=== PATIENT | male | born 1980 | race Caucasian/White ===

== ENCOUNTER 2024-01-16 19:31 | Inpatient (IN) | payer OTHER, SELFPAY ==
--- NOTE | 2024-01-16 18:42 | PM.EVENT ---
Documented by User: Sabina MccollumDaneShabbir, [employer] ANALYST 01/16/24 18:47 Event Note Date of Service: 01/16/24 Event Note: Case review with Dana, [facility] [place] [phone]. 43 yo male, bipolar dx, opiate use d/o, alcohol use d/o, stable epilepsy, admit 01/11 s/p OD Mucinex. Current Section XII. Pt completed phenobarbital detox, CIWA discontinued. By hx pt has malingering. He has been med seeking, asking for benzos seroquel-they have given seroquel 50 mg q 8 prn. Medically he is stable with regime of suboxone, clonidine, folate, MVI, thiamine, Chlorpromazine, Hydroxyzine. For agitation they have used prn Seroquel, for persistant agitation 50 mg Chlorpromazine, for refractory agitation Haldol 5 mg (not used) and Ativan 0.5 mg x 1 dose on 01/14. Time Spent With Patient Time: Total time managing care of this patient today ____ minutes. Documented by User: Deon Baker MD 01/16/24 19:07 Event Note Date of Service: 01/16/24
--- OUTSIDE RECORDS SUMMARY | 2024-01-16 19:34 | XMS_ITS | Continuity of Care Document ---
Author Organization [facility] Address [address] [place] [address] Phone Care Team Providers Care Washer Meat Name Role Phone Pcp-MD Archie Galeana Primary Care Provider Unavailabl e Hospitalist, Model (IS ONLY) Emergency Provider Unavailable MD Krzysztof So Other Provider MD Zeke Perkins Attending Provider DO Lizandro Sandhu Emergency Provider MD Jen Rausch Attending Provider MD Kulwinder Zuniga Other Provider MD Elliot Fulton Other Provider MD Shannan Best Attending Provider [phone] MD Andrea Avelar Emergency Provider [phone] Kaskar, MD Bilal Attending Provider Unavailable MD Neftali Livingston Attending Provider Care Teams Patient Care Team Team Status: Active Member Role Status Dates PcpMD Mariaa Primary Care Provider Active Visit Care Team Team Status: Inactive Member Role Status Dates PcpMD Mariaa Primary Care Provider Active St art: June 16, 2023 End: June 19, 2023 Model (IS ONLY) Hospitalist Emergency Provider Active Start: June 16, 2023 End: June 19, 2023 Jen Kelley MD Admit Provider Active Start: Christiana mbchon 2022 End: June 19, 2023 Krzysztof So MD Other Provider Active Start: D ecember 2022 End: June 19, 2023 Zeke Perkins MD Attending Provider Active Sta rt: June 16, 2023 End: June 19, 2023 Visit Care Team Team Status: Inactive Member Role Status Dates PcpMD Mariaa Primary Care Provider Active St art: June 19, 2023 End: June 20, 2023 Lizandro Sandhu DO Emergency Provider Active St art: June 19, 2023 End: June 20, 2023 Visit Care Team Team Status: Inactive Member Role Status Dates PcpMD Mariaa Primary Care Provider Active St art: June 20, 2023 End: June 25, 2023 Mary Forte MD Admit Provider Active Start : June 20, 2023 End: June 25, 2023 Model (IS ONLY) Hospitalist Emergency Provider Active Start: June 20, 2023 End: June 25, 2023 Jen Rausch MD Attending Provider Active Star t: June 20, 2023 End: June 25, 2023 Kulwinder Zuniga MD Other Provider Active Start: June 20, 2023 End: June 25, 2023 Visit Care Team Team Status: Inactive Member Role Status Dates Md Alicia MD Primary Care Provider Active St art: June 26, 2023 End: June 27, 2023 Model (IS ONLY) Hospitalist Emergency Provider Active Start: June 26, 2023 End: June 27, 2023 Kulwinder Zuniga MD Other Provider Active Start: June 26, 2023 End: June 27, 2023 Mary Forte MD Admit Provider Active Start : June 26, 2023 End: June 27, 2023 Elliot Fulton MD Other Provider Active Start: June 26, 2023 End: June 27, 2023 Shannan Best MD Attending Provider Active Start: June 26, 2023 End: June 27, 2023 Visit Care Team Team Status: Inactive Member Role Status Dates Pcp-None , Primary Care Provider Active St art: June 28, 2023 End: June 28, 2023 Lizandro Sandhu DO Emergency Provider Active St art: June 28, 2023 End: June 28, 2023 Visit Care Team Team Status: Inactive Member Role Status Dates Pcp-None , Primary Care Provider Active St art: June 28, 2023 End: June 29, 2023 Andrea Avelar MD Emergency Provider Active St art: June 28, 2023 End: June 29, 2023 Fabián Tolliver MD Admit Provider, Atte nding Provider Active Start: June 28, 2023 End: June 29, 2023 Cristiano Hendrix MD, PGY Active Start: June End: June 29, 2023 Visit Care Team Team Status: Active Member Role Status Dates Pcp-None MD Primary Care Provider Active St art: July 02, 2023 Tricia Escobar MD Admit Provider Active Start: July 02, 2023 Model (IS ONLY) Hospitalist Emergency Provider Active Start: July 02, 2023 Neftali Livingston MD Attending Provider Active S tart: July 02, 2023 Krzysztof So MD Other Provider Active Start: D ecember 2022 Chief Complaint and Reason for Visit Chief Complaint ALCOHOL WITHDRAWAL S EIZURE UNRESPONSIVE ALTERED MENTAL STATUS SEIZURE Seizure RECURRENT SEIZURES BILATERAL LOWER EXTREMITY PAIN Reason for Visit Seizure disorder Alcohol withdrawal seizure Cocaine use with intoxication, uncomplicated Hypomagnesemia Hyponatremia Seizure disorder Alcohol intoxication Alcohol withdrawal Wernicke encephalopathy Recurrent seizures Alcohol withdrawal Seizure Iron deficiency anemia Recurrent seizures Seizure disorder Alcohol withdrawal Seizure-like activity Leg pain Allergies, Adverse Reactions, Alerts No known allergies Social History Smoking Status Status Start Date End Date Date of Observa tion Unknown if ever smoked Decem parrish 2022 8:16am Observation Status Observation Response Date of Response Living Situation Residential June 17, 2023 8:35am Living Situation Other June 23, 2023 11:35am Is Anyone Dependent on your Care? No June 27, 2023 3:23am Living Situation Homeless June 27, 2023 3:23am Living Situation Homeless June 28, 2023 5:55am Living Situation Homeless June 29, 2023 9:18am Lives With Other June 29, 2 023 8:16am Additional Data Assigned Sex Male Problems Active Problems Medical Problem Onset Date Status Leg pain Active Cocaine abuse Active Alcohol use disorder Active Recurrent seizures Active Seizure disorder Active Iron deficiency anemia Active Bipolar 1 disorder Active Inactive/Resolved Problems Medical Problem Onset Date Status Seizure-like activity Resolved Wernicke encephalopathy Resolved Alcohol withdrawal Resolved Alcohol intoxication Resolved Cocaine use with intoxication, uncomplicated Resolved Hyponatremia Resolved Seizure Resolved Alcohol withdrawal seizure Resol perry Patient left without being seen Resolved Patient left without being seen Resolved Hypomagnesemia Resolved Medications Medication Status Dose Units Route Directions Qty Days St art Date End Date Instructions Quetiapine Disconti nued 25 MG PO ONCE DAILY AT BEDTIME [facility] 2022 12:00am [facility] 2022 9:55am Levetiracetam Disconti nued 500 MG PO TWICE A DAY [facility] 2022 12:00am [facility] er 2022 9:23am Clobetasol Disconti nued 1 APPL TOPICAL DAILY [facility] 9:55am Gabapentin Disconti nued 800 MG PO THREE TIMES A DAY [facility] 2022 12:00am [facility] er 2022 9:55am Meclizine Disconti nued 25 MG PO THREE TIMES A DAY [facility] 2022 12:00am [facility] er 2022 9:45am Azelastine Disconti nued 2 SPRAY intrana sol TWICE A DAY [facility] 2022 12:00am Decemb er 2022 8:37am Escitalopram Oxalate Disconti nued 10 MG PO DAILY [facility] 2022 12:00am [facility] er 2022 9:55am Thiamine Hcl (Vitamin B1) Disconti nued 100 MG PO DAILY [facility] 2022 12:00am Dece[facility] er 2022 8:37am OTC/Good Rx if not covered Levetiracetam Disconti nued 500 MG PO TWICE A DAY 180 90 [facility] r 2022 9:23am [facility] er 2022 9:28am Trazodone Active 50 MG PO ONCE DAILY AT BEDTIME 30 [facility] r 2022 12:00am Thiamine Hcl (Vitamin B1) Active 100 MG PO DAILY [facility] 2022 12:00am Nicotine Active 1 PATCH TRANSDE RM DAILY 20 [facility] r 2022 12:00am Folic Acid Active 1 MG PO DAILY 30 [facility] r 2022 12:00am Risperidone Active 1 MG PO TWICE A DAY 60 [facility] r 2022 12:00am Acetaminophen Active 650 MG PO EVERY 6 HOURS [facility] r 2022 12:00am Levetiracetam Disconti nued 750 MG PO EVERY 12 HOURS 60 [facility] r 2022 12:00am [facility] er 2022 2:26pm Multivitamin With Folic Acid (Thera) 400 mcg Tablet Active 1 TAB PO DAILY 30 [facility] r 2022 12:00am Sennosides (Senna Lax) 8.6 mg Tablet Active 17.2 MG PO ONCE DAILY AT BEDTIME 60 [facility] r 2022 12:00am Omeprazole Active 20 MG PO DAILY 30 [facility] r 2022 12:00am Quetiapine Active 25 MG PO ONCE SOHA Y AT BEDTIME 30 [facility] r 2022 9:55am Sertraline Active 100 MG PO DAILY 30 [facility] r 2022 9:55am Clobetasol Active 1 APPL TOPICAL DAILY [facility] 2022 9:55am Gabapentin Active 800 MG PO THREE MARY ES A DAY 90 [facility] r 2022 9:55am Escitalopram Oxalate Active 10 MG PO DAILY 30 [facility] r 2022 9:55am Levetiracetam Disconti nued 1000 MG PO ONCE DAILY AT BEDTIME [facility] r 2022 12:00am [facility] er 2022 9:51am Levetiracetam Active 1000 MG PO EVERY 12 HOURS 60 [facility] r 2022 12:00am Procedures Procedure Date Performed Status CT head/brain wo contrast June 16, 2023 9: 01am completed EKG ED Electrocardiogram June 16, 2023 9:4 7am completed XR KUB portable June 17, 2023 10:38am comp leted XR chest 1V portable June 17, 2023 10:38am completed MR head/brain wo contrast June 18, 2023 12 :00pm completed CT head/brain wo contrast June 20, 2023 10 :10pm completed EKG ED Electrocardiogram June 20, 2023 10: 10pm completed CT cervical spine wo contrast June 20 10:16pm completed CT head/brain wo contrast June 20, 2023 1: 17am completed EKG ED Electrocardiogram June 20, 2023 1:1 6am completed MR head/brain wo/w contrast June 20, 2023 10:54am completed EKG ED Electrocardiogram June 25, 2023 2:[address] head/brain wo contrast June 25, 2023 2: 11pm completed EKG Electrocardiogram June 28, 2023 5:[address] lumbar spine wo contrast July 01, 2023 10:15pm completed CT head/brain wo contrast July 01, 2023 10 :27pm completed CT angio head stroke July 01, 2023 11:06pm completed CT angio neck stroke July 01, 2023 11:06pm completed MR head/brain wo contrast July 02, 2023 5: 47am active MR lumbar spine wo contrast July 02, 2023 5:47am active EEG Request for service June 28, 2023 2:11 pm active EKG Electrocardiogram June 28, 2023 3:14pm active EEG extended to 1 hour June 28, 2023 12:00 am completed Relevant Diagnostic Tests and/or Laboratory Data Laboratory Results Test Date/Time Result Interpretation Reference Range Result Comment Performing Site Add-On Test Request June 18, 2023 11:40am Added test [facility] [id number] [address] [facility] [id number] Add-On Test Request June 20, 2023 2:42am Unable to add test [facility] [id number] [address] [facility] [id number] Add-On Test Request June 23, 2023 10:14am Added test [facility] [id number] [address] [facility] 23343 White Blood Count June 17, 2023 5:43am 7.9 X10 3/uL 4.5-11.0 [facility] [id number] [address] [place] [address] 50103 White Blood Count June 19, 2023 11:45pm 8.8 X10 3/uL 4.5-11.0 [facility] [id number] [address] [place] [address] 62407 White Blood Count June 22, 2023 8:41am 5.9 X10 3/uL 4.5-11.0 [facility] [id number] [address] [place] [address] 61266 White Blood Count June 26, 2023 7:38am 6.8 X10 3/uL 4.5-11.0 [facility] [id number] [address] [place] [address] 46773 White Blood Count June 28, 2023 6:27am 7.2 X10 3/uL 4.5-11.0 [facility] [id number] [address] [place] [address] 39297 White Blood Count June 29, 2023 7:48am 7.2 X10 3/uL 4.5-11.0 [facility] [id number] [address] [place] [address] 86447 White Blood Count July 02, 2023 12:16am 9.8 X10 3/uL 4.5-11.0 [facility] [id number] [address] [place] [address] 11083 Red Blood Count June 17, 2023 5:43am 4.82 X10 6/uL 4.00-5.50 [facility] [id number] [address] [place] [address] 75958 Red Blood Count June 19, 2023 11:45pm 5.32 X10 6/uL 4.00-5.50 [facility] [id number] [address] [place] [address] 78581 Red Blood Count June 22, 2023 8:41am 5.27 X10 6/uL 4.00-5.50 [facility] [id number] [address] [place] [address] 33013 Red Blood Count June 26, 2023 7:38am 4.45 X10 6/uL 4.00-5.50 [facility] [id number] [address] [place] [address] 00464 Red Blood Count June 28, 2023 6:27am 4.98 X10 6/uL 4.00-5.50 [facility] [id number] [address] [place] [address] 24359 Red Blood Count June 29, 2023 7:48am 4.61 X10 6/uL 4.00-5.50 [facility] [id number] [address] [place] [address] 78422 Red Blood Count July 02, 2023 12:16am 4.69 X10 6/uL 4.00-5.50 [facility] [id number] [address] [place] [address] 79899 Hemoglobin June 17, 2023 5:43am 9.4 g/dl 13.0-17.0 [facility] [id number] [address] [place] [address] 39623 Hemoglobin June 19, 2023 11:45pm 10.3 g/dl 13.0-17.0 [facility] [id number] [address] [place] [address] 20309 Hemoglobin June 22, 2023 8:41am 10.2 g/dl 13.0-17.0 [facility] [id number] [address] [place] [address] 59066 Hemoglobin June 26, 2023 7:38am 8.8 g/dl 13.0-17.0 [facility] [id number] [address] [place] [address] 46174 Hemoglobin June 28, 2023 6:27am 9.8 g/dl 13.0-17.0 [facility] [id number] [address] [place] [address] 99673 Hemoglobin June 29, 2023 7:48am 9.2 g/dl 13.0-17.0 [facility] [id number] [address] [place] [address] 24413 Hemoglobin July 02, 2023 12:16am 9.2 g/dl 13.0-17.0 [facility] [id number] [address] [facility] 63593 Hematocrit June 17, 2023 5:43am 31.8 % 37.5-50.0 [facility] [id number] [address] [facility] 02201 Hematocrit June 19, 2023 11:45pm 35.3 % 37.5-50.0 [facility] [id number] [address] [facility] 33919 Hematocrit June 22, 2023 8:41am 35.3 % 37.5-50.0 [facility] [id number] [address] [place] [address] 67720 Hematocrit June 26, 2023 7:38am 30.3 % 37.5-50.0 [facility] [id number] [address] [place] [address] 34758 Hematocrit June 28, 2023 6:27am 34.0 % 37.5-50.0 [facility] [id number] [address] [place] [address] 11761 Hematocrit June 29, 2023 7:48am 31.9 % 37.5-50.0 [facility] [id number] [address] [place] [address] 35106 Hematocrit July 02, 2023 12:16am 33.2 % 37.5-50.0 [facility] [id number] [address] [place] [address] 02363 Mean Corpuscular Volume June 17, 2023 5:43am 66.0 fl 80.0-100.0 [facility] [id number] [address] [place] [address] 29335 Mean Corpuscular Volume June 19, 2023 11:45pm 66.4 fl 80.0-100.0 [facility] [id number] [address] [place] [address] 39660 Mean Corpuscular Volume June 22, 2023 8:41am 67.0 fl 80.0-100.0 [facility] [id number] [address] [place] [address] 03833 Mean Corpuscular Volume June 26, 2023 7:38am 68.1 fl 80.0-100.0 [facility] [id number] [address] [facility] 07451 Mean Corpuscular Volume June 28, 2023 6:27am 68.3 fl 80.0-100.0 [facility] [id number] [address] [facility] 56963 Mean Corpuscular Volume June 29, 2023 7:48am 69.2 fl 80.0-100.0 [facility] [id number] [address] [place] [address] 19279 Mean Corpuscular Volume July 02, 2023 12:16am 70.8 fl 80.0-100.0 [facility] [id number] [address] [place] [address] 18374 Mean Corpuscular Hemoglobin June 17, 2023 5:43am 19.5 pg 27.0-34.0 [facility] [id number] [address] [facility] 35937 Mean Corpuscular Hemoglobin June 19, 2023 11:45pm 19.4 pg 27.0-34.0 [facility] [id number] [address] [facility] 35302 Mean Corpuscular Hemoglobin June 22, 2023 8:41am 19.4 pg 27.0-34.0 [facility] [id number] [address] [facility] 59256 Mean Corpuscular Hemoglobin June 26, 2023 7:38am 19.8 pg 27.0-34.0 [facility] [id number] [address] [facility] 50912 Mean Corpuscular Hemoglobin June 28, 2023 6:27am 19.7 pg 27.0-34.0 [facility] [id number] [address] [facility] 11630 Mean Corpuscular Hemoglobin June 29, 2023 7:48am 20.0 pg 27.0-34.0 [facility] [id number] [address] [place] [address] 46840 Mean Corpuscular Hemoglobin July 02, 2023 12:16am 19.6 pg 27.0-34.0 [facility] [id number] [address] [facility] 43035 Mean Corpuscular Hemoglobin Concent June 17, 2023 5:43am 29.6 g/dl 31.0-36.0 [facility] [id number] [address] [facility] 96758 Mean Corpuscular Hemoglobin Concent June 19, 2023 11:45pm 29.2 g/dl 31.0-36.0 [facility] [id number] [address] [place] [address] 91970 Mean Corpuscular Hemoglobin Concent June 22, 2023 8:41am 28.9 g/dl 31.0-36.0 [facility] [id number] [address] [place] [address] 26022 Mean Corpuscular Hemoglobin Concent June 26, 2023 7:38am 29.0 g/dl 31.0-36.0 [facility] [id number] [address] [place] [address] 76893 Mean Corpuscular Hemoglobin Concent June 28, 2023 6:27am 28.8 g/dl 31.0-36.0 [facility] [id number] [address] [place] [address] 05448 Mean Corpuscular Hemoglobin Concent June 29, 2023 7:48am 28.8 g/dl 31.0-36.0 [facility] [id number] [address] [place] [address] 58093 Mean Corpuscular Hemoglobin Concent July 02, 2023 12:16am 27.7 g/dl 31.0-36.0 [facility] [id number] [address] [place] [address] 84330 Red Cell Distribution Width June 17, 2023 5:43am 21.3 % 11.5-15.0 [facility] [id number] [address] [place] [address] 95933 Red Cell Distribution Width June 19, 2023 11:45pm 21.1 % 11.5-15.0 [facility] [id number] [address] [place] [address] 51559 Red Cell Distribution Width June 22, 2023 8:41am 21.0 % 11.5-15.0 [facility] [id number] [address] [facility] 61126 Red Cell Distribution Width June 26, 2023 7:38am 19.8 % 11.5-15.0 [facility] [id number] [address] [place] [address] 71068 Red Cell Distribution Width June 28, 2023 6:27am 20.3 % 11.5-15.0 [facility] [id number] [address] [place] [address] 11310 Red Cell Distribution Width June 29, 2023 7:48am 19.7 % 11.5-15.0 [facility] [id number] [address] [place] [address] 44068 Red Cell Distribution Width July 02, 2023 12:16am 19.6 % 11.5-15.0 [facility] [id number] [address] [place] [address] 21357 Platelet Count June 17, 2023 5:43am 334 X10 3/uL 150-400 [facility] [id number] [address] [place] [address] 02698 Platelet Count June 19, 2023 11:45pm 353 X10 3/uL 150-400 [facility] [id number] [address] [place] [address] 97699 Platelet Count June 22, 2023 8:41am 356 X10 3/uL 150-400 [facility] [id number] [address] [place] [address] 77679 Platelet Count June 26, 2023 7:38am 386 X10 3/uL 150-400 [facility] [id number] [address] [place] [address] 75941 Platelet Count June 28, 2023 6:27am 415 X10 3/uL 150-400 [facility] [id number] [address] [place] [address] 02995 Platelet Count June 29, 2023 7:48am 438 X10 3/uL 150-400 [facility] [id number] [address] [place] [address] 48439 Platelet Count July 02, 2023 12:16am 520 X10 3/uL 150-400 [facility] [id number] [address] [place] [address] 44559 Immature Granulocyte % (Auto) June 17, 2023 5:43am 0.1 % [facility] [id number] [address] [place] [address] 94770 Immature Granulocyte % (Auto) June 19, 2023 11:45pm 0.2 % [facility] [id number] [address] [place] [address] 80378 Immature Granulocyte % (Auto) June 22, 2023 8:41am 0.2 % [facility] [id number] [address] [place] [address] 64978 Immature Granulocyte % (Auto) June 26, 2023 7:38am 0.1 % [facility] [id number] [address] [place] [address] 03543 Immature Granulocyte % (Auto) June 28, 2023 6:27am 0.3 % [facility] [id number] [address] [place] [address] 64010 Immature Granulocyte % (Auto) June 29, 2023 7:48am 0.3 % [facility] [id number] [address] [facility] 09849 Immature Granulocyte % (Auto) July 02, 2023 12:16am 0.3 % [facility] [id number] [address] [place] [address] 48549 Neutrophils (%) (Auto) June 17, 2023 5:43am 60.4 % [facility] [id number] [address] [place] [address] 00691 Neutrophils (%) (Auto) June 19, 2023 11:45pm 74.5 % [facility] [id number] [address] [place] [address] 35449 Neutrophils (%) (Auto) June 22, 2023 8:41am 64.7 % [facility] [id number] [address] [place] [address] 64550 Neutrophils (%) (Auto) June 26, 2023 7:38am 66.8 % [facility] [id number] [address] [place] [address] 22221 Neutrophils (%) (Auto) June 28, 2023 6:27am 61.3 % [facility] [id number] [address] [place] [address] 81516 Neutrophils (%) (Auto) June 29, 2023 7:48am 65.8 % [facility] [id number] [address] [facility] 27362 Neutrophils (%) (Auto) July 02, 2023 12:16am 75.4 % [facility] [id number] [address] [place] [address] 67302 Lymphocytes (%) (Auto) June 17, 2023 5:43am 26.2 % [place] [id number] [place] [address] 43607 Lymphocytes (%) (Auto) June 19, 2023 11:45pm 16.9 % [place] [id number] [address] [place] [address] 83836 Lymphocytes (%) (Auto) June 22, 2023 8:41am 20.6 % [facility] [id number] [address] [place] [address] 72425 Lymphocytes (%) (Auto) June 26, 2023 7:38am 21.9 % [place] [id number] [address] [place] [address] 12685 Lymphocytes (%) (Auto) June 28, 2023 6:27am 24.8 % [facility] [id number] [address] [place] [address] 60046 Lymphocytes (%) (Auto) June 29, 2023 7:48am 22.4 % [facility] [id number] [address] [facility] 79006 Lymphocytes (%) (Auto) July 02, 2023 12:16am 13.7 % [facility] [id number] [address] [place] [address] 01015 Monocytes (%) (Auto) June 17, 2023 5:43am 8.6 % [facility] [id number] [address] [place] [address] 15146 Monocytes (%) (Auto) June 19, 2023 11:45pm 6.1 % [place] [id number] [address] [place] [address] 83176 Monocytes (%) (Auto) June 22, 2023 8:41am 9.5 % [facility] [id number] [address] [place] [address] 22077 Monocytes (%) (Auto) June 26, 2023 7:38am 8.7 % [facility] [id number] [address] [place] [address] 67012 Monocytes (%) (Auto) June 28, 2023 6:27am 10.4 % [facility] [id number] [address] [place] [address] 59620 Monocytes (%) (Auto) June 29, 2023 7:48am 7.2 % [facility] [id number] [address] [place] [address] 91700 Monocytes (%) (Auto) July 02, 2023 12:16am 8.0 % [place] [id number] [address] [place] [address] 85544 Eosinophils (%) (Auto) June 17, 2023 5:43am 3.7 % [facility] [id number] [address] [place] [address] 47410 Eosinophils (%) (Auto) June 19, 2023 11:45pm 1.2 % [facility] [id number] [address] [place] [address] 25877 Eosinophils (%) (Auto) June 22, 2023 8:41am 3.6 % [facility] [id number] [address] [place] [address] 92854 Eosinophils (%) (Auto) June 26, 2023 7:38am 1.5 % [facility] [id number] [address] [place] [address] 93920 Eosinophils (%) (Auto) June 28, 2023 6:27am 2.4 % [place] [id number] [address] [place] [address] 06634 Eosinophils (%) (Auto) June 29, 2023 7:48am 3.3 % [facility] [id number] [address] [place] [address] 34275 Eosinophils (%) (Auto) July 02, 2023 12:16am 1.7 % [facility] [id number] [address] [place] [address] 12745 Basophils (%) (Auto) June 17, 2023 5:43am 1.0 % [facility] [id number] [address] [place] [address] 81492 Basophils (%) (Auto) June 19, 2023 11:45pm 1.1 % [facility] [id number] [address] [place] [address] 46426 Basophils (%) (Auto) June 22, 2023 8:41am 1.4 % [facility] [id number] [address] [place] [address] 93757 Basophils (%) (Auto) June 26, 2023 7:38am 1.0 % [facility] [id number] [address] [place] [address] 97159 Basophils (%) (Auto) June 28, 2023 6:27am 0.8 % [facility] [id number] [address] [place] [address] 16682 Basophils (%) (Auto) June 29, 2023 7:48am 1.0 % [facility] [id number] [address] [place] [address] 54463 Basophils (%) (Auto) July 02, 2023 12:16am 0.9 % [facility] [id number] [address] [place], [place] [address] 55564 Immature Granulocyte # (Auto) June 17, 2023 5:43am 0.01 X10 3/uL 0.00-0.09 [facility] [id number] [address] [place] [address] 62677 Immature Granulocyte # (Auto) June 19, 2023 11:45pm 0.02 X10 3/uL 0.00-0.09 [facility] [id number] [address] [place] [address] 72932 Immature Granulocyte # (Auto) June 22, 2023 8:41am 0.01 X10 3/uL 0.00-0.09 [facility] [id number] [address] [place] [address] 67291 Immature Granulocyte # (Auto) June 26, 2023 7:38am 0.01 X10 3/uL 0.00-0.09 [facility] [id number] [address] [place] [address] 65677 Immature Granulocyte # (Auto) June 28, 2023 6:27am 0.02 X10 3/uL 0.00-0.09 [facility] [id number] [address] [place] [address] 67612 Immature Granulocyte # (Auto) June 29, 2023 7:48am 0.02 X10 3/uL 0.00-0.09 [facility] [id number] [address] [place] [address] 34343 Immature Granulocyte # (Auto) July 02, 2023 12:16am 0.03 X10 3/uL 0.00-0.09 [facility] [id number] [address] [place] [address] 46008 Neutrophils # (Auto) June 17, 2023 5:43am 4.8 X10 3/uL 1.5-7.8 [facility] [id number] [address] [place] [address] 82153 Neutrophils # (Auto) June 19, 2023 11:45pm 6.6 X10 3/uL 1.5-7.8 [facility] [id number] [address] [place] [address] 82740 Neutrophils # (Auto) June 22, 2023 8:41am 3.8 X10 3/uL 1.5-7.8 [facility] [id number] [address] [place] [address] 56020 Neutrophils # (Auto) June 26, 2023 7:38am 4.5 X10 3/uL 1.5-7.8 [facility] [id number] [address] [place] [address] 57980 Neutrophils # (Auto) June 28, 2023 6:27am 4.4 X10 3/uL 1.5-7.8 [facility] [id number] [address] [place] [address] 63869 Neutrophils # (Auto) June 29, 2023 7:48am 4.7 X10 3/uL 1.5-7.8 [facility] [id number] [address] [place] [address] 65930 Neutrophils # (Auto) July 02, 2023 12:16am 7.3 X10 3/uL 1.5-7.8 [facility] [id number] [address] [place] [address] 01705 Lymphocytes # (Auto) June 17, 2023 5:43am 2.1 X10 3/uL 1.0-4.8 [facility] [id number] [address] [place] [address] 17946 Lymphocytes # (Auto) June 19, 2023 11:45pm 1.5 X10 3/uL 1.0-4.8 [facility] [id number] [address] [place] [address] 10863 Lymphocytes # (Auto) June 22, 2023 8:41am 1.2 X10 3/uL 1.0-4.8 [facility] [id number] [address] [place] [address] 42255 Lymphocytes # (Auto) June 26, 2023 7:38am 1.5 X10 3/uL 1.0-4.8 [facility] [id number] [address] [place] [address] 64728 Lymphocytes # (Auto) June 28, 2023 6:27am 1.8 X10 3/uL 1.0-4.8 [facility] [id number] [address] [place] [address] 93145 Lymphocytes # (Auto) June 29, 2023 7:48am 1.6 X10 3/uL 1.0-4.8 [facility] [id number] [address] [place] [address] 68038 Lymphocytes # (Auto) July 02, 2023 12:16am 1.3 X10 3/uL 1.0-4.8 [facility] [id number] [address] [place] [address] 37495 Monocytes # (Auto) June 17, 2023 5:43am 0.7 X10 3/uL 0.0-0.8 [facility] [id number] [address] [place] [address] 17690 Monocytes # (Auto) June 19, 2023 11:45pm 0.5 X10 3/uL 0.0-0.8 [facility] [id number] [address] [place] [address] 56914 Monocytes # (Auto) June 22, 2023 8:41am 0.6 X10 3/uL 0.0-0.8 [facility] [id number] [address] [place] [address] 28703 Monocytes # (Auto) June 26, 2023 7:38am 0.6 X10 3/uL 0.0-0.8 [facility] [id number] [address] [place] [address] 51522 Monocytes # (Auto) June 28, 2023 6:27am 0.8 X10 3/uL 0.0-0.8 [facility] [id number] [address] [place] [address] 11386 Monocytes # (Auto) June 29, 2023 7:48am 0.5 X10 3/uL 0.0-0.8 [facility] [id number] [address] [place] [address] 33823 Monocytes # (Auto) July 02, 2023 12:16am 0.8 X10 3/uL 0.0-0.8 [facility] [id number] [address] [place] [address] 64090 Eosinophils # (Auto) June 17, 2023 5:43am 0.3 X10 3/uL 0.0-0.5 [facility] [id number] [address] [place] [address] 09441 Eosinophils # (Auto) June 19, 2023 11:45pm 0.1 X10 3/uL 0.0-0.5 [facility] [id number] [address] [place] [address] 01001 Eosinophils # (Auto) June 22, 2023 8:41am 0.2 X10 3/uL 0.0-0.5 [facility] [id number] [address] [place] [address] 73563 Eosinophils # (Auto) June 26, 2023 7:38am 0.1 X10 3/uL 0.0-0.5 [facility] [id number] [address] [place] [address] 20686 Eosinophils # (Auto) June 28, 2023 6:27am 0.2 X10 3/uL 0.0-0.5 [facility] [id number] [address] [place] [address] 34664 Eosinophils # (Auto) June 29, 2023 7:48am 0.2 X10 3/uL 0.0-0.5 [facility] [id number] [address] [place] [address] 63319 Eosinophils # (Auto) July 02, 2023 12:16am 0.2 X10 3/uL 0.0-0.5 [facility] [id number] [place] [address] 37224 Basophils # (Auto) June 17, 2023 5:43am 0.1 X10 3/uL 0.0-0.2 [facility] [id number] [address] [place] [address] 89450 Basophils # (Auto) June 19, 2023 11:45pm 0.1 X10 3/uL 0.0-0.2 [facility] [id number] [address] [place] [address] 60873 Basophils # (Auto) June 22, 2023 8:41am 0.1 X10 3/uL 0.0-0.2 [facility] [id number] [address] [place] [address] 43014 Basophils # (Auto) June 26, 2023 7:38am 0.1 X10 3/uL 0.0-0.2 [facility] [id number] [address] [place] [address] 88673 Basophils # (Auto) June 28, 2023 6:27am 0.1 X10 3/uL 0.0-0.2 [facility] [id number] [address] [place] [address] 55381 Basophils # (Auto) June 29, 2023 7:48am 0.1 X10 3/uL 0.0-0.2 [facility] [id number] [address] [place] [address] 67118 Basophils # (Auto) July 02, 2023 12:16am 0.1 X10 3/uL 0.0-0.2 [facility] [id number] [address] [facility] 58733 Nucleated Red Blood Cells % June 17, 2023 5:43am 0.0 /100 WBC 0.0-0.0 [facility] [id number] [address] [facility] 35554 Nucleated Red Blood Cells % June 19, 2023 11:45pm 0.0 /100 WBC 0.0-0.0 [facility] [id number] [address] [place] [address] 66899 Nucleated Red Blood Cells % June 22, 2023 8:41am 0.0 /100 WBC 0.0-0.0 [facility] [id number] [address] [place] [address] 10413 Nucleated Red Blood Cells % June 26, 2023 7:38am 0.0 /100 WBC 0.0-0.0 [facility] [id number] [address] [place] [address] 73719 Nucleated Red Blood Cells % June 28, 2023 6:27am 0.0 /100 WBC 0.0-0.0 [facility] [id number] [address] [place] [address] 31265 Nucleated Red Blood Cells % June 29, 2023 7:48am 0.0 /100 WBC 0.0-0.0 [facility] [id number] 6 [facility] 33657 Nucleated Red Blood Cells % July 02, 2023 12:16am 0.0 /100 WBC 0.0-0.0 [facility] [id number] [address] [place] [address] 46425 Prothrombin Time June 28, 2023 6:27am 10.8 Seconds 9.3-12.1 [facility] [id number] [address] [place] [address] 56774 Prothrombin Time July 02, 2023 12:16am 11.4 Seconds 9.3-12.1 [facility] [id number] [address] [place] [address] 98378 Prothromb Time International Ratio June 28, 2023 6:27am 1.0 0.9-1.2 Reference Interval is for non-anticoagulat ed patients.Suggest ed INR Therapeutic Range for Vitamin K antogonist therapy:LEVELS OF THERAPY INDICATIONS TARGET INR RANGEStandard Dose Venous Thrombosis, 2.0 - 3.0 Atrial Fibrillation, Pulmonary Embolism. High Dose Valvular Heart Disease, 2.5 - 3.5 Mechanical Heart, Intracardiac Thrombosis. [facility] [id number] [address] [place] [address] 42800 Prothromb Time International Ratio July 02, 2023 12:16am 1.1 0.9-1.2 Reference Interval is for non-anticoagulat ed patients.Suggest ed INR Therapeutic Range for Vitamin K antogonist therapy:LEVELS OF THERAPY INDICATIONS TARGET INR RANGEStandard Dose Venous Thrombosis, 2.0 - 3.0 Atrial Fibrillation, Pulmonary Embolism. High Dose Valvular Heart Disease, 2.5 - 3.5 Mechanical Heart, Intracardiac Thrombosis. [facility] [id number] [address] [place] [address] 49870 Sodium Level June 19, 2023 6:49am 142 mmol/L 137-146 [facility] [id number] [address] [place] [address] 40976 Sodium Level June 19, 2023 11:45pm 135 mmol/L 137-146 [facility] [id number] [address] [place] [address] 92248 Sodium Level June 23, 2023 6:12am 138 mmol/L 137-146 [facility] [id number] [address] [place] [address] 82490 Sodium Level June 27, 2023 11:35am 139 mmol/L 137-146 [facility] [id number] [address] [place] [address] 41830 Sodium Level June 28, 2023 6:27am 142 mmol/L 137-146 [facility] [id number] [address] [place] [address] 60830 Sodium Level June 29, 2023 7:48am 141 mmol/L 137-146 [facility] [id number] [address] [facility] 80783 Sodium Level July 02, 2023 12:16am 135 mmol/L 137-146 [facility] [id number] [address] [place] [address] 57613 Potassium Level June 19, 2023 6:49am 3.9 mmol/L 3.5-5.3 [facility] [id number] [address] [facility] 51001 Potassium Level June 19, 2023 11:45pm 4.1 mmol/L 3.5-5.3 [facility] [id number] [address] [place] [address] 83548 Potassium Level June 23, 2023 6:12am 3.9 mmol/L 3.5-5.3 [facility] [id number] [address] [place] [address] 11831 Potassium Level June 27, 2023 11:35am 4.5 mmol/L 3.5-5.3 [facility] [id number] [address] [place] [address] 31733 Potassium Level June 28, 2023 6:27am 4.8 mmol/L 3.5-5.3 Specimen hemolyzed, results affected [facility] [id number] [address] [place] [address] 08635 Potassium Level June 29, 2023 7:48am 4.1 mmol/L 3.5-5.3 [facility] [id number] [address] [facility] 38804 Potassium Level July 02, 2023 12:16am 3.6 mmol/L 3.5-5.3 [facility] [id number] [address] [place] [address] 18358 Chloride Level June 19, 2023 6:49am 104 mmol/L 98-107 [facility] [id number] [address] [place] [address] 64941 Chloride Level June 19, 2023 11:45pm 97 mmol/L 98-107 [facility] [id number] [address] [place] [address] 79713 Chloride Level June 23, 2023 6:12am 101 mmol/L 98-107 [facility] [id number] [address] [place] [address] 38094 Chloride Level June 27, 2023 11:35am 103 mmol/L 98-107 [facility] [id number] [address] [place] [address] 89921 Chloride Level June 28, 2023 6:27am 103 mmol/L 98-107 [facility] [id number] [address] [facility] 62731 Chloride Level June 29, 2023 7:48am 105 mmol/L 98-107 [facility] [id number] [address] [place] [address] 86495 Chloride Level July 02, 2023 12:16am 102 mmol/L 98-107 [facility] [id number] [address] [facility] 64943 Carbon Dioxide Level June 19, 2023 6:49am 28 mmol/L -32 [facility] [id number] [address] [place] [address] 07822 Carbon Dioxide Level June 19, 2023 11:45pm 25 mmol/L -32 [facility] [id number] [address] [place] [address] 18594 Carbon Dioxide Level June 23, 2023 6:12am 27 mmol/L -32 [facility] [id number] [address] [place] [address] 17690 Carbon Dioxide Level June 27, 2023 11:35am 28 mmol/L -32 [facility] [id number] [address] [place] [address] 92761 Carbon Dioxide Level June 28, 2023 6:27am 24 mmol/L 23-32 [facility] [id number] [address] [place] [address] 89330 Carbon Dioxide Level June 29, 2023 7:48am 27 mmol/L 23-32 [facility] [id number] [address] [place] [address] 93246 Carbon Dioxide Level July 02, 2023 12:16am 17 mmol/L -32 [facility] [id number] [address] [place] [address] 85663 Anion Gap June 19, 2023 6:49am 10 mmol/L -15 [facility] [id number] [address] [place] [address] 64841 Anion Gap June 19, 2023 11:45pm 13 mmol/L -15 [facility] [id number] [address] [place] [address] 02446 Anion Gap June 23, 2023 6:12am 10 mmol/L 11-18 [facility] [id number] [address] [facility] Anion Gap June 27, 2023 11:35am 8 mmol/L 11-18 [facility] [id number] [address] [facility] Anion Gap June 28, 2023 6:27am 15 mmol/L 11-18 [facility] [id number] [address] [facility] 02002 Anion Gap June 29, 2023 7:48am 9 mmol/L 11-18 [facility] [id number] [address] [place] [address] 74900 Anion Gap July 02, 2023 12:16am 16 mmol/L 11-18 [facility] [id number] [address] [place] [address] Blood Urea Nitrogen June 19, 2023 6:49am 9 mg/dl 11-28 [facility] [id number] [address] [place] [address] 93553 Blood Urea Nitrogen June 19, 2023 11:45pm 14 mg/dl 11-28 [facility] [id number] [address] [place] [address] 88482 Blood Urea Nitrogen June 23, 2023 6:12am 10 mg/dl 11-28 [facility] [id number] [address] [place] [address] 11530 Blood Urea Nitrogen June 27, 2023 11:35am 15 mg/dl 11-28 [facility] [id number] [address] [place] [address] 32900 Blood Urea Nitrogen June 28, 2023 6:27am 8 mg/dl 11-28 [facility] [id number] [address] [place] [address] 15859 Blood Urea Nitrogen June 29, 2023 7:48am 15 mg/dl 11-28 [facility] [id number] [address] [place] [address] 66962 Blood Urea Nitrogen July 02, 2023 12:16am 12 mg/dl 11-28 [facility] [id number] [address] [place] [address] 87380 Creatinine June 19, 2023 6:49am 0.7 mg/dL 0.6-1.4 [facility] [id number] [address] [place] [address] 40267 Creatinine June 19, 2023 11:45pm 0.8 mg/dL 0.6-1.4 [facility] [id number] [address] [place] [address] 29656 Creatinine June 23, 2023 6:12am 0.6 mg/dL 0.6-1.4 [facility] [id number] [address] [place] [address] 60084 Creatinine June 27, 2023 11:35am 0.6 mg/dL 0.6-1.4 [facility] [id number] [address] [place] [address] 55412 Creatinine June 28, 2023 6:27am 0.6 mg/dL 0.6-1.4 [facility] [id number] [address] [place] [address] 86289 Creatinine June 29, 2023 7:48am 0.6 mg/dL 0.6-1.4 [facility] [id number] [address] [place] [address] 71042 Creatinine July 02, 2023 12:16am 1.1 mg/dL 0.6-1.4 [facility] [id number] [address] [place] [address] 93735 Estimated Creatinine Clearance June 19, 2023 6:49am 165.0 ml/min This value is calculated by Cockcroft Gault Equation using ideal body weight. This result is dependent on an accurate patient height and weight which is obtained from patients medical record. Cockcroft, D.W. and M.H. Gault. Prediction of creatinine clearance from serum creatinine. Nephron. 1976. 16(1):31-41. 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 This result is dependent on an accurate patient height and weight which is obtained from patients medical record. Cockcroft, D.W. and M.H. Gault. Prediction of creatinine clearance from serum creatinine. Nephron. 1975. 16(1):-41. [facility] [id number] [address] [place] [address] 13767 Estimated Creatinine Clearance June 27, 2023 11:35am 203.8 ml/min This value is calculated by Cockcroft Gault Equation using ideal body weight. This result is dependent on an accurate patient height and weight which is obtained from patients medical record. Cockcroft, D.W. and M.H. Gault. Prediction of creatinine clearance from serum creatinine. Nephron. 1975. 16(1):31-41. [facility] [id number] [address] [place] [address] 89919 Estimated Creatinine Clearance June 28, 2023 6:27am 192.8 ml/min This value is calculated by Cockcroft Gault Equation using ideal body weight. This result is dependent on an accurate patient height and weight which is obtained from patients medical record. Cockcroft, D.W. and M.H. Gault. Prediction of creatinine clearance from serum creatinine. Nephron. 1975. 16(1):31-41. 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 Additional information can be found at:[email or web address] b_egfr_summary_f [email or web address] ([email or web address]) [facility] [id number] [address] [place] [address] 70109 Estimat Glomerular Filtration Rate June 19, 2023 11:45pm 115 >90 Reported eGFR is based on the CKD-EPI 2020 equation that does not use a race coefficient. Additional information can be found at:[email or web address] b_egfr_summary_f [email or web address].pdf ([email or web address]) [facility] [id number] [address] [place] [address] 87406 Estimat Glomerular Filtration Rate June 23, 2023 6:12am 125 >90 Reported eGFR is based on the CKD-EPI 2020 equation that does not use a race coefficient. Additional information can be found at:[email or web address] b_egfr_summary_f [email or web address].pdf ([email or web address]) [facility] [id number] [address] [place] [address] 13209 Estimat Glomerular Filtration Rate June 27, 2023 11:35am 125 >90 Reported eGFR is based on the CKD-EPI 2020 equation that does not use a race coefficient. Additional information can be found at:[email or web address] b_egfr_summary_f [email or web address].pdf ([email or web address]) [facility] [id number] [address] [place] [address] 63476 Estimat Glomerular Filtration Rate June 28, 2023 6:27am 125 >90 Reported eGFR is based on the CKD-EPI 2020 equation that does not use a race coefficient. Additional information can be found at:[email or web address] b_egfr_summary_f [email or web address].pdf ([email or web address]) [facility] [id number] [address] [place] [address] 79487 Estimat Glomerular Filtration Rate June 29, 2023 7:48am 125 >90 Reported eGFR is based on the CKD-EPI 2020 equation that does not use a race coefficient. Additional information can be found at:[email or web address] b_egfr_summary_f [email or web address].pdf ([email or web address]) [facility] [id number] [address] [place] [address] 41132 Estimat Glomerular Filtration Rate July 02, 2023 12:16am 87 >90 Reported eGFR is based on the CKD-EPI 2020 equation that does not use a race coefficient. Additional information can be found at:[id number]_[email or web address] b_egfr_summary_f [email or web address].pdf ([email or web address]) [facility] [id number] [address] [place] [address] 01053 BUN/Creatinine Ratio June 19, 2023 6:49am 12.9 10.0-20.0 [facility] [id number] [address] [place] [address] 88766 BUN/Creatinine Ratio June 19, 2023 11:45pm 17.5 10.0-20.0 [facility] [id number] [address] [place] [address] 21634 BUN/Creatinine Ratio June 23, 2023 6:12am 16.7 10.0-20.0 [facility] [id number] [address] [place] [address] 46438 BUN/Creatinine Ratio June 27, 2023 11:35am 25.0 10.0-20.0 [facility] [id number] [address] [place] [address] 64866 BUN/Creatinine Ratio June 28, 2023 6:27am 13.3 10.0-20.0 [facility] [id number] [address] [place] [address] 18419 BUN/Creatinine Ratio June 29, 2023 7:48am 25.0 10.0-20.0 [facility] [id number] [address] [place] [address] 48774 BUN/Creatinine Ratio July 02, 2023 12:16am 10.9 10.0-20.0 [facility] [id number] [address] [place] [address] 03002 Glucose Level June 19, 2023 6:49am 101 mg/dL 70-100 [facility] [id number] [address] [place] [address] 60889 Glucose Level June 19, 2023 11:45pm 94 mg/dL 70-100 [facility] [id number] [address] [place] [address] 28432 Glucose Level June 23, 2023 6:12am 98 mg/dL 70-100 [facility] [id number] [address] [facility] 55082 Glucose Level June 27, 2023 11:35am 95 mg/dL 70-100 [facility] [id number] [address] [facility] 15974 Glucose Level June 28, 2023 6:27am 105 mg/dL 70-100 [facility] [id number] [address] [place] [address] 20554 Glucose Level June 29, 2023 7:48am 104 mg/dL 70-100 [facility] [id number] [address] [facility] 89431 Glucose Level July 02, 2023 12:16am 82 mg/dL 70-100 [facility] [id number] [address] [place] [address] 19557 Lactic Acid Level June 16, 2023 11:13am 1.1 mmol/L >0.5 [facility] [id number] [address] [place] [address] 58554 Lactic Acid Level June 20, 2023 2:57pm 1.9 mmol/L >0.5 [facility] [id number] [address] [place] [address] 52755 Calcium Level June 19, 2023 6:49am 8.9 mg/dl 8.6-10.3 [facility] [id number] [address] [place] [address] 80261 Calcium Level June 19, 2023 11:45pm 8.8 mg/dl 8.6-10.3 [facility] [id number] [address] [place] [address] 53367 Calcium Level June 23, 2023 6:12am 8.9 mg/dl 8.6-10.3 [facility] [id number] [address] [place] [address] 08565 Calcium Level June 27, 2023 11:35am 8.6 mg/dl 8.6-10.3 [facility] [id number] [address] [place] [address] 72438 Calcium Level June 28, 2023 6:27am 8.9 mg/dl 8.6-10.3 [facility] [id number] [address] [place] [address] 98566 Calcium Level June 29, 2023 7:48am 8.5 mg/dl 8.6-10.3 [facility] [id number] [address] [place] [address] 13482 Calcium Level July 02, 2023 12:16am 8.5 mg/dl 8.6-10.3 [facility] [id number] [address] [place] [address] 71734 Phosphorus Level June 23, 2023 6:12am 3.7 mg/dL 2.5-4.5 [facility] [id number] [address] [place] [address] 84201 Phosphorus Level June 28, 2023 6:27am 4.5 mg/dL 2.5-4.5 [facility] [id number] [address] [place] [address] 68644 Phosphorus Level June 29, 2023 7:48am 4.4 mg/dL 2.5-4.5 [facility] [id number] [address] [place] [address] 57039 Magnesium Level June 19, 2023 6:49am 1.8 mg/dL 1.8-2.5 [facility] [id number] [address] [place] [address] 50752 Magnesium Level June 19, 2023 11:45pm 1.8 mg/dL 1.8-2.5 [facility] [id number] [address] [place] [address] 28299 Magnesium Level June 23, 2023 6:12am 2.0 mg/dL 1.8-2.5 [facility] [id number] [address] [place] [address] 92762 Magnesium Level June 27, 2023 11:35am 1.9 mg/dL 1.8-2.5 [facility] [id number] [address] [place] [address] 54421 Magnesium Level June 28, 2023 6:27am 1.8 mg/dL 1.8-2.5 [facility] [id number] [address] [place] [address] 11013 Magnesium Level June 29, 2023 7:48am 2.1 mg/dL 1.8-2.5 [facility] [id number] [address] [facility] 69716 Total Bilirubin June 18, 2023 5:55am < 0.2 mg/dl <1.1 [facility] [id number] [address] [place] [address] 00739 Total Bilirubin June 19, 2023 11:45pm 0.3 mg/dl <1.1 [facility] [id number] [address] [place] [address] 03878 Total Bilirubin June 23, 2023 6:12am < 0.2 mg/dl <1.1 [facility] [id number] [address] [place] [address] 29484 Total Bilirubin June 25, 2023 2:11pm < 0.2 mg/dl <1.1 [facility] [id number] [address] [place] [address] 92805 Total Bilirubin June 28, 2023 6:27am < 0.2 mg/dl <1.1 [facility] [id number] [address] [place] [address] 77156 Total Bilirubin June 29, 2023 7:48am < 0.2 mg/dl <1.1 [facility] [id number] [address] [place] [address] 14398 Total Bilirubin July 02, 2023 12:16am < 0.2 mg/dl <1.1 [facility] [id number] [address] [place] [address] 95435 Aspartate Amino Transf (AST/SGOT) June 18, 2023 5:55am 24 U/L [facility] [id number] [address] [place] [address] 22404 Aspartate Amino Transf (AST/SGOT) June 19, 2023 11:45pm 20 U/L [facility] [id number] [address] [place] [address] 59833 Aspartate Amino Transf (AST/SGOT) June 23, 2023 6:12am 13 U/L [facility] [id number] [address] [place] [address] 98639 Aspartate Amino Transf (AST/SGOT) June 25, 2023 2:11pm 19 U/L [facility] [id number] [address] [facility] 48119 Aspartate Amino Transf (AST/SGOT) June 28, 2023 6:27am 23 U/L 15 [facility] [id number] [address] [place] [address] 01091 Aspartate Amino Transf (AST/SGOT) June 29, 2023 7:48am 15 U/L 15 [facility] [id number] [address] [place] [address] 68210 Aspartate Amino Transf (AST/SGOT) July 02, 2023 12:16am 28 U/L [facility] [id number] [address] [place] [address] 88579 Alanine Aminotransfera se (ALT/SGPT) June 18, 2023 5:55am 18 U/L [facility] [id number] [address] [place] [address] 88290 Alanine Aminotransfera se (ALT/SGPT) June 19, 2023 11:45pm 19 U/L [facility] [id number] [address] [place] [address] 83017 Alanine Aminotransfera se (ALT/SGPT) June 23, 2023 6:12am 13 U/L [facility] [id number] [address] [place] [address] 20066 Alanine Aminotransfera se (ALT/SGPT) June 25, 2023 2:11pm 16 U/L -63 [facility] [id number] [address] [place] [address] 32525 Alanine Aminotransfera se (ALT/SGPT) June 28, 2023 6:27am 15 U/L 14-63 [facility] [id number] [address] [place] [address] 46244 Alanine Aminotransfera se (ALT/SGPT) June 29, 2023 7:48am 12 U/L - [facility] [id number] [address] [place] [address] 57411 Alanine Aminotransfera se (ALT/SGPT) July 02, 2023 12:16am 16 U/L 14-63 [facility] [id number] 235 [facility] 38287 Ammonia June 20, 2023 8:46am 12 umol/L 16-60 [facility] [id number] 235 [facility] 66891 Ammonia June 20, 2023 10:30pm 24 umol/L 16-60 [facility] [id number] [address] [facility] 83349 Ammonia June 25, 2023 9:16pm 12 umol/L 16-60 [facility] [id number] 235 [facility] 30665 Ammonia July 02, 2023 12:16am 29 umol/L 16-60 [facility] [id number] 235 [facility] 49072 Total Creatine Kinase June 23, 2023 6:12am 39 U/L 49-397 [facility] [id number] 235 [facility] 14019 Total Creatine Kinase June 27, 2023 11:35am 63 U/L 49-397 [facility] [id number] 235 [facility] 52932 Total Protein June 18, 2023 5:55am 6.1 g/dL 6.4-8.3 [facility] [id number] 235 [facility] 84176 Total Protein June 19, 2023 11:45pm 7.2 g/dL 6.4-8.3 [facility] [id number] 235 [facility] 60668 Total Protein June 23, 2023 6:12am 6.3 g/dL 6.4-8.3 [facility] [id number] 235 [facility] 86599 Total Protein June 25, 2023 2:11pm 6.7 g/dL 6.4-8.3 [facility] [id number] 235 [facility] 41547 Total Protein June 28, 2023 6:27am 6.7 g/dL 6.4-8.3 [facility] [id number] 235 [facility] 06391 Total Protein June 29, 2023 7:48am 6.0 g/dL 6.4-8.3 [facility] [id number] 7[address] [facility] 68132 Total Protein July 02, 2023 12:16am 7.4 g/dL 6.4-8.3 [facility] [id number] [address] [place] [address] 53559 Albumin June 18, 2023 5:55am 3.7 g/dl 4.0-5.0 [facility] [id number] [address] [place] [address] 30277 Albumin June 19, 2023 11:45pm 4.4 g/dl 4.0-5.0 [facility] [id number] [address] [place] [address] 62790 Albumin June 23, 2023 6:12am 3.9 g/dl 4.0-5.0 [facility] [id number] [address] [place] [address] 41559 Albumin June 25, 2023 2:11pm 4.0 g/dl 4.0-5.0 [facility] [id number] [address] [place] [address] 32580 Albumin June 28, 2023 6:27am 4.0 g/dl 4.0-5.0 [facility] [id number] [address] [place] [address] 61854 Albumin June 29, 2023 7:48am 3.6 g/dl 4.0-5.0 [facility] [id number] [address] [facility] 69616 Albumin July 02, 2023 12:16am 4.3 g/dl 4.0-5.0 [facility] [id number] [address] [place] [address] 13736 Albumin/Globul in Ratio June 18, 2023 5:55am 1.5 1.0-2.6 [facility] [id number] [address] [place] [address] 53400 Albumin/Globul in Ratio June 19, 2023 11:45pm 1.6 1.0-2.6 [facility] [id number] 235 [facility] 10743 Albumin/Globul in Ratio June 23, 2023 6:12am 1.6 1.0-2.6 [facility] [id number] 235 [facility] 67945 Albumin/Globul in Ratio June 25, 2023 2:11pm 1.5 1.0-2.6 [facility] [id number] 235 [facility] 77795 Albumin/Globul in Ratio June 28, 2023 6:27am 1.5 1.0-2.6 [facility] [id number] 235 [facility] 99383 Albumin/Globul in Ratio June 29, 2023 7:48am 1.5 1.0-2.6 [facility] [id number] [address] [place] [address] 22990 Albumin/Globul in Ratio July 02, 2023 12:16am 1.4 1.0-2.6 [facility] [id number] 235 [facility] 29048 Alkaline Phosphatase June 18, 2023 5:55am 47 U/L 40-129 [facility] [id number] [address] [facility] 98322 Alkaline Phosphatase June 19, 2023 11:45pm 53 U/L 40-129 [facility] [id number] 235 [facility] 43204 Alkaline Phosphatase June 23, 2023 6:12am 48 U/L 40-129 [facility] [id number] 235 [facility] 90413 Alkaline Phosphatase June 25, 2023 2:11pm 51 U/L 40-129 [facility] [id number] 235 [facility] 78152 Alkaline Phosphatase June 28, 2023 6:27am 49 U/L 40-129 [facility] [id number] 235 [facility] 54294 Alkaline Phosphatase June 29, 2023 7:48am 46 U/L 40-129 [facility] [id number] 7[address] [facility] 27368 Alkaline Phosphatase July 02, 2023 12:16am 53 U/L 40-129 [facility] [id number] [address] [place] [address] 87375 Lipase June 20, 2023 10:15pm 51 U/L 13-60 [facility] [id number] [address] [place] [address] 72752 Thyroid Stimulating Hormone (TSH) June 16, 2023 11:13am 1.55 uIU/mL 0.34-5.60 [facility] [id number] [address] [place] [address] 10265 Procalcitonin June 16, 2023 11:13am 0.03 ng/mL <0.10 [facility] [id number] [address] [place] [address] 50156 Bedside Glucose June 16, 2023 9:04am 75 mg/dl 70-100 NOTE: Any discrepancy between finger stick glucose result and patient's clinical presentation should be confirmed by the laboratory. [facility] [id number] [address] [place] [address] 30112 Bedside Glucose June 22, 2023 8:47pm 122 mg/dl 70-100 NOTE: Any discrepancy between finger stick glucose result and patient's clinical presentation should be confirmed by the laboratory. [facility] [id number] [address] [place] [address] 29385 Bedside Glucose June 28, 2023 5:22am 70 mg/dl 70-100 NOTE: Any discrepancy between finger stick glucose result and patient's clinical presentation should be confirmed by the laboratory. [facility] [id number] [address] [place] [address] 14877 Urine Amphetamines Screen June 16, 2023 9:45am Negative Negative Amphetamines Cutoff level 1000 ng/mL. [facility] [id number] [address] [place] [address] 53186 Urine Amphetamines Screen June 20, 2023 2:16am Negative Negative Amphetamines Cutoff level 1000 ng/mL. [facility] [id number] [address] [place] [address] 99692 Urine Amphetamines Screen June 25, 2023 6:58pm Negative Negative Amphetamines Cutoff level 1000 ng/mL. [facility] [id number] 235 [facility] 56375 Urine Methadone Screen June 16, 2023 9:45am Negative Negative Methadone Cutoff level 300 ng/mL [facility] [id number] 235 [facility] 32958 Urine Methadone Screen June 20, 2023 2:16am Negative Negative Methadone Cutoff level 300 ng/mL [facility] [id number] 235 [facility] 08415 Urine Methadone Screen June 25, 2023 6:58pm Negative Negative Methadone Cutoff level 300 ng/mL [facility] [id number] [address] [place] [address] 60442 Urine Oxycodone Screen June 16, 2023 9:45am Negative Negative Oxycontin/Oxycod one Cutoff level 100 ng/mL [facility] [id number] [address] [place] [address] 55940 Urine Oxycodone Screen June 20, 2023 2:16am Negative Negative Oxycontin/Oxycod one Cutoff level 100 ng/mL [facility] [id number] [address] [place] [address] 78677 Urine Oxycodone Screen June 25, 2023 6:58pm Negative Negative Oxycontin/Oxycod one Cutoff level 100 ng/mL [facility] [id number] [address] [place] [address] 82332 Urine Buprenorphine Screen June 16, 2023 9:45am Negative Negative Buprenorphine Cutoff level 5 ng/mL [facility] [id number] [address] [place] [address] 97658 Urine Buprenorphine Screen June 20, 2023 2:16am Negative Negative Buprenorphine Cutoff level 5 ng/mL [facility] [id number] [address] [place] [address] 59099 Urine Buprenorphine Screen June 25, 2023 6:58pm Negative Negative Buprenorphine Cutoff level 5 ng/mL [facility] [id number] [address] [place] [address] 90487 Salicylates Level June 19, 2023 11:45pm < 1.0 mg/dL Salicylate Reference Range: Negative <1.0 mg/dL Therapeutic Range: 2.0-20.0 mg/dL [facility] [id number] [address] [place] [address] 81216 Salicylates Level June 25, 2023 2:11pm < 1.0 mg/dL Salicylate Reference Range: Negative <1.0 mg/dL Therapeutic Range: 2.0-20.0 mg/dL [facility] [id number] [address] [place] [address] 24908 Urine Opiates Screen June 16, 2023 9:45am Negative Negative Opiate Cutoff level 300 ng/mLOxycontin/O xycodone is not detected below the threshold of20,000 ng/mL [facility] [id number] [address] [place] [address] 17075 Urine Opiates Screen June 20, 2023 2:16am Negative Negative Opiate Cutoff level 300 ng/mLOxycontin/O xycodone is not detected below the threshold of20,000 ng/mL [facility] [id number] [address] [place] [address] 07237 Urine Opiates Screen June 25, 2023 6:58pm Negative Negative Opiate Cutoff level 300 ng/mLOxycontin/O xycodone is not detected below the threshold of20,000 ng/mL [facility] [id number] [address] [place] [address] 11705 Urine Fentanyl Screen June 16, 2023 9:45am Negative Negative Fentanyl Cutoff level 2.0 ng/mL [facility] [id number] [address] [place] [address] 88074 Urine Fentanyl Screen June 20, 2023 2:16am Negative Negative Fentanyl Cutoff level 2.0 ng/mL [facility] [id number] [address] [place] [address] 68825 Urine Fentanyl Screen June 25, 2023 6:58pm Negative Negative Fentanyl Cutoff level 2.0 ng/mL [facility] [id number] [address] [place] [address] 31915 Acetaminophen Level June 19, 2023 11:45pm < 5 ug/mL Acetaminophen Reference Range: Negative <5 ug/mL [facility] [id number] [address] [place] [address] 82301 Acetaminophen Level June 25, 2023 2:11pm < 5 ug/mL Acetaminophen Reference Range: Negative <5 ug/mL [facility] [id number] [address] [place] [address] 57124 Urine Benzodiazepine s Screen June 16, 2023 9:45am Negative Negative Please note that the current method for benzodiazepines may be less sensitive to lorazapam detection than previously. If this result is negative and you are concerned about a false negative result for lorazepam, additional testing is possible. Please contact the laboratory.Benzo diazepine Cutoff level 200 ng/mL [facility] [id number] [address] [place] [address] 35232 Urine Benzodiazepine s Screen June 20, 2023 2:16am Negative Negative Please note that the current method for benzodiazepines may be less sensitive to lorazapam detection than previously. If this result is negative and you are concerned about a false negative result for lorazepam, additional testing is possible. Please contact the laboratory.Benzo diazepine Cutoff level 200 ng/mL [facility] [id number] [address] [place] [address] 62650 Urine Benzodiazepine s Screen June 25, 2023 6:58pm Negative Negative Please note that the current method for benzodiazepines may be less sensitive to lorazapam detection than previously. If this result is negative and you are concerned about a false negative result for lorazepam, additional testing is possible. Please contact the laboratory.Benzo diazepine Cutoff level 200 ng/mL [facility] [id number] [address] [place] [address] 20694 Urine Cocaine Screen June 16, 2023 9:45am Positive Negative Confirmation by GC/MS not routinely performed for Non-Maternity locations. If confirmation is required, an order must be placed.Cocaine Cutoff level 300 ng/mL [facility] [id number] [address] [place] [address] 95885 Urine Cocaine Screen June 20, 2023 2:16am Negative Negative Cocaine Cutoff level 300 ng/mL [facility] [id number] [address] [place] [address] 98058 Urine Cocaine Screen June 25, 2023 6:58pm Negative Negative Cocaine Cutoff level 300 ng/mL [facility] [id number] [address] [place] [address] 94806 Urine Cannabinoids Screen June 16, 2023 9:45am Negative Negative THC Cutoff level 50 ng/mLThis report is intended for use in clinical monitoring and management of patients. It is not intended for use in employment related drug testing or court related proceedings. Samples are not routinely tested for adulteration and are assumed to be within the normal physiological pH range of 5 - 8. [facility] [id number] [address] [place] [address] 59595 Urine Cannabinoids Screen June 20, 2023 2:16am Negative Negative THC Cutoff level 50 ng/mLThis report is intended for use in clinical monitoring and management of patients. It is not intended for use in employment related drug testing or court related proceedings. Samples are not routinely tested for adulteration and are assumed to be within the normal physiological pH range of 5 - 8. [facility] [id number] [address] [place] [address] 86458 Urine Cannabinoids Screen June 25, 2023 6:58pm Negative Negative THC Cutoff level 50 ng/mLThis report is intended for use in clinical monitoring and management of patients. It is not intended for use in employment related drug testing or court related proceedings. Samples are not routinely tested for adulteration and are assumed to be within the normal physiological pH range of 5 - 8. [facility] [id number] [address] [place] [address] 65214 Serum Alcohol June 16, 2023 11:13am < 10 mg/dl <10 [facility] [id number] [address] [place] [address] 68899 Serum Alcohol June 19, 2023 11:45pm 41 mg/dl <10 [facility] [id number] [address] [place] [address] 32371 Serum Alcohol June 20, 2023 10:15pm 216 mg/dl <10 [facility] [id number] [address] [place] [address] 55991 Serum Alcohol June 25, 2023 2:11pm 115 mg/dl <10 [facility] [id number] [address] [place] [address] 87219 Serum Alcohol June 28, 2023 6:27am 14 mg/dl <10 [facility] [id number] [address] [place] [address] 08814 Serum Alcohol July 02, 2023 12:16am < 10 mg/dl <10 [facility] [id number] [address] [place] [address] 47949 Whole Blood Vitamin B1 Level June 20, 2023 8:46am 171.7 nmol/L 66.5-200.0 Performed at: [facility] [id number] Director: Rojas Prabhakar MD, Phone: [phone] [email or web address]) [id number] Levetiracetam (Keppra) Level June 16, 2023 11:13am <2.0 ug/mL 10.0-40.0 Performed at: [facility] [id number] Director: Rojas Prabhakar MD, Phone: [phone] [email or web address]) [id number] Levetiracetam (Keppra) Level June 23, 2023 12:18pm 13.4 ug/mL 10.0-40.0 Performed at: [facility] [address] [id number] Director: Rojas Prabhakar MD, Phone: [phone] [email or web address] () [id number] Levetiracetam (Keppra) Level June 25, 2023 8:50pm 47.7 ug/mL 10.0-40.0 Performed at: [facility] [address] [id number] Director: Rojas Prabhakar MD, Phone: [phone] [email or web address] [id number] Diagnostic Imaging Reports Author Joann Hilario [facility] July 01, 2023 11:05pm Report Date/Time July 01, 2023 11:08pm [address] [address] Patient Name: MAYELIN LESLIE Medical Record#: [id number] Address: [address] City/State/Zip: [place] [address]: Pako Gusman MD Insurance: [facility] (Medicaid) /Age/Sex: 1980/42/M Self Pay Admit/Reg Date: 07/01/[address]: Juliann lopez NP Location: ED.GS/ PCP: Md ARCHIE Vargas Date of Service: 07/01/23 Order (s): CT head/brain wo contrast CPT Code: 09510 Report Number: [id number] Reason for Exam: ams INDICATIONS: Acute mental status changes. Recent seizure and numbness of the right face. CT BRAIN WITHOUT CONTRAST TECHNIQUE: Multiple 3-mm noncontrast axial images of the brain were acquired. Iterative reconstruction techniques were used. COMPARISON: June 25, 2023. FINDINGS: There is no evidence of acute intracranial hemorrhage, mass effect orshift of midline structures. No extraaxial fluid collections are seen. No acute territorial infarct is evident. The carmen white matter differentiation is grossly maintained. The brain volume is appropriate for patient's age. The ventricular system of the midline structures are within normal limits. The visualized orbits, calvarium and skull base are grossly unremarkable. The visualized paranasal sinuses and mastoid air cells are clear. IMPRESSION: No acute intracranial process is identified on noncontrast CT brain. Consider brain MRI with contrast for further evaluation. Dictated By: Joann Hilario MD 07/01/232253 Signed By: Joann Hilario MD 07/01/232307 TD/TT: 07/01/232253Tech: SVCRPACS cc: [id number]; PCPNO; WOOCL* Pako Gusman MD; Pcp-MD Lissett; Juliann Arriaza NP Author Morgan Gardner [facility] July 02, 2023 8:22am Report Date/Time July 02, 2023 8:26am [address] [place] [address] [place] [address] Patient Name: MAYELIN LESLIE Medical Record#: [id number] Address: [address] City/State/Zip: [place] [address]: Neftali lemos MD Insurance: [employer] [facility] (Medicaid) /Age/Sex: 1980/42/M Self Pay Admit/Reg Date: 07/02/[address]: Pako Gusman MD Location: ED.[place] [address] PCP: Md ARCHIE Vargas Date of Service: 07/01/23 Order (s): CT angio head stroke; CT angio neck stroke CPT Code: 16835; 06199 Report Number: [id number] Reason for Exam: Aphasia, difficulty ambulating CTA HEAD AND NECK INDICATION: Aphasia. Difficulty ambulating TECHNIQUE: 90 mL Omnipaque 350 IV. 3-D reconstructions were performed. COMPARISON: None. FINDINGS: Thoracic aorta: Patent. Right brachiocephalic artery: Patent. Right subclavian artery: Patent. Left subclavian artery: Patent. Right common carotid artery: Patent. Right internal carotid artery: Patent. Right external carotid artery: Patent. Left common carotid artery: Patent. Left internal carotid artery: Patent. Left external carotid artery: Patent. Right anterior cerebral artery: Patent. Right middle cerebral artery: Patent. Right posterior cerebral artery: Patent. Left anterior cerebral artery: Patent. Left middle cerebral artery: Patent. Left posterior cerebral artery: Patent. Right vertebral artery: Patent. Left vertebral artery: Patent. Basilar artery: Patent. The visualized intracranial structures are unremarkable. NASCET criteria is used in the evaluation of the carotid arteries. The soft tissues of the neck are unremarkable. There is a 9 mm low-attenuation area within the left thyroid lobe. The visualized lung apices are unremarkable. Osseous structures are unremarkable. IMPRESSION: No hemodynamically significant stenosis or aneurysm. 9 mm left thyroid lobe nodule. Consider ultrasound for better evaluation. Automated exposure control and dose reduction techniques were utilized. There is no clinically significant disagreement with the TRS report issued at the time of the study. Dictated By: Morgan Gardner MD 07/02/23 0742 Signed By: Morgan Gardner MD 07/02/23 0826 TD/TT: 07/02/23 0742Tech: [facility] cc: [id number]; PCPNO; WOOCL* Neftali Livingston MD; Pako Gusman MD; Md Alicia MD Author Morgan Gardner [facility] July 02, 2023 11:07am Report Date/Time July 02, 2023 11:10am [address] [address] [place] [address] Patient Name: MAYELIN LESLIE Medical Record#: [id number] Address: [address] City/State/Zip: [place] [address]: Neftali lemos MD Insurance: [facility] (Medicaid) /Age/Sex: 1980/42/M Self Pay Admit/Reg Date: 07/02/[address]: Juliann lopez NP Location: ED.[place] [address] PCP: Md ARCHIE Vargas Date of Service: 07/01/23 Order (s): CT lumbar spine wo contrast CPT Code: 62822 Report Number: [id number] Reason for Exam: low back pain CT LUMBAR SPINE NONCONTRAST. INDICATION: TECHNIQUE: Multiple contiguous axis images were performed through the lumbar spine without intravenous contrast administration. Sagittal and coronal reformats were performed and made available for review. FINDINGS: There are 5 non-rib bearing lumbar vertebral elements with preserved vertebral heights and pedicles. There is severe disc degenerative disease mainly at L4-5 and L5-S1. There is moderate central canal stenosis at L3-L4 level. There is mild bilateral neural foramina narrowing at L3-L4 through L5-S1 level. Sacroiliac joints are intact. Paraspinal muscles show no atrophy. Abdominal aorta has normal caliber. IMPRESSION: No fracture or dislocation of the lumbar spine. Automated exposure control and dose reduction techniques were utilized. Dictated By: Morgan Gardner MD 07/02/23 0837 Signed By: Morgan Gradner MD 07/02/23 1110 TD/TT: 07/02/23 0837Tech: SVCRPACS cc: MINISTERIO; [email or web address]; PCPNO* Neftali Livingston MD; Md Alicia MD; Juliann Arriaza NP Vital Signs Vital Reading Result Reference Range Collection Date/Time Height 180.34 cm June 17, 2023 12:00am Weight 94.94 kg June 17, 2023 12:00am Body Temperature 98.8 [degF] 97.6-99.6 June 192022 7:40am Heart Rate 73 /min 60-90 June 19, 2023 7:40am Respiratory rate 18 /min -June 192022 7:40am Oxygen saturation by Pulse oximetry 98 % 95-100 June 19, 2023 7:40am BP Systolic 111 mm[Hg] 90-140 June 19, 2023 7:40am BP Diastolic 70 mm[Hg] 60-90 June 19, 2023 7:40am BMI (Body Mass Index) 29.2 kg/m2 [facility] 2022 12:00am Body Temperature 98.2 [degF] 97.6-99.6 June 202022 11:24am Heart Rate 80 /min -June 20, 2023 6:10pm Respiratory rate 16 /min -June 202022 6:10pm Oxygen saturation by Pulse oximetry 98 % 95-100 June 20, 2023 6:10pm BP Systolic 118 mm[Hg] 90-140 June 20, 2023 6:10pm BP Diastolic 76 mm[Hg] 60-90 June 20, 2023 6:10pm Height 180.34 cm June 21, 2023 2:42am Weight 94.94 kg June 21, 2023 2:42am Body Temperature 98.2 [degF] 97.6-99.6 June 252022 8:15am Heart Rate 92 /min 60-June 25, 2023 8:15am Respiratory rate 17 /min -June 252022 8:15am Oxygen saturation by Pulse oximetry 98 % 95-100 June 25, 2023 8:15am BP Systolic 106 mm[Hg] 90-140 June 25, 2023 8:15am BP Diastolic 65 mm[Hg] 60-90 June 25, 2023 8:15am BMI (Body Mass Index) 29.2 kg/m2 [facility] 2022 2:42am Height 180.34 cm June 27, 2023 3:23am Weight 107.18 kg June 27, 2023 3:23am Body Temperature 98.4 [degF] 97.6-99.6 June 272022 7:53am Heart Rate 91 /min 60-90 June 27, 2023 7:53am Respiratory rate 18 /min -June 272022 7:53am Oxygen saturation by Pulse oximetry 97 % 95-100 June 27, 2023 12:30pm BP Systolic 99 mm[Hg] 90-140 June 27, 2023 7:53am BP Diastolic 58 mm[Hg] 60-90 June 27, 2023 7:53am BMI (Body Mass Index) 33.0 kg/m2 [facility] er 2022 3:23am Height 180.34 cm June 28, 2023 5:05am Weight 95.25 kg June 28, 2023 5:05am Body Temperature 97.9 [degF] 97.6-99.6 June 282022 5:05am Heart Rate 83 /min 60-June 28, 2023 6:02am Respiratory rate 18 /min -June 282022 6:02am Oxygen saturation by Pulse oximetry 100 % 95-100 June 28, 2023 6:02am BP Systolic 100 mm[Hg] 90-140 June 28, 2023 6:02am BP Diastolic 75 mm[Hg] 60-90 June 28, 2023 6:02am BMI (Body Mass Index) 29.3 kg/m2 [facility] er 2022 5:05am Body Temperature 97.7 [degF] 97.6-99.6 June 292022 4:55am Heart Rate 99 /min 60-June 29, 2023 4:55am Respiratory rate 20 /min -June 292022 4:55am Oxygen saturation by Pulse oximetry 98 % 95-100 June 29, 2023 4:55am BP Systolic 106 mm[Hg] 90-140 June 29, 2023 4:55am BP Diastolic 52 mm[Hg] 60-90 June 29, 2023 4:55am Body Temperature 98.3 [degF] 97.6-99.6 July 012022 10:07pm Heart Rate 74 /min 60-90 July 02, 2023 3:37am Respiratory rate 14 /min -July 022022 3:37am Oxygen saturation by Pulse oximetry 95 % 95-100 July 02, 2023 3:37am BP Systolic 133 mm[Hg] 90-140 July 02, 2023 3:37am BP Diastolic 91 mm[Hg] 60-90 July 02, 2023 3:37am Advance Directives Advance Directive Response Recorded Date/ Time Advance Directives No April 21, 2023 3:02pm Health Care Proxy No April 21, 2023 3:02pm Advance Directives No May 04, 2023 11:56am Health Care Proxy No May 04, 2023 11:56am Advance Directives No June 11:36am Health Care Proxy No June 17, 2023 11:36am Advance Directives No June 1:05pm Health Care Proxy No June 24, 2023 1:05pm Advance Directives No April 26, 2023 12:45pm Health Care Proxy No April 26, 2023 12:45pm Advance Directives No May 10:52pm Health Care Proxy No May 21, 2023 10:52pm Advance Directives No June 11:50pm Health Care Proxy No June 19, 2023 11:50pm Advance Directives No June 12:50pm Health Care Proxy No June 27, 2023 12:50pm Advance Directives No June 5:49am Health Care Proxy No June 28, 2023 5:49am Advance Directives No June 1:29am Health Care Proxy No July 01, 2023 1:29am Advance Directives No June 8:16am Health Care Proxy No June 29, 2023 8:16am Pt has Medical Orders for Li fe Sustaining Tx Form (MOLST)? No June 29, 2023 8:16am Insurance Providers Guarantor MAYELIN LESLIE Address [address] [facility] [address] Contact Info. Home Phone: Payer Policy Id Coverage Id Subscriber's Name Subscriber Id Effective Date Expiration Date Commercial Other [id number] MAYELIN LESLIE [id number] [facility] (Medicaid) [id number] MAYELIN LESLIE [id number] Medicaid [place] [id number] MAYELIN LESLIE [id number] [facility] Required [id number] MAYELIN LESLIE [id number] Encounters Encounter Location(s) Arrival/Admit Date Discharge/Depart Date Provider(s) Discharged Inpatient [facility] June 16, 2023 5:36pm June 19, 2023 10:00am Zeke Perkins MD Departed Emergency [facility] June 19, 2023 11:46pm June 20, 2023 6:23pm null Discharged Inpatient [facility] June 20, 2023 11:44pm June 25, 2023 1:38pm Jen Rausch MD Discharged Inpatient [facility]- June 26, 2023 8:05am June 27, 2023 4:41pm Shannan Best MD Departed Emergency [facility] June 28, 2023 4:43am June 28, 2023 1:11pm null Discharged Inpatient [facility] 7 June 28, 2023 3:17pm June 29, 2023 12:57pm Fabián Tolliver MD Admitted Inpatient [facility] July 02, 2023 6:44am Neftali Livingston MD Recent Diagnosis Onset Date Seizure disorder Alcohol withdrawal seizure Cocaine use with intoxication, uncomplic ated Hypomagnesemia Hyponatremia Seizure disorder Alcohol intoxication Alcohol withdrawal Wernicke encephalopathy Recurrent seizures Alcohol withdrawal Seizure Iron deficiency anemia Recurrent seizures Seizure disorder Alcohol withdrawal Seizure-like activity Leg pain Functional Status Observation Response Date Recorded Assistive Devices None June 17, 2023 11:36am Date of Last Bowel Movement 06/18/23 Dece [facility] 2022 1:54am Date of Last Bowel Movement 06/24/23 Dece [facility] 2022 5:30am Oral Care Teeth Brushing June 24 023 1:05pm Assistive Devices None June 27, 2023 12:50pm Date of Last Bowel Movement 06/27/23 Dece [facility] 2022 12:30pm Assistive Devices None June 29, 2023 8:16am Mental Status Observation Response Date Recorded Arousable To Name June 19, 023 1:54am Patient Behavior Appropriate June 19, 2023 10:37am Cooperative Edil 14th, 2 023 10:37am Comprehension Ability Understands Concepts Decem 2022 1:54am Level of Consciousness Awake June 19, 2023 1:54am Alert June 19, 2 023 1:54am Appropriate June 19, 2 023 1:54am Follows Commands June 19, 2023 1:54am Arousable To Name June 25, 2 023 5:30am Patient Behavior Appropriate June 25, 2023 5:30am Cooperative June 25, 2 023 5:30am Comprehension Ability Understands Concepts Decem 2022 5:30am Level of Consciousness Awake June 25, 2023 5:30am Alert June 25, 2 023 5:30am Appropriate June 25, 2 023 5:30am Follows Commands June 25, 2023 5:30am Arousable To Name June 27, 2 023 12:30pm Patient Behavior Appropriate June 27, 2023 12:30pm Comprehension Ability Understands Concepts Decem 2022 12:00pm Level of Consciousness Awake June 27, 2023 12:30pm Alert June 27, 2 023 12:30pm Appropriate June 27, 2 023 12:30pm Arousable To Name June 29, 2 023 12:00am Patient Behavior Appropriate June 29, 2023 11:25am Cooperative June 29, 2 023 11:25am Comprehension Ability Understands Concepts Decem 2022 12:00am Level of Consciousness Awake June 29, 2023 12:00am Alert June 29, 2 023 12:00am Appropriate June 29, 2 023 12:00am Follows Commands June 29, 2023 12:00am Assessments Diagnosis Onset Date Resolution Status Seizure disorder chronic Alcohol withdrawal seizure r esolved Cocaine use with intoxication, uncomplicated resolved Hypomagnesemia resolved Hyponatremia resolved Seizure disorder chronic Alcohol intoxication resolve d Alcohol withdrawal resolved Wernicke encephalopathy reso lved Recurrent seizures chronic Alcohol withdrawal resolved Seizure resolved Iron deficiency anemia chron ic Recurrent seizures chronic Seizure disorder chronic Alcohol withdrawal resolved Seizure-like activity resolv ed Leg pain acute Plan of Treatment Future Tests Future scheduled test information is unavailable Pending Tests Test Name Ordered Date Scheduled Date Urine Amphetamines Screen June 29, 2023 7: 17am Urine Methadone Screen June 29, 2023 7:17a m Urine Oxycodone Screen June 29, 2023 7:17a m Urine Buprenorphine Screen June 29, 2023 7 :17am Urine Opiates Screen June 29, 2023 7:17am Urine Fentanyl Screen June 29, 2023 7:17am Urine Benzodiazepines Screen June 29, 2023 7:17am Urine Cocaine Screen June 29, 2023 7:17am Urine Cannabinoids Screen June 29, 2023 7: 17am VTE Risk Assessment Medical June 16, 2023 5:35pm June 16, 2023 5:36pm VTE Risk Assessment Medical June 20, 2023 11:44pm June 20, 2023 11:44pm VTE Risk Assessment Medical June 25, 2023 11:56pm June 25, 2023 11:56pm Comprehensive Metabolic Panel July 02 12:07pm July 03, 2023 6:00am Magnesium July 02, 2023 12:07pm Dece mber 2022 6:00am Phosphorous July 02, 2023 12:07pm Dece mber 2022 6:00am Prothrombin Time INR July 02, 2023 12:07pm July 03, 2023 6:00am Partial Thromboplastin Time July 02, 2023 12:07pm July 03, 2023 6:00am VTE Risk Assessment Medical July 02, 2023 6:44am July 02, 2023 6:44am EKG Electrocardiogram June 28, 2023 3:14pm June 28, 2023 3:14pm VTE Risk Assessment Medical June 28, 2023 3:16pm June 28, 2023 3:17pm Future Visits Future appointment information is unavailable Referrals to Other Providers Reason for Referral Referral Start Date Provider Provider Contact Information Provider Address BRAD BYRNE Work Phone: [facility] [place] [address] Pcp-Md ARCHIE Galeana Follow-up in the next 2 weeks for treatment of alcoholism and nicotine dependence. Vinny Tsai MD Work Phone: [address] [place] [phone] Vinny Tsai MD Work Phone: [address] [place] [phone] Patient has no pcp..Going back to correction.. Pcp-Md MD BRAD Galeana-AHMED Work Phone: [facility] [place] [address] Pcp-None , Md ALMANZA Pcp-None , Md ALMANZA Pcp-None , Md ALMANZA Pcp-None , Md ALMANZA Pcp-None , MD Future Procedures Procedure Name Ordered Date Scheduled Date Peripheral IV Insert/Manage April 21, 2023 3 :46pm April 21, 2023 3:46pm Hospital Level of Care June 16, 2023 5:35p m June 16, 2023 5:36pm Case Management Consult June 17 023 12:52am June 17, 2023 12:52am Discharge June 19, 2023 9:16am Decem 2022 9:16am Patient Transfer (from unit to unit) June 18, 2023 8:43am June 18, 2023 8:43am Smoking Cessation Consult June 17, 2023 12:52am June 17, 2023 12:52am Riveting Machine Operator Consult June 16, 2023 6:17 pm June 16, 2023 6:17pm Riveting Machine Operator Consult June 17 023 12:52am June 17, 2023 12:52am Activity June 16, 2023 5:35pm Decem 2022 5:35pm Peripheral IV Insert/Manage June 16, 2023 5:35pm June 16, 2023 5:35pm Neurology Consult June 16, 2023 6:09pm Dec ember 2022 6:09pm Patient Preference for Pain Management June 16, 2023 5:35pm June 16, 2023 5:36pm Sequential Compression Device June 16 5:35pm June 16, 2023 5:36pm Seizure Precautions June 16, 2023 6:09pm D ecember 2022 6:09pm Hospital Level of Care June 20 11:44pm June 20, 2023 11:44pm Case Management Consult June 21, 2023 2:42 am June 21, 2023 2:42am Discharge June 25, 2023 10:38am June 25, 2023 10:38am Riveting Machine Operator Consult June 21, 2023 2:42 am June 21, 2023 2:42am ED Transfer of Care to Adm Physician June 21, 2023 12:01am June 21, 2023 12:01am Peripheral IV Insert/Manage June 11:44pm June 20, 2023 11:44pm Patient Preference for Pain Management June 20, 2023 11:44pm June 20, 2023 11:44pm Psychiatry Consult June 23, 2023 1:56pm De cember 2022 1:56pm Sequential Compression Device June 062022 11:44pm June 20, 2023 11:44pm Saline Lock Insert/Manage April 26, 2023 1:2 5pm April 26, 2023 1:25pm Continuous Pulse Oximetry April 26, 2023 1:2 5pm April 26, 2023 1:25pm Peripheral IV Insert/Manage June 20, 2023 1:16am June 20, 2023 1:17am Teleneurology Consult June 20, 2023 9:51am June 20, 2023 9:51am Hospital Level of Care June 26, 2023 8:05a m June 26, 2023 8:05am Discharge June 27, 2023 2:25pm Decem 2022 2:25pm Activity June 25, 2023 11:56pm June 25, 2023 11:56pm Peripheral IV Insert/Manage June 11:56pm June 25, 2023 11:56pm Neurology Consult June 25, 2023 3:01pm Dec [email or web address] 3:01pm Patient Preference for Pain Management June 25, 2023 11:56pm June 25, 2023 11:56pm Psychiatry Consult June 26, 2023 12:21am June 26, 2023 12:21am Sequential Compression Device June 072022 11:56pm June 25, 2023 11:56pm Hospital Level of Care July 02, 2023 6:44a m July 02, 2023 6:44am Drug Screen,Urine July 02, 2023 6:56am Dec ember 2022 6:56am Complete Blood Count Auto Diff July 02, 2023 12:07pm July 03, 2023 6:00am Code Status July 02, 2023 6:44am Decem parrish 2022 6:44am ED Transfer of Care to Adm Physician July 02, 2023 6:49am July 02, 2023 6:49am Neurology Consult July 02, 2023 6:46am Dec [email or web address] 6:46am Patient Preference for Pain Management July 02, 2023 6:44am July 02, 2023 6:44am Sequential Compression Device July 02 6:44am July 02, 2023 6:44am Drug Screen,Urine June 29, 2023 7:17am Dec [email or web address] 7:17am EEG Request for service June 28, 2023 2:11 pm June 28, 2023 2:11pm Hospital Level of Care June 28, 2023 3:16p m June 28, 2023 3:17pm Discharge June 29, 2023 10:25am June 29, 2023 10:25am Peripheral IV Insert/Manage June 28, 2023 3:16pm June 28, 2023 3:16pm Patient Preference for Pain Management June 28, 2023 3:16pm June 28, 2023 3:17pm Sequential Compression Device June 28 3:16pm June 28, 2023 3:17pm Seizure Precautions June 28, 2023 3:26pm D ecember 2022 3:26pm Future Medications Future medication information is unavailable Patient Instructions Alcoholism Resources Addiction: Getting Help ED Seizure, Recurrent (Adult) Epilepsy: Safety During a Se izure Alcohol Withdrawal: What to Expect Goals Acute Goals Author Authored Date You came in for evaluation o f alcohol withdrawal seizures, you symptoms have resolved. We recommend no further alcohol consumption due to risks include but not limited to liver failure, severe hemorrhage, early dementia and worsening mood disorders. We also recommend no further smoking due to risks include but not limited to cancer of the lungs throat and mouth attacks and strokes. Follow up with primary care doctor in 2 weeks for treatment of the above. If you have any further seizures please seek emergency services. We recommend no driving for at least 6 months from 16 June 2023. Take medications as prescribed, call primary care doctor 2 weeks prior to running out of your medications. Zeke [facility] June 19, 2023 9:26am Please follow-up with the PC P within next few days time. Abstinence from alcohol and smoking strongly encourage. You should follow-up with your psychiatrist within next few days time. Your started on new medication Risperdal 1 mg twice a day for your severe anxiety and depression. Continue all the other medications as before. Keppra is changed to short-acting Keppra 750 mg p.o. twice a day. Stop long-acting Keppra 1000 mg at bedtime. You should not be driving for 6 months from the seizure per [facility] rules. Jen [facility] June 25, 2023 10:41am Follow-up with PCP in 1 week . Follow-up with neurologist in 2-3 weeks. To get EEG study as an outpatient. To maintain seizure precautions. No driving at least for 6 months. Further recommendations with outpatient Neurology and PCP. Advised to take all his medications regularly. Advised to quit using drugs including alcohol. Patient is also advised to quit smoking. Shannan [facility] June 27, 2023 2:33pm Dear Ana, You were transferred to [facility] after you presented to the emergency department from [facility] with seizures, we did multiple lab work and imaging studies including an electroencephalogram which monitors brain activity which did not show any seizure activity. while in the hospital you were treated with IV fluids, medications for alcohol withdrawal and antiepileptic medications. Your symptoms have improved with therapy, and we are going to discharge you home. Please appreciate the following recommendations: -please continue to avoid and cease use of substances such as alcohol and cocaine -follow-up with your neurologist -continue to take your medications as prescribed Please continue to take your home medications as you used to do previously. When to call physicians: If you experience recurrence of you symptoms, worsening shortness of breath, weakness, chest pain, chest tightness or difficulty with breathing. Follow up appointments: -follow-up with your primary care physician within 1 week to discuss your most recent admission It was a pleasure taking care of you. If you have any questions or concerns please call [facility] at [phone]. Thank you, Medical team [facility] June 29, 2023 10:24am Absence of falls Including: - Early & often mobilization when appropriate - Passive/active range of motion as appropriate - toileting schedule implementation - implementation of fall risk interventions [facility] June 21, 2023 12:37am Risks from withdrawal jose gaona [facility] June 21, 2023 12:37am Prevention of aspiration Including: - Absence of regurgitation, gagging, coughing, fever, cyanosis and respiratory insufficiency - Aspiration precautions [facility] June 21, 2023 12:37am Understand Mgmt Strategy-Reginaldo pete Patient/Caregiver understand: - Pathophysiology - Reportable s/s and when to seek medical care - Treatment plan and post discharge follow up - Medication compliance, environmental safety & lifestyle modification [facility] June 21, 2023 12:37am Alleviation of anxiety Including: -Utilization of coping skills -Demonstrates/verbalizes decreased anxiety [facility] June 21, 2023 12:37am Pt reports/exhibits pain at mihir level Including: - Pain controlled by pharmacological/non-pharmacological means - Establish realistic pain and function goals prior to initiating opioid therapy in patients with chronic pain if applicable - Discuss known risks and realistic benefits of opioid therapy [facility] June 25, 2023 1:40pm Alteration in Hemodynamics [facility] June 25, 2023 1:40pm Effective breathing pattern Including: - Able to speak in full sentences as age appropriate - Absence of accessory muscle use (retractions), shallow breathing, dyspnea, wheezing & tachypnea - Facilitate optimal positioning - maximize effective breathing & prevent exacerbation [facility] June 25, 2023 1:40pm Absence of fluid/electrolyte imbalance Including: - Improved lab values - Adequate urine output - Adequate hydration - Stable weight if appropriate [facility] June 25, 2023 1:40pm Able to achieve maximum mobi lity level Including: - Understands safety - Demonstrates progress in improved mobility - Demonstrates correct use of mobility devices if appropriate - Understands & accepts limitations & plan for progression as appropriate [facility] June 25, 2023 1:40pm Antimicrobial Educ Reviewed with Patient [facility] June 25, 2023 1:40pm Understand Management Strate george Patient/Caregiver understand: - Pathophysiology - Reportable s/s and when to seek medical care - Treatment plan and post discharge follow up - Medication regime, energy conservation, diet & lifestyle modification [facility] June 25, 2023 1:40pm Safely transition to next le dulce of care Patient/family has: - Appropriate access to resources and support services as applicable [facility] June 25, 2023 1:40pm Risks from withdrawal minimi zed [facility] June 25, 2023 1:40pm Absence of neurologic deteri oration s/s [facility] June 25, 2023 1:40pm Cognitive status restored to baseline Including: - Mental status back to baseline [facility] June 25, 2023 1:40pm Alleviation of anxiety Including: -Utilization of coping skills -Demonstrates/verbalizes decreased anxiety [facility] June 25, 2023 1:40pm Absence of falls Including: - Early & often mobilization when appropriate - Passive/active range of motion as appropriate - toileting schedule implementation - implementation of fall risk interventions [facility] June 27, 2023 4:42pm Risks from withdrawal minimi zed [facility] June 27, 2023 4:42pm Able to achieve maximum mobi lity level Including: - Understands safety - Demonstrates progress in improved mobility - Demonstrates correct use of mobility devices if appropriate - Understands & accepts limitations & plan for progression as appropriate [facility] June 27, 2023 4:42pm Risks from withdrawal minimi zed Rissa [facility] June 29, 2023 12:58pm Alleviation of anxiety Including: -Utilization of coping skills -Demonstrates/verbalizes decreased anxiety [facility] June 29, 2023 12:58pm Cardiac rhythm stable Including: - Cardiac rhythm back to baseline or homeostasis [facility] June 29, 2023 12:58pm Absence of falls Including: - Early & often mobilization when appropriate - Passive/active range of motion as appropriate - toileting schedule implementation - implementation of fall risk interventions Panda Jarrett [facility] June 29, 2023 1:27pm History & Physical Note Author Tricia Escobar [facility] July 02, 2023 7:00am Note Date/Time July 02, 2023 6:26am [facility] [address] [place] [address] GM History & Physical Signed Patient: MAYELIN LESLIE Medical Record#: [id number] : 1980 Acct:[id number] Age/Sex: 42 / M Admit/Reg Date: 07/02/23 Loc: ED[facility] Room: [place] [address] Report Number: [id number]: Tricia Escobar MD HPI Date of Encounter: 07/02/23 Chief complaint HPI: Bilateral lower extremity pain History of Present Illness: 42-year-old male with history of seizure disorder, alcohol abuse with alcohol withdrawal seizures, cocaine/heroin abuse, bipolar disorder, DVT, iron deficiency anemia, gastric bypass, fibromyalgia, psoriasis, and homelessness wasbrought in by EMS for evaluation of lower extremity pain Of note, patient was discharged from [facility] on 06/29/2023 due to seizures in the setting of alcohol withdrawal. EEG showed no the EEG in the wakefulness. The beta frequency waveforms are consistent with the presence of benzodiazepines on the medication list. Patient was discharged on Keppra 1000 mg b.i.d. According to the patient, he starting having severe bilateral lower extremity pain this evening. He was unable to ambulate and he laid on the street. A bystander called EMS and the patient was transferred to the hospital. Patient thinks his pain is related to his fibromyalgia flare-up. Patient also reported possible seizures event. During my evaluation, his only complaint is the lower extremity pain. Strength is preserved in the bilateral lower extremity. Routine labs showed hemoglobin of 9.2, MCV of 7 70.8, platelets of 520, anion gap of 16, BUN of 12, creatinine of 1.1, and alcohol level less than 10. According to the ED physician, there was disconjugate case during initial evaluation. Extensive imaging including CT of the head, lumbar spine CT, head and neck CTA were negative per ED physician. ED physician discussed the case with the tele neurologist on the phone. And given concern of bilateral lower extremity pain and disconjugate gaze, it was recommended to admit the patient for an MRI of the brain and MRI of the lumbar. MRI of the spine and lumbar was ordered by the ED physician. During my evaluation, I did not appreciate dysconjugate gaze. Patient reports bilateral lower extremity pain with both active and passive movement. However, strength is preserved. ED physician discussed the case with me and requested to admit the patient for an MRI of the brain and lumbar. Home Medications: acetaminophen 325 mg tablet 650 mg (2 x 325 mg) PO Q6H PRN Mild Pain (1-3) 06/25/23 [Rx Confirmed 06/28/23 Last Taken Unknown] clobetasol 0.05 % topical cream 1 applic topical DAILY #30 grams 06/25/23 [Rx Confirmed 06/28/23 Last Taken Unknown] escitalopram oxalate 10 mg tablet 10 mg PO DAILY #30 tabs 06/25/23 [Rx Confirmed 06/28/23 Last Taken Unknown] folic acid 1 mg tablet 1 mg PO DAILY #30 tabs 06/25/23 [Rx Confirmed 06/28/23 Last Taken Unknown] gabapentin 800 mg tablet 800 mg PO TID #90 tabs 06/25/23 [Rx Confirmed 06/28/23 Last Taken Unknown] multivitamin with folic acid 400 mcg tablet (Thera) 1 tab PO DAILY #30 tabs 06/25/23 [Rx Confirmed 06/28/23 Last Taken Unknown] nicotine 21 mg/24 hr daily transdermal patch 1 patch transdermal DAILY #20 ea 06/25/23 [Rx Confirmed 06/28/23 Last Taken Unknown] omeprazole 20 mg delayed release,disintegrating tablet 20 mg PO DAILY #30 tabs 06/25/23 [Rx Confirmed 06/28/23 Last Taken Unknown] quetiapine 25 mg tablet 25 mg PO QHS #30 tabs 06/25/23 [Rx Confirmed 06/28/23 Last Taken Unknown] risperidone 1 mg tablet 1 mg PO BID #60 tabs 06/25/23 [Rx Confirmed 06/28/23 Last Taken Unknown] sennosides 8.6 mg tablet (Senna Lax) 17.2 mg (2 x 8.6 mg) PO QHS PRN Constipation - 1st line #60 tabs 06/25/23 [Rx Confirmed 06/28/23 Last Taken Unknown] sertraline 100 mg tablet 100 mg PO DAILY #30 tabs 06/25/23 [Rx Confirmed 06/28/23 Last Taken Unknown] thiamine HCl (vitamin B1) 100 mg tablet 100 mg PO DAILY #30 tabs 06/25/23 [Rx Confirmed 06/28/23 Last Taken Unknown] trazodone 50 mg tablet 50 mg PO QHS #30 tabs 06/25/23 [Rx Confirmed 06/28/23 Last Taken Unknown] levetiracetam 500 mg tablet 1,000 mg (2 x 500 mg) PO Q12H #60 tabs 06/27/23 [Rx Confirmed 06/28/23 Last Taken Unknown] Allergies/Adverse Reactions: No Known Drug Allergies Allergy (Verified 06/28/23 05:09) Past Medical/Surgical History Medical History: Medical History (Last Updated 06/28/23 @ 22:57 by Jacque Jung) Alcohol use disorder (Medical) F10.90 Bipolar 1 disorder (Medical) F31.9 Cocaine abuse (Medical) F14.10 Homelessness (Social Hx) Z59.00 Family/Social History - Social History Lives With: Other Smoking Status: Current everyday tobacco user-light smoker tobacco type: cigarettes Do You Currently Use or Have Hx of Using Recreational Drugs: Yes - SOGI Sexual Orientation: Don't know Gender Identity: Male How would you like us to refer to you?: He/Him/His/Himself Review of Systems - Review of Systems All systems reviewed & no additional complaints except as documented Exam Vital signs: Temp Pulse Resp BP Pulse Ox 98.3 F 74 14 133/91 H 95 07/01/23 22:07 07/02/23 03:37 07/02/23 03:37 07/02/23 03:37 07/02/23 03:37 General Appearance: alert, oriented x3, cooperative - Respiratory Exam Present: CTA bilaterally - Cardiovascular Exam Present: normal heart sounds, RRR, no edema, S1, S2 - Abdominal Exam Abdominal: Present: soft, non-tender - Neurological Exam Present: alert, oriented X3 GM Results - Pertinent Lab Findings 07/02/23 00:16 07/02/23 00:16 Pertinent Lab Findings: Abnormal Results - 24 Hours 07/02/23 00:16 Hgb 9.2 L g/dl (13.0-17.0) Hct 33.2 L % (37.5-50.0) MCV 70.8 L fl (80.0-100.0) MCH 19.6 L pg (27.0-34.0) MCHC 27.7 L g/dl (31.0-36.0) RDW 19.6 H % (11.5-15.0) Plt Count 520 H X10 3/uL (150-400) Sodium 135 L mmol/L (137-146) Carbon Dioxide 17 L mmol/L (23-32) Anion Gap 16 H mmol/L (5-15) Estimated GFR 87 L (>=90 ml/min/1.73m2) Calcium 8.5 L mg/dl (8.6-10.3) Assessment and Plan Impression: 42 year old male with history of fibromyalgia presented to the ED complaining ofbilateral lower extremity pain. According to the ED physician, there was a dysconjugate gaze during initial evaluation. Tele neurology was consulted via phone conversation and recommended to admit the patient to the hospital for an MRI of the brain and lumbar. I did not appreciate dysconjugate gaze during my evaluation. 1-Bilateral lower extremity pain/transient dysconjugate gaze-will admit the patient to the hospital, Neurology consult, proceed with MRI of the brain and lumbar spine. 2-DVT prophylaxis-mechanical given history of of seizure disorder. 3-Code status-full code. I have spent 70 minutes reviewing his most recent hospital admission and EEG report at [facility], hospital discharge notes at [place] and Neurology consult, reviewing all diagnostic tests while in the ED, discussing with the ED physician, evaluating and managing the patient. (1) Leg pain Status: Acute Assessment and Plan: See plan above - Location and Group Information SMG-billable encounter: Yes Service location: inpatient Provider group: [facility] - E&M Encounter Coding Initial hospital care: Level 3 79787 Time-based billing attestation: - Attestation Attestation: I have reviewed and updated the patient's past medical, social, andfamily history as necessary and have reviewed pertinent laboratory findings. Confirm PMH/FSH Attestation: Yes Problem List Attestation Statement: I have documented a relevant problem and problem plan for this visit. Attending Confirm Problem: Yes Attending Problem List Check: Pass Quality VTE Risk Level: Moderate DVT Prophylaxis: SCD - Patient Rights Does Pt Have an Advanced Directive for End of Life Issues?: No Does Patient Have a Health Care Proxy?: No Pt has Medical Orders for Life Sustaining Tx Form (MOLST)?: No Risk Calculators Dictated By: Tricia Escobar MD Signed By: Tricia Escobar MD 07/02/23 07 DD/ 4 TD/TT: 07/02/23624 Sample Distributor: JOE cc: JOE; PCPNO* Tricia Escobar MD; Pcp-MD Lissett Progress Note Author Neil Sauceda [facility] July 01, 2023 1:50am Note Date/Time July 01, 2023 1:50am [facility] [address] [place] [address] Emergency Department Document Signed Patient: MAYELIN LESLIE Medical Record#: [id number] : 1980 Acct:[id number] Age/Sex: 42 / M Admit/Reg Date: 07/01/23 Loc: ED. Room: Report Number: [id number]: Ming E/Emmett Physician Rapid Medical Exam Rapid Medical Exam: I saw this patient briefly as part of a rapid medical exam. This does not constitute a full exam, as patient will require a more thorough exam once brought back to the main ED from the waiting room. Briefly, patient here with bilateral leg pain, states that this started tonight, states that he has had this before but it is worse tonight. States no recent falls or injuries, denies abdominal or back pain or numbness or weakness in his legs. Was just discharged here yesterday. EMS states that patient was able to walk without difficulty and had reassuring vitals. On my exam, patient with normal-appearing legs with no edema, normal color, and no open wounds. Does have good distal pulses, palpable, symmetrical bilaterally. Sensation and strength intact. Unclear etiology, with differential including likely fibromyalgia, verses less likely rhabdomyolysis or cramps from electrolyte abnormalities etc.. Therefore, basic labs ordered. Patient unfortunately sent to the waiting room,will require full evaluation once brought back to the main ED. Dictated By: Neil Sauceda MD Signed By: Neil Sauceda MD 07/01/23149 DD/ 9 TD/TT: 07/01/23149 Sample Distributor: SHAHRAM cc: FARNAZ Almanza Pcp-MD Lissett Progress Note Author Neftali Livingston [facility] July 02, 2023 12:08pm Note Date/Time July 02, 2023 11:43am [facility] [address] [place] [address] Limted Brief Communication Signed Patient: MAYELIN LESLIE Medical Record#: [id number] : 1980 Acct:[id number] Age/Sex: 42 / M Admit/Reg Date: 07/02/23 Loc: 2C. Room: [address] Report Number: [id number]: Neftali Livingston MD Limited Brief Communication Date of Encounter: 07/02/23 Limited Brief Communication: Patient seen and examined in room 288-D/W; Current general, imaging, and cardiovascular reports reviewed; Current diagnostic data reviewed; Current care plans reviewed; Problems and medications lists reconciled - 42-year-old male who presented today with chronic bilateral lower extremity painassociated with fibromyalgia and exacerbation attributed to not taking prescribed medications for the last two days. Chronic active problems include: substance use disorder including alcohol and cocaine, alcohol dependence, epilepsy/recurrent seizures associated with alcoholwithdrawal, bipolar disorder, fibromyalgia, iron-deficiency anemia, and psoriasis. Medical/surgical history notable for: DVT, gastric bypass surgery HPI/ROS notable for: * discharged from [facility] on 06/29/2023 due to seizures in the setting of alcohol withdrawal. EEG showed no the EEG in the wakefulness. The beta frequency waveforms are consistent with the presence of benzodiazepines on the medication list. Patient was discharged on Keppra 1000 mg b.i.d. * starting having severe bilateral lower extremity pain this evening. He was unable to ambulate and he laid on the street. A bystander called EMS and the patient was transferred to the hospital. Patient thinks his pain is related to his fibromyalgia flare-up; Patient also reported possible seizures event. * Extensive imaging including CT of the head, lumbar spine CT, head and neck CTA were negative per ED physician. * ED physician discussed the case with the tele neurologist on the phone and given concern of bilateral lower extremity pain and disconjugate gaze, it was recommended to admit the patient for an MRI of the brain and MRI of the lumbar * MRI of the spine and lumbar was ordered by the ED physician Social history notable for: Homeless without correction Current diagnostic results notable for: Laboratory Tests 07/02/23 00:16 Hgb 9.2 L MCV 70.8 L RDW 19.6 H Plt Count 520 H PT 11.4 INR 1.1 Sodium 135 L Anion Gap 16 H Estimated GFR 87 L Total Bilirubin < 0.2 AST 28 ALT 16 Alkaline Phosphatase 53 Ammonia 29 Serum Alcohol < [address] head/brain wo contrast - No acute intracranial process is identified on noncontrast CT brain CT angio head/neck stroke - No hemodynamically significant stenosis or aneurysm; incidental finding of 9 mm left thyroid lobe nodule CT lumbar spine wo contrast - No fracture or dislocation of the lumbar spine Cardiovascular ECG tracings pending Assessment and plan: * Bilateral lower extremity pain, transient dysconjugate gaze * Neurology consult * MRI of the brain and lumbar spine Additional findings/actions/orders at this time: My Active Orders 07/03/23 06:00 Complete Blood Count Auto Diff Routine Comprehensive Metabolic Panel Routine Magnesium Routine Partial Thromboplastin Time Routine Phosphorous Routine Prothrombin Time INR Routine Dictated By: Neftali Livingston MD Signed By: Neftali Livingston MD 07/02/23 1208 DD/ 1138 TD/TT: 07/02/23 1138 Sample Distributor: MINISTERIO cc: *
--- OUTSIDE RECORDS SUMMARY | 2024-01-16 19:34 | XMS_ITS | Continuity of Care Document ---
Author Organization [facility] Address [address] [place] [address] Phone Care Team Providers Care General Warehouse Associate Name Role Phone Pcp-MD Archie Galeana Primary Care Provider Unavailabl e Hospitalist, Model (IS ONLY) Emergency Provider Unavailable MD Krzysztof So Other Provider MD Zeke Perkins Attending Provider DO Lizandro Sandhu Emergency Provider MD Jen Rausch Attending Provider MD Kulwinder Zuniga Other Provider MD Elliot Fulton Other Provider [phone] MD Shannan Best Attending Provider Care Teams Patient Care Team Team Status: Active Member Role Status Dates Pcp-None , Primary Care Provider Active Visit Care Team Team Status: Inactive Member Role Status Dates Pcp-None , Primary Care Provider Active St art: June 16, 2023 End: June 19, 2023 Model (IS ONLY) Hospitalist Emergency Provider Active Start: June 16, 2023 End: June 19, 2023 Jen Kelley MD Admit Provider Active Start: Christiana ventura 2022 End: June 19, 2023 Krzysztof So MD Other Provider Active Start: Milan goss 2022 End: June 19, 2023 Zeke Perkins [...] 2023 Lizandro Sandhu DO Emergency Provider Active art: June 28, 2023 End: June 28, 2023 Chief Complaint and Reason for Visit Chief Complaint ALCOHOL WITHDRAWAL S EIZURE UNRESPONSIVE ALTERED MENTAL STATUS SEIZURE Seizure Reason for Visit Bipolar disorder Cocaine use with intoxication, uncomplicated Alcoholism Seizure disorder Alcohol withdrawal seizure Hypomagnesemia Hyponatremia Alcohol intoxication Alcohol withdrawal Bipolar disorder Wernicke encephalopathy Alcohol abuse Alcoholism Anemia Bipolar 1 disorder Seizure disorder Alcohol withdrawal Recurrent seizures Seizure Alcohol abuse Bipolar 1 disorder Non-compliance Allergies, Adverse Reactions, Alerts No known allergies Social History Smoking Status Status Start Date End Date Date of Observa tion Unknown if ever smoked Dece parrish 2022 5:55am Observation Status Observation Response Date of Response Living Situation Long-Term June 17, 2023 8:35am Living Situation Other June 23, 2023 11:35am Is Anyone Dependent on your Care? No June 27, 2023 3:23am Living Situation Homeless June 27, 2023 3:23am Living Situation Homeless June 28, 2023 5:55am Lives With Alone June 28, 5:55am Additional Data Assigned Sex Male Problems Active Problems Medical Problem Onset Date Status Non-compliance Active Seizure-like activity Active Wernicke encephalopathy Active Alcohol abuse Active Alcohol withdrawal Active Alcohol intoxication Active Alcoholism Active Anemia Active Bipolar disorder Active Cocaine use with intoxication, uncomplicated Active Recurrent seizures Active Seizure disorder Active Seizure Active Patient denies significant medical history Active Bipolar 1 disorder Active Inactive/Resolved Problems Medical Problem Onset Date Status Hyponatremia Resolved Alcohol withdrawal seizure Resol perry Patient left without being seen Resolved Patient left without being seen Resolved Hypomagnesemia Resolved Medications Medication Status Dose Units Route Directions Qty Days art Date End Date Instructions Quetiapine Disconti nued 25 MG PO ONCE DAILY AT BEDTIME [facility] 2022 12:00am [facility] 2022 9:55am Levetiracetam Disconti nued 500 MG PO TWICE A DAY [facility] 2022 12:00am [facility] 2022 9:23am Sertraline Active 100 MG PO DAILY [facility] 2022 12:00am Clobetasol Disconti nued 1 APPL TOPICAL DAILY [facility] 2022 12:00am [facility] 2022 9:55am Gabapentin Disconti nued 800 MG PO THREE TIMES A DAY [facility] 20[facility] 12:[facility] 2022 9:55am Meclizine Disconti nued 25 MG PO THREE TIMES A DAY [facility] 2022 12:00am [facility] 2022 9:45am Azelastine Disconti nued 2 SPRAY intrana sol TWICE A DAY [facility] 2022 12:00am [facility] 2022 8:37am Escitalopram Oxalate Disconti nued 10 MG PO DAILY [facility] 2022 12:00am [facility] 2022 9:55am Thiamine Hcl (Vitamin B1) Disconti nued 100 MG PO DAILY 30 [facility] 2022 12:00am [facility] 2022 8:37am OTC/Good Rx if not covered Levetiracetam Disconti nued 500 MG PO TWICE A DAY 180 90 [facility] 2022 9:23am [facility] 2022 9:28am Trazodone Active 50 MG PO ONCE DAILY AT BEDTIME 30 [facility] 2022 12:00am Thiamine Hcl (Vitamin B1) Active 100 MG PO DAILY 30 [facility] 2022 12:00am Nicotine Active 1 PATCH TRANSDE RM DAILY 20 [facility] 2022 12:00am Folic Acid Active 1 MG PO DAILY 30 [facility] r 2022 12:00am Risperidone Active 1 MG PO TWICE A DAY 60 [facility] 2022 12:00am Acetaminophen Active 650 MG PO EVERY 6 HOURS [facility] 20[facility] 12:00am Levetiracetam Disconti nued 750 MG PO EVERY 12 HOURS 60 [facility] 2:26[facility] Multivitamin With Folic Acid (Thera) 400 mcg Tablet Active 1 TAB PO DAILY 30 [facility] 2022 12:00am Sennosides (Senna Lax) 8.6 mg Tablet Active 17.2 MG PO ONCE DAILY AT BEDTIME 60 [facility] 2022 12:00am Omeprazole Active 20 MG PO DAILY 30 Dece e r 20th, 2023 12:00am Quetiapine Active 25 MG PO ONCE SOHA Y AT BEDTIME 30 [facility] r 2022 9:55am Sertraline Active 100 MG PO DAILY 30 [facility] e r 2022 9:55am Clobetasol Active 1 APPL TOPICAL DAILY 30 [facility]m be r 2022 9:55am Gabapentin Active 800 MG PO THREE MARY ES A DAY 90 [facility] r 2022 9:55am Escitalopram Oxalate Active 10 MG PO DAILY 30 [facility] r 2022 9:55am Levetiracetam Disconti nued 1000 MG PO ONCE DAILY AT BEDTIME [facility] r 2022 12:00am [facility] 2022 9:51am Levetiracetam Active 1000 MG PO EVERY 12 HOURS 60 [facility] r 2022 12:00am Procedures Procedure Date Performed [...] completed EKG Electrocardiogram June 28, 2023 5:16am active Relevant Diagnostic Tests and/or Laboratory Data Laboratory Results Test Date/Time Result Interpretation Reference Range Result Comment Performing Site Add-On Test Request June 18, 2023 11:40am Added test [facility] [id number] [address] [place] [address] Add-On Test Request June 20, 2023 2:42am Unable to add test [facility] [id number] [address] [place] [address] 88439 Add-On Test Request June 23, 2023 10:14am Added test [facility] [id number] [address] [place] [address] 40985 White Blood Count June 17, 2023 5:43am 7.9 X10 3/uL 4.5-11.0 [facility] [id number] [address] [place] [address] 62269 White Blood Count June 19, 2023 11:45pm 8.8 X10 3/uL 4.5-11.0 [facility] [id number] [address] [place] [address] 84259 White Blood Count June 22, 2023 8:41am 5.9 X10 3/uL 4.5-11.0 [facility] [id number] [address] [place] [address] 28905 White Blood Count June 26, 2023 7:38am 6.8 X10 3/uL 4.5-11.0 [facility] [id number] [address] [place] [address] 17614 White Blood Count June 28, 2023 6:27am 7.2 X10 3/uL 4.5-11.0 [facility] [id number] [address] [place] [address] 28604 Red Blood Count June 17, 2023 5:43am 4.82 X10 6/uL 4.00-5.50 [facility] [id number] [address] [place] [address] 15020 Red Blood Count June 19, 2023 11:45pm 5.32 X10 6/uL 4.00-5.50 [facility] [id number] [address] [place] [address] 96252 Red Blood Count June 22, 2023 8:41am 5.27 X10 6/uL 4.00-5.50 [facility] [id number] [address] [place] [address] 92762 Red Blood Count June 26, 2023 7:38am 4.45 X10 6/uL 4.00-5.50 [facility] [id number] [address] [place] [address] 64765 Red Blood Count June 28, 2023 6:27am 4.98 X10 6/uL 4.00-5.50 [facility] [id number] [address] [place] [address] 07457 Hemoglobin June 17, 2023 5:43am 9.4 g/dl 13.0-17.0 [facility] [id number] [address] [place] [address] 95397 Hemoglobin June 19, 2023 11:45pm 10.3 g/dl 13.0-17.0 [facility] [id number] [address] [place] [address] 87918 Hemoglobin June 22, 2023 8:41am 10.2 g/dl 13.0-17.0 [facility] [id number] [address] [place] [address] 07433 Hemoglobin June 26, 2023 7:38am 8.8 g/dl 13.0-17.0 [facility] [id number] [address] [place] [address] 67597 Hemoglobin June 28, 2023 6:27am 9.8 g/dl 13.0-17.0 [facility] [id number] [address] [place] [address] 03595 Hematocrit June 17, 2023 5:43am 31.8 % 37.5-50.0 [facility] [id number] [address] [place] [address] 88191 Hematocrit June 19, 2023 11:45pm 35.3 % 37.5-50.0 [facility] [id number] [address] [place] [address] 76696 Hematocrit June 22, 2023 8:41am 35.3 % 37.5-50.0 [facility] [id number] [address] [place] [address] 00620 Hematocrit June 26, 2023 7:38am 30.3 % 37.5-50.0 [facility] [id number] [address] [place] [address] 33971 Hematocrit June 28, 2023 6:27am 34.0 % 37.5-50.0 [facility] [id number] [address] [place] [address] 81225 Mean Corpuscular Volume June 17, 2023 5:43am 66.0 fl 80.0-100.0 [facility] [id number] [address] [facility] 14126 Mean Corpuscular Volume June 19, 2023 11:45pm 66.4 fl 80.0-100.0 [facility] [id number] [address] [facility] 46987 Mean Corpuscular Volume June 22, 2023 8:41am 67.0 fl 80.0-100.0 [facility] [id number] [address] [facility] 64981 Mean Corpuscular Volume June 26, 2023 7:38am 68.1 fl 80.0-100.0 [facility] [id number] [address] [place] [address] 29004 Mean Corpuscular Volume June 28, 2023 6:27am 68.3 fl 80.0-100.0 [facility] [id number] [address] [facility] 43753 Mean Corpuscular Hemoglobin June 17, 2023 5:43am 19.5 pg 27.0-34.0 [facility] [id number] [address] [facility] 91168 Mean Corpuscular Hemoglobin June 19, 2023 11:45pm 19.4 pg 27.0-34.0 [facility] [id number] [address] [facility] 44479 Mean Corpuscular Hemoglobin June 22, 2023 8:41am 19.4 pg 27.0-34.0 [facility] [id number] [address] [facility] 59791 Mean Corpuscular Hemoglobin June 26, 2023 7:38am 19.8 pg 27.0-34.0 [facility] [id number] [address] [facility] 10042 Mean Corpuscular Hemoglobin June 28, 2023 6:27am 19.7 pg 27.0-34.0 [facility] [id number] [address] [facility] 61433 Mean Corpuscular Hemoglobin Concent June 17, 2023 5:43am 29.6 g/dl 31.0-36.0 [facility] [id number] [address] [facility] 35306 Mean Corpuscular Hemoglobin Concent June 19, 2023 11:45pm 29.2 g/dl 31.0-36.0 [facility] [id number] [address] [facility] 94862 Mean Corpuscular Hemoglobin Concent June 22, 2023 8:41am 28.9 g/dl 31.0-36.0 [facility] [id number] [address] [place] [address] 87051 Mean Corpuscular Hemoglobin Concent June 26, 2023 7:38am 29.0 g/dl 31.0-36.0 [facility] [id number] [address] [place] [address] 95350 Mean Corpuscular Hemoglobin Concent June 28, 2023 6:27am 28.8 g/dl 31.0-36.0 [facility] [id number] [address] [place] [address] 93463 Red Cell Distribution Width June 17, 2023 5:43am 21.3 % 11.5-15.0 [facility] [id number] [address] [place] [address] 19108 Red Cell Distribution Width June 19, 2023 11:45pm 21.1 % 11.5-15.0 [facility] [id number] [address] [place] [address] 69581 Red Cell Distribution Width June 22, 2023 8:41am 21.0 % 11.5-15.0 [facility] [id number] [address] [place] [address] 39178 Red Cell Distribution Width June 26, 2023 7:38am 19.8 % 11.5-15.0 [facility] [id number] [address] [place] [address] 56532 Red Cell Distribution Width June 28, 2023 6:27am 20.3 % 11.5-15.0 [facility] [id number] [address] [place] [address] 00738 Platelet Count June 17, 2023 5:43am 334 X10 3/uL 150-400 [facility] [id number] [address] [place] [address] 78079 Platelet Count June 19, 2023 11:45pm 353 X10 3/uL 150-400 [facility] [id number] [address] [place] [address] 96353 Platelet Count June 22, 2023 8:41am 356 X10 3/uL 150-400 [facility] [id number] [address] [place] [address] 43666 Platelet Count June 26, 2023 7:38am 386 X10 3/uL 150-400 [facility] [id number] [address] [place] [address] 25630 Platelet Count June 28, 2023 6:27am 415 X10 3/uL 150-400 [facility] [id number] [address] [place] [address] 88685 Immature Granulocyte % (Auto) June 17, 2023 5:43am 0.1 % [facility] [id number] [address] [place] [address] 33897 Immature Granulocyte % (Auto) June 19, 2023 11:45pm 0.2 % [facility] [id number] [address] [place] [address] 78944 Immature Granulocyte % (Auto) June 22, 2023 8:41am 0.2 % [facility] [id number] [address] [place] [address] 01030 Immature Granulocyte % (Auto) June 26, 2023 7:38am 0.1 % [facility] [id number] [address] [place] [address] 72718 Immature Granulocyte % (Auto) June 28, 2023 6:27am 0.3 % [facility] [id number] [address] [place] [address] 01156 Neutrophils (%) (Auto) June 17, 2023 5:43am 60.4 % [facility] [id number] [address] [place] [address] 90095 Neutrophils (%) (Auto) June 19, 2023 11:45pm 74.5 % [facility] [id number] [address] [place] [address] 40196 Neutrophils (%) (Auto) June 22, 2023 8:41am 64.7 % [facility] [id number] [address] [place] [address] 28429 Neutrophils (%) (Auto) June 26, 2023 7:38am 66.8 % [facility] [id number] [address] [place] [address] 06066 Neutrophils (%) (Auto) June 28, 2023 6:27am 61.3 % [facility] [id number] [address] [place] [address] 01243 Lymphocytes (%) (Auto) June 17, 2023 5:43am 26.2 % [facility] [id number] [address] [place] [address] 51539 Lymphocytes (%) (Auto) June 19, 2023 11:45pm 16.9 % [facility] [id number] [address] [place] [address] 94317 Lymphocytes (%) (Auto) June 22, 2023 8:41am 20.6 % [facility] [id number] [address] [place] [address] 64245 Lymphocytes (%) (Auto) June 26, 2023 7:38am 21.9 % [facility] [id number] [address] [place] [address] 56610 Lymphocytes (%) (Auto) June 28, 2023 6:27am 24.8 % [facility] [id number] [address] [place] [address] 23872 Monocytes (%) (Auto) June 17, 2023 5:43am 8.6 % [facility] [id number] [address] [place] [address] 85135 Monocytes (%) (Auto) June 19, 2023 11:45pm 6.1 % [facility] [id number] [address] [place] [address] 02613 Monocytes (%) (Auto) June 22, 2023 8:41am 9.5 % [facility] [id number] [address] [place] [address] 98391 Monocytes (%) (Auto) June 26, 2023 7:38am 8.7 % [facility] [id number] [address] [place] [address] 37881 Monocytes (%) (Auto) June 28, 2023 6:27am 10.4 % [facility] [id number] [address] [place] [address] 34193 Eosinophils (%) (Auto) June 17, 2023 5:43am 3.7 % [facility] [id number] [place] [address] 81387 Eosinophils (%) (Auto) June 19, 2023 11:45pm 1.2 % [address] [place] [address] 48087 Eosinophils (%) (Auto) June 22, 2023 8:41am 3.6 % [address] [place] [address] 94762 Eosinophils (%) (Auto) June 26, 2023 7:38am 1.5 % [address] [place] [address] 15497 Eosinophils (%) (Auto) June 28, 2023 6:27am 2.4 % [address] [place] [address] 84555 Basophils (%) (Auto) June 17, 2023 5:43am 1.0 % [address] [place] [address] 66388 Basophils (%) (Auto) June 19, 2023 11:45pm 1.1 % [facility] [id number] [place] [address] 67405 Basophils (%) (Auto) June 22, 2023 8:41am 1.4 % [facility] [id number] [place] [address] 20020 Basophils (%) (Auto) June 26, 2023 7:38am 1.0 % [address] [place] [address] 74237 Basophils (%) (Auto) June 28, 2023 6:27am 0.8 % [facility] [place] [id number] [place] [address] 10457 Immature Granulocyte # (Auto) June 17, 2023 5:43am 0.01 X10 3/uL 0.00-0.09 [address] [place] [address] 56935 Immature Granulocyte # (Auto) June 19, 2023 11:45pm 0.02 X10 3/uL 0.00-0.09 [facility] [id number] [address] [place] [address] 74817 Immature Granulocyte # (Auto) June 22, 2023 8:41am 0.01 X10 3/uL 0.00-0.09 [facility] [id number] [address] [place] [address] 31178 Immature Granulocyte # (Auto) June 26, 2023 7:38am 0.01 X10 3/uL 0.00-0.09 [facility] [id number] [address] [place] [address] 85532 Immature Granulocyte # (Auto) June 28, 2023 6:27am 0.02 X10 3/uL 0.00-0.09 [facility] [id number] [address] [place] [address] 35960 Neutrophils # (Auto) June 17, 2023 5:43am 4.8 X10 3/uL 1.5-7.8 [facility] [id number] [address] [place] [address] 59052 Neutrophils # (Auto) June 19, 2023 11:45pm 6.6 X10 3/uL 1.5-7.8 [facility] [id number] [address] [place] [address] 93058 Neutrophils # (Auto) June 22, 2023 8:41am 3.8 X10 3/uL 1.5-7.8 [facility] [id number] [address] [place] [address] 27320 Neutrophils # (Auto) June 26, 2023 7:38am 4.5 X10 3/uL 1.5-7.8 [facility] [id number] [address] [place] [address] 95488 Neutrophils # (Auto) June 28, 2023 6:27am 4.4 X10 3/uL 1.5-7.8 [facility] [id number] [address] [place] [address] 95431 Lymphocytes # (Auto) June 17, 2023 5:43am 2.1 X10 3/uL 1.0-4.8 [facility] [id number] [address] [place] [address] 44110 Lymphocytes # (Auto) June 19, 2023 11:45pm 1.5 X10 3/uL 1.0-4.8 [facility] [id number] [address] [place] [address] 51752 Lymphocytes # (Auto) June 22, 2023 8:41am 1.2 X10 3/uL 1.0-4.8 [facility] [id number] [address] [place] [address] 03888 Lymphocytes # (Auto) June 26, 2023 7:38am 1.5 X10 3/uL 1.0-4.8 [facility] [id number] [address] [place] [address] 91309 Lymphocytes # (Auto) June 28, 2023 6:27am 1.8 X10 3/uL 1.0-4.8 [place] [id number] [address] [place] [address] 10348 Monocytes # (Auto) June 17, 2023 5:43am 0.7 X10 3/uL 0.0-0.8 [facility] [id number] [address] [place] [address] 33246 Monocytes # (Auto) June 19, 2023 11:45pm 0.5 X10 3/uL 0.0-0.8 [facility] [id number] [address] [place] [address] 49331 Monocytes # (Auto) June 22, 2023 8:41am 0.6 X10 3/uL 0.0-0.8 [facility] [id number] [address] [place] [address] 90048 Monocytes # (Auto) June 26, 2023 7:38am 0.6 X10 3/uL 0.0-0.8 [place] [id number] [address] [place] [address] 58717 Monocytes # (Auto) June 28, 2023 6:27am 0.8 X10 3/uL 0.0-0.8 [facility] [id number] [address] [place] [address] 15722 Eosinophils # (Auto) June 17, 2023 5:43am 0.3 X10 3/uL 0.0-0.5 [facility] [id number] [address] [place] [address] 81020 Eosinophils # (Auto) June 19, 2023 11:45pm 0.1 X10 3/uL 0.0-0.5 [facility] [id number] [address] [place] [address] 46139 Eosinophils # (Auto) June 22, 2023 8:41am 0.2 X10 3/uL 0.0-0.5 [facility] [id number] [place] [address] 93639 Eosinophils # (Auto) June 26, 2023 7:38am 0.1 X10 3/uL 0.0-0.5 [facility] [place] [id number] [place] [address] 33175 Eosinophils # (Auto) June 28, 2023 6:27am 0.2 X10 3/uL 0.0-0.5 [place] [id number] [address] [place] [address] 77316 Basophils # (Auto) June 17, 2023 5:43am 0.1 X10 3/uL 0.0-0.2 [place] [id number] [address] [place] [address] 31460 Basophils # (Auto) June 19, 2023 11:45pm 0.1 X10 3/uL 0.0-0.2 [place] [id number] [address] [place] [address] 28439 Basophils # (Auto) June 22, 2023 8:41am 0.1 X10 3/uL 0.0-0.2 [place] [id number] [address] [place] [address] 83069 Basophils # (Auto) June 26, 2023 7:38am 0.1 X10 3/uL 0.0-0.2 [place] [facility] [id number] [address] [place] [address] 10966 Basophils # (Auto) June 28, 2023 6:27am 0.1 X10 3/uL 0.0-0.2 [address] [place] [address] 98801 Nucleated Red Blood Cells % June 17, 2023 5:43am 0.0 /100 WBC 0.0-0.0 [facility] [id number] [address] [place] [address] 30729 Nucleated Red Blood Cells % June 19, 2023 11:45pm 0.0 /100 WBC 0.0-0.0 [facility] [id number] [address] [place] [address] 47556 Nucleated Red Blood Cells % June 22, 2023 8:41am 0.0 /100 WBC 0.0-0.0 [facility] [id number] [address] [place] [address] 96694 Nucleated Red Blood Cells % June 26, 2023 7:38am 0.0 /100 WBC 0.0-0.0 [facility] [id number] [address] [place] [address] 69016 Nucleated Red Blood Cells % June 28, 2023 6:27am 0.0 /100 WBC 0.0-0.0 [facility] [id number] [address] [place] [address] 28754 Prothrombin Time June 28, 2023 6:27am 10.8 Seconds 9.3-12.1 [facility] [id number] [address] [place] [address] 92302 Prothromb Time International Ratio June 28, 2023 6:27am 1.0 0.9-1.2 Reference Interval is for non-anticoagulat ed patients.Suggest ed INR Therapeutic Range for Vitamin K antogonist therapy:LEVELS OF THERAPY INDICATIONS TARGET INR RANGEStandard Dose Venous Thrombosis, 2.0 - 3.0 Atrial Fibrillation, Pulmonary Embolism. High Dose Valvular Heart Disease, 2.5 - 3.5 Mechanical Heart, Intracardiac Thrombosis. [facility] [id number] [address] [place] [address] 44647 Sodium Level June 19, 2023 6:49am 142 mmol/L 137-146 [facility] [id number] [address] [place] [address] 91325 Sodium Level June 19, 2023 11:45pm 135 mmol/L 137-146 [facility] [id number] [address] [facility] 78563 Sodium Level June 23, 2023 6:12am 138 mmol/L 137-146 [facility] [id number] [address] [facility] 55497 Sodium Level June 27, 2023 11:35am 139 mmol/L 137-146 [facility] [id number] [address] [facility] 90858 Sodium Level June 28, 2023 6:27am 142 mmol/L 137-146 [facility] [id number] [address] [place] [address] 49365 Potassium Level June 19, 2023 6:49am 3.9 mmol/L 3.5-5.3 [facility] [id number] [address] [place] [address] 08118 Potassium Level June 19, 2023 11:45pm 4.1 mmol/L 3.5-5.3 [facility] [id number] [address] [place] [address] 29309 Potassium Level June 23, 2023 6:12am 3.9 mmol/L 3.5-5.3 [facility] [id number] [address] [place] [address] 89542 Potassium Level June 27, 2023 11:35am 4.5 mmol/L 3.5-5.3 [facility] [id number] [address] [place] [address] 97444 Potassium Level June 28, 2023 6:27am 4.8 mmol/L 3.5-5.3 Specimen hemolyzed, results affected [facility] [id number] [address] [place] [address] 04932 Chloride Level June 19, 2023 6:49am 104 mmol/L 98-107 [facility] [id number] [address] [place] [address] 61102 Chloride Level June 19, 2023 11:45pm 97 mmol/L 98-107 [facility] [id number] [address] [place] [address] 01901 Chloride Level June 23, 2023 6:12am 101 mmol/L 98-107 [facility] [id number] [address] [place] [address] 73325 Chloride Level June 27, 2023 11:35am 103 mmol/L 98-107 [facility] [id number] [address] [facility] 19841 Chloride Level June 28, 2023 6:27am 103 mmol/L 98-107 [facility] [id number] [address] [facility] 46401 Carbon Dioxide Level June 19, 2023 6:49am 28 mmol/L 23-32 [facility] [id number] [address] [facility] 36505 Carbon Dioxide Level June 19, 2023 11:45pm 25 mmol/L 23-32 [facility] [id number] [address] [facility] 63620 Carbon Dioxide Level June 23, 2023 6:12am 27 mmol/L 23-32 [facility] [id number] [address] [facility] 20553 Carbon Dioxide Level June 27, 2023 11:35am 28 mmol/L 23-32 [facility] [id number] [address] [facility] 95964 Carbon Dioxide Level June 28, 2023 6:27am 24 mmol/L 23-32 [facility] [id number] [address] [facility] 11429 Anion Gap June 19, 2023 6:49am 10 mmol/L 5-15 [facility] [id number] [address] [facility] 99606 Anion Gap June 19, 2023 11:45pm 13 mmol/L 5-15 [facility] [id number] [address] [facility] 77499 Anion Gap June 23, 2023 6:12am 10 mmol/L 5-15 [facility] [id number] [address] [facility] 50470 Anion Gap June 27, 2023 11:35am 8 mmol/L 5-15 [facility] [id number] [address] [facility] 63883 Anion Gap June 28, 2023 6:27am 15 mmol/L 5-15 [facility] [id number] [address] [facility] 94021 Blood Urea Nitrogen June 19, 2023 6:49am 9 mg/dl 11-28 [facility] [id number] [address] [facility] 48907 Blood Urea Nitrogen June 19, 2023 11:45pm 14 mg/dl 11-28 [facility] [id number] [address] [place] [address] 19411 Blood Urea Nitrogen June 23, 2023 6:12am 10 mg/dl 11-28 [facility] [id number] [address] [facility] 93682 Blood Urea Nitrogen June 27, 2023 11:35am 15 mg/dl 11-28 [facility] [id number] [address] [place] [address] 71010 Blood Urea Nitrogen June 28, 2023 6:27am 8 mg/dl 11-28 [facility] [id number] [address] [place] [address] 28613 Creatinine June 19, 2023 6:49am 0.7 mg/dL 0.6-1.4 [facility] [id number] [address] [place] [address] 85267 Creatinine June 19, 2023 11:45pm 0.8 mg/dL 0.6-1.4 [facility] [id number] [address] [place] [address] 37307 Creatinine June 23, 2023 6:12am 0.6 mg/dL 0.6-1.4 [facility] [id number] [address] [place] [address] 27986 Creatinine June 27, 2023 11:35am 0.6 mg/dL 0.6-1.4 [facility] [id number] [address] [place] [address] 90240 Creatinine June 28, 2023 6:27am 0.6 mg/dL 0.6-1.4 [facility] [id number] [address] [place] [address] 30425 Estimated Creatinine Clearance June 19, 2023 6:49am 165.0 ml/min This value is calculated by Cockcroft Gault Equation using ideal body weight. This result is dependent on an accurate patient height and weight which is obtained from patients medical record. Cockcroft, D.W. and M.H. Gault. Prediction of creatinine clearance from serum creatinine. Nephron. 1975. 16(1):31-41. [facility] [id number] [address] [place] [address] 41645 Estimated Creatinine Clearance June 19, 2023 11:45pm Hat Model Unable to Calculate CRCL,Ht and/or Wt missing [facility] [id number] [address] [place] [address] 30046 Estimated Creatinine Clearance June 23, 2023 6:12am 192.5 ml/min This value is calculated by Cockcroft Gault Equation using ideal body weight. This result is dependent on an accurate patient height and weight which is obtained from patients medical record. Ameliaoft, D.W. and M.H. Gault. Prediction of creatinine clearance from serum creatinine. Nephron. 1975. 16(1):31-41. [facility] [id number] [address] [place] [address] 93777 Estimated Creatinine Clearance June 27, 2023 11:35am 203.8 ml/min This value is calculated by Cockcroft Gault Equation using ideal body weight. This result is dependent on an accurate patient height and weight which is obtained from patients medical record. Ameliaoft, D.W. and M.H. Gault. Prediction of creatinine clearance from serum creatinine. Nephron. 1975. 16(1):31-41. [facility] [id number] [address] [place] [address] 14454 Estimated Creatinine Clearance June 28, 2023 6:27am 192.8 ml/min This value is calculated by Cockcroft Gault Equation using ideal body weight. This result is dependent on an accurate patient height and weight which is obtained from patients medical record. Cockapoloniaoft, D.W. and M.H. Gault. Prediction of creatinine clearance from serum creatinine. Nephron. 1975. 16(1):31-41. [facility] [id number] [address] [place] [address] 46084 Estimat Glomerular Filtration Rate June 19, 2023 6:49am 119 >90 Reported eGFR is based on the CKD-EPI 2020 equation that does not use a race coefficient. Additional information can be found at:[id number] b_egfr_summary_f [email or web address].pdf ([email or web address]) [facility] [id number] [address] [place] [address] 45685 Estimat Glomerular Filtration Rate June 19, 2023 11:45pm 115 >90 Reported eGFR is based on the CKD-EPI 2020 equation that does not use a race coefficient. Additional information can be found at:[id number] b_egfr_summary_f [email or web address].pdf ([email or web address]) [facility] [id number] [address] [place] [address] 31103 Estimat Glomerular Filtration Rate June 23, 2023 6:12am 125 >90 Reported eGFR is based on the CKD-EPI 2020 equation that does not use a race coefficient. Additional information can be found at:[id number]_fg b_egfr_summary_f [email or web address].pdf ([email or web address]) [facility] [id number] [address] [place] [address] 24416 Estimat Glomerular Filtration Rate June 27, 2023 11:35am 125 >90 Reported eGFR is based on the CKD-EPI 2020 equation that does not use a race coefficient. Additional information can be found at:[email or web address]_fu b_egfr_summary_f [email or web address].pdf ([email or web address]) [facility] [id number] [address] [place] [address] 38890 Estimat Glomerular Filtration Rate June 28, 2023 6:27am 125 >90 Reported eGFR is based on the CKD-EPI 2020 equation that does not use a race coefficient. Additional information can be found at:[id number] b_egfr_summary_f [email or web address].pdf ([email or web address]) [facility] [id number] [address] [place] [address] 71562 BUN/Creatinine Ratio June 19, 2023 6:49am 12.9 10.0-20.0 [facility] [id number] [address] [place] [address] 79053 BUN/Creatinine Ratio June 19, 2023 11:45pm 17.5 10.0-20.0 [facility] [id number] [address] [place] [address] 62445 BUN/Creatinine Ratio June 23, 2023 6:12am 16.7 10.0-20.0 [facility] [id number] [address] [place] [address] 79425 BUN/Creatinine Ratio June 27, 2023 11:35am 25.0 10.0-20.0 [facility] [id number] [address] [place] [address] 09825 BUN/Creatinine Ratio June 28, 2023 6:27am 13.3 10.0-20.0 [facility] [id number] [address] [place] [address] 41454 Glucose Level June 19, 2023 6:49am 101 mg/dL 70-100 [facility] [id number] [address] [place] [address] 54471 Glucose Level June 19, 2023 11:45pm 94 mg/dL 70-100 [facility] [id number] [address] [place] [address] 95060 Glucose Level June 23, 2023 6:12am 98 mg/dL 70-100 [facility] [id number] [address] [place] [address] 22355 Glucose Level June 27, 2023 11:35am 95 mg/dL 70-100 [facility] [id number] [address] [place] [address] 29614 Glucose Level June 28, 2023 6:27am 105 mg/dL 70-100 [facility] [id number] [address] [place] [address] 00110 Lactic Acid Level June 16, 2023 11:13am 1.1 mmol/L >0.5 [facility] [id number] [address] [place] [address] 08244 Lactic Acid Level June 20, 2023 2:57pm 1.9 mmol/L >0.5 [facility] [id number] [address] [place] [address] 76204 Calcium Level June 19, 2023 6:49am 8.9 mg/dl 8.6-10.3 [facility] [id number] [address] [place] [address] 91268 Calcium Level June 19, 2023 11:45pm 8.8 mg/dl 8.6-10.3 [facility] [id number] [address] [place] [address] 62733 Calcium Level June 23, 2023 6:12am 8.9 mg/dl 8.6-10.3 [facility] [id number] [address] [place] [address] 19712 Calcium Level June 27, 2023 11:35am 8.6 mg/dl 8.6-10.3 [facility] [id number] [address] [place] [address] 16513 Calcium Level June 28, 2023 6:27am 8.9 mg/dl 8.6-10.3 [facility] [id number] [address] [place] [address] 95297 Phosphorus Level June 23, 2023 6:12am 3.7 mg/dL 2.5-4.5 [facility] [id number] [address] [place] [address] 84670 Phosphorus Level June 28, 2023 6:27am 4.5 mg/dL 2.5-4.5 [facility] [id number] [address] [place] [address] 25013 Magnesium Level June 19, 2023 6:49am 1.8 mg/dL 1.8-2.5 [facility] [id number] [address] [place] [address] 60074 Magnesium Level June 19, 2023 11:45pm 1.8 mg/dL 1.8-2.5 [facility] [id number] [address] [place] [address] 11911 Magnesium Level June 23, 2023 6:12am 2.0 mg/dL 1.8-2.5 [facility] [id number] [address] [place] [address] 74192 Magnesium Level June 27, 2023 11:35am 1.9 mg/dL 1.8-2.5 [facility] [id number] [address] [place] [address] 25555 Magnesium Level June 28, 2023 6:27am 1.8 mg/dL 1.8-2.5 [facility] [id number] [address] [place] [address] 20148 Total Bilirubin June 18, 2023 5:55am < 0.2 mg/dl <1.1 [facility] [id number] [address] [facility] 35976 Total Bilirubin June 19, 2023 11:45pm 0.3 mg/dl <1.1 [facility] [id number] [address] [place] [address] 70551 Total Bilirubin June 23, 2023 6:12am < 0.2 mg/dl <1.1 [facility] [id number] [address] [place] [address] 01173 Total Bilirubin June 25, 2023 2:11pm < 0.2 mg/dl <1.1 [facility] [id number] [address] [place] [address] 90921 Total Bilirubin June 28, 2023 6:27am < 0.2 mg/dl <1.1 [facility] [id number] [address] [place] [address] 40441 Aspartate Amino Transf (AST/SGOT) June 18, 2023 5:55am 24 U/L 15- [facility] [id number] [address] [place] [address] 35260 Aspartate Amino Transf (AST/SGOT) June 19, 2023 11:45pm 20 U/L 15-41 [facility] [id number] [address] [place] [address] 59591 Aspartate Amino Transf (AST/SGOT) June 23, 2023 6:12am 13 U/L 15- [facility] [id number] [address] [place] [address] 83133 Aspartate Amino Transf (AST/SGOT) June 25, 2023 2:11pm 19 U/L 15-41 [facility] [id number] [address] [place] [address] 92620 Aspartate Amino Transf (AST/SGOT) June 28, 2023 6:27am 23 U/L 15-41 [facility] [id number] [address] [place] [address] 04228 Alanine Aminotransfera se (ALT/SGPT) June 18, 2023 5:55am 18 U/L 14-63 [facility] [id number] [address] [place] [address] 82645 Alanine Aminotransfera se (ALT/SGPT) June 19, 2023 11:45pm 19 U/L 14-63 [facility] [id number] [address] [facility] 35914 Alanine Aminotransfera se (ALT/SGPT) June 23, 2023 6:12am 13 U/L 14-63 [facility] [id number] [address] [facility] 23240 Alanine Aminotransfera se (ALT/SGPT) June 25, 2023 2:11pm 16 U/L 14-63 [facility] [id number] [address] [facility] 82315 Alanine Aminotransfera se (ALT/SGPT) June 28, 2023 6:27am 15 U/L 14-63 [facility] [id number] [address] [facility] 60709 Ammonia June 20, 2023 8:46am 12 umol/L 16-60 [facility] [id number] [address] [facility] 06781 Ammonia June 20, 2023 10:30pm 24 umol/L 16-60 [facility] [id number] [address] [facility] 20108 Ammonia June 25, 2023 9:16pm 12 umol/L 16-60 [facility] [id number] [address] [facility] 97553 Total Creatine Kinase June 23, 2023 6:12am 39 U/L 49-397 [facility] [id number] [address] [facility] 94822 Total Creatine Kinase June 27, 2023 11:35am 63 U/L 49-397 [facility] [id number] [address] [facility] 10772 Total Protein June 18, 2023 5:55am 6.1 g/dL 6.4-8.3 [facility] [id number] [address] [facility] 93244 Total Protein June 19, 2023 11:45pm 7.2 g/dL 6.4-8.3 [facility] [id number] [address] [place] [address] 79934 Total Protein June 23, 2023 6:12am 6.3 g/dL 6.4-8.3 [facility] [id number] [address] [facility] 61780 Total Protein June 25, 2023 2:11pm 6.7 g/dL 6.4-8.3 [facility] [id number] [address] [facility] 86222 Total Protein June 28, 2023 6:27am 6.7 g/dL 6.4-8.3 [facility] [id number] [address] [place] [address] 67028 Albumin June 18, 2023 5:55am 3.7 g/dl 4.0-5.0 [facility] [id number] [address] [place] [address] 63452 Albumin June 19, 2023 11:45pm 4.4 g/dl 4.0-5.0 [facility] [id number] [address] [place] [address] 61069 Albumin June 23, 2023 6:12am 3.9 g/dl 4.0-5.0 [facility] [id number] [address] [place] [address] 73495 Albumin June 25, 2023 2:11pm 4.0 g/dl 4.0-5.0 [facility] [id number] [address] [place] [address] 99158 Albumin June 28, 2023 6:27am 4.0 g/dl 4.0-5.0 [facility] [id number] [address] [place] [address] 06366 Albumin/Globul in Ratio June 18, 2023 5:55am 1.5 1.0-2.6 [facility] [id number] [address] [place] [address] 96364 Albumin/Globul in Ratio June 19, 2023 11:45pm 1.6 1.0-2.6 [facility] [id number] [address] [place] [address] 19726 Albumin/Globul in Ratio June 23, 2023 6:12am 1.6 1.0-2.6 [facility] [id number] [address] [facility] 69723 Albumin/Globul in Ratio June 25, 2023 2:11pm 1.5 1.0-2.6 [facility] [id number] [address] [place] [address] 00750 Albumin/Globul in Ratio June 28, 2023 6:27am 1.5 1.0-2.6 [facility] [id number] [address] [place] [address] 90563 Alkaline Phosphatase June 18, 2023 5:55am 47 U/L 40-129 [facility] [id number] [address] [place] [address] 09426 Alkaline Phosphatase June 19, 2023 11:45pm 53 U/L 40-129 [facility] [id number] [address] [place] [address] 98021 Alkaline Phosphatase June 23, 2023 6:12am 48 U/L 40-129 [facility] [id number] [address] [place] [address] 97026 Alkaline Phosphatase June 25, 2023 2:11pm 51 U/L 40-129 [facility] [id number] [address] [place] [address] 95266 Alkaline Phosphatase June 28, 2023 6:27am 49 U/L 40-129 [facility] [id number] [address] [place] [address] 74537 Lipase June 20, 2023 10:15pm 51 U/L 13-60 [facility] [id number] [address] [place] [address] 77322 Thyroid Stimulating Hormone (TSH) June 16, 2023 11:13am 1.55 uIU/mL 0.34-5.60 [facility] [id number] [address] [place] [address] 22759 Procalcitonin June 16, 2023 11:13am 0.03 ng/mL <0.10 [facility] [id number] [address] [place] [address] 69625 Bedside Glucose June 16, 2023 9:04am 75 mg/dl 70-100 NOTE: Any discrepancy between finger stick glucose result and patient's clinical presentation should be confirmed by the laboratory. [facility] [id number] [address] [place] [address] 14253 Bedside Glucose June 22, 2023 8:47pm 122 mg/dl 70-100 NOTE: Any discrepancy between finger stick glucose result and patient's clinical presentation should be confirmed by the laboratory. [facility] [id number] [address] [place] [address] 36961 Bedside Glucose June 28, 2023 5:22am 70 mg/dl 70-100 NOTE: Any discrepancy between finger stick glucose result and patient's clinical presentation should be confirmed by the laboratory. [facility] [id number] [address] [place] [address] 34402 Urine Amphetamines Screen June 16, 2023 9:45am Negative Negative Amphetamines Cutoff level 1000 ng/mL. [facility] [id number] [address] [place] [address] 52480 Urine Amphetamines Screen June 20, 2023 2:16am Negative Negative Amphetamines Cutoff level 1000 ng/mL. [facility] [id number] [address] [place] [address] 23755 Urine Amphetamines Screen June 25, 2023 6:58pm Negative Negative Amphetamines Cutoff level 1000 ng/mL. [facility] [id number] [address] [place] [address] 69727 Urine Methadone Screen June 16, 2023 9:45am Negative Negative Methadone Cutoff level 300 ng/mL [facility] [id number] [address] [place] [address] 30016 Urine Methadone Screen June 20, 2023 2:16am Negative Negative Methadone Cutoff level 300 ng/mL [facility] [id number] [address] [place] [address] 61485 Urine Methadone Screen June 25, 2023 6:58pm Negative Negative Methadone Cutoff level 300 ng/mL [facility] [id number] [address] [place] [address] 56727 Urine Oxycodone Screen June 16, 2023 9:45am Negative Negative Oxycontin/Oxycod one Cutoff level 100 ng/mL [facility] [id number] [address] [place] [address] 57283 Urine Oxycodone Screen June 20, 2023 2:16am Negative Negative Oxycontin/Oxycod one Cutoff level 100 ng/mL [facility] [id number] [address] [facility] 03472 Urine Oxycodone Screen June 25, 2023 6:58pm Negative Negative Oxycontin/Oxycod one Cutoff level 100 ng/mL [facility] [id number] [address] [facility] 51382 Urine Buprenorphine Screen June 16, 2023 9:45am Negative Negative Buprenorphine Cutoff level 5 ng/mL [facility] [id number] [address] [facility] 24447 Urine Buprenorphine Screen June 20, 2023 2:16am Negative Negative Buprenorphine Cutoff level 5 ng/mL [facility] [id number] [address] [place] [address] 39274 Urine Buprenorphine Screen June 25, 2023 6:58pm Negative Negative Buprenorphine Cutoff level 5 ng/mL [facility] [id number] [address] [place] [address] 36398 Salicylates Level June 19, 2023 11:45pm < 1.0 mg/dL Salicylate Reference Range: Negative <1.0 mg/dL Therapeutic Range: 2.0-20.0 mg/dL [facility] [id number] [address] [place] [address] 95245 Salicylates Level June 25, 2023 2:11pm < 1.0 mg/dL Salicylate Reference Range: Negative <1.0 mg/dL Therapeutic Range: 2.0-20.0 mg/dL [facility] [id number] [address] [place] [address] 11313 Urine Opiates Screen June 16, 2023 9:45am Negative Negative Opiate Cutoff level 300 ng/mLOxycontin/O xycodone is not detected below the threshold of20,000 ng/mL [facility] [id number] [address] [place] [address] 99666 Urine Opiates Screen June 20, 2023 2:16am Negative Negative Opiate Cutoff level 300 ng/mLOxycontin/O xycodone is not detected below the threshold of20,000 ng/mL [facility] [id number] [address] [place] [address] 45556 Urine Opiates Screen June 25, 2023 6:58pm Negative Negative Opiate Cutoff level 300 ng/mLOxycontin/O xycodone is not detected below the threshold of20,000 ng/mL [facility] [id number] [address] [place] [address] 50327 Urine Fentanyl Screen June 16, 2023 9:45am Negative Negative Fentanyl Cutoff level 2.0 ng/mL [facility] [id number] [address] [place] [address] 91770 Urine Fentanyl Screen June 20, 2023 2:16am Negative Negative Fentanyl Cutoff level 2.0 ng/mL [facility] [id number] [address] [place] [address] 37487 Urine Fentanyl Screen June 25, 2023 6:58pm Negative Negative Fentanyl Cutoff level 2.0 ng/mL [facility] [id number] [address] [place] [address] 11077 Acetaminophen Level June 19, 2023 11:45pm < 5 ug/mL Acetaminophen Reference Range: Negative <5 ug/mL [facility] [id number] [address] [place] [address] 25798 Acetaminophen Level June 25, 2023 2:11pm < 5 ug/mL Acetaminophen Reference Range: Negative <5 ug/mL [facility] [id number] [address] [place] [address] 16330 Urine Benzodiazepine s Screen June 16, 2023 9:45am Negative Negative Please note that the current method for benzodiazepines may be less sensitive to lorazapam detection than previously. If this result is negative and you are concerned about a false negative result for lorazepam, additional testing is possible. Please contact the laboratory.Benzo diazepine Cutoff level 200 ng/mL [facility] [id number] [address] [place] [address] 96393 Urine Benzodiazepine s Screen June 20, 2023 2:16am Negative Negative Please note that the current method for benzodiazepines may be less sensitive to lorazapam detection than previously. If this result is negative and you are concerned about a false negative result for lorazepam, additional testing is possible. Please contact the laboratory.Benzo diazepine Cutoff level 200 ng/mL [facility] [id number] [address] [place] [address] 29420 Urine Benzodiazepine s Screen June 25, 2023 6:58pm Negative Negative Please note that the current method for benzodiazepines may be less sensitive to lorazapam detection than previously. If this result is negative and you are concerned about a false negative result for lorazepam, additional testing is possible. Please contact the laboratory.Benzo diazepine Cutoff level 200 ng/mL [facility] [id number] [address] [place] [address] 29986 Urine Cocaine Screen June 16, 2023 9:45am Positive Negative Confirmation by GC/MS not routinely performed for Non-Maternity locations. If confirmation is required, an order must be placed.Cocaine Cutoff level 300 ng/mL [facility] [id number] [address] [place] [address] 43641 Urine Cocaine Screen June 20, 2023 2:16am Negative Negative Cocaine Cutoff level 300 ng/mL [facility] [id number] [address] [place] [address] 54564 Urine Cocaine Screen June 25, 2023 6:58pm Negative Negative Cocaine Cutoff level 300 ng/mL [facility] [id number] [address] [place] [address] 76795 Urine Cannabinoids Screen June 16, 2023 9:45am Negative Negative THC Cutoff level 50 ng/mLThis report is intended for use in clinical monitoring and management of patients. It is not intended for use in employment related drug testing or court related proceedings. Samples are not routinely tested for adulteration and are assumed to be within the normal physiological pH range of 5 - 8. [facility] [id number] [address] [facility] 88363 Urine Cannabinoids Screen June 20, 2023 2:16am Negative Negative THC Cutoff level 50 ng/mLThis report is intended for use in clinical monitoring and management of patients. It is not intended for use in employment related drug testing or court related proceedings. Samples are not routinely tested for adulteration and are assumed to be within the normal physiological pH range of 5 - 8. [facility] [id number] [address] [facility] 42118 Urine Cannabinoids Screen June 25, 2023 6:58pm Negative Negative THC Cutoff level 50 ng/mLThis report is intended for use in clinical monitoring and management of patients. It is not intended for use in employment related drug testing or court related proceedings. Samples are not routinely tested for adulteration and are assumed to be within the normal physiological pH range of 5 - 8. [facility] [id number] [address] [facility] 07104 Serum Alcohol June 16, 2023 11:13am < 10 mg/dl <10 [facility] [id number] [address] [facility] 29825 Serum Alcohol June 19, 2023 11:45pm 41 mg/dl <10 [facility] [id number] [address] [facility] 42870 Serum Alcohol June 20, 2023 10:15pm 216 mg/dl <10 [facility] [id number] [address] [facility] 41688 Serum Alcohol June 25, 2023 2:11pm 115 mg/dl <10 [facility] [id number] [address] [place] [address] 57375 Serum Alcohol June 28, 2023 6:27am 14 mg/dl <10 [facility] [id number] [address] [place] [address] 52591 Whole Blood Vitamin B1 Level June 20, 2023 8:46am 171.7 nmol/L 66.5-200.0 Performed at: [facility] [address] [id number] Director: Rojas Prabhakar MD, Phone: [phone] [employer]) [id number] Levetiracetam (Keppra) Level June 16, 2023 11:13am <2.0 ug/mL 10.0-40.0 Performed at: [facility] [address] [id number] Director: Rojas Prabhakar MD, Phone: [phone] [employer]) [id number] Levetiracetam (Keppra) Level June 23, 2023 12:18pm 13.4 ug/mL 10.0-40.0 Performed at: [facility] [id number] Director: Rojas Prabhakar MD, Phone: [phone] [employer]) [id number] Diagnostic Imaging Reports Author Alfonso Garcia [facility] Authored June 16, 2023 9:51am Report Dictated Date/Time Dictated By Status Radiology Report June 16, 2023 9:51am Alfonso Garcia MD completed [address] [address] Patient Name: MAYELIN LESLIE Medical Record#: [id number] Address: [address] City/State/[place]: [place] [address]: Pepe Choudhary MD Insurance: [employer] [facility] (Medicaid) /Age/Sex: 1980/42/M Self Pay Admit/Reg Date: 06/16/[address]: Karoline Choudhary MD Location: ED.GS/ PCP: Pcp-Md ARCHIE Galeana Date of Service: 06/16/23 Order (s): CT head/brain wo contrast CPT Code: 04843 Report Number: [id number] Reason for Exam: seizure Clinical history: Seizure CT head/brain wo contrast TECHNIQUE: Multidetector, volumetric CT acquisition was performed of the head from skull base to vertex and axial, coronal, and sagittal reformatted images were produced. Iterative reconstruction techniques were used for dose reduction. COMPARISON: None. FINDINGS: Brain Parenchyma: There is no acute intracranial infarction, hemorrhage, midline shift or mass effect. Ventricular System and Extra-Axial Spaces: Normal. Calvarium, Skull Base, and Sella: Normal. Paranasal Sinuses: Small retention cyst versus polyp in the left maxillary sinus. Mastoid Air Cells: Clear. Orbits: Normal. IMPRESSION: 1. No acute intracranial process. MRI is a more sensitive modality to exclude structural/parenchymal abnormalities in the brain parenchyma for workup of seizure. Dictated By: Alfonso Garcia MD 06/16/23 0951 Signed By: Alfonso Garcia MD 06/16/23 1023 TD/TT: 06/16/23 0951Tech: [id number] cc: PCPNO; SAKCO* Karoline Choudhary MD; Pcp-MD Lissett Author Neil Addison [facility] Authored June 16, 2023 9:47am Report Dictated Date/Time Dictated By Status Electrocardiogram June 16, 2023 9:47am Neil Addison MD completed [facility] [address] [place] [address] Patient Name: MAYELIN LESLIE Medical Record#: [id number] Address: [address] City/[facility]/Zip: [place] [address]: Yo torres MD Insurance: [employer] et (Medicaid) /Age/Sex: 1980/42/M Self Pay Admit/Reg Date: 06/16/[address]: Karoline Choudhary MD Location: 3A./[id number] PCP: Md ARCHIE Vargas Date of Service: 06/16/23 Order (s): EKG ED Electrocardiogram CPT Code: 70323 Report Number: [id number] Reason for Exam: seizure SINUS RHYTHM NONSPECIFIC INTRAVENTRICULAR CONDUCTION DELAY Dictated By: Neil Addison MD 06/16/23 0947 Signed By: Neil Addison MD 06/17/23 1042 TD/TT: 06/16/23 0947Tech: [email or web address] cc: ANNI; SAKDAVINA* Karoline Choudhary MD; Md Alicia MD Author [facility] Authored June 17, 2023 2:03pm Report Dictated Date/Time Dictated By Status Radiology Report June 17, 2023 2:03pm Rupert Elmore MD completed [facility] [address] [place] [address] Patient Name: MAYELIN LESLIE Medical Record#: [id number] Address: [address] City/[facility]/Zip: [place] [address]: Yo torres MD Insurance: [employer] (Medicaid) /Age/Sex: 1980/42/M Self Pay Admit/Reg Date: 06/16/[address]: Yo Hernandez MD Location: 3A./[id number] PCP: Md ARCHIE Vargas Date of Service: 06/17/23 Order (s): XR KUB portable; XR chest 1V portable CPT Code: 83929; 77409 Report Number: [id number] Reason for Exam: Pre MRI XR KUB portable, XR chest 1V portable CLINICAL INFORMATION: MRI screening COMPARISON: None available FINDINGS: Chest portable AP upright: There is no infiltrate or pleural effusion. Pulmonary vasculature is within normal limits. Mediastinal contours are normal. Heart is mildly enlarged. There are multiple leads overlying the chest. No other metallic density or device is seen. Abdomen supine: Note is made of gastric banding and opaque catheter. No metallic density or device is identified. Normal intestinal gas pattern. No intestinal obstruction. IMPRESSION: Chest: No acute cardiopulmonary disease. No metallic density or device. Abdomen: Normal gas pattern. Patient status post gastric banding. No other metallic densities or device is identified. Dictated By: Rupert Elmore MD 06/17/231402 Signed By: Rupert Elmore MD 06/17/231410 TD/TT: 06/17/231402Tech: [id number] cc: ANNI; СЕРГЕЙ Perdomo Pcp-MD Lissett; Yo Hernandez MD Author Evens Minaya [facility] Authored June 18, 2023 10:44am Report Dictated Date/Time Dictated By Status Radiology Report June 18, 2023 10:44am [place] [address] Patient Name: MAYELIN LESLIE Medical Record#: [id number] Address: [address] City/State/Zip: [place] [address]: Zeke Perkins MD Insurance: [facility] et (Medicaid) /Age/Sex: 1980/42/M Self Pay Admit/Reg Date: 06/16/[address]: Yo Hernandez MD Location: [address] [place] [address] PCP: Md ARCHIE Vargas Date of Service: 06/18/23 Order (s): MR head/brain wo contrast CPT Code: 40852 Report Number: [id number] Reason for Exam: Seizure History: Seizure. No prior brain MRIs available for comparison. Head CT from June 16, 2023 is available on PACS. Technique: Noncontrast brain MRI included following sequences; sagittal T1, axial T2, axial FLAIR, axial diffusion, axial gradient echo, coronal IR, coronal T2. Additionally thin section axial T2/cisternogram was obtained through the internal auditory canals. Findings: Is motion degradation throughout the study. The coronal IR and T2 imaging is essentially nondiagnostic as is the cisternogram. Axial imaging shows the ventricles to be midline without shift. Sagittal T1 imaging does not show suspicious suprasellar mass or cerebellar tonsillar herniation. Although motion degraded, grossly gradient echo imaging does not show significant hemosiderin deposition within brain parenchyma. Similarly the diffusion sequence is motion degraded however grossly no large areas of acute ischemia are identified. On axial T2 and FLAIR imaging, grossly no significant signal abnormality is identified. There is mucosal thickening in the paranasal sinuses with retention cysts or polyps along the inferior left maxillary sinus. Mastoid air cells show patchy opacification on the left. Impression: Noncontrast brain MRI. Study is motion degraded as described above, however grossly no acute ischemia, mass effect or significant T2/FLAIR signal abnormality seen in brain parenchyma. However follow-up imaging may be considered if symptoms persist. Dictated By: Evens Minaya MD 06/18/23 1044 Signed By: Evens Minaya MD 06/18/23 1053 TD/TT: 06/18/23 1044Tech: [id number] cc: REINA; ANNI; СЕРГЕЙ Perdomo Pcp-MD Lissett; Zeke Perkins MD; Yo Hernandez MD Author Thaddeus Keys [facility] Authored June 20, 2023 7:19am Report Dictated Date/Time Dictated By Status Radiology Report June 20, 2023 7:19am Thaddeus do MD completed [address] [place] [address] Patient Name: MAYELIN LESLIE Medical Record#: [id number] Address: [address] City/State/Zip: [place] [address]: Pepe Choudhary MD Insurance: [facility] (Medicaid) /Age/Sex: 1980/42/M Self Pay Admit/Reg Date: 06/19/[address]: Tony Kearns DO Location: ED.GS/ PCP: Pcp-Md ARCHIE Galeana Date of Service: 06/20/23 Order (s): CT head/brain wo contrast CPT Code: 14102 Report Number: [id number] Reason for Exam: syncope. ?head strike Examination: CT head/brain wo contrast Indication: syncope. ?head strike Comparison: CT head on 06/16/2023 and MRI brain on 06/18/2023 Technique: Angled axial images were obtained without intravenous contrast from the skull base to the vertex. Coronal and sagittal reformatted images were provided for interpretation. MIPS Measure #361 Patient Exposure to Ionizing Radiation was submitted to [employer] (ACR) National Radiology Data Registry (NRDR) and MIPS Measure #359 standard nomenclature was used for Dose Index registry submission and Measure #436 Adaptive Statistical Iterative Reconstruction (ASIR) and Auto mA and Smart mA software, were used to reduce radiation dose to the patient. Findings: Hemorrhage: There is no acute intracranial hemorrhage. Ventricles: There is no hydrocephalus. Brain and cerebellum: There is no radiographic evidence for an acute infarct. There is no mass effect or shift of the normal midline structures. Basal cisterns: The basal cisterns are well-maintained. Extra-axial tentorium and falx: Unremarkable. Calvarium: The calvarium is intact. Scalp: Unremarkable. Paranasal sinuses: Small mucous retention cysts/polyps in the left maxillary sinus. Mastoid air cells are: Unremarkable. Impression: No acute intracranial abnormality. If there are persistent clinical symptoms or additional clinical concerns consider further evaluation with MRI of the head. I agree with the preliminary report. Dictated By: Thaddeus Keys MD 06/20/23718 Signed By: Thaddeus Keys MD 06/20/2328 TD/TT: 06/20/23718Tech: [id number] cc: KIM; ANNI; MIN* Karoline Choudhary MD; Pcp-MD Lissett; Tony Lockhart DO Author Tej Bryant [facility] Authored June 20, 2023 5:49pm Report Dictated Date/Time Dictated By Status Radiology Report June 20, 2023 5:49pm Tej Bryant MD completed [address] [place] [address] Patient Name: MAYELIN LESLIE Medical Record#: [id number] Address: [address] City/State/Zip: [place] [address]: Lizandro Sandhu DO [facility] /Age/Sex: 1980/42/M Self Pay Admit/Reg Date: 06/19/[address]: Lizandro Sandhu DO Location: ED.GS/ PCP: Pcp-Md ARCHIE Galeana Date of Service: 06/20/23 Order (s): MR head/brain wo/w contrast CPT Code: 76190 Report Number: [id number] Reason for Exam: requested by neuro, ? guero CLINICAL HISTORY:Patient with a syncopal episode and question of seizure. Please evaluate for Wernicke encephalopathy. TECHNIQUE: Multiplanar imaging of the brain protocol prior department protocol without and then following the intravenous injection of 10 ml Gadavist in the right antecubital fossa. FINDINGS: Comparison is made with the prior exam on 06/18/2023. There is normal powell-white matter differentiation. The ventricles are of appropriate size and configuration. There is no evidence of any mass, mass effect or edema. No intra-axial or extra-axial hemorrhage is seen. No acute ischemia is noted on the diffusion-weighted imaging. There is no evidence of any abnormal enhancement. The brainstem, cerebellum and corpus callosum are all grossly intact. There is no evidence of any cerebellar tonsillar ectopia. The pituitary gland is normal in size and contour. The arterial and venous structures are grossly patent without obvious stenosis or aneurysm. The visualized extra-axial regions are unremarkable for acute abnormality. IMPRESSION: 1. No acute intracranial abnormality is identified. Line 2. No abnormal enhancement or acute ischemia is identified. Dictated By: Tej Bryant MD 06/20/231748 Signed By: Tej Bryant MD 06/20/23 180 TD/TT: 06/20/231748Tech: [id number] cc: [id number]; PCPNO* Pcp-MD Lissett; Lizandro Sandhu DO Author Tej Bryant [facility] Authored June 20, 2023 10:28pm Report Dictated Date/Time Dictated By Status Radiology Report June 20, 2023 10:28pm Tej Bryant MD completed [address] [address] [address] [facility] [place] [address] Patient Name: MAYELIN LESLIE Medical Record#: [id number] Address: [address] City/State/Zip: [place] [address]: Ming E/Emmett tena Insurance: [employer] [facility] (Medicaid) /Age/Sex: 1980/42/M Self Pay Admit/Reg Date: 06/20/[address]: Sarahi Ying Location: ED.GS/ PCP: Pcp-Md ARCHIE Galeana Date of Service: 06/20/23 Order (s): CT head/brain wo contrast CPT Code: 03013 Report Number: [id number] Reason for Exam: unresponsive CLINICAL HISTORY:Patient status post a fall and is unresponsive. TECHNIQUE: Axial images through the head were obtained. Bone and soft tissue windows were obtained. Sagittal and coronal reconstructions were performed. Automated exposure control and dose reduction techniques were utilized with mA and kV adjusted for patient size. FINDINGS: Comparison is made to prior exam on 06/20/2023 at 1:42 AM. There is normal powell-white matter differentiation. The ventricles are of appropriate size and configuration. The sulci and basal cisterns are normal in size and appearance. There is no evidence of any intra-axial or extra-axial hemorrhage. There is no evidence of any midline shift. There is no evidence of any mass, mass effect or edema. There is no territorial region of mass effect or edema to suggest any large area of acute infarction. The cerebellum and brainstem are grossly unremarkable. The pituitary gland is nonenlarged in size. There is a small mucosal retention cysts in the left maxillary sinus. The visualized extra-axial regions are unremarkable for acute abnormality. There is no evidence of any fracture of the calvarium. The bone windows are unremarkable for acute abnormality. IMPRESSION: 1. There is no evidence of any intracranial hemorrhage. 2. No obvious large area of territorial mass effect or edema is seen to suggest any large area of acute infarction or mass on this nonenhanced study. MRI would be more sensitive for subtle areas of acute ischemia. 3. No acute intracranial abnormality is noted on this nonenhanced study. No significant focal change from the prior exam. Dictated By: Tej Bryant MD 06/20/232227 Signed By: Tej Bryant MD 06/20/232249 TD/TT: 06/20/232227Tech: [id number] cc: E/R; [email or web address]; PCPNO* E/R Physician,Ming ; Mark Mueller PAC; Md Alicia MD Author Tej Bryant [facility] Authored June 20, 2023 10:33pm Report Dictated Date/Time Dictated By Status Radiology Report June 20, 2023 10:33pm Tej Bryant MD completed [address] [address] Patient Name: MAYELIN LESLIE Medical Record#: [id number] Address: [address] City/State/Zip: [place] [address]: Ming tena Insurance: [facility] (Medicaid) /Age/Sex: 1980/42/M Self Pay Admit/Reg Date: 06/20/[address]: Sarahi Ying Location: ED.GS/ PCP: Md ARCHIE Vargas Date of Service: 06/20/23 Order (s): CT cervical spine wo contrast CPT Code: 76894 Report Number: [id number] Reason for Exam: neck pain, fall CLINICAL HISTORY:Patient complains of neck pain status post a fall. TECHNIQUE: Axial images through the cervical spine with sagittal and coronal reconstructions performed on the same workstation. Lung, Soft tissue and bone windows. Automated exposure control and dose reduction techniques were utilized with mA and kV adjusted for patient size. FINDINGS: No prior studies available for comparison. The occiput of the skull base is in good alignment with the ring of C1. The late ral masses of C1 and C2 are in good alignment. There is no evidence of any fracture of the ring of C1. The dens of C2 is intact without evidence of any fracture. There is no evidence of any prevertebral soft tissue swelling. There is straightening of the usual cervical lordosis. There are normal vertebral body heights. There is no evidence of any vertebral body, spinous process or transverse process fracture. There is no evidence of any subluxation. The visualized extra-axial regions are unremarkable for any acute abnormality. The visualized lung apices are clear. IMPRESSION: 1. No acute fracture or traumatic subluxation is seen in the cervical spine. 2. No prevertebral soft tissue swelling. 3. Straightening of the usual cervical lordosis. Dictated By: Tej Bryant MD 06/20/232232 Signed By: Tej Bryant MD 06/20/232250 TD/TT: 06/20/232232Tech: [id number] cc: E/R; DARINEL; PCPNO* E/R Physician,E ; Mark Mueller PAC; PcpMD Mariaa Author Héctor Hagan [facility] Authored June 20, 2023 2:17am Report Dictated Date/Time Dictated By Status Electrocardiogram June 20, 2023 2:17am Héctor Hagan MD completed [address] [place] [address] Patient Name: MAYELIN LESLIE Medical Record#: [id number] Address: [address] City/State/Zip: [place] [address]: Lizandro Sandhu DO Insurance: [facility] (Medicaid) /Age/Sex: 1980/42/M Self Pay Admit/Reg Date: 06/19/[address]: Tony Kearns DO Location: ED.GS/ PCP: PcpMd ARCHIE Leroy Date of Service: 06/20/23 Order (s): EKG ED Electrocardiogram CPT Code: 42315 Report Number: [id number] Reason for Exam: weakness, syncope Sinus rhythm Septal T wave abnormality is nonspecific Dictated By: Héctor Hagan MD 06/20/23216 Signed By: Héctor Hagan MD 06/22/23 1141 TD/TT: 06/20/23216Tech: [id number] cc: LIZZIE Vargas MD; Tony Lockhart DO Author John Becker [facility] Authored June 25, 2023 3:03pm Report Dictated Date/Time Dictated By Status Radiology Report June 25, 2023 3:03pm John Becker MD completed [address] [place] [address] Patient Name: MAYELIN LESLIE Medical Record#: [id number] Address: [address] City/State/Zip: [place] [address]: Juanita joyce MD Insurance: [facility] (Medicaid) /Age/Sex: 1980/42/M Self Pay Admit/Reg Date: 06/25/[address]: Juanita Callahan MD Location: ED.GS/ PCP: Md ARCHIE Vargas Date of Service: 06/25/23 Order (s): CT head/brain wo contrast CPT Code: 23516 Report Number: [id number] Reason for Exam: seizure numb right face CT BRAIN WITHOUT CONTRAST HISTORY:Seizure with numbness right side of the face. COMPARISON:CT brain 06/20/2023. TECHNIQUE: CT of the brain was performed without contrast using standard department protocol. Automated exposure control and dose reduction techniques were utilized. FINDINGS: There is no midline shift, mass effect or hydrocephalus. Powell-white junction is maintained. There is no acute territorial infarct or acute hemorrhage. Basilar cisterns are patent. Calvarium intact. Minimal sinus inflammatory disease. Mastoids clear. IMPRESSION: No acute intracranial abnormality. Recommend further assessment with MRI brain using epilepsy protocol. Dictated By: John Becker MD 06/25/23 1503 Signed By: John Becker MD 06/25/23 1512 TD/TT: 06/25/23 1503Tech: [id number] cc: LOZSABrooks; ANNI* Md Alicia MD; Juanita Callahan MD Author Jeevan Tarango [facility] Authored June 25, 2023 8:52pm Report Dictated Date/Time Dictated By Status Electrocardiogram June 25, 2023 8:52pm Jeevan Tarango MD completed [facility] [address] [place] [address] Patient Name: MAYELIN LESLIE Medical Record#: [id number] Address: [address] City/State/Zip: [place] [address]: Alexis Del Rio MD Insurance: [employer] (Medicaid) /Age/Sex: 1980/42/M Self Pay Admit/Reg Date: 06/26/[address]: Juanita Callahan MD Location: ED.[place] [address] PCP: Md ARCHIE Vargas Date of Service: 06/25/23 Order (s): EKG ED Electrocardiogram CPT Code: 73105 Report Number: [id number] Reason for Exam: w SINUS RHYTHM PROBABLE LEFT ATRIAL ABNORMALITY Dictated By: Jeevan Tarango MD 06/25/232051 Signed By: Jeevan Tarango MD 06/26/23 1051 TD/TT: 06/25/232051Tech: [email or web address] cc: [email or web address]; FARNAZ Vargas MD; Juanita Callahan MD Author [facility] Authored June 20, 2023 1:15pm Report Dictated Date/Time Dictated By Status Electrocardiogram June 20, 2023 1:15pm Héctor Hagan MD completed [facility] [address] [place] [address] Patient Name: MAYELIN LESLIE Medical Record#: [id number] Address: [address] City/State/Zip: [place] [address]: Jen prince MD Insurance: [employer] (Medicaid) /Age/Sex: 1980/42/M Self Pay Admit/Reg Date: 06/20/[address]: Sarahi Ying Location: [address] [place], [place] [id number] PCP: PcpMd ARCHIE Leroy Date of Service: 06/20/23 Order (s): EKG ED Electrocardiogram CPT Code: 88033 Report Number: [id number] Reason for Exam: syncope SINUS RHYTHM SEPTAL T WAVE ABNORMALITY IS NONSPECIFIC Dictated By: Héctor Hagan MD 06/20/231314 Signed By: Héctor Hagan MD 06/26/231315 TD/TT: 06/26/231314Tech: cc: DARINEL; PCPNO* Mark Mueller PAC; Pcp-MD Lissett Vital Signs Vital Reading Result Reference Range Collection Date/Time Height 180.34 cm June 17, 2023 12:00am Weight 94.94 kg June 17, 2023 12:00am Body Temperature 98.8 [degF] 97.6-99.6 June 192022 7:40am Heart Rate 73 /min -June 19, 2023 7:40am Respiratory rate 18 /min -June 192022 7:40am Oxygen saturation by Pulse oximetry 98 % 95-100 June 19, 2023 7:40am BP Systolic 111 mm[Hg] 90-140 June 19, 2023 7:40am BP Diastolic 70 mm[Hg] 60-90 June 19, 2023 7:40am BMI (Body Mass Index) 29.2 kg/m2 [facility] 2022 12:00am Body Temperature 98.2 [degF] 97.6-99.6 June 202022 11:24am Heart Rate 80 /min 60-June 20, 2023 6:10pm Respiratory rate 16 /min [...] June 252022 8:15am Heart Rate 92 /min 60-90 June 25, 2023 8:15am Respiratory rate 17 /min -June 252022 8:15am Oxygen saturation by Pulse oximetry 98 % 95-100 June 25, 2023 8:15am BP Systolic 106 mm[Hg] 90-140 June 25, 2023 8:15am BP Diastolic 65 mm[Hg] 60-90 June 25, 2023 8:15am BMI (Body Mass Index) 29.2 kg/m2 [facility] 2022 2:42am Height 180.34 cm June [...] 7:53am BMI (Body Mass Index) 33.0 kg/m2 [facility] 2022 3:23am Height 180.34 cm June 28, 2023 5:05am Weight 95.25 kg June 28, 2023 5:05am Body Temperature 97.9 [degF] 97.6-99.6 June 282022 5:05am Heart Rate 83 /min 60-90 June 28, 2023 6:02am Respiratory rate 18 /min -June 282022 6:02am Oxygen saturation by Pulse oximetry 100 % 95-100 June 28, 2023 6:02am BP Systolic 100 mm[Hg] 90-140 June 28, 2023 6:02am BP Diastolic 75 mm[Hg] 60-90 June 28, 2023 6:02am BMI (Body Mass Index) 29.3 kg/m2 [facility] 2022 5:05am Advance Directives Advance Directive Response Recorded Date/ [...] Care Proxy No June 27, 2023 12:50pm Pt has Medical Orders for Li fe Sustaining Tx Form (MOLST)? No June 27, 2023 12:50pm Advance Directives No June 5:49am Health Care Proxy No June 28, 2023 5:49am Insurance Providers Guarantor MAYELIN LESLIE Address [address] [facility] [address] Contact Info. Home Phone: Payer Policy Id Coverage Id Subscriber's Name Subscriber Id Effective Date Expiration Date Commercial Other [id number] MAYELIN LESLIE [id number] [facility] [place] (Medicaid) [id number] MAYELIN LESLIE [id number] [place] [id number] MAYELIN LESLIE [id number] [facility] Required [id number] MAYELIN LESLIE [id number] Encounters Encounter Location(s) Arrival/Admit Date Discharge/Depart Date Provider(s) Discharged Inpatient [facility] June 16, 2023 5:36pm June 19, 2023 10:00am Zeke Perkins MD Departed Emergency [facility] June 19, 2023 11:46pm June 20, 2023 6:23pm null Discharged Inpatient [facility]2C June 20, 2023 11:44pm June 25, 2023 1:38pm Jen Rausch MD Discharged Inpatient [facility]2C June 26, 2023 8:05am June 27, 2023 4:41pm Shannan Best MD Departed Emergency [facility] June 28, 2023 4:43am June 28, 2023 1:11pm null Recent Diagnosis Onset Date Bipolar disorder Cocaine use with intoxication, uncomplic ated Alcoholism Seizure disorder Alcohol withdrawal seizure Hypomagnesemia Hyponatremia Alcohol intoxication Alcohol withdrawal Bipolar disorder Wernicke encephalopathy Alcohol abuse Alcoholism Anemia Bipolar 1 disorder Seizure disorder Alcohol withdrawal Recurrent seizures Seizure Alcohol abuse Bipolar 1 disorder Non-compliance Functional Status Observation Response Date Recorded Assistive Devices None June 17, 2023 11:36am Date of Last Bowel Movement 06/18/23 Dece [facility] 2022 1:54am Date of Last Bowel Movement 06/24/23 Dece [facility] 2022 5:30am Oral Care Teeth Brushing June 24 023 1:05pm Assistive Devices None June 27, 2023 12:50pm Date of Last Bowel Movement 06/27/23 [facility] 2022 12:30pm Mental Status Observation Response Date Recorded Arousable To Name June 19 023 1:54am Patient Behavior Appropriate June 19, 2023 10:37am Cooperative June 19 023 10:37am Comprehension Ability Understands Concepts Dece 2022 1:54am Level of Consciousness Awake June 19, 2023 1:54am Alert June 19, 2 023 1:54am Appropriate June 19 023 1:54am Follows Commands June 19, 2023 1:54am Arousable To Name June 25 023 5:30am Patient Behavior Appropriate June 25, 2023 5:30am Cooperative June 25 023 5:30am Comprehension Ability Understands Concepts Dece 2022 5:30am Level of Consciousness Awake June 25, 2023 5:30am Alert June 25 023 5:30am Appropriate June 25 023 5:30am Follows Commands June 25, 2023 5:30am Arousable To Name June 27 023 12:30pm Patient Behavior Appropriate June 27, 2023 12:30pm Comprehension Ability Understands Concepts Dece 2022 12:00pm Level of Consciousness Awake June 27, 2023 12:30pm Alert June 27 023 12:30pm Appropriate June 27 12:30pm Assessments Diagnosis Onset Date Resolution Status Bipolar disorder acute Cocaine use with intoxication, uncomplicated acute Alcoholism chronic Seizure disorder chronic Alcohol withdrawal seizure r esolved Hypomagnesemia resolved Hyponatremia resolved Alcohol intoxication acute Alcohol withdrawal acute Bipolar disorder acute Wernicke encephalopathy acut e Alcohol abuse chronic Alcoholism chronic Anemia chronic Bipolar 1 disorder chronic Seizure disorder chronic Alcohol withdrawal acute Recurrent seizures acute Seizure acute Alcohol abuse chronic Bipolar 1 disorder chronic Non-compliance chronic Plan of Treatment Future Tests Future scheduled test information is unavailable Pending Tests Test Name Ordered Date Scheduled Date Levetiracetam (Keppra) Level June 25, 2023 8:50pm VTE Risk Assessment Medical June 16, 2023 5:35pm June 16, 2023 5:36pm VTE Risk Assessment Medical June 20, 2023 11:44pm June 20, 2023 11:44pm VTE Risk Assessment Medical June 25, 2023 11:56pm June 25, 2023 11:56pm Future Visits Future appointment information is unavailable Referrals to Other Providers Reason for Referral Referral Start Date Provider Provider Contact Information Provider Address BRAD BYRNE Work Phone: [phone] [place] [address] PcpMd ARCHIE Leroy Follow-up in the next 2 weeks for treatment of alcoholism and nicotine dependence. Vinny Tsai MD Work Phone: [address] [place] [phone] Vinny Tsai MD Work Phone: [address] [place] [phone] Patient has no pcp..Going back to [facility].. Pcp-Md MD BRAD Galeana Work Phone: [phone] [place] [address] PcpMd ARCHIE Leroy PcpMd ARCHIE Leroy PcpMd ARCHIE Leroy PcpMd ARCHIE Leroy Future Procedures Procedure Name Ordered Date Scheduled Date Peripheral IV Insert/Manage April 21, 2023 3 :46pm April 21, 2023 3:46pm Hospital Level of Care June 16, 2023 5:35p m Edil 11th, 2023 5:36pm Case Management Consult June 17 023 12:52am June 17, 2023 12:52am Discharge June 19, 2023 9:16am Decem 2022 9:16am Patient Transfer (from unit to unit) June 18, 2023 8:43am June 18, 2023 8:43am Smoking Cessation Consult June 17, 2023 12:52am June 17, 2023 12:52am Studio Receptionist Consult June 16, 2023 6:17 pm June 16, 2023 6:17pm Studio Receptionist Consult June 17 023 12:52am June 17, [...] 25, 2023 10:38am June 25, 2023 10:38am Studio Receptionist Consult June 21, 2023 2:42 am June [...] 20, 2023 9:51am June 20, 2023 9:51am Levetiracetam (Keppra), S June 25, 2023 8: 48pm June 25, 2023 8:50pm Hospital Level of Care June 26, 2023 8:05a m June 26, 2023 8:05am Discharge June 27, 2023 2:25pm Decem 2022 2:25pm Activity June 25, 2023 11:56pm June 25, 2023 11:56pm Peripheral IV Insert/Manage June 11:56pm June 25, 2023 11:56pm Neurology Consult June 25, 2023 3:01pm Dec ember 2022 3:01pm Patient Preference for Pain Management June 25, 2023 11:56pm June 25, 2023 11:56pm Psychiatry Consult June 26, 2023 12:21am June 26, 2023 12:21am Sequential Compression Device June 072022 11:56pm June 25, 2023 11:56pm Future Medications Future medication information is unavailable [...] to running out of your medications. Zeke [facility] June 19, 2023 9:26am Please follow-up with [...] for 6 months from the seizure per [facility] rules. Jen [facility] June 25, 2023 10:41am Follow-up with PCP [...] is also advised to quit smoking. Shannan Best [facility] June 27, 2023 2:33pm Absence of falls Including: - Early & often mobilization when appropriate - Passive/active range of motion as appropriate - toileting schedule implementation - implementation of fall risk interventions [facility] June 21, 2023 12:37am Risks from withdrawal jose gaona [facility] June 21, 2023 12:37am Prevention of aspiration Including: - Absence of regurgitation, gagging, coughing, fever, cyanosis and respiratory insufficiency - Aspiration precautions [facility] June 21, 2023 12:37am Understand Mgmt Strategy-Reginaldo pete Patient/Caregiver understand: - Pathophysiology - Reportable s/s and when to seek medical care - Treatment plan and post discharge follow up - Medication compliance, environmental safety & lifestyle modification [facility] June 21, 2023 12:37am Alleviation of anxiety Including: -Utilization of coping skills -Demonstrates/verbalizes decreased anxiety [facility] June 21, 2023 12:37am Pt reports/exhibits pain at mihir level Including: - Pain controlled by pharmacological/non-pharmacologic al means - Establish realistic pain and function goals prior to initiating opioid therapy in patients with chronic pain if applicable - Discuss known risks and realistic benefits of opioid therapy [facility] June 25, 2023 1:40pm Alteration in Hemodynamics [facility] June 25, 2023 1:40pm Effective breathing pattern Including: - Able to speak in full sentences as age appropriate - Absence of accessory muscle use (retractions), shallow breathing, dyspnea, wheezing & tachypnea - Facilitate optimal positioning - maximize effective breathing & prevent exacerbation [facility] June 25, 2023 1:40pm Absence of fluid/electrolyte imbalance Including: - Improved lab values - Adequate urine output - Adequate hydration - Stable weight if appropriate [facility] June 25, 2023 1:40pm Able to achieve maximum mobi lity level Including: - Understands safety - Demonstrates progress in improved mobility - Demonstrates correct use of mobility devices if appropriate - Understands & accepts limitations & plan for progression as appropriate [facility] June 25, 2023 1:40pm Antimicrobial Educ Reviewed with Patient [facility] June 25, 2023 1:40pm Understand Management Strate gies Patient/Caregiver understand: - Pathophysiology - Reportable s/s and when to seek medical care - Treatment plan and post discharge follow up - Medication regime, energy conservation, diet & lifestyle modification [facility] June 25, 2023 1:40pm Safely transition to next [facility] of care Patient/family has: - Appropriate access to resources and support services as applicable [facility] June 25, 2023 1:40pm Risks from withdrawal minimi zed [facility] June 25, 2023 1:40pm Absence of neurologic deterioration s/s [facility] June 25, 2023 1:40pm Cognitive status restored to baseline Including: - Mental status back to baseline [facility] June 25, 2023 1:40pm Alleviation of anxiety Including: -Utilization of coping skills -Demonstrates/verbalizes decreased anxiety [facility] June 25, 2023 1:40pm Absence of falls Including: - Early & often mobilization when appropriate - Passive/active range of motion as appropriate - toileting schedule implementation - implementation of fall risk interventions [facility] June 27, 2023 4:42pm Risks from withdrawal minimi zed [facility] June 27, 2023 4:42pm Able to achieve maximum mobi lity level Including: - Understands safety - Demonstrates progress in improved mobility - Demonstrates correct use of mobility devices if appropriate - Understands & accepts limitations & plan for progression as appropriate [facility] June 27, 2023 4:42pm Progress Note Author Lizandro Sandhu [facility] June 28, 2023 11:48am Note Date/Time June 28, 2023 6:13am [address] [address] Emergency Department Document Signed Patient: MAYELIN LESLIE Medical Record#: [id number] : 1980 Acct:[id number] Age/Sex: 42 / M Admit/Reg Date: 06/28/23 Loc: ED. Room: Report Number: [id number]: Lizandro Sandhu DO <Kemal Landin - Last Filed: 06/28/23 07:20> Arrival - Arrival ED Triage Note: To ER via EMS from street s/p ?seizure. According to EMS pt was found seizing when EMS was called. EMS report symptoms of pseudoseizure or shivering. PT states he had ETOH and snored cocaine tonight around midnight. A&O x3 at this time History of Present Illness Chief Complaint: Seizure Stated Complaint: Seizure Nursing note reviewed: Yes Source: patient Exam/History Limitations: no limitations Primary Care Provider: Pcp-Md Lissett History of Present Illness: Mr. Leslie is a 42 y/o M with PMH alcohol abuse complicated by Wernicke encephalopathy, seizure disorder?, bipolar disorder who presents to the emergency department for possible seizure-like activity. Per EMS report patientwas found down with generalized shaking versus shivering activity. Unclear duration of symptoms. Brought to emergency department for further evaluation. Patient states that he was drinking alcohol and using cocaine earlier tonight. Otherwise denies new fever, chills, cough, congestion, N/V/D, increased urinary frequency, dysuria. Denies recent falls or trauma to head. Of note patient has had multiple presentations to the hospital for seizure-like activity. Recent CTH WO contrast without apparent mass, MLS. Has had escalating doses of Keppra. Has been unable to follow up with neurologist as hewas discharged from this hospital yesterday. Allergies/Adverse Reactions: No Known Drug Allergies Allergy (Verified 06/28/23 05:09) Review of Systems All Other Systems (except as marked in HPI): Reviewed and Negative Past Medical/Surgical History Medical History: Medical History (Last Reviewed 06/25/23 @ 14:45 by Juanita Callahan MD) Patient denies significant medical history (Medical) Family/Social History - Social History Living Situation: Homeless Current or Hx of Recreational Drug use: Yes (smokes crack) 1. How Often Do You Have a Drink Containing Alcohol: e. 4 or More Times a Week Physical Exam General Appearance: NAD, Cooperative, Other (Tired appearing.) Head: Atraumatic, Normocephalic Eyes: PERRL, EOMI, No nystagmus Ears: Hearing grossly intact Nose: Normal Mouth/Throat: Mucosa moist, Pharynx normal Neck: Supple, Non-tender Respiratory: No respiratory distress, Lungs clear, No accessory muscle use Cardiovascular: R/R/R, No Murmurs Abdominal: Soft, Non-tender, Non-distended, No guarding, No Rebound tenderness Back: No deformity Extremity/Musculoskeletal: Non-tender, No edema, Nl distal pulses Skin: Warm, Dry Psych: Calm, Normal affect Neuro: A&O X 3, Nonfocal, Motor grossly normal, Sensory grossly normal, Other (Intermittent shivering - no notable lip smacking, eye deviation.) Results/Orders - Results and Orders Result diagrams: 06/28/23 06:27 06/28/23 06:27 0525: POCT glucose borderline hypoglycemic. ED Provider EKG Interpretation: Intake EKG time 05:17. Normal sinus rhythm. Left axis. QTC 430. No notable ST, ST depression, T-wave inversion. MDM/COURSE Clinical Course: 06/28/23 05:30 D50 ordered given borderline hypoglycemia. 06/28/23 07:20 Patient reassessed. Resting comfortably. No seizure-like activity noted on exam. Signed out to ED attending in stable condition pending laboratory exam. - [facility] Medical decision making narrative: 06/28/23 06:18 Mr. Leslie is a 42 y/o M with PMH alcohol abuse complicated by Wernicke encephalopathy, seizure disorder? who presents to the emergency department for possible seizure-like activity. Acute problems: Seizure-like activity Ddx: Epilepsy (2/2 electrolyte abnormality/hypoglycemia versus alcohol withdrawal versus medication non adherence versus other), PNES, cold exposure, other Considered but less likely Wernicke encephalopathy (no nystagmus) Considered but less likely tardive dyskinesia (no lip smacking) Unlikely ICH - no notable head trauma Plan: Labs, POCT glucose, IVF, reassess This is a moderate risk presentation with moderate risk of decompensation. Workup ongoing. <Lizandro Sandhu - Last Filed: 06/28/23 11:48> History of Present Illness Primary Care Provider: Pcp-Md Lissett Past Medical/Surgical History Medical History: Medical History (Last Reviewed 06/25/23 @ 14:45 by Juanita Callahan MD) Patient denies significant medical history (Medical) Physical Exam Triage Vital Signs: Temperature 97.9 F 06/28/23 05:05 Temperature Source Oral 06/28/23 05:05 Pulse Rate 82 06/28/23 05:05 Respiratory Rate 18 06/28/23 05:05 Blood Pressure 105/77 06/28/23 05:05 Blood Pressure Source Automatic Cuff 06/28/23 05:05 Blood Pressure Mean 86 06/28/23 05:05 O2 Sat by Pulse Oximetry 95 06/28/23 05:05 Oxygen Delivery Method Room Air 06/28/23 05:05 Pain Intensity 5 06/28/23 05:05 Results/Orders - Results and Orders Result diagrams: 06/28/23 06:27 06/28/23 06:27 Lab Testing & Results 06/28/23 05:22: POC Glucose 70 06/28/23 06:27: WBC 7.2, RBC 4.98, Hgb 9.8 L, Hct 34.0 L, MCV 68.3 L, MCH 19.7 L, MCHC 28.8 L, RDW 20.3 H, Plt Count 415 H, Immature Gran % (Auto) 0.3, Neut % (Auto) 61.3, Lymph % (Auto) 24.8, [place] % (Auto) 10.4, Eos % (Auto) 2.4, Baso % (Auto) 0.8, Neut # (Auto) 4.4, Lymph # (Auto) 1.8, [place] # (Auto) 0.8, Eos # (Auto) 0.2, Baso # (Auto) 0.1, Immature Gran # (Auto) 0.02, Nucleated RBC % 0.0,PT 10.8, INR 1.0, Sodium 142, Potassium 4.8, Chloride 103, Carbon Dioxide 24, Anion Gap 15, BUN 8, Creatinine 0.6, Estimated Creat Clear 192.8, Estimated GFR 125, BUN/Creatinine Ratio 13.3, Glucose 105 H, Calcium 8.9, Phosphorus 4.5, Magnesium 1.8, Total Bilirubin < 0.2, AST 23, ALT 15, Alkaline Phosphatase 49, Total Protein 6.7, Albumin 4.0, Albumin/Globulin Ratio 1.5, Serum Alcohol 14 H Medications Ordered: Discontinued Medications Chlordiazepoxide (Chlordiazepoxide 25 Mg Capsule) 50 mg PO ONCE ONE Stop: 06/28/23 09:33 Last Admin: 06/28/23 10:10 Dose: 50 mg Documented By: ESVIN Dextrose (Dextrose 50% 25 Gm/50 Ml Syr) 25 gm IV ONCE ONE Stop: 06/28/23 05:24 Last Admin: 06/28/23 05:34 Dose: 25 gm Documented By: SARAH Ringer's Solution (Ringer's Lactated) 1,000 mls @ 999 mls/hr IV .Q1H1M ONE Stop: 06/28/23 06:10 Last Admin: 06/28/23 05:34 Dose: 999 mls/hr Documented By: SARAH Levetiracetam (Levetiracetam Iv 500 Mg/5 Ml Inj) 2,000 mg IV STAT STA; Protocol Stop: 06/28/23 05:12 Last Admin: 06/28/23 05:34 Dose: 2,000 mg Documented By: SARAH EKG Orders: EKG Orders 06/28/23 05:16 EKG Electrocardiogram Stat MDM/COURSE Vital Signs Temperature 97.9 F 06/28/23 05:05 Pulse Rate 82 06/28/23 05:05 Respiratory Rate 18 06/28/23 05:05 Blood Pressure 105/77 06/28/23 05:05 O2 Sat by Pulse Oximetry 95 06/28/23 05:05 Temperature 97.9 F 06/28/23 05:05 Pulse Rate 83 06/28/23 06:02 Respiratory Rate 18 06/28/23 06:02 Blood Pressure 100/75 06/28/23 06:02 O2 Sat by Pulse Oximetry 100 06/28/23 06:02 - [facility] Medical decision making narrative: 06/28/23 11:45 In review of the patient's medical record he has been in and out of the hospitalmultiple times for same complaints since June 16. He has failed to receive outpatient Neurology follow[facility] versus alcohol withdrawal versus tremulousness. As this is now essentially failure of outpatient therapy providing recurrent opportunity for the patient to abuse substances and return to the emergency department without completion of appropriate neurologic workup he will be transferred to [facility], having discussed this patient's care with Neurology they agree with the plan to transfer for EEG. Patient will be accepted to the emergency department under Dr. Francois. Discharge Plan - Discharge Clinical Impression: Seizure-like activity Disposition: Xfer [facility] Condition: Good Prescriptions: No Action acetaminophen 325 mg Tablet 650 mg PO Q6H PRN (Reason: Mild Pain (1-3)) RF: 0 clobetasol 0.05 % cream 1 applic topical DAILY Qty: 30 RF: 2 escitalopram oxalate 10 mg tablet 10 mg PO DAILY Qty: 30 RF: 0 folic acid 1 mg Tablet 1 mg PO DAILY Qty: 30 RF: 2 gabapentin 800 mg tablet 800 mg PO TID Qty: 90 RF: 0 levetiracetam 500 mg Tablet 1,000 mg PO Q12H Qty: 60 RF: 2 multivitamin with folic acid [Thera] 400 mcg Tablet 1 tab PO DAILY Qty: 30 RF: 2 nicotine 21 mg/24 hr Patch 24 Hour 1 patch transdermal DAILY Qty: 20 RF: 0 omeprazole 20 mg Tablet,Disintegrat, Delay Rel 20 mg PO DAILY Qty: 30 RF: 2 quetiapine 25 mg tablet 25 mg PO QHS Qty: 30 RF: 2 risperidone 1 mg Tablet 1 mg PO BID Qty: 60 RF: 0 sennosides [Senna Lax] 8.6 mg Tablet 17.2 mg PO QHS PRN (Reason: Constipation - 1st line) Qty: 60 RF: 2 sertraline 100 mg tablet 100 mg PO DAILY Qty: 30 RF: 2 sertraline 100 mg tablet 100 mg PO DAILY thiamine HCl (vitamin B1) 100 mg Tablet 100 mg PO DAILY Qty: 30 RF: 2 trazodone 50 mg Tablet 50 mg PO QHS Qty: 30 RF: 0 Referrals: Pcp-None,, MD [Primary Care Provider] - Print Language: Burkinan - Transfer Info Did you call another [facility] or the 5000 line?: Yes Reason Patient Sent to Other Facility(Select All That Apply): service not available Service: Neurology Transfer Facility: [facility] - Discharge Data Time Seen by Provider: 06/28/23 04:55 Dictated By: Kemal Landin MD Signed By: Kemal Landin MD 06/28/23 0721 Lizandro Sandhu DO 06/28/23 1148 DD/ TD/TT: 06/28/23607 Geriatrics Physician: LORI cc: FARNAZ Perdomo Pcp-MD Lissett
--- OUTSIDE RECORDS SUMMARY | 2024-01-16 19:34 | XMS_ITS | Continuity of Care Document ---
Author Organization [facility] Address [address] [place] [address] Phone Care Team Providers Care Film Painter Name Role Phone BRAD BYRNE Primary Care Provider MD Neil Addison Emergency Provider PcpMariaa, MD Perdomo Primary Care Provider Unavailabl e E/R Physician, E Emergency Provider Unavailable Care Teams Patient Care Team Team Status: Active Member Role Status Dates PcpMD Mariaa Primary Care Provider Active Visit Care Team Team Status: Inactive Member Role Status Dates CHAVEZ SALINAS Primary Care Provider Active Start: April 26, 2023 End: April 26, 2023 Neil Addison MD Emergency Provider Active Start : April 26, 2023 End: April 26, 2023 Visit Care Team Team Status: Inactive Member Role Status Dates Pcp-MD Lissett Primary Care Provider Active St art: May 04, 2023 End: May 04, 2023 E E/R Physician Emergency Provider Active Start: May 04, 2023 End: May 04, 2023 Visit Care Team Team Status: Inactive Member Role Status Dates Pcp-MD Lissett Primary Care Provider Active St art: May 21, 2023 End: May 22, 2023 E E/R Physician Emergency Provider Active Start: May 21, 2023 End: May 22, 2023 Chief Complaint and Reason for Visit Chief Complaint feeling off balance Allergies, Adverse Reactions, Alerts No known allergies Social History Smoking Status Unknown if ever smoked Additional Data Assigned Sex Male Problems Active Problems Medical Problem Onset Date Status Patient left without being seen Active Inactive/Resolved Problems Medical Problem Onset Date Status Patient left without being seen Resolved Procedures Procedure Date Performed Status EKG ED Electrocardiogram April 26, 2023 1:25 pm completed XR chest 2V April 26, 2023 1:25pm comple felicia Relevant Diagnostic Tests and/or Laboratory Data Laboratory Results Test Date/Time Result Interpretation Reference Range Result Comment Performing Site White Blood Count April 26, 2023 1:34pm 7.7 X10 3/uL 4.5-11.0 [facility] [id number] [address] [facility] [id number] White Blood Count May 22, 2023 6:27am 12.7 X10 3/uL 4.5-11.0 [facility] [id number] [address] [place] [address] 75249 Red Blood Count April 26, 2023 1:34pm 4.80 X10 6/uL 4.00-5.50 [facility] [id number] [address] [place] [address] 26737 Red Blood Count May 22, 2023 6:27am 5.09 X10 6/uL 4.00-5.50 [facility] [id number] [address] [place] [address] 08798 Hemoglobin April 26, 2023 1:34pm 9.0 g/dl 13.0-17.0 [facility] [id number] [address] [place] [address] 71342 Hemoglobin May 22, 2023 6:27am 9.6 g/dl 13.0-17.0 [facility] [id number] [address] [place] [address] 00364 Hematocrit April 26, 2023 1:34pm 31.6 % 37.5-50.0 [facility] [id number] [address] [place] [address] 35570 Hematocrit May 22, 2023 6:27am 34.6 % 37.5-50.0 [facility] [id number] [address] [place] [address] 29726 Mean Corpuscular Volume April 26, 2023 1:34pm 65.8 fl 80.0-100.0 [facility] [id number] [address] [place] [address] 05585 Mean Corpuscular Volume May 22, 2023 6:27am 68.0 fl 80.0-100.0 [facility] [id number] [address] [facility] 31779 Mean Corpuscular Hemoglobin April 26, 2023 1:34pm 18.8 pg 27.0-34.0 [facility] [id number] [address] [facility] 91554 Mean Corpuscular Hemoglobin May 22, 2023 6:27am 18.9 pg 27.0-34.0 [facility] [id number] [address] [facility] 98843 Mean Corpuscular Hemoglobin Concent April 26, 2023 1:34pm 28.5 g/dl 31.0-36.0 [facility] [id number] [address] [facility] 94411 Mean Corpuscular Hemoglobin Concent May 22, 2023 6:27am 27.7 g/dl 31.0-36.0 [facility] [id number] [address] [facility] 62296 Red Cell Distribution Width April 26, 2023 1:34pm 16.7 % 11.5-15.0 [facility] [id number] [address] [facility] 58228 Red Cell Distribution Width May 22, 2023 6:27am 19.2 % 11.5-15.0 [facility] [id number] [address] [facility] 64323 Platelet Count April 26, 2023 1:34pm 497 X10 3/uL 150-400 [facility] [id number] [address] [facility] 04864 Platelet Count May 22, 2023 6:27am 408 X10 3/uL 150-400 [facility] [id number] [address] [facility] [facility] 62648 Immature Granulocyte % (Auto) April 26, 2023 1:34pm 0.3 % [facility] [id number] [address] [facility] [facility] 75509 Immature Granulocyte % (Auto) May 22, 2023 6:27am 0.4 % [facility] [id number] [address] [place] [address] 38339 Neutrophils (%) (Auto) April 26, 2023 1:34pm 71.8 % [place] [id number] [address] [place] [address] 86383 Neutrophils (%) (Auto) May 22, 2023 6:27am 77.0 % [place] [id number] [place] [address] 16118 Lymphocytes (%) (Auto) April 26, 2023 1:34pm 19.8 % [place] [id number] [place] [address] 70759 Lymphocytes (%) (Auto) May 22, 2023 6:27am 16.7 % [place] [id number] [place] [address] 25219 Monocytes (%) (Auto) April 26, 2023 1:34pm 5.5 % [place] [id number] [address] [place] [address] 61627 Monocytes (%) (Auto) May 22, 2023 6:27am 4.6 % [place] [id number] [address] [place] [address] 32546 Eosinophils (%) (Auto) April 26, 2023 1:34pm 1.3 % [place] [id number] [address] [place] [address] 68288 Eosinophils (%) (Auto) May 22, 2023 6:27am 0.5 % [place] [id number] [address] [place] [address] 05557 Basophils (%) (Auto) April 26, 2023 1:34pm 1.3 % [place] [id number] [address] [place] [address] 71031 Basophils (%) (Auto) May 22, 2023 6:27am 0.8 % [place] [id number] [place] [address] 29643 Immature Granulocyte # (Auto) April 26, 2023 1:34pm 0.02 X10 3/uL 0.00-0.09 [place] [id number] [address] [place] [address] 58820 Immature Granulocyte # (Auto) May 22, 2023 6:27am 0.05 X10 3/uL 0.00-0.09 [facility] [id number] [address] [place] [address] 15679 Neutrophils # (Auto) April 26, 2023 1:34pm 5.5 X10 3/uL 1.5-7.8 [place] [id number] [address] [place] [address] 61317 Neutrophils # (Auto) May 22, 2023 6:27am 9.8 X10 3/uL 1.5-7.8 [facility] [id number] [address] [place] [address] 29546 Lymphocytes # (Auto) April 26, 2023 1:34pm 1.5 X10 3/uL 1.0-4.8 [place] [id number] [place] [address] 77486 Lymphocytes # (Auto) May 22, 2023 6:27am 2.1 X10 3/uL 1.0-4.8 [place] [id number] [address] [place] [address] 14735 Monocytes # (Auto) April 26, 2023 1:34pm 0.4 X10 3/uL 0.0-0.8 [place] [id number] [place] [address] 82275 Monocytes # (Auto) May 22, 2023 6:27am 0.6 X10 3/uL 0.0-0.8 [place] [id number] [address] [place] [address] 10798 Eosinophils # (Auto) April 26, 2023 1:34pm 0.1 X10 3/uL 0.0-0.5 [facility] [id number] [address] [place] [address] 75241 Eosinophils # (Auto) May 22, 2023 6:27am 0.1 X10 3/uL 0.0-0.5 [place] [id number] [address] [place] [address] 12044 Basophils # (Auto) April 26, 2023 1:34pm 0.1 X10 3/uL 0.0-0.2 [place] [id number] [address] [facility] 89710 Basophils # (Auto) May 22, 2023 6:27am 0.1 X10 3/uL 0.0-0.2 [facility] [id number] [address] [facility] 51753 Nucleated Red Blood Cells % April 26, 2023 1:34pm 0.0 /100 WBC 0.0-0.0 [facility] [id number] [address] [facility] 76643 Nucleated Red Blood Cells % May 22, 2023 6:27am 0.0 /100 WBC 0.0-0.0 [facility] [id number] [address] [facility] 69489 Sodium Level April 26, 2023 1:34pm 139 mmol/L 137-146 [facility] [id number] [address] [facility] 03616 Sodium Level May 22, 2023 6:27am 136 mmol/L 137-146 [facility] [id number] [address] [facility] 02681 Potassium Level April 26, 2023 1:34pm 4.8 mmol/L 3.5-5.3 [facility] [id number] [address] [facility] 69097 Potassium Level May 22, 2023 6:27am 4.2 mmol/L 3.5-5.3 [facility] [id number] [address] [facility] [facility] 16529 Chloride Level April 26, 2023 1:34pm 101 mmol/L 98-107 [facility] [id number] [address] [place] [address] 90033 Chloride Level May 22, 2023 6:27am 105 mmol/L 98-107 [facility] [id number] [address] [facility] 24724 Carbon Dioxide Level April 26, 2023 1:34pm 26 mmol/L 23-32 [facility] [id number] [address] [facility] 65167 Carbon Dioxide Level May 22, 2023 6:27am 13 mmol/L - [facility] [id number] [address] [facility] [facility] Anion Gap April 26, 2023 1:34pm 13 mmol/L 11-18 [facility] [id number] [facility] Anion Gap May 22, 2023 6:27am 18 mmol/L 11-18 [facility] [id number] [facility] Blood Urea Nitrogen April 26, 2023 1:34pm 14 mg/dl 11-28 [facility] [id number] [facility] Blood Urea Nitrogen May 22, 2023 6:27am 14 mg/dl 11-28 [facility] [id number] [address] [place] [address] Creatinine April 26, 2023 1:34pm 1.1 mg/dL 0.6-1.4 [facility] [id number] [address] [place] [address] Creatinine May 22, 2023 6:27am 1.1 mg/dL 0.6-1.4 [facility] [id number] [address] [place] [address] Estimated Creatinine Clearance April 26, 2023 1:34pm 105.2 ml/min This value is calculated by Cockcroft Gault Equation using ideal body weight. This result is dependent on an accurate patient height and weight which is obtained from patients medical record. Ameliaofjillian, [place].W. and M.H. Gault. Prediction of creatinine clearance from serum creatinine. Nephron. 1976. 16(1):31-41. [facility] [id number] [address] [place] [address] 94719 Estimated Creatinine Clearance May 22, 2023 6:27am Gaming Pit Boss Unable to Calculate CRCL,Ht and/or Wt missing [facility] [id number] [address] [place] [address] 84398 Estimat Glomerular Filtration Rate April 26, 2023 1:34pm 87 >90 Reported eGFR is based on the CKD-EPI 2020 equation that does not use a race coefficient. Additional information can be found at: 1_icb_egfr_s umApps Genius_flyer 5.pdf (kidney.org) [facility] [id number] [address] [place] [address] 81552 Estimat Glomerular Filtration Rate May 22, 2023 6:27am 87 >90 Reported eGFR is based on the CKD-EPI 2020 equation that does not use a race coefficient. Additional information can be found at: 1_icb_egfr_s jacki_letyer 5.pdf (kidney.org) [facility] [id number] [address] [place] [address] 65093 BUN/Creatinine Ratio April 26, 2023 1:34pm 12.7 10.0-20.0 [facility] [id number] [address] [place] [address] 38367 BUN/Creatinine Ratio May 22, 2023 6:27am 12.7 10.0-20.0 [facility] [id number] [address] [place] [address] 57468 Glucose Level April 26, 2023 1:34pm 91 mg/dL 70-100 [facility] [id number] [address] [place] [address] 72211 Glucose Level May 22, 2023 6:27am 117 mg/dL 70-100 [facility] [id number] [address] [place] [address] 15684 Calcium Level April 26, 2023 1:34pm 9.0 mg/dl 8.6-10.3 [facility] [id number] [address] [place] [address] 07454 Calcium Level May 22, 2023 6:27am 9.0 mg/dl 8.6-10.3 [facility] [id number] [address] [place] [address] 18028 Total Bilirubin May 22, 2023 6:27am 0.3 mg/dl <1.1 [facility] [id number] [address] [place] [address] 87095 Aspartate Amino Transf (AST/SGOT) May 22, 2023 6:27am 18 U/L 15-41 [facility] [id number] [address] [place] [address] 63527 Alanine Aminotransferase (ALT/SGPT) May 22, 2023 6:27am 18 U/L 14-63 [facility] [id number] [address] [place] [address] 49789 Troponin T High Sensitivity April 26, 2023 1:34pm < 6 ng/L <13 Normal range: Females <9 ng/L Males <14 ng/L Values greater than or equal to 52 ng/L indicates acute myocardial injury/infar ction Values between '10 and 51 ng/L' (for females) or '15 and 51 ng/L' (for males) require clinical correlation and is not diagnostic of acute myocardial injury.Consi ernestine repeat at 1 and 3 hours.A dynamic increase of ? greater than 5 ng/L? at 1 hour or 3 hours indicates of acute myocardial injury/infar ction.For a patient with an estimated GFR of less than 30 mL/min/1.73 m2 or receiving dialysis, a dynamic increase of greater than 20% at 3 hours indicates acute myocardial injury.A value of less than 9 ng/L (in females) or less than 14 ng/L (in males) with a dynamic change of less than 3 ng/L, greater than 3 hours after symptom onset, generally rules out acute myocardial injury/infar ction.Refer to Chest Pain order sets for additional clinical decision support (using the HEART score for the ED or the MARCELLE score for the inpatient setting). [facility] [id number] [address] [place] [address] 30545 Total Protein May 22, 2023 6:27am 8.0 g/dL 6.4-8.3 [facility] [id number] [address] [place] [address] 51445 Albumin May 22, 2023 6:27am 4.8 g/dl 4.0-5.0 [facility] [id number] [address] [place] [address] 55141 Albumin/Globulin Ratio May 22, 2023 6:27am 1.5 1.0-2.6 [facility] [id number] [address] [place] [address] 87651 Alkaline Phosphatase May 22, 2023 6:27am 57 U/L 40-129 [facility] [id number] [address] [place] [address] 81090 Diagnostic Imaging Reports Author Fatuma Bender [facility] Authored April 26, 2023 3 :57pm Report Dictated Date/Time Dictated By Status Radiology Report April 26, 2023 3:57pm Fatuma Bender MD completed [facility] [address] [place] [address] Patient Name: MAYELIN LESLIE Medical Record#: [id number] Address: [address] City/State/Zip: [place] [address]: Ming E/R P darinel Insurance: [facility] et (Medicaid) /Age/Sex: 1980/42/M Self Pay Admit/Reg Date: 04/26/[address]: Aaron Walsh DO Location: ED.GS/ PCP: Pcp-Marina StaffMd Date of Service: 04/26/23 Order (s): XR chest 2V CPT Code: 65106 Report Number: [id number] Reason for Exam: Chest Pain EXAM: Chest PA, lateral CLINICAL INDICATION: Chest pain COMPARISON: None TECHNIQUE: PA and lateral views of the chest. FINDINGS: Lungs/pleura: No edema or consolidation. No pleural effusions. No pneumothorax. Heart/Mediastinum: Cardiomediastinal silhouette is unremarkable. Bone: Unremarkable. IMPRESSION: No acute cardiopulmonary findings. Dictated By: Fatuma Bender MD 04/26/23 155 Signed By: Fatuma Bender MD 04/26/23 160 TD/TT: 04/26/23 155Tech: [id number] cc: E/R; JONO; PCPNS* E/R PhysicianMing ; BRAD BYRNE; Aaron Walsh DO Author Neil Addison [facility] Authored April 26, 2023 2 :26pm Report Dictated Date/Time Dictated By Status Electrocardiogram April 26, 2023 2:26pm Neil kaplan MD completed [facility] [address] [place] [address] Patient Name: MAYELIN LESLIE Medical Record#: [id number] Address: [address] City/State/Zip: [place] [address]: E E/R P darinel Insurance: [facility] (Medicaid) /Age/Sex: 1980/42/M Self Pay Admit/Reg Date: 04/26/[address]: Aaron Walsh DO Location: ED.GS/ PCP: Pcp-Non Staff, Date of Service: 04/26/23 Order (s): EKG ED Electrocardiogram CPT Code: 55295 Report Number: [id number] Reason for Exam: Chest Pain Sinus rhythm no stemi Comparison Summary: No serial comparison made Summary: Normal ECG Dictated By: Neil Addison MD 04/26/231425 Signed By: Neil Addison MD 04/27/23 0933 TD/TT: 04/26/231425Tech: APRIL cc: JONO; PCPNS* BRAD BYRNE; Aaron Walsh DO Vital Signs Vital Reading Result Reference Range Collection Date/Time Height 180.34 cm April 26, 2 023 1:21pm Weight 95.25 kg April 26, 2 023 1:21pm Heart Rate 69 /min 60-90 April 26, 2 023 1:21pm Respiratory rate 16 /min -April 1:21pm Oxygen saturation by Pulse oximetry 99 % 95-100 April 26, 2023 1 :21pm BP Systolic 113 mm[Hg] 90-140 April 26, 2 023 1:21pm BP Diastolic 82 mm[Hg] 60-90 April 26, 2 023 1:21pm BMI (Body Mass Index) 29.3 kg/m2 Octobe r 2022 1:21pm Body Temperature 97.9 [degF] 97.6-99.6 May 222022 6:12am Heart Rate 74 /min 60-90 May 22, 2023 6:12am Respiratory rate 20 /min -May 222022 6:12am Oxygen saturation by Pulse oximetry 98 % 95-100 May 22, 2023 6:12am BP Systolic 109 mm[Hg] 90-140 May 22, 2023 6:12am BP Diastolic 61 mm[Hg] 60-90 May 22, 2023 6:12am Advance Directives Advance Directive Response Recorded Date/ Time Advance Directives No April 21, 2023 3:02pm Health Care Proxy No April 21, 2023 3:02pm Advance Directives No May 04, 2023 11:56am Health Care Proxy No May 04, 2023 11:56am Advance Directives No April 26, 2023 12:45pm Health Care Proxy No April 26, 2023 12:45pm Advance Directives No May 10:52pm Health Care Proxy No May 21, 2023 10:52pm Insurance Providers Guarantor MAYELIN LESLIE Address adult divya reyes [facility] [address] Contact Info. Home Phone: Payer Policy Id Coverage Id Subscriber's Name Subscriber Id Effective Date Expiration Date Commercial Other [id number] MAYELIN LESLIE [id number] [facility] (Medicaid) [id number] MAYELIN LESLIE [id number] [place] [id number] MAYELIN LESLIE [id number] [facility] Required [id number] MAYELIN LESLIE [id number] Encounters Encounter Location(s) Arrival/Admit Date Discharge/Depart Date Provider(s) Departed Emergency [facility] April 26, 2023 12:44pm April 26, 2023 3:55pm null Departed Emergency [facility] May 04, 2023 11:34am May 04, 2023 5:26pm null Departed Emergency [facility] Waiting Area May 21, 2023 10:23pm May 22, 2023 4:10pm null Plan of Treatment Future Tests Future scheduled test information is unavailable Pending Tests Pending diagnostic test information is unavailable Future Visits Future appointment information is unavailable Referrals to Other Providers Reason for Referral Referral Start Date Provider Provider Contact Information Provider Address BRAD BYRNE Work Phone: [address] [place] [address] Pcp-Md MD BRAD Galeana Work Phone: [address] [place] [address] Pcp-Md ARCHIE Galeana Future Procedures Procedure Name Ordered Date Scheduled Date Peripheral IV Insert/Manage April 21, 2023 3 :46pm April 21, 2023 3:46pm Saline Lock Insert/Manage April 26, 2023 1:2 5pm April 26, 2023 1:25pm Continuous Pulse Oximetry April 26, 2023 1:2 5pm April 26, 2023 1:25pm Future Medications Future medication information is unavailable Patient Instructions Patient instructions are unavailable
--- OUTSIDE RECORDS SUMMARY | 2024-01-16 19:34 | XMS_ITS | Continuity of Care Document ---
Author Organization [facility] Address [address] [place] [address] Phone Care Team Providers Care Bottle Selector Name Role Phone Pcp-MD Archie Galeana Primary Care Provider Unavailabl e Hospitalist, Model (IS ONLY) Emergency Provider Unavailable MD Krzysztof So Other Provider MD Zeke Perkins Attending Provider [phone] DO Lizandro Sanhdu Emergency Provider MD Jen Rausch Attending Provider MD Kulwinder Zuniga Other Provider MD Elliot Fulton Other Provider [phone] MD Shannan Best Attending Provider MD Andrea Avelar Emergency Provider MD Fabián Tolliver Attending Provider Unavailable Care Teams Patient Care Team [...] Active Start: June End: June 29, 2023 Chief Complaint and Reason for Visit Chief Complaint ALCOHOL WITHDRAWAL S EIZURE UNRESPONSIVE ALTERED MENTAL STATUS SEIZURE Seizure RECURRENT SEIZURES Reason for Visit Bipolar disorder Cocaine use with intoxication, uncomplicated Alcoholism Seizure disorder Alcohol withdrawal seizure Hypomagnesemia Hyponatremia Alcohol intoxication Alcohol withdrawal Bipolar disorder Wernicke encephalopathy Alcohol abuse Alcoholism Anemia Bipolar 1 disorder Seizure disorder Alcohol withdrawal Recurrent seizures Seizure Alcohol abuse Bipolar 1 disorder Non-compliance Alcohol withdrawal Bipolar disorder Iron deficiency anemia Recurrent seizures Seizure-like activity Alcoholism Anemia Bipolar 1 disorder Seizure disorder Allergies, Adverse Reactions, Alerts No known allergies Social History Smoking Status Status Start Date End Date Date of Observa tion Unknown if ever smoked Decem 2022 8:16am Observation Status Observation Response Date of Response Living Situation [facility] June 17, 2023 8:35am Living Situation Other June 23, 2023 11:35am Is Anyone Dependent on your Care? No June 27, 2023 3:23am Living Situation Homeless June 27, 2023 3:23am Living Situation Homeless June 28, 2023 5:55am Living Situation Homeless June 29, 2023 9:18am Lives With Other June 29 8:16am Additional Data Assigned Sex Male Problems Active Problems Medical Problem Onset Date Status Non-compliance Active Seizure-like activity Active Wernicke encephalopathy Active Alcohol abuse Active Alcohol withdrawal Active Alcohol intoxication Active Alcoholism Active Anemia Active Bipolar disorder Active Cocaine use with intoxication, uncomplicated Active Recurrent seizures Active Seizure disorder Active Seizure Active Patient denies significant medical history Active Iron deficiency anemia Active Bipolar 1 disorder Active Inactive/Resolved Problems Medical Problem Onset Date Status Hyponatremia Resolved Alcohol withdrawal seizure Resol perry Patient left without being seen Resolved Patient left without being seen Resolved Hypomagnesemia Resolved Medications Medication Status Dose Units Route Directions Qty Days St art Date End Date Instructions Quetiapine Disconti nued 25 MG PO ONCE DAILY AT BEDTIME [facility] r 2022 12:00am [facility] er 2022 9:55am Levetiracetam Disconti nued 500 MG PO TWICE A DAY [facility] r 2022 12:00am [facility] er 2022 9:23am Clobetasol Disconti nued 1 APPL TOPICAL DAILY [facility] r 2022 12:00am [facility] er 2022 9:55am Gabapentin Disconti nued 800 MG PO THREE TIMES A DAY [facility] 2022 12:00am [facility] er 2022 9:55am Meclizine Disconti nued 25 MG PO THREE TIMES A DAY [facility] 2022 12:00am [facility] er 2022 9:45am Azelastine Disconti nued 2 SPRAY intrana sol TWICE A DAY [facility] r 2022 12:00am [facility] er 2022 8:37am Escitalopram Oxalate Disconti nued 10 MG PO DAILY [facility] r 2022 12:00am [facility] er 2022 9:55am Thiamine Hcl (Vitamin B1) Disconti nued 100 MG PO DAILY [facility] r 2022 12:00am [facility] er 2022 8:37am OTC/Good Rx if not covered Levetiracetam Disconti nued 500 MG PO TWICE A DAY 180 90 [facility] r 2022 9:23am [facility] er 2022 9:28am Trazodone Active 50 MG PO ONCE DAILY AT BEDTIME [facility] r 2022 12:00am Thiamine Hcl (Vitamin B1) Active 100 MG PO DAILY 30 [facility] 2022 12:00am Nicotine Active 1 PATCH TRANSDE RM DAILY [facility] 2022 12:00am Folic Acid Active 1 MG PO DAILY 30 [facility] r 2022 12:00am Risperidone Active 1 MG PO TWICE A DAY 60 [facility] 2022 12:00am Acetaminophen Active 650 MG PO EVERY 6 HOURS [facility] 2022 12:00am Levetiracetam Disconti nued 750 MG PO EVERY 12 HOURS 60 [facility] 2022 12:00am [facility] er 2022 2:26pm Multivitamin With Folic Acid (Thera) 400 mcg Tablet Active 1 TAB PO DAILY 30 [facility] 2022 12:00am Sennosides (Senna Lax) 8.6 mg Tablet Active 17.2 MG PO ONCE DAILY AT BEDTIME 60 [facility] 2022 12:00am Omeprazole Active 20 MG PO DAILY 30 [facility] r 2022 12:00am Quetiapine Active 25 MG PO ONCE SOHA Y AT BEDTIME 30 [facility] r 2022 9:55am Sertraline Active 100 MG PO DAILY 30 [facility] r 2022 9:55am Clobetasol Active 1 APPL TOPICAL DAILY 30 [facility] r 2022 9:55am Gabapentin Active 800 MG PO THREE MARY ES A DAY 90 [facility] r 2022 9:55am Escitalopram Oxalate Active 10 MG PO DAILY 30 [facility] 2022 9:55am Levetiracetam Disconti nued 1000 MG PO ONCE DAILY AT BEDTIME [facility] r 2022 12:00am [facility] er 2022 9:51am Levetiracetam Active 1000 MG PO EVERY 12 HOURS 60 [facility] r 2022 12:00am Procedures Procedure Date Performed [...] 10pm completed CT cervical spine wo contrast [place] 15th, 202 3 10:16pm completed CT head/brain wo contrast June 20, 2023 1: 17am completed EKG ED Electrocardiogram June 20, 2023 1:1 6am completed MR head/brain wo/w contrast June 20, 2023 10:54am completed EKG ED Electrocardiogram June 25, 2023 2:[address] head/brain wo contrast June 25, 2023 2: 11pm completed EKG Electrocardiogram June 28, 2023 5:16am active EEG Request for service June 28, 2023 2:11 pm active EKG Electrocardiogram June 28, 2023 3:14pm active EEG extended to 1 hour June 28, 2023 12:00 am completed Procedure Notes Author Dallin Gr [facility] June 28, 2023 8:53pm Note Date/Time June 28, 2023 4:27pm [facility] [address] [place] [address], [address] Electroencephalogram Report Signed Patient: MAYELIN LESLIE Medical Record#: [id number] : 1980 Acct:[id number] Age/Sex: 42 / M Admit/Reg Date: 06/28/23 Loc: [facility] Room: [facility] Report Number: [id number]: Fabián Tolliver MD TEST #: [id number] DATE OF TEST: 06/28/2023 INDICATION: SEIZURE MEDICATIONS: CHLORDIAZEPOXIDE, DEXTROSE, LEVETIRACETAM DURATION: 42:05 PATIENT CONDITION: Respiratory requirement: (NO) Requires language assistance: (NO) State: (awake) Skull disturbance: (NO) REACTIVITY: Consistently opens and closes eyes on command: (YES) Can state first name (YES), current month/year (YES), current location=hospital (YES) Can state the months of the year forwards: (YES) and backwards: (YES) Follows command to wiggle fingers: (YES) and toes: (YES) BACKGROUND: In wakefulness, a low amplitude, evenly modulated, 8.5-9 Hz alpha frequency background was seen; low amplitude beta frequency waveforms were superimposed. HYPERVENTILATION: Omitted, recent seizures. INTERMITTENT PHOTIC STIMULATION: Omitted, portable study. SLEEP: The patient remained electrographically awake throughout this recording period. PULLER THROUGH: Revealed a generally regular rhythm with average rate of 80- 90bpm. IMPRESSION: This is a normal EEG in wakefulness. The beta frequency waveforms are consistent with the presence of benzodiazepines on the medication list. Dictated By: Dallin Acosta MD Signed By: Dallin Acosta MD 06/28/232052 DD/ TD/TT: 06/28/231624 Glassware Selector: [id number] cc: MARIA LUISA; RUI; PCPNO* Fabián Tolliver MD; Dallin Acosta MD; Md Alicia MD Relevant Diagnostic Tests and/or Laboratory Data Laboratory Results Test Date/Time Result Interpretation Reference Range Result Comment Performing Site Add-On Test Request June 18, 2023 11:40am Added test [facility] [id number] [address] [place] [address] 19733 Add-On Test Request June 20, 2023 2:42am Unable to add test [facility] [id number] [place] [address] 71085 Add-On Test Request June 23, 2023 10:14am Added test [facility] [id number] [address] [place] [address] 92702 White Blood Count June 17, 2023 5:43am 7.9 X10 3/uL 4.5-11.0 [facility] [id number] [address] [place] [address] 91047 White Blood Count June 19, 2023 11:45pm 8.8 X10 3/uL 4.5-11.0 [facility] [id number] [address] [place] [address] 68157 White Blood Count June 22, 2023 8:41am 5.9 X10 3/uL 4.5-11.0 [facility] [id number] [address] [place] [address] 96175 White Blood Count June 26, 2023 7:38am 6.8 X10 3/uL 4.5-11.0 [facility] [id number] [address] [place] [address] 75499 White Blood Count June 28, 2023 6:27am 7.2 X10 3/uL 4.5-11.0 [facility] [id number] [address] [place] [address] 87779 White Blood Count June 29, 2023 7:48am 7.2 X10 3/uL 4.5-11.0 [facility] [id number] [address] [place] [address] 89798 Red Blood Count June 17, 2023 5:43am 4.82 X10 6/uL 4.00-5.50 [facility] [id number] [address] [place] [address] 17513 Red Blood Count June 19, 2023 11:45pm 5.32 X10 6/uL 4.00-5.50 [facility] [id number] [address] [place] [address] 33303 Red Blood Count June 22, 2023 8:41am 5.27 X10 6/uL 4.00-5.50 [facility] [id number] [address] [place] [address] 25512 Red Blood Count June 26, 2023 7:38am 4.45 X10 6/uL 4.00-5.50 [facility] [id number] [address] [place] [address] 79360 Red Blood Count June 28, 2023 6:27am 4.98 X10 6/uL 4.00-5.50 [facility] [id number] [address] [place] [address] 12157 Red Blood Count June 29, 2023 7:48am 4.61 X10 6/uL 4.00-5.50 [facility] [id number] [address] [place] [address] 48739 Hemoglobin June 17, 2023 5:43am 9.4 g/dl 13.0-17.0 [facility] [id number] [address] [place] [address] 68325 Hemoglobin June 19, 2023 11:45pm 10.3 g/dl 13.0-17.0 [facility] [id number] [address] [place] [address] 78647 Hemoglobin June 22, 2023 8:41am 10.2 g/dl 13.0-17.0 [facility] [id number] [address] [facility] 63723 Hemoglobin June 26, 2023 7:38am 8.8 g/dl 13.0-17.0 [facility] [id number] [address] [facility] 91349 Hemoglobin June 28, 2023 6:27am 9.8 g/dl 13.0-17.0 [facility] [id number] [address] [place] [address] 38382 Hemoglobin June 29, 2023 7:48am 9.2 g/dl 13.0-17.0 [facility] [id number] [address] [place] [address] 58206 Hematocrit June 17, 2023 5:43am 31.8 % 37.5-50.0 [facility] [id number] [address] [place] [address] 38824 Hematocrit June 19, 2023 11:45pm 35.3 % 37.5-50.0 [facility] [id number] [address] [place] [address] 03953 Hematocrit June 22, 2023 8:41am 35.3 % 37.5-50.0 [facility] [id number] [address] [place] [address] 61080 Hematocrit June 26, 2023 7:38am 30.3 % 37.5-50.0 [facility] [id number] [address] [place] [address] 29293 Hematocrit June 28, 2023 6:27am 34.0 % 37.5-50.0 [facility] [id number] [address] [place] [address] 89251 Hematocrit June 29, 2023 7:48am 31.9 % 37.5-50.0 [facility] [id number] [address] [place] [address] 68377 Mean Corpuscular Volume June 17, 2023 5:43am 66.0 fl 80.0-100.0 [facility] [id number] [address] [place] [address] 88040 Mean Corpuscular Volume June 19, 2023 11:45pm 66.4 fl 80.0-100.0 [facility] [id number] [address] [facility] 49052 Mean Corpuscular Volume June 22, 2023 8:41am 67.0 fl 80.0-100.0 [facility] [id number] [address] [facility] 68404 Mean Corpuscular Volume June 26, 2023 7:38am 68.1 fl 80.0-100.0 [facility] [id number] [address] [place] [address] 72820 Mean Corpuscular Volume June 28, 2023 6:27am 68.3 fl 80.0-100.0 [facility] [id number] [address] [place] [address] 13596 Mean Corpuscular Volume June 29, 2023 7:48am 69.2 fl 80.0-100.0 [facility] [id number] [address] [place] [address] 38754 Mean Corpuscular Hemoglobin June 17, 2023 5:43am 19.5 pg 27.0-34.0 [facility] [id number] [address] [place] [address] 62645 Mean Corpuscular Hemoglobin June 19, 2023 11:45pm 19.4 pg 27.0-34.0 [facility] [id number] [address] [place] [address] 45286 Mean Corpuscular Hemoglobin June 22, 2023 8:41am 19.4 pg 27.0-34.0 [facility] [id number] [address] [place] [address] 18822 Mean Corpuscular Hemoglobin June 26, 2023 7:38am 19.8 pg 27.0-34.0 [facility] [id number] [address] [place] [address] 17476 Mean Corpuscular Hemoglobin June 28, 2023 6:27am 19.7 pg 27.0-34.0 [facility] [id number] [address] [place] [address] 82435 Mean Corpuscular Hemoglobin June 29, 2023 7:48am 20.0 pg 27.0-34.0 [facility] [id number] [address] [facility] 63695 Mean Corpuscular Hemoglobin Concent June 17, 2023 5:43am 29.6 g/dl 31.0-36.0 [facility] [id number] [address] [facility] 29006 Mean Corpuscular Hemoglobin Concent June 19, 2023 11:45pm 29.2 g/dl 31.0-36.0 [facility] [id number] [address] [facility] 99529 Mean Corpuscular Hemoglobin Concent June 22, 2023 8:41am 28.9 g/dl 31.0-36.0 [facility] [id number] [address] [place] [address] 85381 Mean Corpuscular Hemoglobin Concent June 26, 2023 7:38am 29.0 g/dl 31.0-36.0 [facility] [id number] [address] [place] [address] 77885 Mean Corpuscular Hemoglobin Concent June 28, 2023 6:27am 28.8 g/dl 31.0-36.0 [facility] [id number] [address] [facility] 79658 Mean Corpuscular Hemoglobin Concent June 29, 2023 7:48am 28.8 g/dl 31.0-36.0 [facility] [id number] [address] [place] [address] 97292 Red Cell Distribution Width June 17, 2023 5:43am 21.3 % 11.5-15.0 [facility] [id number] [address] [facility] 41627 Red Cell Distribution Width June 19, 2023 11:45pm 21.1 % 11.5-15.0 [facility] [id number] [address] [place] [address] 91002 Red Cell Distribution Width June 22, 2023 8:41am 21.0 % 11.5-15.0 [facility] [id number] [address] [place] [address] 16560 Red Cell Distribution Width June 26, 2023 7:38am 19.8 % 11.5-15.0 [facility] [id number] [address] [facility] 46943 Red Cell Distribution Width June 28, 2023 6:27am 20.3 % 11.5-15.0 [facility] [id number] [address] [place] [address] 07627 Red Cell Distribution Width June 29, 2023 7:48am 19.7 % 11.5-15.0 [facility] [id number] [address] [place] [address] 47250 Platelet Count June 17, 2023 5:43am 334 X10 3/uL 150-400 [facility] [id number] [address] [place] [address] 04355 Platelet Count June 19, 2023 11:45pm 353 X10 3/uL 150-400 [facility] [id number] [address] [place] [address] 73803 Platelet Count June 22, 2023 8:41am 356 X10 3/uL 150-400 [facility] [id number] [address] [place] [address] 63798 Platelet Count June 26, 2023 7:38am 386 X10 3/uL 150-400 [facility] [id number] [address] [place] [address] 01547 Platelet Count June 28, 2023 6:27am 415 X10 3/uL 150-400 [facility] [id number] [address] [place] [address] 29450 Platelet Count June 29, 2023 7:48am 438 X10 3/uL 150-400 [facility] [id number] [address] [place] [address] 78238 Immature Granulocyte % (Auto) June 17, 2023 5:43am 0.1 % [facility] [id number] [address] [place] [address] 66753 Immature Granulocyte % (Auto) June 19, 2023 11:45pm 0.2 % [facility] [id number] [address] [place] [address] 39128 Immature Granulocyte % (Auto) June 22, 2023 8:41am 0.2 % [facility] [id number] [address] [place] [address] 24089 Immature Granulocyte % (Auto) June 26, 2023 7:38am 0.1 % [facility] [id number] [address] [place] [address] 22022 Immature Granulocyte % (Auto) June 28, 2023 6:27am 0.3 % [facility] [id number] [address] [place] [address] 36482 Immature Granulocyte % (Auto) June 29, 2023 7:48am 0.3 % [facility] [id number] [address] [place] [address] 64312 Neutrophils (%) (Auto) June 17, 2023 5:43am 60.4 % [facility] [id number] [address] [place] [address] 26168 Neutrophils (%) (Auto) June 19, 2023 11:45pm 74.5 % [facility] [id number] [address] [place] [address] 91316 Neutrophils (%) (Auto) June 22, 2023 8:41am 64.7 % [facility] [id number] [address] [place] [address] 18743 Neutrophils (%) (Auto) June 26, 2023 7:38am 66.8 % [facility] [id number] [address] [place] [address] 44206 Neutrophils (%) (Auto) June 28, 2023 6:27am 61.3 % [facility] [id number] [address] [place] [address] 33207 Neutrophils (%) (Auto) June 29, 2023 7:48am 65.8 % [facility] [id number] [address] [place] [address] 21086 Lymphocytes (%) (Auto) June 17, 2023 5:43am 26.2 % [facility] [id number] [address] [place] [address] 77915 Lymphocytes (%) (Auto) June 19, 2023 11:45pm 16.9 % [facility] [id number] [address] [place] [address] 92787 Lymphocytes (%) (Auto) June 22, 2023 8:41am 20.6 % [facility] [id number] [address] [place] [address] 64812 Lymphocytes (%) (Auto) June 26, 2023 7:38am 21.9 % [facility] [id number] [address] [place] [address] 42233 Lymphocytes (%) (Auto) June 28, 2023 6:27am 24.8 % [facility] [id number] [address] [place] [address] 55245 Lymphocytes (%) (Auto) June 29, 2023 7:48am 22.4 % [facility] [id number] [address] [facility] 08260 Monocytes (%) (Auto) June 17, 2023 5:43am 8.6 % [facility] [id number] [address] [place] [address] 55314 Monocytes (%) (Auto) June 19, 2023 11:45pm 6.1 % [facility] [id number] [address] [place] [address] 35278 Monocytes (%) (Auto) June 22, 2023 8:41am 9.5 % [facility] [id number] [address] [place] [address] 36624 Monocytes (%) (Auto) June 26, 2023 7:38am 8.7 % [facility] [id number] [address] [place] [address] 43790 Monocytes (%) (Auto) June 28, 2023 6:27am 10.4 % [facility] [id number] [address] [place] [address] 07410 Monocytes (%) (Auto) June 29, 2023 7:48am 7.2 % [facility] [id number] [address] [place] [address] 08342 Eosinophils (%) (Auto) June 17, 2023 5:43am 3.7 % [facility] [id number] [address] [place] [address] 48216 Eosinophils (%) (Auto) June 19, 2023 11:45pm 1.2 % [facility] [id number] [address] [place] [address] 83359 Eosinophils (%) (Auto) June 22, 2023 8:41am 3.6 % [facility] [id number] [address] [place] [address] 29580 Eosinophils (%) (Auto) June 26, 2023 7:38am 1.5 % [facility] [id number] [address] [place] [address] 37702 Eosinophils (%) (Auto) June 28, 2023 6:27am 2.4 % [facility] [id number] [address] [place] [address] 45371 Eosinophils (%) (Auto) June 29, 2023 7:48am 3.3 % [facility] [id number] [address] [place] [address] 32447 Basophils (%) (Auto) June 17, 2023 5:43am 1.0 % [facility] [id number] [address] [place] [address] 43653 Basophils (%) (Auto) June 19, 2023 11:45pm 1.1 % [facility] [id number] [address] [place] [address] 47329 Basophils (%) (Auto) June 22, 2023 8:41am 1.4 % [facility] [id number] [address] [place] [address] 84155 Basophils (%) (Auto) June 26, 2023 7:38am 1.0 % [facility] [id number] [address] [place] [address] 74506 Basophils (%) (Auto) June 28, 2023 6:27am 0.8 % [facility] [id number] [address] [place] [address] 44362 Basophils (%) (Auto) June 29, 2023 7:48am 1.0 % [facility] [id number] [address] [place] [address] 73954 Immature Granulocyte # (Auto) June 17, 2023 5:43am 0.01 X10 3/uL 0.00-0.09 [facility] [id number] [address] [place] [address] 17248 Immature Granulocyte # (Auto) June 19, 2023 11:45pm 0.02 X10 3/uL 0.00-0.09 [facility] [id number] [address] [place] [address] 78792 Immature Granulocyte # (Auto) June 22, 2023 8:41am 0.01 X10 3/uL 0.00-0.09 [facility] [id number] [address] [place] [address] 56059 Immature Granulocyte # (Auto) June 26, 2023 7:38am 0.01 X10 3/uL 0.00-0.09 [facility] [id number] [address] [place] [address] 93488 Immature Granulocyte # (Auto) June 28, 2023 6:27am 0.02 X10 3/uL 0.00-0.09 [facility] [id number] [address] [place] [address] 11426 Immature Granulocyte # (Auto) June 29, 2023 7:48am 0.02 X10 3/uL 0.00-0.09 [facility] [id number] [address] [place] [address] 56118 Neutrophils # (Auto) June 17, 2023 5:43am 4.8 X10 3/uL 1.5-7.8 [facility] [id number] [address] [place] [address] 66262 Neutrophils # (Auto) June 19, 2023 11:45pm 6.6 X10 3/uL 1.5-7.8 [facility] [id number] [address] [place] [address] 85533 Neutrophils # (Auto) June 22, 2023 8:41am 3.8 X10 3/uL 1.5-7.8 [facility] [id number] [address] [place] [address] 72236 Neutrophils # (Auto) June 26, 2023 7:38am 4.5 X10 3/uL 1.5-7.8 [facility] [id number] [address] [place] [address] 56653 Neutrophils # (Auto) June 28, 2023 6:27am 4.4 X10 3/uL 1.5-7.8 [facility] [id number] [address] [place] [address] 03403 Neutrophils # (Auto) Ed[place] 24th, 2023 7:48am 4.7 X10 3/uL 1.5-7.8 [facility] [id number] [address] [facility] 52499 Lymphocytes # (Auto) June 17, 2023 5:43am 2.1 X10 3/uL 1.0-4.8 [facility] [id number] [address] [place] [address] 68445 Lymphocytes # (Auto) June 19, 2023 11:45pm 1.5 X10 3/uL 1.0-4.8 [facility] [id number] [address] [place] [address] 99960 Lymphocytes # (Auto) June 22, 2023 8:41am 1.2 X10 3/uL 1.0-4.8 [facility] [id number] [address] [place] [address] 58666 Lymphocytes # (Auto) June 26, 2023 7:38am 1.5 X10 3/uL 1.0-4.8 [facility] [id number] [address] [place] [address] 89892 Lymphocytes # (Auto) June 28, 2023 6:27am 1.8 X10 3/uL 1.0-4.8 [facility] [id number] [address] [place] [address] 46958 Lymphocytes # (Auto) June 29, 2023 7:48am 1.6 X10 3/uL 1.0-4.8 [facility] [id number] [address] [facility] 02849 Monocytes # (Auto) June 17, 2023 5:43am 0.7 X10 3/uL 0.0-0.8 [facility] [id number] [address] [place] [address] 13850 Monocytes # (Auto) June 19, 2023 11:45pm 0.5 X10 3/uL 0.0-0.8 [facility] [id number] [address] [place] [address] 94669 Monocytes # (Auto) June 22, 2023 8:41am 0.6 X10 3/uL 0.0-0.8 [facility] [id number] [address] [place] [address] 75879 Monocytes # (Auto) June 26, 2023 7:38am 0.6 X10 3/uL 0.0-0.8 [facility] [id number] [address] [place] [address] 38588 Monocytes # (Auto) June 28, 2023 6:27am 0.8 X10 3/uL 0.0-0.8 [facility] [id number] [address] [place] [address] 99393 Monocytes # (Auto) June 29, 2023 7:48am 0.5 X10 3/uL 0.0-0.8 [facility] [id number] [address] [place] [address] 09356 Eosinophils # (Auto) June 17, 2023 5:43am 0.3 X10 3/uL 0.0-0.5 [place] [id number] [address] [place] [address] 60809 Eosinophils # (Auto) June 19, 2023 11:45pm 0.1 X10 3/uL 0.0-0.5 [facility] [id number] [address] [place] [address] 11408 Eosinophils # (Auto) June 22, 2023 8:41am 0.2 X10 3/uL 0.0-0.5 [facility] [id number] [address] [place] [address] 25959 Eosinophils # (Auto) June 26, 2023 7:38am 0.1 X10 3/uL 0.0-0.5 [facility] [id number] [address] [place] [address] 58593 Eosinophils # (Auto) June 28, 2023 6:27am 0.2 X10 3/uL 0.0-0.5 [facility] [id number] [address] [place] [address] 84694 Eosinophils # (Auto) June 29, 2023 7:48am 0.2 X10 3/uL 0.0-0.5 [facility] [id number] [address] [place] [address] 71546 Basophils # (Auto) June 17, 2023 5:43am 0.1 X10 3/uL 0.0-0.2 [facility] [id number] [address] [place] [address] 22369 Basophils # (Auto) June 19, 2023 11:45pm 0.1 X10 3/uL 0.0-0.2 [facility] [id number] [address] [place] [address] 64436 Basophils # (Auto) June 22, 2023 8:41am 0.1 X10 3/uL 0.0-0.2 [facility] [id number] [address] [place] [address] 11928 Basophils # (Auto) June 26, 2023 7:38am 0.1 X10 3/uL 0.0-0.2 [facility] [id number] [address] [place] [address] 84422 Basophils # (Auto) June 28, 2023 6:27am 0.1 X10 3/uL 0.0-0.2 [facility] [id number] [address] [place] [address] 51118 Basophils # (Auto) June 29, 2023 7:48am 0.1 X10 3/uL 0.0-0.2 [facility] [id number] 736 [facility] 51641 Nucleated Red Blood Cells % June 17, 2023 5:43am 0.0 /100 WBC 0.0-0.0 [facility] [id number] [address] [place] [address] 70458 Nucleated Red Blood Cells % June 19, 2023 11:45pm 0.0 /100 WBC 0.0-0.0 [facility] [id number] [address] [place] [address] 95100 Nucleated Red Blood Cells % June 22, 2023 8:41am 0.0 /100 WBC 0.0-0.0 [facility] [id number] [address] [place] [address] 51598 Nucleated Red Blood Cells % June 26, 2023 7:38am 0.0 /100 WBC 0.0-0.0 [facility] [id number] [address] [place] [address] 66869 Nucleated Red Blood Cells % [place] 23rd, 2023 6:27am 0.0 /100 WBC 0.0-0.0 [facility] [id number] [address] [place] [address] 43619 Nucleated Red Blood Cells % June 29, 2023 7:48am 0.0 /100 WBC 0.0-0.0 [facility] [id number] 736 [facility] 67501 Prothrombin Time June 28, 2023 6:27am 10.8 Seconds 9.3-12.1 [facility] [id number] [address] [place] [address] 35534 Prothromb Time International Ratio June 28, 2023 6:27am 1.0 0.9-1.2 Reference Interval is for non-anticoagulat ed patients.Suggest ed INR Therapeutic Range for Vitamin K antogonist therapy:LEVELS OF THERAPY INDICATIONS TARGET INR RANGEStandard Dose Venous Thrombosis, 2.0 - 3.0 Atrial Fibrillation, Pulmonary Embolism. High Dose Valvular Heart Disease, 2.5 - 3.5 Mechanical Heart, Intracardiac Thrombosis. [facility] [id number] [address] [place] [address] 70417 Sodium Level June 19, 2023 6:49am 142 mmol/L 137-146 [facility] [id number] [address] [place] [address] 90160 Sodium Level June 19, 2023 11:45pm 135 mmol/L 137-146 [facility] [id number] [address] [place] [address] 48753 Sodium Level June 23, 2023 6:12am 138 mmol/L 137-146 [facility] [id number] [address] [place] [address] 01704 Sodium Level June 27, 2023 11:35am 139 mmol/L 137-146 [facility] [id number] [address] [place] [address] 96150 Sodium Level June 28, 2023 6:27am 142 mmol/L 137-146 [facility] [id number] [address] [place] [address] 64447 Sodium Level June 29, 2023 7:48am 141 mmol/L 137-146 [facility] [id number] 736 [facility] 97334 Potassium Level June 19, 2023 6:49am 3.9 mmol/L 3.5-5.3 [facility] [id number] [address] [facility] 89568 Potassium Level June 19, 2023 11:45pm 4.1 mmol/L 3.5-5.3 [facility] [id number] [address] [place] [address] 84466 Potassium Level June 23, 2023 6:12am 3.9 mmol/L 3.5-5.3 [facility] [id number] [address] [place] [address] 29785 Potassium Level June 27, 2023 11:35am 4.5 mmol/L 3.5-5.3 [facility] [id number] [address] [place] [address] 75026 Potassium Level June 28, 2023 6:27am 4.8 mmol/L 3.5-5.3 Specimen hemolyzed, results affected [facility] [id number] [address] [place] [address] 52315 Potassium Level June 29, 2023 7:48am 4.1 mmol/L 3.5-5.3 [facility] [id number] 736 [facility] 88394 Chloride Level June 19, 2023 6:49am 104 mmol/L 98-107 [facility] [id number] [address] [place] [address] 01634 Chloride Level June 19, 2023 11:45pm 97 mmol/L 98-107 [facility] [id number] [address] [place] [address] 51130 Chloride Level June 23, 2023 6:12am 101 mmol/L 98-107 [facility] [id number] [address] [place] [address] 30662 Chloride Level June 27, 2023 11:35am 103 mmol/L 98-107 [facility] [id number] [address] [place] [address] 40268 Chloride Level June 28, 2023 6:27am 103 mmol/L 98-107 [facility] [id number] [address] [place] [address] 59349 Chloride Level June 29, 2023 7:48am 105 mmol/L 98-107 [facility] [id number] 736 [facility] 76288 Carbon Dioxide Level June 19, 2023 6:49am 28 mmol/L -32 [facility] [id number] [address] [facility] 97923 Carbon Dioxide Level June 19, 2023 11:45pm 25 mmol/L -32 [facility] [id number] [address] [facility] 80719 Carbon Dioxide Level June 23, 2023 6:12am 27 mmol/L -32 [facility] [id number] [address] [place] [address] 75285 Carbon Dioxide Level June 27, 2023 11:35am 28 mmol/L -32 [facility] [id number] [address] [place] [address] 07558 Carbon Dioxide Level June 28, 2023 6:27am 24 mmol/L -32 [facility] [id number] [address] [place] [address] 87507 Carbon Dioxide Level June 29, 2023 7:48am 27 mmol/L 23-32 [facility] [id number] [address] [place] [address] 31681 Anion Gap June 19, 2023 6:49am 10 mmol/L 5-15 [facility] [id number] [address] [place] [address] 99317 Anion Gap June 19, 2023 11:45pm 13 mmol/L 5-15 [facility] [id number] [address] [place] [address] 44911 Anion Gap June 23, 2023 6:12am 10 mmol/L 5-15 [facility] [id number] [address] [place] [address] 48320 Anion Gap June 27, 2023 11:35am 8 mmol/L 5-15 [facility] [id number] [address] [place] [address] 43917 Anion Gap June 28, 2023 6:27am 15 mmol/L 5-15 [facility] [id number] [address] [place] [address] 12946 Anion Gap June 29, 2023 7:48am 9 mmol/L 11-18 [facility] [id number] 736 [facility] 02677 Blood Urea Nitrogen June 19, 2023 6:49am 9 mg/dl 11-28 [facility] [id number] [address] [facility] 24453 Blood Urea Nitrogen June 19, 2023 11:45pm 14 mg/dl 11-28 [facility] [id number] [address] [place] [address] Blood Urea Nitrogen June 23, 2023 6:12am 10 mg/dl 11-28 [facility] [id number] [address] [place] [address] 68136 Blood Urea Nitrogen June 27, 2023 11:35am 15 mg/dl 11-28 [facility] [id number] [address] [place] [address] 69230 Blood Urea Nitrogen June 28, 2023 6:27am 8 mg/dl 11-28 [facility] [id number] [address] [place] [address] 35383 Blood Urea Nitrogen June 29, 2023 7:48am 15 mg/dl 11-28 [facility] [id number] 736 [facility] 44555 Creatinine June 19, 2023 6:49am 0.7 mg/dL 0.6-1.4 [facility] [id number] [address] [place] [address] 39236 Creatinine June 19, 2023 11:45pm 0.8 mg/dL 0.6-1.4 [facility] [id number] [address] [place] [address] 22660 Creatinine June 23, 2023 6:12am 0.6 mg/dL 0.6-1.4 [facility] [id number] [address] [place] [address] 42745 Creatinine June 27, 2023 11:35am 0.6 mg/dL 0.6-1.4 [facility] [id number] [address] [place] [address] 32710 Creatinine June 28, 2023 6:27am 0.6 mg/dL 0.6-1.4 [facility] [id number] [address] [facility] 13317 Creatinine June 29, 2023 7:48am 0.6 mg/dL 0.6-1.4 [facility] [id number] 736 [facility] 80222 Estimated Creatinine Clearance June 19, 2023 6:49am 165.0 ml/min This value is calculated by Cockcroft Gault Equation using ideal body weight. This result is dependent on an accurate patient height and weight which is obtained from patients medical record. Cockcroft, D.W. and M.H. Gault. Prediction of creatinine clearance from serum creatinine. Nephron. 1975. 16(1):31-41. [facility] [id number] [address] [place] [address] Estimated Creatinine Clearance June 19, 2023 11:45pm [employer] Unable to Calculate CRCL,Ht and/or Wt missing [facility] [id number] [address] [place] [address] Estimated Creatinine Clearance June 23, 2023 6:12am 192.5 ml/min This value is calculated by Cockcroft Gault Equation using ideal body weight. This result is dependent on an accurate patient height and weight which is obtained from patients medical record. Cockcroft, D.W. and M.H. Gault. Prediction of creatinine clearance from serum creatinine. Nephron. 1975. 16(1):31-41. [facility] [id number] [address] [place] [address] 41980 Estimated Creatinine Clearance June 27, 2023 11:35am 203.8 ml/min This value is calculated by Cockcroft Gault Equation using ideal body weight. This result is dependent on an accurate patient height and weight which is obtained from patients medical record. Cockcroft, D.W. and M.H. Gault. Prediction of creatinine clearance from serum creatinine. Nephron. 1975. 16(1):31-41. [facility] [id number] [address] [place] [address] 05536 Estimated Creatinine Clearance June 28, 2023 6:27am 192.8 ml/min This value is calculated by Cockcroft Gault Equation using ideal body weight. This result is dependent on an accurate patient height and weight which is obtained from patients medical record. Cockcroft, D.W. and M.H. Gault. Prediction of creatinine clearance from serum creatinine. Nephron. 1976. 16(1):31-41. [facility] [id number] [address] [place] [address] 81097 Estimated Creatinine Clearance June 29, 2023 7:48am [employer] Unable to Calculate CRCL,Ht and/or Wt missing [facility] [id number] [address] [place] [address] 29119 Estimat Glomerular Filtration Rate June 19, 2023 6:49am 119 >90 Reported eGFR is based on the CKD-EPI 2020 equation that does not use a race coefficient. Additional information can be found at:[email or web address] b_egfr_summary_f [email or web address] ([email or web address]) [facility] [id number] [address] [place] [address] 02563 Estimat Glomerular Filtration Rate June 19, 2023 11:45pm 115 >90 Reported eGFR is based on the CKD-EPI 2020 equation that does not use a race coefficient. Additional information can be found at:[email or web address] b_egfr_summary_f [email or web address].pdf ([email or web address]) [facility] [id number] [address] [place] [address] 98141 Estimat Glomerular Filtration Rate June 23, 2023 6:12am 125 >90 Reported eGFR is based on the CKD-EPI 1 equation that does not use a race coefficient. Additional information can be found at:[id number] b_egfr_summary_f [email or web address].pdf ([email or web address]) [facility] [id number] [address] [place] [address] 70959 Estimat Glomerular Filtration Rate June 27, 2023 11:35am 125 >90 Reported eGFR is based on the CKD-EPI 1 equation that does not use a race coefficient. Additional information can be found at:[email or web address] b_egfr_summary_f [email or web address].pdf ([email or web address]) [facility] [id number] [address] [place] [address] Estimat Glomerular Filtration Rate June 28, 2023 6:27am 125 >90 Reported eGFR is based on the CKD-EPI 2020 equation that does not use a race coefficient. Additional information can be found at:[email or web address] b_egfr_summary_f [email or web address].pdf ([email or web address]) [facility] [id number] [address] [place] [address] 16535 Estimat Glomerular Filtration Rate June 29, 2023 7:48am 125 >90 Reported eGFR is based on the CKD-EPI 2020 equation that does not use a race coefficient. Additional information can be found at:[email or web address]_yc b_egfr_summary_f [email or web address].pdf ([email or web address]) [facility] [id number] [address] [place] [address] 49372 BUN/Creatinine Ratio June 19, 2023 6:49am 12.9 10.0-20.0 [facility] [id number] [address] [place] [address] 22416 BUN/Creatinine Ratio June 19, 2023 11:45pm 17.5 10.0-20.0 [facility] [id number] [address] [place] [address] 45483 BUN/Creatinine Ratio June 23, 2023 6:12am 16.7 10.0-20.0 [facility] [id number] [address] [place] [address] 22227 BUN/Creatinine Ratio June 27, 2023 11:35am 25.0 10.0-20.0 [facility] [id number] [address] [place] [address] 90242 BUN/Creatinine Ratio June 28, 2023 6:27am 13.3 10.0-20.0 [facility] [id number] [address] [place] [address] 05209 BUN/Creatinine Ratio June 29, 2023 7:48am 25.0 10.0-20.0 [facility] [id number] [address] [place] [address] 82476 Glucose Level June 19, 2023 6:49am 101 mg/dL 70-100 [facility] [id number] [address] [place] [address] 62642 Glucose Level June 19, 2023 11:45pm 94 mg/dL 70-100 [facility] [id number] [address] [facility] 18220 Glucose Level June 23, 2023 6:12am 98 mg/dL 70-100 [facility] [id number] [address] [facility] 73306 Glucose Level June 27, 2023 11:35am 95 mg/dL 70-100 [facility] [id number] [address] [place] [address] 07293 Glucose Level June 28, 2023 6:27am 105 mg/dL 70-100 [facility] [id number] [address] [place] [address] 95076 Glucose Level June 29, 2023 7:48am 104 mg/dL 70-100 [facility] [id number] [address] [place] [address] 06381 Lactic Acid Level June 16, 2023 11:13am 1.1 mmol/L >0.5 [facility] [id number] [address] [place] [address] 81718 Lactic Acid Level June 20, 2023 2:57pm 1.9 mmol/L >0.5 [facility] [id number] [address] [place] [address] 74092 Calcium Level June 19, 2023 6:49am 8.9 mg/dl 8.6-10.3 [facility] [id number] [address] [place] [address] 37896 Calcium Level June 19, 2023 11:45pm 8.8 mg/dl 8.6-10.3 [facility] [id number] [address] [place] [address] 11148 Calcium Level June 23, 2023 6:12am 8.9 mg/dl 8.6-10.3 [facility] [id number] [address] [place] [address] 06796 Calcium Level June 27, 2023 11:35am 8.6 mg/dl 8.6-10.3 [facility] [id number] [address] [place] [address] 90170 Calcium Level June 28, 2023 6:27am 8.9 mg/dl 8.6-10.3 [facility] [id number] [address] [place] [address] 21229 Calcium Level June 29, 2023 7:48am 8.5 mg/dl 8.6-10.3 [facility] [id number] [address] [place] [address] 30567 Phosphorus Level June 23, 2023 6:12am 3.7 mg/dL 2.5-4.5 [facility] [id number] [address] [place] [address] 70914 Phosphorus Level June 28, 2023 6:27am 4.5 mg/dL 2.5-4.5 [facility] [id number] [address] [place] [address] 62636 Phosphorus Level June 29, 2023 7:48am 4.4 mg/dL 2.5-4.5 [facility] [id number] [address] [place] [address] 77156 Magnesium Level June 19, 2023 6:49am 1.8 mg/dL 1.8-2.5 [facility] [id number] [address] [place] [address] 59950 Magnesium Level June 19, 2023 11:45pm 1.8 mg/dL 1.8-2.5 [facility] [id number] [address] [place] [address] 19986 Magnesium Level June 23, 2023 6:12am 2.0 mg/dL 1.8-2.5 [facility] [id number] [address] [place] [address] 85143 Magnesium Level June 27, 2023 11:35am 1.9 mg/dL 1.8-2.5 [facility] [id number] [address] [place] [address] 29303 Magnesium Level June 28, 2023 6:27am 1.8 mg/dL 1.8-2.5 [facility] [id number] [address] [place] [address] 80997 Magnesium Level June 29, 2023 7:48am 2.1 mg/dL 1.8-2.5 [facility] [id number] [facility] 03591 Total Bilirubin June 18, 2023 5:55am < 0.2 mg/dl <1.1 [facility] [id number] [address] [place] [address] 84908 Total Bilirubin June 19, 2023 11:45pm 0.3 mg/dl <1.1 [facility] [id number] [address] [place] [address] 03858 Total Bilirubin June 23, 2023 6:12am < 0.2 mg/dl <1.1 [facility] [id number] [address] [place] [address] 64713 Total Bilirubin June 25, 2023 2:11pm < 0.2 mg/dl <1.1 [facility] [id number] [address] [place] [address] 38356 Total Bilirubin June 28, 2023 6:27am < 0.2 mg/dl <1.1 [facility] [id number] [address] [place] [address] 51619 Total Bilirubin June 29, 2023 7:48am < 0.2 mg/dl <1.1 [facility] [id number] 736 [facility] 22303 Aspartate Amino Transf (AST/SGOT) June 18, 2023 5:55am 24 U/L [facility] [id number] [address] [place] [address] 33775 Aspartate Amino Transf (AST/SGOT) June 19, 2023 11:45pm 20 U/L [facility] [id number] [address] [place] [address] 22788 Aspartate Amino Transf (AST/SGOT) June 23, 2023 6:12am 13 U/L 15- [facility] [id number] [address] [place] [address] 31820 Aspartate Amino Transf (AST/SGOT) June 25, 2023 2:11pm 19 U/L 15 [facility] [id number] [address] [place] [address] 96269 Aspartate Amino Transf (AST/SGOT) June 28, 2023 6:27am 23 U/L 15-41 [facility] [id number] [address] [place] [address] 35923 Aspartate Amino Transf (AST/SGOT) June 29, 2023 7:48am 15 U/L 15-41 [facility] [id number] [address] [place] [address] 63263 Alanine Aminotransfera se (ALT/SGPT) June 18, 2023 5:55am 18 U/L 14-63 [facility] [id number] [address] [place] [address] 13038 Alanine Aminotransfera se (ALT/SGPT) June 19, 2023 11:45pm 19 U/L 14-63 [facility] [id number] [address] [place] [address] 58682 Alanine Aminotransfera se (ALT/SGPT) June 23, 2023 6:12am 13 U/L 14 [facility] [id number] [address] [place] [address] 31596 Alanine Aminotransfera se (ALT/SGPT) June 25, 2023 2:11pm 16 U/L 1463 [facility] [id number] [address] [place] [address] 47181 Alanine Aminotransfera se (ALT/SGPT) June 28, 2023 6:27am 15 U/L 14-63 [facility] [id number] [address] [place] [address] 52255 Alanine Aminotransfera se (ALT/SGPT) June 29, 2023 7:48am 12 U/L [facility] [id number] [address] [place] [address] 60444 Ammonia June 20, 2023 8:46am 12 umol/L 16-60 [facility] [id number] [address] [place] [address] 54248 Ammonia June 20, 2023 10:30pm 24 umol/L 16-60 [facility] [id number] [address] [place] [address] 77369 Ammonia June 25, 2023 9:16pm 12 umol/L 16-60 [facility] [id number] [address] [place] [address] 00419 Total Creatine Kinase June 23, 2023 6:12am 39 U/L 49-397 [facility] [id number] [address] [facility] 50678 Total Creatine Kinase June 27, 2023 11:35am 63 U/L 49-397 [facility] [id number] [address] [place] [address] 08129 Total Protein June 18, 2023 5:55am 6.1 g/dL 6.4-8.3 [facility] [id number] [address] [place] [address] 79877 Total Protein June 19, 2023 11:45pm 7.2 g/dL 6.4-8.3 [facility] [id number] [address] [place] [address] 22976 Total Protein June 23, 2023 6:12am 6.3 g/dL 6.4-8.3 [facility] [id number] [address] [place] [address] 55404 Total Protein June 25, 2023 2:11pm 6.7 g/dL 6.4-8.3 [facility] [id number] [address] [place] [address] 71317 Total Protein June 28, 2023 6:27am 6.7 g/dL 6.4-8.3 [facility] [id number] [address] [place] [address] 91208 Total Protein June 29, 2023 7:48am 6.0 g/dL 6.4-8.3 [facility] [id number] [address] [place] [address] 25173 Albumin June 18, 2023 5:55am 3.7 g/dl 4.0-5.0 [facility] [id number] [address] [place] [address] 03082 Albumin June 19, 2023 11:45pm 4.4 g/dl 4.0-5.0 [facility] [id number] [address] [place] [address] 04682 Albumin June 23, 2023 6:12am 3.9 g/dl 4.0-5.0 [facility] [id number] [address] [place] [address] 88658 Albumin June 25, 2023 2:11pm 4.0 g/dl 4.0-5.0 [facility] [id number] [address] [facility] 71474 Albumin June 28, 2023 6:27am 4.0 g/dl 4.0-5.0 [facility] [id number] [address] [facility] 05350 Albumin June 29, 2023 7:48am 3.6 g/dl 4.0-5.0 [facility] [id number] [address] [place] [address] 87221 Albumin/Globul in Ratio June 18, 2023 5:55am 1.5 1.0-2.6 [facility] [id number] [address] [place] [address] 31536 Albumin/Globul in Ratio June 19, 2023 11:45pm 1.6 1.0-2.6 [facility] [id number] [address] [place] [address] 62306 Albumin/Globul in Ratio June 23, 2023 6:12am 1.6 1.0-2.6 [facility] [id number] [address] [place] [address] 86865 Albumin/Globul in Ratio June 25, 2023 2:11pm 1.5 1.0-2.6 [facility] [id number] [address] [place] [address] 13457 Albumin/Globul in Ratio June 28, 2023 6:27am 1.5 1.0-2.6 [facility] [id number] [address] [place] [address] 70447 Albumin/Globul in Ratio June 29, 2023 7:48am 1.5 1.0-2.6 [facility] [id number] [address] [place] [address] 99158 Alkaline Phosphatase June 18, 2023 5:55am 47 U/L 40-129 [facility] [id number] [address] [place] [address] 92762 Alkaline Phosphatase June 19, 2023 11:45pm 53 U/L 40-129 [facility] [id number] [address] [place] [address] 33042 Alkaline Phosphatase June 23, 2023 6:12am 48 U/L 40-129 [facility] [id number] [address] [place] [address] 13850 Alkaline Phosphatase June 25, 2023 2:11pm 51 U/L 40-129 [facility] [id number] [address] [place] [address] 79841 Alkaline Phosphatase June 28, 2023 6:27am 49 U/L 40-129 [facility] [id number] [address] [place] [address] 41583 Alkaline Phosphatase June 29, 2023 7:48am 46 U/L 40-129 [facility] [id number] [address] [place] [address] 80403 Lipase June 20, 2023 10:15pm 51 U/L 13-60 [facility] [id number] [address] [place] [address] 07861 Thyroid Stimulating Hormone (TSH) June 16, 2023 11:13am 1.55 uIU/mL 0.34-5.60 [facility] [id number] [address] [place] [address] 38212 Procalcitonin June 16, 2023 11:13am 0.03 ng/mL <0.10 [facility] [id number] [address] [place] [address] 30969 Bedside Glucose June 16, 2023 9:04am 75 mg/dl 70-100 NOTE: Any discrepancy between finger stick glucose result and patient's clinical presentation should be confirmed by the laboratory. [facility] [id number] [address] [place] [address] 19208 Bedside Glucose June 22, 2023 8:47pm 122 mg/dl 70-100 NOTE: Any discrepancy between finger stick glucose result and patient's clinical presentation should be confirmed by the laboratory. [facility] [id number] [address] [place] [address] 47867 Bedside Glucose June 28, 2023 5:22am 70 mg/dl 70-100 NOTE: Any discrepancy between finger stick glucose result and patient's clinical presentation should be confirmed by the laboratory. [facility] [id number] [address] [place] [address] 68114 Urine Amphetamines Screen June 16, 2023 9:45am Negative Negative Amphetamines Cutoff level 1000 ng/mL. [facility] [id number] [address] [facility] [address] Urine Amphetamines Screen June 20, 2023 2:16am Negative Negative Amphetamines Cutoff level 1000 ng/mL. [facility] [id number] [address] [place] [address] 06801 Urine Amphetamines Screen June 25, 2023 6:58pm Negative Negative Amphetamines Cutoff level 1000 ng/mL. [facility] [id number] [address] [place] [address] 09847 Urine Methadone Screen June 16, 2023 9:45am Negative Negative Methadone Cutoff level 300 ng/mL [facility] [id number] [address] [place] [address] 05581 Urine Methadone Screen June 20, 2023 2:16am Negative Negative Methadone Cutoff level 300 ng/mL [facility] [id number] [address] [place] [address] 27544 Urine Methadone Screen June 25, 2023 6:58pm Negative Negative Methadone Cutoff level 300 ng/mL [facility] [id number] [address] [place] [address] 63337 Urine Oxycodone Screen June 16, 2023 9:45am Negative Negative Oxycontin/Oxycod one Cutoff level 100 ng/mL [facility] [id number] [address] [place] [address] 44263 Urine Oxycodone Screen June 20, 2023 2:16am Negative Negative Oxycontin/Oxycod one Cutoff level 100 ng/mL [facility] [id number] [address] [place] [address] 29095 Urine Oxycodone Screen June 25, 2023 6:58pm Negative Negative Oxycontin/Oxycod one Cutoff level 100 ng/mL [facility] [id number] [address] [place] [address] 35141 Urine Buprenorphine Screen June 16, 2023 9:45am Negative Negative Buprenorphine Cutoff level 5 ng/mL [facility] [id number] [address] [place] [address] 81011 Urine Buprenorphine Screen June 20, 2023 2:16am Negative Negative Buprenorphine Cutoff level 5 ng/mL [facility] [id number] [address] [place] [address] 51945 Urine Buprenorphine Screen June 25, 2023 6:58pm Negative Negative Buprenorphine Cutoff level 5 ng/mL [facility] [id number] [address] [place] [address] 51945 Salicylates Level June 19, 2023 11:45pm < 1.0 mg/dL Salicylate Reference Range: Negative <1.0 mg/dL Therapeutic Range: 2.0-20.0 mg/dL [facility] [id number] [address] [place] [address] 46365 Salicylates Level June 25, 2023 2:11pm < 1.0 mg/dL Salicylate Reference Range: Negative <1.0 mg/dL Therapeutic Range: 2.0-20.0 mg/dL [facility] [id number] [address] [place] [address] 38575 Urine Opiates Screen June 16, 2023 9:45am Negative Negative Opiate Cutoff level 300 ng/mLOxycontin/O xycodone is not detected below the threshold of20,000 ng/mL [facility] [id number] [address] [place] [address] 87530 Urine Opiates Screen June 20, 2023 2:16am Negative Negative Opiate Cutoff level 300 ng/mLOxycontin/O xycodone is not detected below the threshold of20,000 ng/mL [facility] [id number] [address] [place] [address] 97615 Urine Opiates Screen June 25, 2023 6:58pm Negative Negative Opiate Cutoff level 300 ng/mLOxycontin/O xycodone is not detected below the threshold of20,000 ng/mL [facility] [id number] [address] [place] [address] 16425 Urine Fentanyl Screen June 16, 2023 9:45am Negative Negative Fentanyl Cutoff level 2.0 ng/mL [facility] [id number] [address] [place] [address] 79948 Urine Fentanyl Screen June 20, 2023 2:16am Negative Negative Fentanyl Cutoff level 2.0 ng/mL [facility] [id number] [address] [place] [address] 48031 Urine Fentanyl Screen June 25, 2023 6:58pm Negative Negative Fentanyl Cutoff level 2.0 ng/mL [facility] [id number] [address] [place] [address] 86283 Acetaminophen Level June 19, 2023 11:45pm < 5 ug/mL Acetaminophen Reference Range: Negative <5 ug/mL [facility] [id number] [address] [place] [address] 35071 Acetaminophen Level June 25, 2023 2:11pm < 5 ug/mL Acetaminophen Reference Range: Negative <5 ug/mL [facility] [id number] [address] [place] [address] 15570 Urine Benzodiazepine s Screen June 16, 2023 9:45am Negative Negative Please note that the current method for benzodiazepines may be less sensitive to lorazapam detection than previously. If this result is negative and you are concerned about a false negative result for lorazepam, additional testing is possible. Please contact the laboratory.Benzo diazepine Cutoff level 200 ng/mL [facility] [id number] [address] [place] [address] 54186 Urine Benzodiazepine s Screen June 20, 2023 2:16am Negative Negative Please note that the current method for benzodiazepines may be less sensitive to lorazapam detection than previously. If this result is negative and you are concerned about a false negative result for lorazepam, additional testing is possible. Please contact the laboratory.Benzo diazepine Cutoff level 200 ng/mL [facility] [id number] [address] [place] [address] 86289 Urine Benzodiazepine s Screen June 25, 2023 6:58pm Negative Negative Please note that the current method for benzodiazepines may be less sensitive to lorazapam detection than previously. If this result is negative and you are concerned about a false negative result for lorazepam, additional testing is possible. Please contact the laboratory.Benzo diazepine Cutoff level 200 ng/mL [facility] [id number] [address] [place] [address] 76588 Urine Cocaine Screen June 16, 2023 9:45am Positive Negative Confirmation by GC/MS not routinely performed for Non-Maternity locations. If confirmation is required, an order must be placed.Cocaine Cutoff level 300 ng/mL [facility] [id number] [address] [place] [address] 77971 Urine Cocaine Screen June 20, 2023 2:16am Negative Negative Cocaine Cutoff level 300 ng/mL [facility] [id number] [address] [place] [address] 78241 Urine Cocaine Screen June 25, 2023 6:58pm Negative Negative Cocaine Cutoff level 300 ng/mL [facility] [id number] [address] [place] [address] 19251 Urine Cannabinoids Screen June 16, 2023 9:45am Negative Negative THC Cutoff level 50 ng/mLThis report is intended for use in clinical monitoring and management of patients. It is not intended for use in employment related drug testing or court related proceedings. Samples are not routinely tested for adulteration and are assumed to be within the normal physiological pH range of 5 - 8. [facility] [id number] [address] [facility] [address] Urine Cannabinoids Screen June 20, 2023 2:16am Negative Negative THC Cutoff level 50 ng/mLThis report is intended for use in clinical monitoring and management of patients. It is not intended for use in employment related drug testing or court related proceedings. Samples are not routinely tested for adulteration and are assumed to be within the normal physiological pH range of 5 - 8. [facility] [id number] [address] [place] [address] 04996 Urine Cannabinoids Screen June 25, 2023 6:58pm Negative Negative THC Cutoff level 50 ng/mLThis report is intended for use in clinical monitoring and management of patients. It is not intended for use in employment related drug testing or court related proceedings. Samples are not routinely tested for adulteration and are assumed to be within the normal physiological pH range of 5 - 8. [facility] [id number] [address] [place] [address] 57264 Serum Alcohol June 16, 2023 11:13am < 10 mg/dl <10 [facility] [id number] [address] [place] [address] 72459 Serum Alcohol June 19, 2023 11:45pm 41 mg/dl <10 [facility] [id number] [address] [place] [address] 38186 Serum Alcohol June 20, 2023 10:15pm 216 mg/dl <10 [facility] [id number] [address] [place] [address] 72302 Serum Alcohol June 25, 2023 2:11pm 115 mg/dl <10 [facility] [id number] [address] [facility] [address] Serum Alcohol June 28, 2023 6:27am 14 mg/dl <10 [facility] [id number] [address] [facility] 58[address] Whole Blood Vitamin B1 Level June 20, 2023 8:46am 171.7 nmol/L 66.5-200.0 Performed at: [email or web address] [address] [id number] Director: Rojas Prabhakar MD, Phone: [phone] [facility]) [id number] Levetiracetam (Keppra) Level June 16, 2023 11:13am <2.0 ug/mL 10.0-40.0 Performed at: [email or web address] [address] [id number] Director: Rojas Prabhakar MD, Phone: [phone] [facility]) [id number] Levetiracetam (Keppra) Level June 23, 2023 12:18pm 13.4 ug/mL 10.0-40.0 Performed at: [email or web address] [address] [id number] Director: Rojas Prabhakar MD, Phone: [phone] [facility]) [id number] Diagnostic Imaging Reports Author Alfonso Garcia [facility] Authored June 16, 2023 9:51am Report Dictated Date/Time Dictated By Status Radiology Report June 16, 2023 9:51am Alfonso Garcia MD completed [address] [address] Patient Name: MAYELIN LESLIE Medical Record#: [id number] Address: [place] City/State/Zip: [place] [address]: Pepe Choudhary MD Insurance: [facility] (Medicaid) /Age/Sex: 1980/42/M Self Pay Admit/Reg Date: 06/16/[address]: Karoline Choudhary MD Location: ED.GS/ PCP: Pcp-Md ARCHIE Galeana Date of Service: 06/16/23 Order (s): CT head/brain wo contrast CPT Code: 69546 Report Number: [id number] Reason for Exam: seizure Clinical history: Seizure [...] Garcia MD 06/16/23 1023 TD/TT: 06/16/23 0951Tech: [id number] cc: ANNI; MIN* Karoline Choudhary MD; Pcp-MD Lissett Author Neil Addison [facility] Authored June 16, 2023 9:47am Report Dictated Date/Time Dictated By Status Electrocardiogram June 16, 2023 9:47am Neil Addison MD completed [address] [address] Patient Name: MAYELIN LESLIE Medical Record#: [id number] Address: [address] [place] City/State/Zip: [place] [address]: Yo torres MD Insurance: [facility] et (Medicaid) /Age/Sex: 1980/42/M Self Pay Admit/Reg Date: 06/16/[address]: Karoline Choudhary MD Location: 3A./[id number]-S PCP: Md ARCHIE Vargas Date of Service: 06/16/23 Order (s): EKG ED Electrocardiogram CPT Code: 29500 Report Number: [id number] Reason for Exam: seizure SINUS RHYTHM NONSPECIFIC INTRAVENTRICULAR CONDUCTION DELAY Dictated By: Neil Addison MD 06/16/2347 Signed By: Neil Addison MD 06/17/23 1042 TD/TT: 06/16/23 0947Tech: [email or web address] cc: ANNI; MIN* Karoline Choudhary MD; Md Alicia MD Author Rupert Elmore [facility] Authored June 17, 2023 2:03pm Report Dictated Date/Time Dictated By Status Radiology Report June 17, 2023 2:03pm Rupert Elmore MD completed [address] [address] Patient Name: MAYELIN LESLIE Medical Record#: [id number] Address: [address] [place] City/State/Zip: [place] [address]: Yo torres MD Insurance: [facility] (Medicaid) /Age/Sex: 1980/42/M Self Pay Admit/Reg Date: 06/16/[address]: Yo Hernandez MD Location: 3A./[id number] PCP: Md ARCHIE Vargas Date of Service: 06/17/23 Order (s): XR KUB portable; XR chest 1V portable CPT Code: 06178; 62120 Report Number: [id number] Reason for Exam: Pre MRI XR KUB [...] MD 06/17/231402 Signed By: Rupert Elmore MD 06/17/23 141 TD/TT: 06/17/231402Tech: [id number] cc: ANNI; СЕРГЕЙ Vargas MD; Yo Hernandez MD Author Evens Minaya [facility] Authored June 18, 2023 10:44am Report Dictated Date/Time Dictated By Status Radiology Report June 18, 2023 10:44am Evens Minaya MD completed [address] [place] [address] [place] [address] Patient Name: MAYELIN LESLIE Medical Record#: [id number] Address: [address] [place] City/State/Zip: [place] [address]: Zeke Perkins MD Insurance: [facility] (Medicaid) /Age/Sex: 1980/42/M Self Pay Admit/Reg Date: 06/16/[address]: Yo Hernandez MD Location: ./[id number]-K PCP: Md ARCHIE Vargas Date of Service: 06/18/23 Order (s): MR head/brain wo contrast CPT Code: 71615 Report Number: [id number] Reason for Exam: Seizure History: Seizure. No [...] 06/18/23 1044Tech: [email or web address] cc: REINA; ANNI; СЕРГЕЙ Almanza Pcp-MD Lissett; Zeke Perkins MD; Yo Hernandez MD Author Travis Massimo [facility] Authored June 20, 2023 7:19am Report Dictated Date/Time Dictated By Status Radiology Report June 20, 2023 7:19am Thaddeus do MD completed [address] [address] Patient Name: MAYELIN LESLIE Medical Record#: [id number] Address: [address] [place] City/State/Zip: [place] [address]: Pepe Choudhary MD Insurance: [facility] (Medicaid) /Age/Sex: 1980/42/M Self Pay Admit/Reg Date: 06/19/[address]: Tony DelgadogsDO Location: ED.GS/ PCP: PcpMd ARCHIE Leroy Date of Service: 06/20/23 Order (s): CT head/brain wo contrast CPT Code: 52255 Report Number: [id number] Reason for Exam: syncope. ?head strike Examination: CT head/brain wo contrast Indication: syncope. ?head strike Comparison: CT head on 06/16/2023 and MRI brain on 06/18/2023 Technique: Angled axial images were obtained without intravenous contrast from the skull base to the vertex. Coronal and sagittal reformatted images were provided for interpretation. MIPS Measure #361 Patient Exposure to Ionizing Radiation was submitted to [employer] ([employer]) National Radiology Data [...] By: Thaddeus Keys MD 06/20/2328 TD/TT: 06/20/23718Tech: [id number] cc: KIM; ANNI; MIN* Karoline Choudhary MD; Md Alicia MD; Tony Lockhart DO Author Tej Chengluis [facility] Authored June 20, 2023 5:49pm Report Dictated Date/Time Dictated By Status Radiology Report June 20, 2023 5:49pm Tej Bryant MD completed [address] [address] Patient Name: MAYELIN LESLIE Medical Record#: [id number] Address: [address] [place] City/State/Zip: [place] [address]: Lizandro Sandhu DO Insurance: [facility] et (Medicaid) /Age/Sex: 1980/42/M Self Pay Admit/Reg Date: 06/19/[address]: Lizandro Sandhu DO Location: ED.GS/ PCP: Pcp-Md ARCHIE Galeana Date of Service: 06/20/23 Order (s): MR head/brain wo/w contrast CPT Code: 13972 Report Number: [id number] Reason for Exam: requested by neuro, ? [...] By: Tej Bryant MD 06/20/231748 Signed By: eTj Bryant MD 06/20/23 1808 TD/TT: 06/20/231748Tech: [email or web address] cc: LUISITO; ANNI* Pcp-MD Lissett; Lizandro Sandhu DO Author Tej Bryant [facility] Authored June 20, 2023 10:28pm Report Dictated Date/Time Dictated By Status Radiology Report June 20, 2023 10:28pm Tej Bryant MD completed [address] [address] Patient Name: MAYELIN LESLIE Medical Record#: [id number] Address: [address] [place] City/State/Zip: [place] [address]: Ming Lai/Emmett tena Insurance: [facility] (Medicaid) /Age/Sex: 1980/42/M Self Pay Admit/Reg Date: 06/20/[address]: Sarahi Ying Location: ED.GS/ PCP: Pcp-Md ARCHIE Galeana Date of Service: 06/20/23 Order (s): CT head/brain wo contrast CPT Code: 96483 Report Number: [id number] Reason for Exam: unresponsive CLINICAL HISTORY:Patient status [...] By: Tej Bryant MD 06/20/232249 TD/TT: 06/20/232227Tech: [id number] cc: E/R; EHIDY1; PCPNO* E/R Physician,Ming ; Mark Mueller, PAC; Pcp-MD Lissett Author Tej Bryant [facility] Authored June 20, 2023 10:33pm Report Dictated Date/Time Dictated By Status Radiology Report June 20, 2023 10:33pm Tej Bryant MD completed [facility] [address] [facility] [place] [address] Patient Name: MAYELIN LESLIE Medical Record#: [id number] Address: [address] [place] City/State/Zip: [place] [address]: Ming E/Emmett tena Insurance: [employer] [facility] (Medicaid) /Age/Sex: 1980/42/M Self Pay Admit/Reg Date: 06/20/[address]: Sarahi Ying Location: ED.GS/ PCP: Pcp-Md ARCHIE Galeana Date of Service: 06/20/23 Order (s): CT cervical spine wo contrast CPT Code: 70132 Report Number: [id number] Reason for Exam: neck pain, fall CLINICAL [...] MD 06/20/232232 Signed By: Tej Bryant MD 06/20/23 225 TD/TT: 06/20/232232Tech: [id number] cc: E/R; DARINEL; PCPNO* E/R Physician,Ming ; Mark Mueller PAC; Md Alicia MD Author Héctor Hagan [facility] Authored June 20, 2023 2:17am Report Dictated Date/Time Dictated By Status Electrocardiogram June 20, 2023 2:17am Héctor Hagan MD completed [facility] [address] [place] [address] Patient Name: MAYELIN LESLIE Medical Record#: [id number] Address: [address] [place] City/State/Zip: [place] [address]: Lizandro Sandhu DO Insurance: [facility] (Medicaid) /Age/Sex: 1980/42/M Self Pay Admit/Reg Date: 06/19/[address]: Tony Kearns DO Location: ED.GS/ PCP: Md ARCHIE Vargas Date of Service: 06/20/23 Order (s): EKG ED Electrocardiogram CPT Code: 16438 Report Number: [id number] Reason for Exam: weakness, syncope Sinus rhythm Septal T wave abnormality is nonspecific Dictated By: Héctor Hagan MD 06/20/23216 Signed By: Héctor Hagan MD 06/22/23 1141 TD/TT: 06/20/23216Tech: [id number] cc: LIZZIE Vargas MD; Tony Lockhart DO Author John Becker [facility] Authored June 25, 2023 3:03pm Report Dictated Date/Time Dictated By Status Radiology Report June 25, 2023 3:03pm John Becker MD completed [facility] [address] [place] [address] Patient Name: MAYELIN LESLIE Medical Record#: [id number] Address: [address] [place] City/State/Zip: [place] [address]: Juanita joyce MD Insurance: [facility] (Medicaid) /Age/Sex: 1980/42/M Self Pay Admit/Reg Date: 06/25/[address]: Juanita Callahan MD Location: ED.GS/ PCP: Md ARCHIE Vargas Date of Service: 06/25/23 Order (s): CT head/brain wo contrast CPT Code: 80382 Report Number: [id number] Reason for Exam: seizure numb right face [...] Becker MD 06/25/23 1512 TD/TT: 06/25/23 1503Tech: [id number] cc: [email or web address]; PCPMELISSA* PcpMD Mariaa; Juanita Callahan MD Author Jeevan Tarango [facility] Authored June 25, 2023 8:52pm Report Dictated Date/Time Dictated By Status Electrocardiogram June 25, 2023 8:52pm Jeevan Tarango MD completed [address] [address] Patient Name: MAYELIN LESLIE Medical Record#: [id number] Address: [address] [place] City/State/Zip: [place] [address]: Alexis Del Rio MD Insurance: [employer] et (Medicaid) /Age/Sex: 1980/42/M Self Pay Admit/Reg Date: 06/26/[address]: Juanita Callahan MD Location: ED.[facility]/[id number] PCP: Md ARCHIE Vargas Date of Service: 06/25/23 Order (s): EKG ED Electrocardiogram CPT Code: 89798 Report Number: [id number] Reason for Exam: w SINUS RHYTHM PROBABLE LEFT ATRIAL ABNORMALITY Dictated By: Jeevan Tarango MD 06/25/232051 Signed By: Jeevan Tarango MD 06/26/231050 TD/TT: 06/25/232051Tech: ALEXIS cc: [email or web address]; PCPNO* Md Alicia MD; Juanita Callahan MD Author Héctor Hagan [facility] Authored June 20, 2023 1:15pm Report Dictated Date/Time Dictated By Status Electrocardiogram June 20, 2023 1:15pm Héctor Hagan MD completed [address] [address] Patient Name: MAYELIN LESLIE Medical Record#: [id number] Address: [address] [place] City/State/Zip: [place] [address]: Jen prince MD Insurance: [facility] (Medicaid) /Age/Sex: 1980/42/M Self Pay Admit/Reg Date: 06/20/[address]: Sarahi Ying Location: ./[id number] PCP: Md ARCHIE Vargas Date of Service: 06/20/23 Order (s): EKG ED Electrocardiogram CPT Code: 14985 Report Number: [id number] Reason for Exam: syncope SINUS RHYTHM SEPTAL T WAVE ABNORMALITY IS NONSPECIFIC Dictated By: Héctor Hagan MD 06/20/231314 Signed By: Héctor Hagan MD 06/26/231315 TD/TT: 06/26/23 131Tech: cc: [email or web address]; PCPNO* RAFAEL Ying; Md Alicia MD Vital Signs Vital Reading Result Reference Range Collection Date/Time Height 180.34 cm June 17, 2023 12:00am Weight 94.94 kg June 17, 2023 12:00am Body Temperature 98.8 [degF] 97.6-99.6 June 192022 7:40am Heart Rate 73 /min 60-June 19, 2023 7:40am Respiratory rate 18 /min -June 192022 7:40am Oxygen saturation by Pulse oximetry 98 % 95-100 June 19, 2023 7:40am BP Systolic 111 mm[Hg] 90-140 June 19, 2023 7:40am BP Diastolic 70 mm[Hg] 60-90 June 19, 2023 7:40am BMI (Body Mass Index) 29.2 kg/m2 [facility] 12:00am Body Temperature 98.2 [degF] [...] 8:15am BMI (Body Mass Index) 29.2 kg/m2 [facility] er 2022 2:42am Height 180.34 cm [...] 7:53am BMI (Body Mass Index) 33.0 kg/m2 [facility] er 2022 3:23am Height 180.34 cm [...] 6:02am BMI (Body Mass Index) 29.3 kg/m2 [facility] er 2022 5:05am Body Temperature 97.7 [degF] 97.6-99.6 June 292022 4:55am Heart Rate 99 /min 60-90 June 29, 2023 4:55am Respiratory rate 20 /min -June 292022 4:55am Oxygen saturation by Pulse oximetry 98 % 95-100 June 29, 2023 4:55am BP Systolic 106 mm[Hg] 90-140 June 29, 2023 4:55am BP Diastolic 52 mm[Hg] 60-90 June 29, 2023 4:55am Advance Directives Advance Directive Response Recorded Date/ Time Advance Directives No April 21, 2023 3:02pm Health Care Proxy No April 21, 2023 3:02pm Advance Directives No May 04, 2023 11:56am Health Care Proxy No May 04, 2023 11:56am Advance Directives No Edil 12th , 2023 11:36am Health Care Proxy No June 17, [...] 28, 2023 5:49am Advance Directives No June 8:16am Health Care Proxy No June 29, 2023 8:16am Pt has Medical Orders for Li fe Sustaining Tx Form (MOLST)? No June 29, 2023 8:16am Insurance Providers Guarantor MAYELIN LESLIE Address [address] [facility] [address] Contact Info. Home Phone: Payer Policy Id Coverage Id Subscriber's Name Subscriber Id Effective Date Expiration Date Commercial Other [id number] MAYELIN LESLIE [id number] [facility] (Medicaid) [id number] MAYELIN LESLIE [id number] Medicaid [place] [id number] MAYELIN LESLIE [id number] [facility] Required [id number] MAYELIN LESLIE [id number] Encounters Encounter Location(s) Arrival/Admit Date Discharge/Depart Date Provider(s) Discharged Inpatient [facility] June 16, 2023 5:36pm June 19, 2023 10:00am Zeke Perkins MD Departed Emergency [facility] June 19, 2023 11:46pm June 20, 2023 6:23pm null Discharged Inpatient [facility]2C June 20, 2023 11:44pm June 25, 2023 1:38pm Jen Rausch MD Discharged Inpatient [facility] June 26, 2023 8:05am June 27, 2023 4:41pm Shannan Best MD Departed Emergency [facility] June 28, 2023 4:43am June 28, 2023 1:11pm null Discharged Inpatient [facility] 7 June 28, 2023 3:17pm June 29, 2023 12:57pm Fabián Tolliver MD Recent Diagnosis Onset Date Bipolar disorder Cocaine use with intoxication, uncomplic ated Alcoholism Seizure disorder Alcohol withdrawal seizure Hypomagnesemia Hyponatremia Alcohol intoxication Alcohol withdrawal Bipolar disorder Wernicke encephalopathy Alcohol abuse Alcoholism Anemia Bipolar 1 disorder Seizure disorder Alcohol withdrawal Recurrent seizures Seizure Alcohol abuse Bipolar 1 disorder Non-compliance Alcohol withdrawal Bipolar disorder Iron deficiency anemia Recurrent seizures Seizure-like activity Alcoholism Anemia Bipolar 1 disorder Seizure disorder Functional Status Observation Response Date Recorded Assistive Devices None June 17, 2023 11:36am Date of Last Bowel Movement 06/18/23 [facility] 2022 1:54am Date of Last Bowel Movement 06/24/23 [facility] 2022 5:30am Oral Care Teeth Brushing June 24 023 1:05pm Assistive Devices None June 27, 2023 12:50pm Date of Last Bowel Movement 06/27/23 [facility] 2022 12:30pm Assistive Devices None June 29, 2023 8:16am Mental Status Observation Response Date Recorded Arousable To Name June 19 023 1:54am Patient Behavior Appropriate June 19, 2023 10:37am Cooperative June 19 023 10:37am Comprehension Ability Understands Concepts Dece 2022 1:54am Level of Consciousness Awake June 19, 2023 1:54am Alert June 19 023 1:54am Appropriate June 19 1:54am Follows Commands June 19, 2023 1:54am Arousable To Name June 25 023 5:30am Patient Behavior Appropriate June 25, 2023 5:30am Cooperative June 25 023 5:30am Comprehension Ability Understands Concepts Dece2022 5:30am Level of Consciousness Awake June 25, 2023 5:30am Alert Edil 20th, 2 023 5:30am Appropriate June 25, 2 [...] 12:00am Patient Behavior Appropriate June 29, 2023 12:00am Cooperative June 29, 2 023 12:00am Anxious June 29, 2 023 12:00am Comprehension Ability Understands Concepts Decem 2022 12:00am Level of Consciousness Awake June 29, 2023 12:00am Alert June 29, 2 023 12:00am Appropriate June 29, 2 023 12:00am Follows Commands June 29, 2023 12:00am Assessments Diagnosis Onset Date Resolution Status Bipolar [...] chronic Bipolar 1 disorder chronic Non-compliance chronic Alcohol withdrawal acute Bipolar disorder acute Iron deficiency anemia acute Recurrent seizures acute Seizure-like activity acute Alcoholism chronic Anemia chronic Bipolar 1 disorder chronic Seizure disorder chronic Plan of Treatment Future Tests Future [...] Cannabinoids Screen June 29, 2023 7: 17am Levetiracetam (Keppra) Level June 25, 2023 8:50pm VTE Risk Assessment Medical June 16, 2023 5:35pm June 16, 2023 5:36pm VTE Risk Assessment Medical June 20, 2023 11:44pm June 20, 2023 11:44pm VTE Risk Assessment Medical June 25, 2023 11:56pm June 25, 2023 11:56pm VTE Risk Assessment Medical June 28, 2023 3:16pm June 28, 2023 3:17pm Future Visits Future appointment information is unavailable Referrals to Other Providers Reason for Referral Referral Start Date Provider Provider Contact Information Provider Address BRAD BYRNE Work Phone: [phone] [place] [address] Pcp-None , Md ALMANZA Follow-up in the next 2 weeks for treatment of alcoholism and nicotine dependence. Vinny Tsai MD Work Phone: [address] [place] [phone] Vinny Tsai MD Work Phone: [address] [place] [phone] Patient has no pcp..Going back to halfway.. Pcp-None , Md MD BRAD BYRNE Work Phone: [phone] [place] [address] Pcp-None , Md ALMANZA Pcp-None , Md ALMANZA Pcp-None , Md ALMANZA Pcp-None , Md ALMANZA Pcp-None , Md ALMANZA Future Procedures Procedure Name Ordered Date Scheduled [...] 17, 2023 12:52am June 17, 2023 12:52am Data Security Consultant Consult June 16, 2023 6:17 pm June 16, 2023 6:17pm Data Security Consultant Consult June 17 023 12:52am June 17, [...] 25, 2023 10:38am June 25, 2023 10:38am Data Security Consultant Consult June 21, 2023 2:42 am June [...] June 072022 11:56pm June 25, 2023 11:56pm Drug Screen,Urine June 29, 2023 7:17am Dec ember 2022 7:17am EEG Request for service June 28, [...] to running out of your medications. Zeke Perkins [facility] June 19, 2023 9:26am Please follow-up [...] for 6 months from the seizure per [facility] rules. Jen [facility] June 25, 2023 10:41am Follow-up with [...] is also advised to quit smoking. Shannan Blancagalakhushi [facility] June 27, 2023 2:33pm Dear Mr. Suarezeu, You were transferred to [facility] after you presented to the emergency department from [facility] with seizures, we did multiple lab work [...] have any questions or concerns please call [place] at [phone]. Thank you, Medical team [facility] PGY Cristiano Guzmanbentleymelissa [facility] June 29, 2023 10:24am Absence of falls Including: - Early & often mobilization when appropriate - Passive/active range of motion as appropriate - toileting schedule implementation - implementation of fall risk interventions [facility] June 21, 2023 12:37am Risks from withdrawal minimi zed [facility] June 21, 2023 12:37am Prevention of aspiration Including: - Absence of regurgitation, gagging, coughing, fever, cyanosis and respiratory insufficiency - Aspiration precautions [facility] June 21, 2023 12:37am Understand Mgmt Strategy-Reginaldo pete Patient/Caregiver understand: - Pathophysiology - Reportable s/s and when to seek medical care - Treatment plan and post discharge follow up - Medication compliance, environmental safety & lifestyle modification [facility] June 21, 2023 12:37am Alleviation of anxiety Including: -Utilization of coping skills -Demonstrates/verbalizes decreased anxiety [facility] June 21, 2023 12:37am Pt reports/exhibits pain at mihir level Including: - Pain controlled by pharmacological/non-pharmacological means - Establish realistic pain and function goals prior to initiating opioid therapy in patients with chronic pain if applicable - Discuss known risks and realistic benefits of opioid therapy [facility] June 25, 2023 1:40pm Alteration in Hemodynamics [facility] June 25, 2023 1:40pm Effective breathing pattern Including: - Able to speak in full sentences as age appropriate - Absence of accessory muscle use (retractions), shallow breathing, dyspnea, wheezing & tachypnea - Facilitate optimal positioning - maximize effective breathing & prevent exacerbation [facility] June 25, 2023 1:40pm Absence of fluid/electrolyte imbalance Including: - Improved lab values - Adequate urine output - Adequate hydration - Stable weight if appropriate [facility] June 25, 2023 1:40pm Able to achieve maximum mobi lity level Including: - Understands safety - Demonstrates progress in improved mobility - Demonstrates correct use of mobility devices if appropriate - Understands & accepts limitations & plan for progression as appropriate [facility] June 25, 2023 1:40pm Antimicrobial Educ Reviewed with Patient [facility] June 25, 2023 1:40pm Understand Management Strate ashleyfab Patient/Caregiver understand: - Pathophysiology - Reportable s/s and when to seek medical care - Treatment plan and post discharge follow up - Medication regime, energy conservation, diet & lifestyle modification [facility] June 25, 2023 1:40pm Safely transition to next [facility] of care Patient/family has: - Appropriate access to resources and support services as applicable [facility] June 25, 2023 1:40pm Risks from withdrawal minimi zed [facility] June 25, 2023 1:40pm Absence of neurologic deteri oration s/s [facility] June 25, 2023 1:40pm Cognitive status restored to baseline Including: - Mental status back to baseline [facility] June 25, 2023 1:40pm Alleviation of anxiety Including: -Utilization of coping skills -Demonstrates/verbalizes decreased anxiety [facility] June 25, 2023 1:40pm Absence of falls Including: - Early & often mobilization when appropriate - Passive/active range of motion as appropriate - toileting schedule implementation - implementation of fall risk interventions [facility] June 27, 2023 4:42pm Risks from withdrawal minimi zed [facility] June 27, 2023 4:42pm Able to achieve maximum mobi lity level Including: - Understands safety - Demonstrates progress in improved mobility - Demonstrates correct use of mobility devices if appropriate - Understands & accepts limitations & plan for progression as appropriate [facility] June 27, 2023 4:42pm Risks from withdrawal minimi zed R[facility] June 29, 2023 12:58pm Alleviation of anxiety Including: -Utilization of coping skills -Demonstrates/verbalizes decreased anxiety R[facility] June 29, 2023 12:58pm Cardiac rhythm stable Including: - Cardiac rhythm back to baseline or homeostasis [facility] June 29, 2023 12:58pm Consultation Note Author Torito Epps [facility] June 28, 2023 4:08pm Note Date/Time June 28, 2023 4:08pm [facility] er [address] [place] [address] Neurology Consult Note Signed Patient: MAYELIN LESLIE Medical Record#: [id number] : 1980 Acct:[id number] Age/Sex: 42 / M Admit/Reg Date: 06/28/23 Loc: ED.EM Room: Report Number: [id number]: Andrea Avelar MD [facility] Date of Encounter: 06/28/23 Referring Provider: Andrea Avelar Active Medications Acetaminophen (Acetaminophen 325 Mg Tablet) 650 mg PO Q6H PRN PRN Reason: Mild Pain (1-3) Chlordiazepoxide (Chlordiazepoxide 25 Mg Capsule) 50 mg PO Q12H SHADY Last Admin: 06/28/23 15:12 Dose: Not Given Documented By: SC Non-Admin Reason: . Chlordiazepoxide (Chlordiazepoxide 25 Mg Capsule) 50 mg PO Q2H PRN PRN Reason: Withdrawal Symptoms Chlordiazepoxide (Chlordiazepoxide 25 Mg Capsule) 75 mg PO Q2H PRN PRN Reason: Withdrawal Symptoms Chlordiazepoxide (Chlordiazepoxide 25 Mg Capsule) 100 mg PO Q2H PRN PRN Reason: Withdrawal Symptoms Last Admin: 06/28/23 15:12 Dose: 100 mg Documented By: SC Clobetasol Propionate (Clobetasol 0.05% Cream 30 Gm Tube) 1 appl TOPICAL DAILY SHADY; Protocol Escitalopram Oxalate (Escitalopram 10 Mg Tablet) 10 mg PO DAILY SHADY Folic Acid (Folic Acid 1 Mg Tablet) 1 mg PO DAILY SHADY Gabapentin (Gabapentin 400 Mg Capsule) 800 mg PO TID SHADY Heparin Sodium (Porcine) (Heparin 5,000 Unit/1 Ml Inj) 5,000 unit SC Q12H SHADY Levetiracetam (Levetiracetam 500 Mg Tablet) 1,000 mg PO Q12H SHADY; Protocol Multivitamins (Multivitamin Tablet) 1 tab PO DAILY SHADY Nicotine (Nicotine 21 Mg/24 Hr Patch) 1 patch TRANSDERM DAILY SHADY; Protocol Pantoprazole Sodium (Pantoprazole 40 Mg Tabdr) 40 mg PO DAILY SHADY Quetiapine Fumarate (Quetiapine 25 Mg Tablet) 25 mg PO QHS SHADY Risperidone (Risperidone 1 Mg Tablet) 1 mg PO BID SHADY Sennosides (Senna 8.6 Mg Tablet) 17.2 mg PO QHS PRN PRN Reason: Constipation - 1st line Sertraline HCl (Sertraline 50 Mg Tablet) 100 mg PO DAILY SHADY Thiamine HCl (Thiamine 100 Mg Tablet) 100 mg PO DAILY SHADY Trazodone HCl (Trazodone 50 Mg Tablet) 50 mg PO QHS [facility] Home Medications: acetaminophen 325 mg tablet 650 [...] History Medical History: Medical History (Last Reviewed 06/28/23 @ 14:58 by Jacque Jung) Patient denies significant medical history (Medical) Family/Social History - Social History Lives With: Alone Living Situation: Private Home Smoking Status: Current everyday tobacco user-heavy smoker tobacco type: cigarettes 1. How Often Do You Have a Drink Containing Alcohol: e. 4 or More Times a Week Do You Currently Use or Have Hx of Using Recreational Drugs: Yes (smokes crack) - SOGI Sexual Orientation: Don't know Gender Identity: Male How would you like us to refer to you?: He/Him/His/Himself Exam Vital signs: Temp Pulse Resp BP Pulse Ox 97.2 F L 88 16 98/76 96 06/28/23 14:10 06/28/23 14:10 06/28/23 14:10 06/28/23 14:10 06/28/23 14:10 Neurology A&P Impression: Pt seen with Neurology Team. I agree with the note except as detailed below. Reason for consult: etoh w/d, seizure-like activity HPI: 42M with hx AUD and possible seizures, [facility] w/d and possible seizures, with escalating doses of LEV and plans for outpt EEG. His first such visit in our system was on 06/16, when he was brought in by ambulance actively seizing, treated with midaz. He stopped seizing and was confused, but otherwise intact. Vitals OK. Labs with HCO3 19, AG 15, LA 1.1, etoh ND, tox with cocaine. NCHCT neg. He was treated forw/d and was ultimately able to report prior hx of etoh w/d seizures and a reported seizure d/o for which he has seen a neurologist. Per pharmacy records, he was recently seen at [facility] on 06/11 and 06/12 and prescribed LEV 500 bid. He was admitted and seen by neurologist, who did not adjust his ASM regimen given triggers of etoh w/d and cocaine use. Of note, EEG not available at [facility]. He was d/c???d on 06/19 but subsequently found unresponsive in the [facility] ED waiting room later that same day, unable to explain how he got there. Etoh level 41. He was treated with high dose thiamine and admitted again. MRI was read as negative (though I wonder about subtle suggestion of Wernicke???s encephalopathy). He signed out AMA but was again found several hours later outside the main lobby altered, vomiting, then snoring loudly. Repeat NCHCT and CT neck were neg. Etoh 216. NH3 nl. He was admitted until 06/25, seen by psych. He did have another reported seizure though with alert exam afterwards. LEV initially increased to 750 bid but then back to 1000 long-acting QHS for better compliance prior to d/c. On day of d/c (06/25), he was in the chapel and noted by willis to have a 2 min GTC seizure, for which he was brought to the ED and found to be post-ictal. EtOH level 115. Neurology recommended transfer for cEEG given some question of psychogenic non-epileptic seizures, but there were no facilities with availability so pt was admitted and LEV increased to 1000 bid. Pt again seen by neurology and d/c???d on 03/28. That night, he reportedly drank and used cocaine, then was found in the administrative dietitian on 06/[address] seizing and was brought into the ED again with question seizures vs PNES vs w/d tremors. ED MD reported episodes of shaking during which he stated ???I need some more Ativan???. [facility] neurology consulted for question of getting a rEEG. Pt accepted for ED-ED transfer. Pt himself reports no recollection of events, waking up withpeople around him, having been incontinent of urine (I do not see that documented in record, though may have missed it). He says he???s had similar events going back about a year, all associated with etoh and/or cocaine. He alsoreports recently becoming homeless. PMH: bipolar, AUD, possible seizure d/o, cocaine use, DVT not compliant with AC,AJ, gastric bypass, fibromyalgia, psoriasis, housing challenged 24-hour interval history: as above Vitals, labs, meds, and imaging reviewed in detail. Some specifics outlined below. VS: afeb, HR 80s, SBP 90s-100s Labs: W 7.2, Na 142, HCO3 24, AG 15, glu 105, NH3 12; 06/25 LEV level pending, Etoh 14, tox pending Meds include: Librium CIWA Exam: alert, oriented to [facility] (looking at board), but knew [facility], 06/28/2023, situation, personal history. FC throughout, nl naming, repeating. EOMI, VFF, face sym, tongue midline, / B UE/LE, no drift, nl B F2N. Gait deferred as EEG being done. Imp/Recs: 42M with substantial recent stressors, AUD, and cocaine use, who has presented multiple times over the past several weeks with altered mental status and some suggestions of seizure activity. Some descriptions of events sound compelling for seizures, while other sound more like PNES or even just tremulousness of etoh w/d. Current exam is normal. - Routine EEG happening now - If 6W bed is available, please order cEEG. - If 6W bed is not available, please order repeat rEEG for tomorrow. - No need for further brain imaging (prior MRI possibly suggestive of Wernicke???sbut exam is not) - Cont LEV 1000 bid - Thiamine - Please check tox Thank you for this consult. Discussed with primary team. Ayad Epps MD - Attending Documentation Confirm Attending Attestation: Yes Attending Attestation Statement: {I personally saw the patient and performed a substantive portion of the visit including all aspects of the medical decision making.} MDM and Clinical Condition Notes: x (1) Seizure-like activity Status: Acute Assessment and Plan: x - Location and Group Information SMG-billable encounter: Yes Service location: inpatient Provider group: [facility] - E&M Encounter Coding Attending date of service: 06/28/23 Initial hospital care: Level 3 [id number] Time-based billing attestation: - Attestation Attestation: I have reviewed and updated the patient's past medical, social, andfamily history as necessary and have reviewed pertinent laboratory findings. Confirm PMH/FSH Attestation: Yes Problem List Attestation Statement: I have documented a relevant problem and problem plan for this visit. Resident/AP Confirm Problem: Yes Resident/AP Problem List Check: Pass Attending Confirm Problem: Yes Attending Problem List Check: Pass Dictated By: Torito Epps MD Signed By: Torito Epps MD 06/28/238 DD/ 06 TD/TT: 06/28/231606 Glassware Selector: MOISE cc: MARY PHIPPS* Torito Epps MD; Andrea Avelar MD History & Physical Note Author Fabián Tolliver [facility] June 28, 2023 5:28pm Note Date/Time June 28, 2023 3:00pm [address] History & Physical Signed Patient: MAYELIN LESLIE Medical Record#: [id number] : 1980 Acct:[id number] Age/Sex: 42 / M Admit/Reg Date: 06/28/23 Loc: [facility] Room: [facility] Report Number: [id number]: Fabián Tolliver MD <Dallas Galvan - Last Filed: 06/28/23 15:20> HPI Date of Encounter: 06/28/23 Attending Provider: Fabián Tolliver [place] Medications: acetaminophen 325 mg tablet 650 mg [...] History Medical History: Medical History (Last Reviewed 06/28/23 @ 14:58 by Jacque Jung) Patient denies significant medical history (Medical) Family/Social History - Social History Lives With: Alone Living Situation: Private Home Smoking Status: Current everyday tobacco user-heavy smoker tobacco type: cigarettes 1. How Often Do You Have a Drink Containing Alcohol: e. 4 or More Times a Week Do You Currently Use or Have Hx of Using Recreational Drugs: Yes (smokes crack) - SOGI Sexual Orientation: Don't know Gender Identity: Male How would you like us to refer to you?: He/Him/His/Himself Exam Vital signs: Temp Pulse Resp BP Pulse Ox 97.2 F L 88 16 98/76 96 06/28/23 14:10 06/28/23 14:10 06/28/23 14:10 06/28/23 14:10 06/28/23 14:10 Assessment and Plan Impression: HPI 42-year-old male with history of fibromyalgia, substance abuse and cocaine use, tobacco abuse, status post gastric bypass, alcohol abuse with alcohol withdrawalseizures, bipolar disorder, known seizure disorder on Keppra who presents to theED via EMS as a transfer from outside ED for withdrawal seizure. Per external medical record review, patient with numerous admission for alcohol withdrawal seizures in the past and actually discharged from [facility] on 06/25/2023 for withdrawal seizure. Per external medical record review, patient was admitted to [facility] on 06/25 shortly after discharge earlier that day for alcohol withdrawal seizure for a another seizure. Neurology was consulted who recommended EEG which was not available at that hospital. However, while awaiting transfer patient became agitated and combative and required IV Versed and restraints he was eventually admitted secondary to this agitation. He never received the EEG was eventually discharged after neurological evaluation. The patient reports to me that he began drinking again and did crack [facility] seizure versus pseudo-seizure per EMS, patient was found with generalized shaking versus shivering activity. It was unclear the duration of symptoms. He was brought to the ED for evaluation. He had used cocaine and alcohol earlier that day. He was uncertain what happened and statesthis has happened numerous times to him. He has been on escalating doses of Keppra per neurology review of inpatient notes. Secondary to persistent seizureactivity with 3rd admission in 1 week patient was transferred to our facility for EEG and further neurological evaluation. His basic blood work obtained [facility] that showed chronic anemia with the rest of blood work unremarkable. He wastreated with Librium 25 mg, loaded with Keppra and treated with LR and D5. Ed Course at [facility]: On arrival, afebrile, hemodynamically stable. Asymptomatic. Given another 50 mg librium and placed on CIWA protocol. Neurology consulted--rcommend cEEG. Upon my encounter patient reports he has been dealing with seziures for the pastyear. He does not remember the events of this morning. He is requesting ativan and hydromorphone. Patient presents stating that he does not remember what happened for his most previous episode. He states he was in his normal state ofhealth in the next thing he knew he was surrounded by people in on the ground. He denies bladder or bowel incontinence, tongue biting. States he felt like he had a seizure with fatigue and mild headache afterwards which has since passed. He denies any other complaints or issues. Again, he has been abusing drugs and alcohol since his most recent discharge yesterday. Last drink was over 12 hoursprior. He denies any fevers/chills, chest pain/shortness of breath, nausea/vomiting, headache, neck pain, back pain, flank pain, abdominal pain, vision change, weakness or paresthesia, cough, rash. PMH:substance abuse, alcohol abuse, alcohol withdrawal seizure, bipolar, seizuredisorder greatly affecting care and concern. Fam Hx: noncontributory Social Hx: homeless for the past 2 weeks Alcohol: drinks 1 liter of vodka daily Drugs: crack cocaine Tobacco: smoke cigarettes Last Vital Signs Temp 97.2 F L 06/28/23 14:10 Pulse 88 06/28/23 14:10 Resp 16 06/28/23 14:10 BP 98/76 06/28/23 14:10 Pulse Ox 96 06/28/23 14:10 GEN: alert and oriented x3, NAD, sitting up in bed eating a sandwich CARDS: normal S1 and S2 no murmurs, rubs or gallops PULM: CTA ABDOMEN: no tenderness to palpation EXTREMITIES: extreme tenderness to palpation, no peripheral edema. eryhthematousknuckes NEURO: cranial nerves 2-12 intact, 5/5 strength in all 4 extremities Labs at outside hospital show chronic anemia, otherwise unremarkable Brain MRI with and without gadolinium 06/20/2023 revealed no acute intracranialabnormalities. No abnormal enhancement. A/P #Seizures The patient has had 3 hospitalizations at [facility] in the past week for suspected seizures. He reports he's had seizure-like symptoms (tonic clonic movements followed by confusion of what happened) for the past year. We will need to monitor the patient on ceeg to verifiy that the patient is in fact showing epileptiform activity. Differential diagnosis includes alcohol withdrawal seizures, vs substance induced seizures (smokes crack cocaine) vs psychogenic seizures. -loaded with keppra and given librium 50 mg in ED -c/w home keppra dose 1000 mg BID -ceeg -no imaging indicated at this time -f/u neuro recs -f/u urine drug screen -seizure precautions #AUD -on CICT protocol with librium -c/w folic acid supplement -c/w thiamine #depression -continue home escitalopram -continue home sertraline #psoriatic arthritis -continue home clobetasol ointment #fibromyalgia -continue home gabapentin #bipolar disoder -c/w home trazodone QHS -c/w home quetiapine QHS -c/w home risperidone -f/u EKG for QT prolongation F-none E-replete as needed N-regular diet T-hep sub q P-not indicated Case discussed with Dr. Tolliver who is in agreement of plan Dallas Galvan, PGY-1 [id number] (1) Recurrent seizures Status: Acute Problem Course: unchanged Assessment and Plan: - Attestation Attestation: I have reviewed and updated the patient's past medical, social, andfamily history as necessary and have reviewed pertinent laboratory findings. Confirm PMH/FSH Attestation: Yes Problem List Attestation Statement: I have documented a relevant problem and problem plan for this visit. Resident/AP Confirm Problem: Yes Resident/AP Problem List Check: Pass GM Quality VTE Risk Level: Moderate - Patient Rights Does Pt Have an Advanced Directive for End of Life Issues?: No Does Patient Have a Health Care Proxy?: No Pt has Medical Orders for Life Sustaining Tx Form (MOLST)?: No <Fabián Tolliver - Last Filed: 06/28/23 17:28> Past Medical/Surgical History Medical History: Medical History (Last Reviewed 06/28/23 @ 14:58 by Jacque Jung) Patient denies significant medical history (Medical) Exam Vital signs: Temp Pulse Resp BP Pulse Ox 97.2 F L 88 16 98/76 96 06/28/23 14:10 06/28/23 14:10 06/28/23 14:10 06/28/23 14:10 06/28/23 14:10 Assessment and Plan - Attending Documentation Confirm Attending Attestation: Yes Attending Attestation Statement: {I personally saw the patient and performed a substantive portion of the visit including all aspects of the medical decision making.} MDM and Clinical Condition Notes: I have seen and examined the patient reviewed the relevant records including theadmission H&P by the resident physician dated 06/28/2023. I have also reviewed the detailed consultation note from Neurology Service. I have discussed the plan of care with the resident physician and a.m. in agreement with the plan outlined resident physician's admission note. Briefly, 42-year-old male with history of polysubstance abuse who has been seen in the ER multiple times over the last few weeks with acute encephalopathy and reported seizure activity transferred from [facility] for Neurology evaluation. Patient is currently seizure-free and getting a EEG at the time of this interview. His labs are essentially unremarkable. The plan is to admit him to the medical service for continuous EEG if available. Patient has already been loaded with Keppra and will continue him on his home dose of 1000 mg b.i.d. willfollow up with any updated Neurology recommendations and patient is currently onseizure precautions and CIWA protocol. Will also continue his antidepressants and topical ointment for psoriatic arthritis and home gabapentin. A repeat urine tox screen has been ordered Details per resident physician note (1) Seizure disorder Status: Chronic Problem Course: worsening Assessment and Plan: Admit for continuous EEG Continue Keppra Seizure precautions Follow up with Neurology recs (2) Alcoholism Status: Chronic Problem Course: unchanged Assessment and Plan: CIWA protocol Monitor (3) Bipolar disorder Status: Acute Assessment and Plan: Continue home meds No SI no HI Outpatient psychiatry follow up (4) Iron deficiency anemia Status: Acute Problem Course: unchanged Assessment and Plan: H&H stable Start PPI Needs outpatient follow-up - Location and Group Information SMG-billable encounter: Yes Service location: inpatient Provider group: [facility] Hospitalists - E&M Encounter Coding Attending date of service: 06/28/23 Initial hospital care: Level 3 [address]0511 Time-based billing attestation: Common modifiers: GC - resident svc, teaching physician direction - Attestation Attestation: I have reviewed and updated the patient's past medical, social, andfamily history as necessary and have reviewed pertinent laboratory findings. Confirm PMH/FSH Attestation: Yes Problem List Attestation Statement: I have documented a relevant problem and problem plan for this visit. Resident/AP Confirm Problem: Yes Resident/AP Problem List Check: Pass Attending Confirm Problem: Yes Attending Problem List Check: Pass Dictated By: Dallas Galvan MD, PGY Signed By: Dallas Galvan MD, PGY 06/28/23 1526 Fabián Tolliver MD 06/28/23 1728 DD/ 1455 TD/TT: 06/28/23 1455 Glassware Selector: LUBNA cc: LUBNA; MARIA LUISA; PCPNO* Fabián Tolliver MD; Dallas Galvan MD, PGY; Md Pcp-MD Lissett Progress Note Author Andrea Avelar [facility] June 28, 2023 2:27pm Note Date/Time June 28, 2023 2:18pm [facility] er [address] [place] [address] Emergency Department Document Signed Patient: MAYELIN LESLIE Medical Record#: [id number] : 1980 Acct:[id number] Age/Sex: 42 / M Admit/Reg Date: 06/28/23 Loc: ED.EM Room: Report Number: [id number]: Andrea Avelar MD History of Present Illness Nursing note reviewed: Yes (agree) Source: patient, EMS, old records Exam/History Limitations: no limitations Primary Care Provider: Pcp-Md Lissett - Call-In Assessment Called In by:: Dr. Sandhu Request Call Back: No Call-In Report: Pt coming from [facility] ER. ETOH withdrawal. Needs spot EEG. Dr. Epps, neurology aware. Chief Complaint: Seizure Stated Complaint: Seizure History of Present Illness: 42-year-old male with history of fibromyalgia, substance abuse and cocaine use, tobacco abuse, status post gastric bypass, alcohol abuse with alcohol withdrawalseizures, bipolar disorder, known seizure disorder on Keppra who presents to the via EMS as a transfer from outside ED for withdrawal seizure. Per external medical record review, patient with numerous admission for alcohol withdrawal seizures in the past and actually discharged from [facility] on 06/25/2023 for withdrawal seizure. Per external medical record review, patient was admitted to [facility] on 06/28 shortly after discharge earlier that day for alcohol withdrawal seizure for a another seizure. Neurology was consulted who recommended EEG which was not available at that hospital. However, while awaiting transfer patient became agitated and combative and required IV Versed and restraints he was eventually admitted secondary to this agitation. He never received the EEG was eventually discharged after neurological evaluation. He returned back to the ED at [facility] today for a another seizure versus pseudo-seizure per EMS, patient was found with generalized shaking versus shivering activity. It was unclear the duration of symptoms. He was brought to the ED for evaluation. He had used cocaine and alcohol earlier that day. He was uncertain what happened and states this has happened numerous times to him. He has been on escalating doses of Keppra per neurology review of inpatient notes. Secondary to persistent seizure activity with 3rd admission in 1 week patient was transferred to our facility for EEG and further neurological evaluation. He would basic blood work obtained that showed chronic anemia with the rest of blood work unremarkable. He was treated with Librium 25 mg, loaded with Keppra and treated with LR and D5. Patient presents stating that he does not remember what happened for his most previous episode. He states he was in his normal state of health in the next thing he knew he was surrounded by people in on the ground. He denies bladder or bowel incontinence, tongue biting. States he felt like he had a seizure withfatigue and mild headache afterwards which has since passed. He denies any other complaints or issues. Again, he has been abusing drugs and alcohol since his most recent discharge yesterday. Last drink was over 12 hours prior. He denies any fevers/chills, chest pain/shortness of breath, nausea/vomiting, headache, neck pain, back pain, flank pain, abdominal pain, vision change, weakness or paresthesia, cough, rash (Andrea Avelar) Allergies/Adverse Reactions: No Known Drug Allergies Allergy (Verified 06/28/23 05:09) Review of Systems All Other Systems (except as marked in HPI): Reviewed and Negative Past Medical/Surgical History Medical History: Medical History (Last Reviewed 06/28/23 @ 14:12 by Andrea Avelar MD) Patient denies significant medical history (Medical) Family/Social History - Family History Family History: reviewed, not pertinent Family History Of: None Reported - Social History Living Situation: Private Home Smoking Status: Current everyday tobacco user-heavy smoker Do you drink alcohol: Yes Current or Hx of Recreational Drug use: Yes (smokes crack) 1. How Often Do You Have a Drink Containing Alcohol: e. 4 or More Times a Week Physical Exam General Appearance: NAD, WD/WN, Cooperative, Ambulatory Head: Atraumatic, Normocephalic Eyes: PERRL, EOMI, Conjunctiva normal, Cornea normal, Sclera normal, Vision grossly intact, No nystagmus Ears: Hearing grossly intact, External ear normal Nose: Normal, No nasal discharge Mouth/Throat: Mucosa moist Neck: FROM w/o pain, Other (No meningismus) Chest: Atraumatic, Non-tender, No deformity Respiratory: No respiratory distress, Lungs clear, No accessory muscle use Cardiovascular: R/R/R, No Rubs, No JVD Abdominal: Soft, Non-tender, Non-distended, No organomegaly, No guarding, No Rebound tenderness Back: No deformity, Full range of motion, No CVAT Extremity/Musculoskeletal: No cyanosis, No edema Skin: Warm, Dry, No Rashes Psych: Calm, Normal affect Neuro: A&O X 3, Nonfocal, Motor grossly normal, Sensory grossly normal, Gait normal, Speech fluent, CN 2-12 intact, No pronator drift MDM/COURSE - Medical Records Attestation: I reviewed the patient's medical records. - [facility] Medical decision making narrative: 06/28/23 14:19 42-year-old male with history of fibromyalgia, substance abuse and cocaine use, tobacco abuse, status post gastric bypass, alcohol abuse with alcohol withdrawalseizures, bipolar disorder, known seizure disorder on Keppra who presents to [facility] via EMS as a transfer from outside ED for withdrawal seizure. Per external medical record review, patient with numerous admission for alcohol withdrawal seizures in the past and actually discharged from [facility] on 06/25/2023 for withdrawal seizure. Per external medical record review, patient was admitted to [facility] on 06/28 shortly after discharge earlier that day for alcohol withdrawal seizure for a another seizure. Neurology was consulted who recommended EEG which was not available at that hospital. However, while awaiting transfer patient became agitated and combative and required IV Versed and restraints he was eventually admitted secondary to this agitation. He never received the EEG was eventually discharged after neurological evaluation. He returned back to the ED at [facility] today for a another seizure versus pseudo-seizure per EMS, patient was found with generalized shaking versus shivering activity. It was unclear the duration of symptoms. He was brought to the ED for evaluation. He had used cocaine and alcohol earlier that day. He was uncertain what happened and states this has happened numerous times to him. He has been on escalating doses of Keppra per neurology review of inpatient notes. Secondary to persistent seizure activity with 3rd admission in 1 week patient was transferred to our facility for EEG and further neurological evaluation. He would basic blood work obtained that showed chronic anemia with the rest of blood work unremarkable. He was treated with Librium 25 mg, loaded with Keppra and treated with LR and D5. Patient presents stating that he does not remember what happened for his most previous episode. He states he was in his normal state of health in the next thing he knew he was surrounded by people in on the ground. He denies bladder or bowel incontinence, tongue biting. States he felt like he had a seizure withfatigue and mild headache afterwards which has since passed. He denies any other complaints or issues. Again, he has been abusing drugs and alcohol since his most recent discharge yesterday. Last drink was over 12 hours prior. He denies any fevers/chills, chest pain/shortness of breath, nausea/vomiting, headache, neck pain, back pain, flank pain, abdominal pain, vision change, weakness or paresthesia, cough, rash. On exam, patient is in no acute distress and vital signs are stable. He is well-appearing and nontoxic appearing. He has no meningismus. He is completelyneurologically neurovascular intact. His exam is within normal limits. He has no signs of active alcohol withdrawal. Differential diagnosis concerning for psychogenic nonepileptic seizure, alcohol withdrawal seizure, status epilepticus. Patient with no signs of acute status epilepticus at this time. Patient is at his baseline mental status. Differential diagnosis also includes electrolyte abnormality, acute kidney injury but low concern for this as patienthas already had blood work over the past 3 days that wore within normal limits and at baseline. Patient only received 25 mg of Librium. I will load him with another 50 mg now and placed on CIWA protocol. I called and spoke with Neurology who agree with assessment and plan recommend EEG. No further recommendations including CT/MRI. We called and spoke with the hospitalist who agrees with assessment and plan will admit the patient. I personally reviewed external medical records from outside admission and discharge, ED visit as explained above from [facility]. Patient's chronic medical conditions including substance abuse, alcohol abuse, alcohol withdrawal seizure, bipolar, seizure disorder greatly affecting care andconcern. Patient does warrant escalation of care specifically admission for continuous EEG versus spot EEG (Andrea Avelar) Discharge Plan - Discharge Clinical Impression: Seizure-like activity, Recurrent seizures, Alcohol withdrawal syndrome Disposition: Admitted as Inpatient Condition: Fair Prescriptions: No Action acetaminophen 325 mg Tablet [...] PO QHS Qty: 30 RF: 0 Referrals: Pcp-Lissett,MD Archie [Primary Care Provider] - Print Language: Citizen [place] - Discharge Data Time Seen by Provider: 06/28/23 14:04 Dictated By: Andrea Avelar MD Signed By: Andrea Avelar MD 06/28/23 1427 DD/ 1408 TD/TT: 06/28/231407 Glassware Selector: BRIAN cc: FARNAZ Almanza Pcp-MD Lissett Progress Note Author Fabián Tolliver [facility] June 29, 2023 10:55am Note Date/Time June 29, 2023 7:16am [place] [address] General Medicine Progress Note Signed Patient: MAYELIN LESLIE Medical Record#: [id number] : 1980 Acct:[id number] Age/Sex: 42 / M Admit/Reg Date: 06/28/23 Loc: M7. Room: [address] Report Number: [id number] Attending Dr: Fabián Tolliver MD <Dwaine AngelaAdanmilan - Last Filed: 06/29/23 10:25> A&P Subsequent Impression: HPI This is a 42-year-old male with history of fibromyalgia, substance abuse and cocaine use, tobacco abuse, status post gastric bypass, alcohol abuse with alcohol withdrawal seizures, bipolar disorder, known seizure disorder on Keppra who presents to the ED via EMS as a transfer from outside ED for withdrawal seizure. Per external medical record review, patient with numerous admission for alcohol withdrawal seizures in the past and actually discharged from [facility] on 06/25/2023 for withdrawal seizure. OVN: No acute events overnight, EEG without any epileptiform activities This AM: Mentions feeling well, no new complaints. Back to his baseline mentalstatus and requesting to be discharged. He will be discharged on his home medications without any changes. Vital Signs Temp 97.7 F 06/29/23 04:55 Pulse 99 H 06/29/23 04:55 Resp 20 06/29/23 04:55 BP 106/52 L 06/29/23 04:55 Pulse Ox 98 06/29/23 04:55 GEN: alert and oriented x3, NAD, sitting up in bed eating a breakfast CARDS: normal S1 and S2 no murmurs, rubs or gallops PULM: CTA ABDOMEN: no tenderness to palpation EXTREMITIES: extreme tenderness to palpation, no peripheral edema. chidi NEURO: cranial nerves 2-12 intact, 5/5 strength in all 4 extremities Labs at outside hospital show chronic anemia, otherwise unremarkable Brain MRI with and without gadolinium 06/20/2023 revealed no acute intracranialabnormalities. No abnormal enhancement. A/P #Seizures The patient has had 3 hospitalizations at [facility] in the past week for suspected seizures. He reports he's had seizure-like symptoms (tonic clonic movements followed by confusion of what happened) for the past year. We will need to monitor the patient on ceeg to verifiy that the patient is in fact showing epileptiform activity. Differential diagnosis includes alcohol withdrawal seizures, vs substance induced seizures (smokes crack cocaine) vs psychogenic seizures. -loaded with keppra and given librium 50 mg in ED -c/w home keppra dose 1000 mg BID -reeg-negative -no imaging indicated at this time -seizure precautions #AUD # cocaine use disorder -on [facility] protocol with librium -c/w folic acid supplement -c/w thiamine -counseled about importance of alcohol and cocaine cessation #depression -continue home escitalopram -continue home sertraline #psoriatic arthritis -continue home clobetasol ointment #fibromyalgia -continue home gabapentin #bipolar disoder -c/w home trazodone QHS -c/w home quetiapine QHS -c/w home risperidone -f/u EKG for QT prolongation F-none E-replete as needed N-regular diet T-hep sub q P-not indicated Case discussed with Dr. Tolliver who is in agreement of plan Cristiano Hendrix PGY-2 Internal Medicine P [id number], available on photon (1) Seizure-like activity Status: Acute Assessment and Plan: (2) Bipolar 1 disorder Status: Chronic Assessment and Plan: (3) Alcohol withdrawal Status: Acute Assessment and Plan: (4) Anemia Status: Chronic Assessment and Plan: - Attestation Attestation: I have reviewed all pertinent laboratory findings. Confirm Results Attestation: Yes Problem List Attestation Statement: I have documented a relevant problem and problem plan for this visit. Resident/AP Confirm Problem: Yes Resident/AP Problem List Check: Pass Subjective Date of Encounter: 06/29/23 Attending Provider: Fabián Tolliver Preferred Language: Citizen [place] Exam Vital signs: Temp Pulse Resp BP Pulse Ox 97.7 F 99 H 20 106/52 L 98 06/29/23 04:55 06/29/23 04:55 06/29/23 04:55 06/29/23 04:55 06/29/23 04:55 GM Results - Pertinent Lab Findings 06/29/23 07:48 06/29/23 07:48 GM Subsequent Quality Smoking Status: Current everyday tobacco user-light smoker Do You Want Smoking Cessation Counseling?: Patient Refused VTE Risk Level: Moderate VTE Prophylaxis Device: Seq Compression Device - Patient Rights Advance Directives Information Provided: No Does Pt Have an Advanced Directive for End of Life Issues?: No Does Patient Have a Health Care Proxy?: No Pt has Medical Orders for Life Sustaining Tx Form (MOLST)?: No <Fabián Tolliver - Last Filed: 06/29/23 10:55> A&P Subsequent Ongoing Medical Necessity: Evaluation of seizure Disposition Plan: Discharge home - Attending Documentation Confirm Attending Attestation: Yes Attending Attestation Statement: {I personally saw the patient and performed a substantive portion of the visit including all aspects of the medical decision making.} MDM and Clinical Condition Notes: Patient seen and examined this morning appears to be in no acute distress no acute events overnight . Specifically no seizure activity. Spot EEG done and is unremarkable. No withdrawal. Input from neurology team is appreciated His labs this morning are essentially unremarkable. The plan is to discharge him home on his current medications including Keppra 1000 b.i.d. he will follow up outpatient with Neurology and his primary care physician and was counseled about the need for being compliant with his medications. Details per resident physician note/discharge summary (1) Seizure disorder Status: Chronic Problem Course: worsening Assessment and Plan: Spot EEG unremarkable Neurology input appreciated Will discharge patient on Keppra b.i.d. (2) Alcoholism Status: Chronic Problem Course: unchanged Assessment and Plan: Was not CIWA protocol Discharge on thiamine folate (3) Bipolar disorder Status: Acute Assessment and Plan: Continue home meds No SI no HI Outpatient psychiatry follow up (4) Iron deficiency anemia Status: Acute Problem Course: unchanged Assessment and Plan: H&H stable Discharge on PPI Needs outpatient follow-up - Location and Group Information SMG-billable encounter: Yes Service location: inpatient Provider group: [facility] Hospitalists - E&M Encounter Coding Attending date of service: 12/24/23 Time-based billing attestation: Common modifiers: GC - resident svc, teaching physician direction - Additional E&M Codes Hospital discharge services: [id number] discharge mgmt up to 30 mins - Attestation Attestation: I have reviewed all pertinent laboratory findings. Confirm Results Attestation: Yes Problem List Attestation Statement: I have documented a relevant problem and problem plan for this visit. Resident/AP Confirm Problem: Yes Resident/AP Problem List Check: Pass Attending Confirm Problem: Yes Attending Problem List Check: Pass Exam Vital signs: Temp Pulse Resp BP Pulse Ox 97.7 F 99 H 20 106/52 L 98 06/29/23 04:55 06/29/23 04:55 06/29/23 04:55 06/29/23 04:55 06/29/23 04:55 GM Results - Pertinent Lab Findings 06/29/23 07:48 06/29/23 07:48 Dictated By: Cristiano Hendrix MD, PGY Signed By: Cristiano Hendrix MD, PGY 06/29/23 1028 Fabián Tolliver MD 06/29/23 1055 DD/ 0716 TD/TT: 06/29/23 0716 Glassware Selector: ANGELITA cc: GAMAL GLASS* Cristiano Hendrix MD, PGY; Fabián Tolliver MD
--- OUTSIDE RECORDS SUMMARY | 2024-01-16 19:34 | XMS_ITS | Continuity of Care Document ---
Author Organization [facility] Address [address] [place] [address] Phone Care Team Providers Care Zoo Veterinarian Name Role Phone BRAD BYRNE Primary Care Provider DO Aaron Walsh Emergency Provider MD Neil Addison Emergency Provider PcpMD Conor Leroy Primary Care Provider Unavailabl e E/R Physician, E Emergency Provider Unavailable Care Teams Patient Care Team Team Status: Active Member Role Status Dates PcpMD Mariaa Primary Care Provider Active Visit Care Team Team Status: Inactive Member Role Status Dates CHAVEZ SALINAS Primary Care Provider Active Start: April 21, 2023 End: April 22, 2023 Aaron Walsh DO Emergency Provider Active St art: April 21, 2023 End: April 22, 2023 Visit Care Team Team Status: Inactive Member Role Status Dates CHAVEZ SALINAS Primary Care Provider Active Start: April 26, 2023 End: April 26, 2023 Neil Addison MD Emergency Provider Active Start : April 26, 2023 End: April 26, 2023 Patient Care Team Team Status: Inactive Member Role Status Dates PcpMD Mariaa Primary Care Provider Active St art: May 04, 2023 End: May 04, 2023 E E/R Physician Emergency Provider Active Start: May 04, 2023 End: May 04, 2023 Chief Complaint and Reason for Visit Chief Complaint shortness of breath edema low legs Allergies, Adverse Reactions, Alerts No known allergies Social History Smoking Status Unknown if ever smoked Additional Data Assigned Sex Male Problems Active Problems Medical Problem Onset Date Status Patient left without being seen Active Procedures Procedure Date Performed Status CT angio chest with contrast April 21, 2023 4:46pm completed EKG ED Electrocardiogram April 21, 2023 4:46 pm completed US venous duplex LE BI April 21, 2023 4:46pm completed EKG ED Electrocardiogram April 26, 2023 2:25 pm completed XR chest 2V April 26, 2023 2:25pm comple felicia Relevant Diagnostic Tests and/or Laboratory Data Laboratory Results Test Date/Time Result Interpretation Reference Range Result Comment Performing Site White Blood Count April 21, 2023 7:12pm 6.6 X10 3/uL 4.5-11.0 [facility] [id number] [address] [place] [address] 27756 White Blood Count April 26, 2023 2:34pm 7.7 X10 3/uL 4.5-11.0 [facility] [id number] [address] [place] [address] 28249 Red Blood Count April 21, 2023 7:12pm 4.40 X10 6/uL 4.00-5.50 [facility] [id number] [address] [place] [address] 98538 Red Blood Count April 26, 2023 2:34pm 4.80 X10 6/uL 4.00-5.50 [facility] [id number] [address] [place] [address] 98359 Hemoglobin April 21, 2023 7:12pm 8.1 g/dl 13.0-17.0 [facility] [id number] [address] [place] [address] 15444 Hemoglobin April 26, 2023 2:34pm 9.0 g/dl 13.0-17.0 [facility] [id number] [address] [place] [address] 48525 Hematocrit April 21, 2023 7:12pm 28.7 % 37.5-50.0 [facility] [id number] [address] [place] [address] 52402 Hematocrit April 26, 2023 2:34pm 31.6 % 37.5-50.0 [facility] [id number] [address] [place] [address] 21839 Mean Corpuscular Volume April 21, 2023 7:12pm 65.2 fl 80.0-100.0 [facility] [id number] [address] [facility] 21663 Mean Corpuscular Volume April 26, 2023 2:34pm 65.8 fl 80.0-100.0 [facility] [id number] 235 [facility] 08616 Mean Corpuscular Hemoglobin April 21, 2023 7:12pm 18.4 pg 27.0-34.0 [facility] [id number] [address] [facility] 58891 Mean Corpuscular Hemoglobin April 26, 2023 2:34pm 18.8 pg 27.0-34.0 [facility] [id number] 235 [facility] 76631 Mean Corpuscular Hemoglobin Concent April 21, 2023 7:12pm 28.2 g/dl 31.0-36.0 [facility] [id number] 235 [facility] 67475 Mean Corpuscular Hemoglobin Concent April 26, 2023 2:34pm 28.5 g/dl 31.0-36.0 [facility] [id number] 235 [facility] 94999 Red Cell Distribution Width April 21, 2023 7:12pm 16.7 % 11.5-15.0 [facility] [id number] 235 [facility] 02920 Red Cell Distribution Width April 26, 2023 2:34pm 16.7 % 11.5-15.0 [facility] [id number] 235 [facility] 94648 Platelet Count April 21, 2023 7:12pm 373 X10 3/uL 150-400 [facility] [id number] 235 [facility] 87140 Platelet Count April 26, 2023 2:34pm 497 X10 3/uL 150-400 [facility] [id number] 235 [facility] 65740 Immature Granulocyte % (Auto) April 21, 2023 7:12pm 0.2 % [facility] [id number] 235 [facility] 44567 Immature Granulocyte % (Auto) April 26, 2023 2:34pm 0.3 % [facility] [id number] [address] [place] [address] 32752 Neutrophils (%) (Auto) April 21, 2023 7:12pm 60.4 % [place] [id number] [address] [place] [address] 55967 Neutrophils (%) (Auto) April 26, 2023 2:34pm 71.8 % [place] [id number] [place] [address] 66771 Lymphocytes (%) (Auto) April 21, 2023 7:12pm 29.6 % [place] [id number] [place] [address] 88512 Lymphocytes (%) (Auto) April 26, 2023 2:34pm 19.8 % [place] [id number] [address] [place] [address] 33148 Monocytes (%) (Auto) April 21, 2023 7:12pm 6.6 % [place] [id number] [place] [address] 38945 Monocytes (%) (Auto) April 26, 2023 2:34pm 5.5 % [place] [id number] [place] [address] 86957 Eosinophils (%) (Auto) April 21, 2023 7:12pm 2.0 % [place] [id number] [address] [place] [address] 60989 Eosinophils (%) (Auto) April 26, 2023 2:34pm 1.3 % [facility] [id number] [address] [place] [address] 23356 Basophils (%) (Auto) April 21, 2023 7:12pm 1.2 % [place] [id number] [place] [address] 44692 Basophils (%) (Auto) April 26, 2023 2:34pm 1.3 % [place] [id number] [address] [place] [address] 00917 Immature Granulocyte # (Auto) April 21, 2023 7:12pm 0.01 X10 3/uL 0.00-0.09 [place] [id number] [address] [place] [address] 72540 Immature Granulocyte # (Auto) April 26, 2023 2:34pm 0.02 X10 3/uL 0.00-0.09 [facility] [id number] [address] [place] [address] 56173 Neutrophils # (Auto) April 21, 2023 7:12pm 4.0 X10 3/uL 1.5-7.8 [facility] [id number] [address] [place] [address] 46391 Neutrophils # (Auto) April 26, 2023 2:34pm 5.5 X10 3/uL 1.5-7.8 [facility] [id number] [place] [address] 64104 Lymphocytes # (Auto) April 21, 2023 7:12pm 2.0 X10 3/uL 1.0-4.8 [place] [id number] [address] [place] [address] 34431 Lymphocytes # (Auto) April 26, 2023 2:34pm 1.5 X10 3/uL 1.0-4.8 [facility] [id number] [address] [place] [address] 16612 Monocytes # (Auto) April 21, 2023 7:12pm 0.4 X10 3/uL 0.0-0.8 [place] [id number] [address] [place] [address] 84592 Monocytes # (Auto) April 26, 2023 2:34pm 0.4 X10 3/uL 0.0-0.8 [facility] [id number] [address] [place] [address] 57612 Eosinophils # (Auto) April 21, 2023 7:12pm 0.1 X10 3/uL 0.0-0.5 [facility] [id number] [address] [place] [address] 73832 Eosinophils # (Auto) April 26, 2023 2:34pm 0.1 X10 3/uL 0.0-0.5 [facility] [id number] [address] [place] [address] 52030 Basophils # (Auto) April 21, 2023 7:12pm 0.1 X10 3/uL 0.0-0.2 [facility] [id number] [address] [facility] 93040 Basophils # (Auto) April 26, 2023 2:34pm 0.1 X10 3/uL 0.0-0.2 [facility] [id number] [address] [place] [address] 66830 Nucleated Red Blood Cells % April 21, 2023 7:12pm 0.0 /100 WBC 0.0-0.0 [facility] [id number] [address] [place] [address] 07574 Nucleated Red Blood Cells % April 26, 2023 2:34pm 0.0 /100 WBC 0.0-0.0 [facility] [id number] [address] [place] [address] 63232 Prothrombin Time April 21, 2023 7:12pm 11.2 Seconds 9.3-12.1 [facility] [id number] [address] [place] [address] 07941 Prothromb Time International Ratio April 21, 2023 7:12pm 1.1 0.9-1.2 Reference Interval is for non-anticoagul ated patients.Suglindsay sted INR Therapeutic Range for Vitamin K antogonist therapy:LEVELS OF THERAPY INDICATIONS TARGET INR RANGEStandard Dose Venous Thrombosis, 2.0 - 3.0 Atrial Fibrillation, Pulmonary Embolism. High Dose Valvular Heart Disease, 2.5 - 3.5 Mechanical Heart, Intracardiac Thrombosis. [facility] [id number] [address] [place] [address] 67475 Activated Partial Thromboplast Time April 21, 2023 7:12pm 26.4 Seconds 23.9-32.8 [facility] [id number] [address] [place] [address] 46688 Sodium Level April 21, 2023 7:12pm 140 mmol/L 137-146 [facility] [id number] [address] [place] [address] 48439 Sodium Level April 26, 2023 2:34pm 139 mmol/L 137-146 [facility] [id number] [address] [place] [address] 77040 Potassium Level April 21, 2023 7:12pm 4.5 mmol/L 3.5-5.3 [facility] [id number] 235 [facility] 15519 Potassium Level April 26, 2023 2:34pm 4.8 mmol/L 3.5-5.3 [facility] [id number] 235 [facility] 00977 Chloride Level April 21, 2023 7:12pm 102 mmol/L 98-107 [facility] [id number] 235 [facility] 67728 Chloride Level April 26, 2023 2:34pm 101 mmol/L 98-107 [facility] [id number] [address] [place] [address] 65881 Carbon Dioxide Level April 21, 2023 7:12pm 26 mmol/L 23-32 [facility] [id number] [address] [place] [address] 42157 Carbon Dioxide Level April 26, 2023 2:34pm 26 mmol/L - [facility] [id number] [address] [place] [address] 24562 Anion Gap April 21, 2023 7:12pm 12 mmol/L 11-18 [facility] [id number] [address] [place] [address] 57977 Anion Gap April 26, 2023 2:34pm 13 mmol/L 11-18 [facility] [id number] [address] [place] [address] 84317 Blood Urea Nitrogen April 21, 2023 7:12pm 9 mg/dl 11-28 [facility] [id number] [address] [place] [address] 07298 Blood Urea Nitrogen April 26, 2023 2:34pm 14 mg/dl 11-28 [facility] [id number] [address] [place] [address] 57615 Creatinine April 21, 2023 7:12pm 0.8 mg/dL 0.6-1.4 [facility] [id number] [address] [place] [address] 36618 Creatinine April 26, 2023 2:34pm 1.1 mg/dL 0.6-1.4 [facility] [id number] [address] [place] [address] 70400 Estimated Creatinine Clearance April 21, 2023 7:12pm 144.6 ml/min This value is calculated by Cockcroft Gault Equation using ideal body weight. This result is dependent on an accurate patient height and weight which is obtained from patients medical record. Cockcroft, D.W. and M.H. Gault. Prediction of creatinine clearance from serum creatinine. Nephron. 1975. 16(1):31-41. [facility] [id number] [address] [place] [address] 47187 Estimated Creatinine Clearance April 26, 2023 2:34pm 105.2 ml/min This value is calculated by Cockcroft Gault Equation using ideal body weight. This result is dependent on an accurate patient height and weight which is obtained from patients medical record. Cockcroft, D.W. and M.H. Gault. Prediction of creatinine clearance from serum creatinine. Nephron. 1975. 16(1):31-41. [facility] [id number] [address] [place] [address] 69707 Estimat Glomerular Filtration Rate April 21, 2023 7:12pm 115 >90 Reported eGFR is based on the CKD-EPI 2020 equation that does not use a race coefficient. Additional information can be found at:08-16-8360_ [email or web address]_summa ry_[email or web address].pdf ([email or web address]) [facility] [id number] [address] [place] [address] 49300 Estimat Glomerular Filtration Rate April 26, 2023 2:34pm 87 >90 Reported eGFR is based on the CKD-EPI 2020 equation that does not use a race coefficient. Additional information can be found at:08-16-8360_ [email or web address]_egfr_summa ry_flyer5.pdf ([email or web address]) [facility] [id number] [address] [place] [address] 17595 BUN/Creatinine Ratio April 21, 2023 7:12pm 11.3 10.0-20.0 [facility] [id number] [address] [place] [address] 15994 BUN/Creatinine Ratio April 26, 2023 2:34pm 12.7 10.0-20.0 [facility] [id number] [address] [place] [address] 57812 Glucose Level April 21, 2023 7:12pm 94 mg/dL 70-100 [facility] [id number] 235 [facility] 67529 Glucose Level April 26, 2023 2:34pm 91 mg/dL 70-100 [facility] [id number] [address] [place] [address] 41872 Calcium Level April 21, 2023 7:12pm 8.6 mg/dl 8.6-10.3 [facility] [id number] [address] [place] [address] 66750 Calcium Level April 26, 2023 2:34pm 9.0 mg/dl 8.6-10.3 [facility] [id number] [address] [place] [address] 81525 Total Bilirubin April 21, 2023 7:12pm < 0.2 mg/dl <1.1 [facility] [id number] [place] [address] 85142 Aspartate Amino Transf (AST/SGOT) April 21, 2023 7:12pm 20 U/L 15-41 [facility] [id number] [address] [place] [address] 40389 Alanine Aminotransferase (ALT/SGPT) April 21, 2023 7:12pm 17 U/L 14-63 [facility] [id number] [address] [place] [address] 45387 Troponin T High Sensitivity April 21, 2023 7:12pm < 6 ng/L <13 Normal range: Females <9 ng/L Males <14 ng/L Values greater than or equal to 52 ng/L indicates acute myocardial injury/infarct ion Values between '10 and 51 ng/L' (for females) or '15 and 51 ng/L' (for males) require clinical correlation and is not diagnostic of acute myocardial injury.Conside r repeat at 1 and 3 hours.A dynamic increase of ? greater than 5 ng/L? at 1 hour or 3 hours indicates of acute myocardial injury/infarct ion.For a patient with an estimated GFR of [...] symptom onset, generally rules out acute myocardial injury/infarct ion.Refer to Chest Pain order sets for additional clinical decision support (using the HEART score for the ED or the MARCELLE score for the inpatient setting). [facility] [id number] 235 [facility] 51103 Troponin T High Sensitivity April 26, 2023 2:34pm < 6 ng/L <13 Normal range: Females <9 ng/L Males <14 ng/L Values greater than or equal to 52 ng/L indicates acute myocardial injury/infarct ion Values between '10 and 51 ng/L' (for females) or '15 and 51 ng/L' (for males) require clinical correlation and is not diagnostic of acute myocardial injury.Conside r repeat at 1 and 3 hours.A dynamic increase of ? greater than 5 ng/L? at 1 hour or 3 hours indicates of acute myocardial injury/infarct ion.For a patient with an estimated GFR of [...] symptom onset, generally rules out acute myocardial injury/infarct ion.Refer to Chest Pain order sets for additional clinical decision support (using the HEART score for the ED or the MARCELLE score for the inpatient setting). [facility] [id number] 235 [facility] 29233 Total Protein April 21, 2023 7:12pm 6.7 g/dL 6.4-8.3 [facility] [id number] [address] [place] [address] 68463 Albumin April 21, 2023 7:12pm 4.3 g/dl 4.0-5.0 [facility] [id number] [address] [place] [address] 51242 Albumin/Globulin Ratio April 21, 2023 7:12pm 1.8 1.0-2.6 [facility] [id number] [address] [place] [address] 83999 Alkaline Phosphatase April 21, 2023 7:12pm 46 U/L 40-129 [facility] [id number] 235 [facility] 94210 Diagnostic Imaging Reports Author Tej Bryant [facility] Authored April 21, 2023 5 :51pm Report Dictated Date/Time Dictated By Status Radiology Report April 21, 2023 5:51pm Tej yu MD completed [address] [address] Patient Name: MAYELIN LESLIE Medical Record#: [id number] Address: City/State/Zip: Attending Dr: Ming Kaplan/Emmett lopez Insurance: Self Pay /Age/Sex: 1980/42/M Admit/Reg Date: 04/21/[address]: Shweta berrios, PAC Location: ED.[facility]/ PCP: Date of Service: 04/21/23 Order (s): US venous duplex LE BI CPT Code: 25241 Report Number: [id number] Reason for Exam: b/l lower ext swelling, hx of dvt CLINICAL HISTORY: Patient with bilateral lower extremity swelling. Please evaluate. TECHNIQUE: 2-D and Doppler ultrasound of the Right and Left lower extremities. FINDINGS: Right leg: There is normal Doppler flow and compression without evidence of any filling defect or thrombus in the common femoral vein, superficial femoral vein, deep femoral vein, greater saphenous vein and popliteal vein. There is no evidence of any obvious thrombus in the visualized calf veins. Left leg: There is normal Doppler flow and compression without evidence of any filling defect or thrombus in the common femoral vein, superficial femoral vein, deep femoral vein, greater saphenous vein and [facility] vein. There is no evidence of any obvious thrombus in the visualized calf veins. IMPRESSION: 1. There is no evidence of any deep venous thrombosis in the right lower extremity. 2. There is no evidence of any deep venous thrombosis in the left lower extremity. Dictated By: Tej Bryant MD 04/21/23 175 Signed By: Tej Bryant MD 04/21/23 180 TD/TT: 04/21/231750Tech: [id number] cc: E/R; TONCA01* Shweta Collins PAC; E/R Physician,E Author Tej Bryant [facility] Authored April 21, 2023 7 :21pm Report Dictated Date/Time Dictated By Status Radiology Report April 21, 2023 7:21pm Tej Bryant MD completed [facility] [address] [place] [address] Patient Name: MAYELIN LESLIE Medical Record#: [id number] Address: [address] City/State/Zip: [place] [address]: Ming E/R Sarahi tena Insurance: Medicaid [place] /Age/Sex: 1980/42/M Self Pay Admit/Reg Date: 04/21/[address]: Shweta berrios PAC Location: ED.[facility]/ PCP: Pcp-Non StaffMd Date of Service: 04/21/23 Order (s): CT angio chest with contrast CPT Code: 41170 Report Number: [id number] Reason for Exam: cp sob hx of dvt CLINICAL HISTORY:Patient with chest pain and shortness of breath. History of DVT. TECHNIQUE: Axial images through the chest were obtained following the intravenous injection of 90 mL iodinated contrast in the right antecubital fossa. Automated exposure control and dose reduction techniques were utilized with mA and kV adjusted for patient size. 2D MIPS reconstructions were performed on the same workstation. Sagittal and coronal reformat reconstructions were also obtained. Soft tissue tissue, bone and lung windows were also obtained on the same workstation. FINDINGS: No prior studies available for comparison. The main pulmonary arteries are patent without evidence of any obvious thrombus or filling defect. The pulmonary artery is normal in size and caliber. There is no evidence of any thrombus or filling defect noted in the distal branches of the pulmonary arteries in both lungs. The main pulmonary veins are normal in size and caliber. The aorta is normal in size and caliber without evidence of any aneurysm or dissection. The heart size is within normal limits. There is no evidence of any right heart strain. There is no evidence of any pericardial effusion. There are Findings coronary artery wall calcifications. There is no evidence of any mediastinal or hilar adenopathy. The trachea and mainstem bronchi are patent. The esophagus is intact. There is no evidence of any mass, consolidation, infiltrate or pleural effusion. Mild dependent atelectasis is noted. There is no evidence of any pneumothorax. The visualized portion of the thyroid gland is grossly intact. There is no evidence of any axillary adenopathy. The visualized abdominal viscera are grossly unremarkable for acute abnormality. There is no evidence of any adrenal mass in the visualized portions of the glands. There is gastric surgery changes and a fundoplication suggested. The bone windows are unremarkable for acute abnormality. Mild degenerative changes in the thoracic spine are noted. IMPRESSION: 1. There is no evidence of any pulmonary arterial thrombus or embolus. 2. The lungs are clear. Dictated By: Tej Bryant MD 04/21/231920 Signed By: Tej Bryant MD 04/21/231928 TD/TT: 04/21/231920Tech: [id number] cc: E/R; PCPNS; TONCA01* Shweta Collins PAC; E/R Physician,Ming ; BARD BYRNE Author Neil Addison [facility] Authored April 21, 2023 4 :47pm Report Dictated Date/Time Dictated By Status Electrocardiogram April 21, 2023 4:47pm Neil kaplan MD completed [address] [address] Patient Name: MAYELIN LESLIE Medical Record#: [id number] Address: [address] City/State/Zip: [place] [address]: E E/R P darinel Insurance: Commercial Other /Age/Sex: 1980/42/M Self Pay Admit/Reg Date: 04/21/[address]: Shweta berrios, PAC Location: ED.[facility]/ PCP: Pcp-Non Staff, Date of Service: 04/21/23 Order (s): EKG ED Electrocardiogram CPT Code: 01467 Report Number: [id number] Reason for Exam: cp sob SINUS RHYTHM CONSIDER ANTERIOR INFARCT No STEMI. Dictated By: Neil Addison MD 04/21/231646 Signed By: Neil Addison MD 04/22/23 1353 TD/TT: 04/21/231646Tech: [email or web address] cc: PCPNS; SCOOTER01* Shweta Collins PAC; BRAD BYRNE Author Fatuma Bender [facility] Authored April 26, 2023 3 :57pm Report Dictated Date/Time Dictated By Status Radiology Report April 26, 2023 3:57pm Fatuma Bender MD completed [place] [address] [place] [address] Patient Name: MAYELIN LESLIE Medical Record#: [id number] Address: [address] City/State/Zip: [place] [id number] Attending Dr: E E/R Sarahi tena Insurance: [facility] (Medicaid) /Age/Sex: 1980/42/M Self Pay Admit/Reg Date: 04/26/[address]: Aaron Walsh DO Location: ED.GS/ PCP: Pcp-Non StaffMd Date of Service: 04/26/23 Order (s): XR chest 2V CPT Code: 21193 Report Number: [id number] Reason for Exam: Chest Pain EXAM: Chest PA, lateral CLINICAL INDICATION: Chest pain COMPARISON: None TECHNIQUE: PA and lateral views of the chest. FINDINGS: Lungs/pleura: No edema or consolidation. No pleural effusions. No pneumothorax. Heart/Mediastinum: Cardiomediastinal silhouette is unremarkable. Bone: Unremarkable. IMPRESSION: No acute cardiopulmonary findings. Dictated By: Fatuma Bender MD 04/26/23 155 Signed By: Fatuma Bender MD 04/26/23 1601 TD/TT: 04/26/23 155Tech: [id number] cc: E/R; [id number]; PCPNS* E/R Physician,E ; BRAD BYRNE; Aaron Walsh DO Author Neil Addison [facility] Authored April 26, 2023 2 :26pm Report Dictated Date/Time Dictated By Status Electrocardiogram April 26, 2023 2:26pm Neil kaplan MD completed [place] [address] [place] [address] Patient Name: MAYELIN LESLIE Medical Record#: [id number] Address: [address] City/State/Zip: [place] [address]: Ming E/R Sarahi tena Insurance: [employer] [facility] et (Medicaid) /Age/Sex: 1980/42/M Self Pay Admit/Reg Date: 04/26/[address]: Aaron Walsh DO Location: ED.GS/ PCP: Pcp-Non StaffMd Date of Service: 04/26/23 Order (s): EKG ED Electrocardiogram CPT Code: 38382 Report Number: [id number] Reason for Exam: Chest Pain Sinus rhythm no stemi Comparison Summary: No serial comparison made Summary: Normal ECG Dictated By: Neil Addison MD 04/26/231425 Signed By: Neil Addison MD 04/27/23 0933 TD/TT: 04/26/231425Tech: APRIL cc: JONO; PCPNS* BRAD BYRNE; Aaron Walsh DO Vital Signs Vital Reading Result Reference Range Collection Date/Time Height 180.34 cm April 21, 2 023 4:40pm Weight 95.25 kg April 21, 2 023 4:40pm Body Temperature 95 [degF] 97.6-99.6 April 6:00pm Heart Rate 83 /min 60-90 April 21, 2 023 6:00pm Respiratory rate 18 /min 12-24 April 6:00pm Oxygen saturation by Pulse oximetry 98 % 95-100 April 21, 2023 6 :00pm BP Systolic 118 mm[Hg] 90-140 April 21, 2 023 6:00pm BP Diastolic 63 mm[Hg] 60-90 April 21, 2 023 6:00pm BMI (Body Mass Index) 29.3 kg/m2 [facility] 2022 4:40pm Height 180.34 cm April 26, 2 023 2:21pm Weight 95.25 kg April 26, 2 023 2:21pm Heart Rate 69 /min 60-90 April 26, 2 023 2:21pm Respiratory rate 16 /min 12-24 April 2:21pm Oxygen saturation by Pulse oximetry 99 % 95-100 April 26, 2023 2 :21pm BP Systolic 113 mm[Hg] 90-140 April 26, 2 023 2:21pm BP Diastolic 82 mm[Hg] 60-90 April 26, 2 023 2:21pm BMI (Body Mass Index) 29.3 kg/m2 Octobe r 2022 2:21pm Advance Directives Advance Directive Response Recorded Date/ Time Advance Directives No April 21, 2023 4:02pm Health Care Proxy No April 21, 2023 4:02pm Advance Directives No May 04, 2023 12:56pm Health Care Proxy No May 04, 2023 12:56pm Advance Directives No April 26, 2023 1:45pm Health Care Proxy No April 26, 2023 1:45pm Insurance Providers Guarantor MAYELIN LESLIE Address [address] [address] Contact Info. Home Phone: Payer Policy Id Coverage Id Subscriber's Name Subscriber Id Effective Date Expiration Date Commercial Other [id number] MAYELIN LESLIE [id number] [facility] (Medicaid) [id number] MAYELIN LESLIE [id number] [place] [id number] MAYELIN LESLIE [id number] [facility] Required [id number] MAYELIN LESLIE [id number] Encounters Encounter Location(s) Arrival/Admit Date Discharge/Depart Date Provider(s) Departed Emergency [facility]-Emergency Dept Waiting Area April 21, 2023 4:01pm April 22, 2023 1:15am null Departed Emergency [facility] April 26, 2023 1:44pm April 26, 2023 4:55pm null Departed Emergency [facility] May 04, 2023 12:34pm May 04, 2023 6:26pm null Plan of Treatment Future Tests Future scheduled test information is unavailable Pending Tests Pending diagnostic test information is unavailable Future Visits Future appointment information is unavailable Referrals to Other Providers Reason for Referral Referral Start Date Provider Provider Contact Information Provider Address BRAD BYRNE Work Phone: [phone] [place] [address] Pcp-Md MD BRAD Galeana Work Phone: [address] [place] [address] Future Procedures Procedure Name Ordered Date Scheduled Date Peripheral IV Insert/Manage April 21, 2023 4 :46pm April 21, 2023 4:46pm Saline Lock Insert/Manage April 26, 2023 2:2 5pm April 26, 2023 2:25pm Continuous Pulse Oximetry April 26, 2023 2:2 5pm April 26, 2023 2:25pm Future Medications Future medication information is unavailable Patient Instructions Patient instructions are unavailable
--- OUTSIDE RECORDS SUMMARY | 2024-01-16 19:35 | XMS_ITS | Continuity of Care Document ---
Author Organization Address [address] [place] [address] Phone Care Team Providers Care Assistant Professor Of Theater Name Role Phone BRAD BYRNE Primary Care Provider DO Aaron Walsh Emergency Provider E/R Physician, E Emergency Provider Unavailable Care Teams Patient Care Team Team Status: Active Member Role Status Dates BRAD BYRNE Primary Care Provider Active Visit Care Team [...] April 26, 2023 End: April 26, 2023 E E/R Physician Emergency Provider Active Start: April 26, 2023 End: April 26, 2023 Chief Complaint and Reason for Visit Chief Complaint shortness of breath edema low legs Allergies, Adverse Reactions, Alerts No known allergies Social History Smoking Status Unknown if ever smoked Additional Data Assigned Sex Male Procedures Procedure Date Performed Status CT angio chest with contrast April 21, 2023 4:46pm completed EKG ED Electrocardiogram April 21, 2023 4:46 pm completed US venous duplex LE BI April 21, 2023 4:46pm completed EKG ED Electrocardiogram April 26, 2023 2:25 pm active XR chest 2V April 26, 2023 2:25pm comple felicia Relevant Diagnostic Tests and/or Laboratory Data Laboratory Results Test Date/Time Result Interpretation Reference Range Result Comment Performing Site White Blood Count April 21, 2023 7:12pm 6.6 X10 3/uL 4.5-11.0 [facility] [id number] [facility] 21688 White Blood Count April 26, 2023 2:34pm 7.7 X10 3/uL 4.5-11.0 [facility] [id number] [address] [place] [address] 44684 Red Blood Count April 21, 2023 7:12pm 4.40 X10 6/uL 4.00-5.50 [facility] [id number] [facility] 06239 Red Blood Count April 26, 2023 2:34pm 4.80 X10 6/uL 4.00-5.50 [facility] [id number] [address] [place] [address] 41290 Hemoglobin April 21, 2023 7:12pm 8.1 g/dl 13.0-17.0 [facility] [id number] [address] [place] [address] 44866 Hemoglobin April 26, 2023 2:34pm 9.0 g/dl 13.0-17.0 [facility] [id number] [address] [place] [address] 39886 Hematocrit April 21, 2023 7:12pm 28.7 % 37.5-50.0 [facility] [id number] [address] [place] [address] 30728 Hematocrit April 26, 2023 2:34pm 31.6 % 37.5-50.0 [facility] [id number] [address] [place] [address] 15319 Mean Corpuscular Volume April 21, 2023 7:12pm 65.2 fl 80.0-100.0 [facility] [id number] [address] [place] [address] 11719 Mean Corpuscular Volume April 26, 2023 2:34pm 65.8 fl 80.0-100.0 [facility] [id number] [address] [place] [address] 73328 Mean Corpuscular Hemoglobin April 21, 2023 7:12pm 18.4 pg 27.0-34.0 [facility] [id number] [facility] 39361 Mean Corpuscular Hemoglobin April 26, 2023 2:34pm 18.8 pg 27.0-34.0 [facility] [id number] [facility] 19453 Mean Corpuscular Hemoglobin Concent April 21, 2023 7:12pm 28.2 g/dl 31.0-36.0 [facility] [id number] [facility] 32299 Mean Corpuscular Hemoglobin Concent April 26, 2023 2:34pm 28.5 g/dl 31.0-36.0 [facility] [id number] [address] [place] [address] 88520 Red Cell Distribution Width April 21, 2023 7:12pm 16.7 % 11.5-15.0 [facility] [id number] [address] [place] [address] 90349 Red Cell Distribution Width April 26, 2023 2:34pm 16.7 % 11.5-15.0 [facility] [id number] [address] [place] [address] 57261 Platelet Count April 21, 2023 7:12pm 373 X10 3/uL 150-400 [facility] [id number] [address] [place] [address] 76715 Platelet Count April 26, 2023 2:34pm 497 X10 3/uL 150-400 [facility] [id number] [address] [place] [address] 67997 Immature Granulocyte % (Auto) April 21, 2023 7:12pm 0.2 % [facility] [id number] [address] [place] [address] 44085 Immature Granulocyte % (Auto) April 26, 2023 2:34pm 0.3 % [facility] [id number] [address] [place] [address] 66522 Neutrophils (%) (Auto) April 21, 2023 7:12pm 60.4 % [facility] [id number] [address] [place] [address] 96534 Neutrophils (%) (Auto) April 26, 2023 2:34pm 71.8 % [facility] [id number] [address] [place] [address] 38002 Lymphocytes (%) (Auto) April 21, 2023 7:12pm 29.6 % [place] [id number] [address] [place] [address] 56595 Lymphocytes (%) (Auto) April 26, 2023 2:34pm 19.8 % [place] [id number] [address] [place] [address] 10501 Monocytes (%) (Auto) April 21, 2023 7:12pm 6.6 % [place] [id number] [place] [address] 72985 Monocytes (%) (Auto) April 26, 2023 2:34pm 5.5 % [place] [id number] [address] [place] [address] 09803 Eosinophils (%) (Auto) April 21, 2023 7:12pm 2.0 % [place] [id number] [place] [address] 00254 Eosinophils (%) (Auto) April 26, 2023 2:34pm 1.3 % [facility] [id number] [address] [place] [address] 30631 Basophils (%) (Auto) April 21, 2023 7:12pm 1.2 % [facility] [id number] [address] [place] [address] 43430 Basophils (%) (Auto) April 26, 2023 2:34pm 1.3 % [facility] [id number] [address] [place] [address] 28373 Immature Granulocyte # (Auto) April 21, 2023 7:12pm 0.01 X10 3/uL 0.00-0.09 [place] [id number] [place] [address] 58722 Immature Granulocyte # (Auto) April 26, 2023 2:34pm 0.02 X10 3/uL 0.00-0.09 [place] [id number] [place] [address] 54271 Neutrophils # (Auto) April 21, 2023 7:12pm 4.0 X10 3/uL 1.5-7.8 [facility] [id number] [address] [place] [address] 60587 Neutrophils # (Auto) April 26, 2023 2:34pm 5.5 X10 3/uL 1.5-7.8 [facility] [id number] [address] [place] [address] 64378 Lymphocytes # (Auto) April 21, 2023 7:12pm 2.0 X10 3/uL 1.0-4.8 [facility] [id number] [address] [place] [address] 11488 Lymphocytes # (Auto) April 26, 2023 2:34pm 1.5 X10 3/uL 1.0-4.8 [facility] [id number] [address] [place] [address] 75072 Monocytes # (Auto) April 21, 2023 7:12pm 0.4 X10 3/uL 0.0-0.8 [facility] [id number] [address] [place] [address] 70804 Monocytes # (Auto) April 26, 2023 2:34pm 0.4 X10 3/uL 0.0-0.8 [facility] [id number] [address] [place] [address] 00535 Eosinophils # (Auto) April 21, 2023 7:12pm 0.1 X10 3/uL 0.0-0.5 [facility] [id number] [address] [place] [address] 19966 Eosinophils # (Auto) April 26, 2023 2:34pm 0.1 X10 3/uL 0.0-0.5 [facility] [id number] [address] [place] [address] 42649 Basophils # (Auto) April 21, 2023 7:12pm 0.1 X10 3/uL 0.0-0.2 [facility] [id number] [address] [place] [address] 89571 Basophils # (Auto) April 26, 2023 2:34pm 0.1 X10 3/uL 0.0-0.2 [facility] [id number] [address] [place] [address] 63306 Nucleated Red Blood Cells % April 21, 2023 7:12pm 0.0 /100 WBC 0.0-0.0 [facility] [id number] [address] [place] [address] 79045 Nucleated Red Blood Cells % April 26, 2023 2:34pm 0.0 /100 WBC 0.0-0.0 [facility] [id number] [address] [place] [address] 52352 Prothrombin Time April 21, 2023 7:12pm 11.2 Seconds 9.3-12.1 [facility] [id number] [address] [place] [address] 85085 Prothromb Time International Ratio April 21, 2023 7:12pm 1.1 0.9-1.2 Reference Interval is for non-anticoagul ated patients.Brett alejandro INR Therapeutic Range for Vitamin K antogonist therapy:LEVELS OF THERAPY INDICATIONS TARGET INR RANGEStandard Dose Venous Thrombosis, 2.0 - 3.0 Atrial Fibrillation, Pulmonary Embolism. High Dose Valvular Heart Disease, 2.5 - 3.5 Mechanical Heart, Intracardiac Thrombosis. [facility] [id number] [address] [place] [address] 62015 Activated Partial Thromboplast Time April 21, 2023 7:12pm 26.4 Seconds 23.9-32.8 [facility] [id number] [address] [place] [address] 86889 Sodium Level April 21, 2023 7:12pm 140 mmol/L 137-146 [facility] [id number] [address] [place] [address] 61169 Sodium Level April 26, 2023 2:34pm 139 mmol/L 137-146 [facility] [id number] [address] [place] [address] 27249 Potassium Level April 21, 2023 7:12pm 4.5 mmol/L 3.5-5.3 [facility] [id number] [address] [place] [address] 38489 Potassium Level April 26, 2023 2:34pm 4.8 mmol/L 3.5-5.3 [facility] [id number] [address] [place] [address] 72629 Chloride Level April 21, 2023 7:12pm 102 mmol/L 98-107 [facility] [id number] [facility] 81438 Chloride Level April 26, 2023 2:34pm 101 mmol/L 98-107 [facility] [id number] [facility] 99465 Carbon Dioxide Level April 21, 2023 7:12pm 26 mmol/L [facility] [id number] [facility] 41449 Carbon Dioxide Level April 26, 2023 2:34pm 26 mmol/L [facility] [id number] [address] [place] [address] 93985 Anion Gap April 21, 2023 7:12pm 12 mmol/L 11-18 [facility] [id number] [address] [place] [address] 74609 Anion Gap April 26, 2023 2:34pm 13 mmol/L 11-18 [facility] [id number] [address] [place] [address] 44076 Blood Urea Nitrogen April 21, 2023 7:12pm 9 mg/dl 11-28 [facility] [id number] [address] [place] [address] 76812 Blood Urea Nitrogen April 26, 2023 2:34pm 14 mg/dl 11-28 [facility] [id number] [address] [place] [address] 21615 Creatinine April 21, 2023 7:12pm 0.8 mg/dL 0.6-1.4 [facility] [id number] [address] [place] [address] 41856 Creatinine April 26, 2023 2:34pm 1.1 mg/dL 0.6-1.4 [facility] [id number] [address] [place] [address] 34839 Estimated Creatinine Clearance April 21, 2023 7:12pm 144.6 ml/min This value is calculated by Cockcroft Gault Equation using ideal body weight. This result is dependent on an accurate patient height and weight which is obtained from patients medical record. Josh Yoo. and [facility]. Prediction of creatinine clearance from serum creatinine. Nephron. 1976. 16(1):31-41. [facility] [id number] [address] [place] [address] 75695 Estimated Creatinine Clearance April 26, 2023 2:34pm 105.2 ml/min This value is calculated by Cockcroft Gault Equation using ideal body weight. This result is dependent on an accurate patient height and weight which is obtained from patients medical record. Josh Yoo. and José MiguelHMarj Hernandez. Prediction of creatinine clearance from serum creatinine. Nephron. 1976. 16(1):31-41. [facility] [id number] [address] [place] [address] 11765 Estimat Glomerular Filtration Rate April 21, 2023 7:12pm 115 >90 Reported eGFR is based on the CKD-EPI 2020 equation that does not use a race coefficient. Additional information can be found at:08-16-8360_ [email or web address] [email or web address].pdf ([email or web address].[email or web address]) [facility] [id number] [address] [place] [address] 10936 Estimat Glomerular Filtration Rate April 26, 2023 2:34pm 87 >90 Reported eGFR is based on the CKD-EPI 2020 equation that does not use a race coefficient. Additional information can be found at:08-16-8360_ [email or web address]_egfr_summa ry_flyer5.pdf ([email or web address].[email or web address]) [facility] [id number] [address] [place] [address] 28761 BUN/Creatinine Ratio April 21, 2023 7:12pm 11.3 10.0-20.0 [facility] [id number] [address] [place] [address] 72939 BUN/Creatinine Ratio April 26, 2023 2:34pm 12.7 10.0-20.0 [facility] [id number] [address] [place] [address] 19193 Glucose Level April 21, 2023 7:12pm 94 mg/dL 70-100 [facility] [id number] [address] [place] [address] 03899 Glucose Level April 26, 2023 2:34pm 91 mg/dL 70-100 [facility] [id number] [address] [place] [address] 06482 Calcium Level April 21, 2023 7:12pm 8.6 mg/dl 8.6-10.3 [facility] [id number] [address] [place] [address] 60529 Calcium Level April 26, 2023 2:34pm 9.0 mg/dl 8.6-10.3 [facility] [id number] [address] [place] [address] 60113 Total Bilirubin April 21, 2023 7:12pm < 0.2 mg/dl <1.1 [facility] [id number] [address] [place] [address] 99804 Aspartate Amino Transf (AST/SGOT) April 21, 2023 7:12pm 20 U/L 15-41 [facility] [id number] [address] [place] [address] 90991 Alanine Aminotransferase (ALT/SGPT) April 21, 2023 7:12pm 17 U/L 14-63 [facility] [id number] [address] [place] [address] 78931 Troponin T High Sensitivity April 21, 2023 [...] the MARCELLE score for the inpatient setting). [facility] [id number] [address] [place] [address] 21510 Troponin T High Sensitivity October 21st, 2023 2:34pm < 6 ng/L <13 Normal [...] the MARCELLE score for the inpatient setting). [facility] [id number] [address] [place] [address] 32530 Total Protein April 21, 2023 7:12pm 6.7 g/dL 6.4-8.3 [facility] [id number] [address] [place] [address] 57224 Albumin April 21, 2023 7:12pm 4.3 g/dl 4.0-5.0 [facility] [id number] [address] [place] [address] 67575 Albumin/Globulin Ratio April 21, 2023 7:12pm 1.8 1.0-2.6 [facility] [id number] [address] [place] [address] 51725 Alkaline Phosphatase April 21, 2023 7:12pm 46 U/L 40-129 [place] [id number] [address] [place] [address] 04606 Diagnostic Imaging Reports Author Fatuma Bender April 26, 2023 3:57pm Report Date/Time April 26, 2023 4 :01pm [address] [address] Patient Name: MAYELIN LESLIE Medical Record#: [id number] Address: [address] City/State/Zip: [place] [address]: Ming E/R Sarahi tena Insurance: [facility] (Medicaid) /Age/Sex: 1980/42/M Self Pay Admit/Reg Date: 04/26/[address]: Aaron Walsh DO Location: ED.GS/ PCP: Pcp-Non Staff,Md Date of Service: 04/26/23 Order (s): XR chest 2V CPT Code: 20802 Report Number: [id number] Reason for Exam: Chest Pain EXAM: Chest PA, lateral CLINICAL INDICATION: Chest pain COMPARISON: None TECHNIQUE: PA and lateral views of the chest. FINDINGS: Lungs/pleura: No edema or consolidation. No pleural effusions. No pneumothorax. Heart/Mediastinum: Cardiomediastinal silhouette is unremarkable. Bone: Unremarkable. IMPRESSION: No acute cardiopulmonary findings. Dictated By: Fatuma Bender MD 04/26/231556 Signed By: Fatuma Bender MD 04/26/23 160 TD/TT: 04/26/231556Tech: [id number] cc: E/R; JONO; PCPNS* E/R Physician,Ming ; BRAD BYRNE; Aaron Walsh DO Vital Signs [...] 6:00pm BMI (Body Mass Index) 29.3 kg/m2 Aprobe r 2022 4:40pm Height 180.34 cm April 26, [...] April 21, 2023 4:02pm Advance Directives No April 26, 2023 1:45pm Health Care Proxy No April 26, 2023 1:45pm Insurance Providers Guarantor MAYELIN LESLIE Address [place] [address] Contact Info. Home Phone: Payer Policy Id Coverage Id Subscriber's Name Subscriber Id Effective Date Expiration Date Commercial Other [id number] MAYELIN LESLIE [id number] [facility] (Medicaid) [id number] MAYELIN LESLIE [id number] [place] [id number] MAYELIN LESLIE [id number] [facility] Required [id number] MAYELIN LESLIE [id number] Encounters Encounter Location(s) Arrival/Admit Date Discharge/Depart Date Provider(s) Departed Emergency [facility]Emergency Dept Waiting Area April 21, 2023 4:01pm April 22, 2023 1:15am null Departed Emergency [facility] April 26, 2023 1:44pm April 26, 2023 4:55pm null Plan of Treatment Future Tests Future scheduled test information is unavailable Pending Tests Test Name Ordered Date Scheduled Date Troponin T High Sensitivity April 26, 2023 3 :34pm Troponin T High Sensitivity April 26, 2023 5 :34pm Future Visits Future appointment information is unavailable Referrals to Other Providers Reason for Referral Referral Start Date Provider Provider Contact Information Provider Address BRAD BYRNE Work Phone: [address] [place] [address] BRAD BYRNE Work Phone: [address] [place] [address] Future Procedures Procedure Name Ordered Date Scheduled Date Peripheral IV Insert/Manage April 21, 2023 4 :46pm April 21, 2023 4:46pm Troponin T High Sensitivity April 26, 2023 2 :25pm April 26, 2023 3:34pm Troponin T High Sensitivity April 26, 2023 2 :25pm April 26, 2023 5:34pm EKG ED Electrocardiogram April 26, 2023 2:25 pm April 26, 2023 2:25pm Saline Lock Insert/Manage April 26, 2023 2:2 5pm April 26, 2023 2:25pm Continuous Pulse Oximetry April 26, 2023 2:2 5pm April 26, 2023 2:25pm Future Medications Future medication information is unavailable Patient Instructions Patient instructions are unavailable
--- OUTSIDE RECORDS SUMMARY | 2024-01-16 19:35 | XMS_ITS | Continuity of Care Document ---
Author Organization [facility] Address [address] [place] [address] Phone Care Team Providers Care Information Receptionist Name Role Phone Pcp-MD Archie Galeana Primary Care Provider Unavailabl e Hospitalist, Model (IS ONLY) Emergency Provider Unavailable MD Krzysztof So Other Provider MD Zeke Perkins Attending Provider [phone] DO Lizandro Sandhu Emergency Provider MD Jen Rausch Attending Provider MD Kulwinder Zuniga Other Provider MD Elliot Fulton Other Provider MD Shannan Best Attending Provider [phone] Care Teams Patient Care Team Team Status: [...] June 26, 2023 End: June 27, 2023 Chief Complaint and Reason for Visit Chief Complaint ALCOHOL WITHDRAWAL S EIZURE UNRESPONSIVE ALTERED MENTAL STATUS SEIZURE Reason for Visit Bipolar disorder Cocaine use [...] Observa tion Unknown if ever smoked Dece 2022 12:50pm Observation Status Observation Response Date of Response Living Situation Care Home June 17, 2023 8:35am Living Situation Other June 23, 2023 11:35am Is Anyone Dependent on your Care? No June 27, 2023 3:23am Living Situation Homeless June 27, 2023 3:23am Lives With Other June 27 12:50pm Additional Data Assigned Sex Male Problems Active Problems Medical Problem Onset Date Status Non-compliance Active Wernicke encephalopathy Active Alcohol abuse Active [...] 25 MG PO ONCE DAILY AT BEDTIME [facility] 2022 12:00am Decemb er 2022 9:55am Levetiracetam Disconti nued 500 MG PO TWICE A DAY [facility] 2022 12:00am [facility] er 2022 9:23am Sertraline Active [address] [facility] r 2022 12:00am Clobetasol Disconti nued 1 APPL TOPICAL DAILY [facility] r 2022 12:00am Decemb er 2022 9:55am Gabapentin Disconti nued 800 MG PO THREE TIMES A DAY [facility] r 2022 12:00am Decemb er 2022 9:55am Meclizine Disconti nued 25 MG PO THREE TIMES A DAY [facility] r 2022 12:00am [facility] er 2022 9:45am Azelastine Disconti nued 2 SPRAY intrana sol TWICE A DAY [facility] 2022 12:00am Decemb er 2022 8:37am Escitalopram Oxalate Disconti nued 10 MG PO DAILY [facility] r 2022 12:00am Decemb er 2022 9:55am Thiamine Hcl (Vitamin B1) Disconti nued 100 MG PO DAILY 30 Decee r 2022 12:00am Decemb er 2022 8:37am OTC/Good Rx if not covered Levetiracetam Disconti nued 500 MG PO TWICE A DAY 180 90 [facility] 2022 9:23am Decemb er 2022 [...] Active 650 MG PO EVERY 6 HOURS Decee r 2022 12:00am Levetiracetam Disconti nued 750 MG PO EVERY 12 HOURS 60 [facility] 2022 12:00am Decemb er 2022 2:26pm Multivitamin With Folic Acid (Thera) 400 mcg Tablet Active 1 TAB PO DAILY 30 Decee r 2022 12:00am Sennosides (Senna Lax) 8.6 mg Tablet Active 17.2 MG PO ONCE DAILY AT BEDTIME 60 Decee r 2022 12:00am Omeprazole Active 20 MG PO DAILY 30 Dece e r 2022 12:00am Quetiapine Active 25 MG PO ONCE SOHA Y AT BEDTIME 30 Decee r 2022 9:55am Sertraline Active 100 MG PO DAILY 30 Decemb e r 2022 9:55am Clobetasol Active 1 APPL TOPICAL DAILY 30 Dece be r 2022 9:55am Gabapentin Active 800 MG PO THREE MARY ES A DAY 90 Decee r 2022 9:55am Escitalopram Oxalate Active 10 [...] contrast June 25, 2023 2: 11pm completed Relevant Diagnostic Tests and/or Laboratory Data Laboratory Results Test Date/Time Result Interpretation Reference Range Result Comment Performing Site Add-On Test Request June 18, 2023 11:40am Added test [facility] [id number] [address] [place] [address] [id number] Add-On Test Request June 20, 2023 2:42am Unable to add test [facility] [id number] [address] [place] [address] [id number] Add-On Test Request June 23, 2023 10:14am Added test [facility] [id number] [address] [place] [address] 57824 White Blood Count June 17, 2023 5:43am 7.9 X10 3/uL 4.5-11.0 [facility] [id number] [address] [place] [address] 22790 White Blood Count June 19, 2023 11:45pm 8.8 X10 3/uL 4.5-11.0 [facility] [id number] [address] [place] [address] 85934 White Blood Count June 22, 2023 8:41am 5.9 X10 3/uL 4.5-11.0 [facility] [id number] [address] [place] [address] 02840 White Blood Count June 26, 2023 7:38am 6.8 X10 3/uL 4.5-11.0 [facility] [id number] [address] [place] [address] 20311 Red Blood Count June 17, 2023 5:43am 4.82 X10 6/uL 4.00-5.50 [facility] [id number] [address] [place] [address] 72597 Red Blood Count June 19, 2023 11:45pm 5.32 X10 6/uL 4.00-5.50 [facility] [id number] [address] [place] [address] 91956 Red Blood Count June 22, 2023 8:41am 5.27 X10 6/uL 4.00-5.50 [facility] [id number] [address] [place] [address] 36529 Red Blood Count June 26, 2023 7:38am 4.45 X10 6/uL 4.00-5.50 [facility] [id number] [address] [place] [address] 80185 Hemoglobin June 17, 2023 5:43am 9.4 g/dl 13.0-17.0 [facility] [id number] [address] [place] [address] 89209 Hemoglobin June 19, 2023 11:45pm 10.3 g/dl 13.0-17.0 [facility] [id number] [address] [place] [address] 12297 Hemoglobin June 22, 2023 8:41am 10.2 g/dl 13.0-17.0 [facility] [id number] [address] [place] [address] 35643 Hemoglobin June 26, 2023 7:38am 8.8 g/dl 13.0-17.0 [facility] [id number] [address] [facility] 95509 Hematocrit June 17, 2023 5:43am 31.8 % 37.5-50.0 [facility] [id number] [address] [facility] 10861 Hematocrit June 19, 2023 11:45pm 35.3 % 37.5-50.0 [facility] [id number] [address] [facility] 62692 Hematocrit June 22, 2023 8:41am 35.3 % 37.5-50.0 [facility] [id number] [address] [place] [address] 89530 Hematocrit June 26, 2023 7:38am 30.3 % 37.5-50.0 [facility] [id number] [address] [place] [address] 19643 Mean Corpuscular Volume June 17, 2023 5:43am 66.0 fl 80.0-100.0 [facility] [id number] [address] [place] [address] 03005 Mean Corpuscular Volume June 19, 2023 11:45pm 66.4 fl 80.0-100.0 [facility] [id number] [address] [place] [address] 87702 Mean Corpuscular Volume June 22, 2023 8:41am 67.0 fl 80.0-100.0 [facility] [id number] [address] [place] [address] 98144 Mean Corpuscular Volume June 26, 2023 7:38am 68.1 fl 80.0-100.0 [facility] [id number] [address] [place] [address] 84088 Mean Corpuscular Hemoglobin June 17, 2023 5:43am 19.5 pg 27.0-34.0 [facility] [id number] [address] [place] [address] 75192 Mean Corpuscular Hemoglobin June 19, 2023 11:45pm 19.4 pg 27.0-34.0 [facility] [id number] [address] [place] [address] 92410 Mean Corpuscular Hemoglobin June 22, 2023 8:41am 19.4 pg 27.0-34.0 [facility] [id number] [address] [facility] 70710 Mean Corpuscular Hemoglobin June 26, 2023 7:38am 19.8 pg 27.0-34.0 [facility] [id number] [address] [place] [address] 64909 Mean Corpuscular Hemoglobin Concent June 17, 2023 5:43am 29.6 g/dl 31.0-36.0 [facility] [id number] [address] [place] [address] 56868 Mean Corpuscular Hemoglobin Concent June 19, 2023 11:45pm 29.2 g/dl 31.0-36.0 [facility] [id number] [address] [place] [address] 38456 Mean Corpuscular Hemoglobin Concent June 22, 2023 8:41am 28.9 g/dl 31.0-36.0 [facility] [id number] [address] [place] [address] 41260 Mean Corpuscular Hemoglobin Concent June 26, 2023 7:38am 29.0 g/dl 31.0-36.0 [facility] [id number] [address] [place] [address] 64384 Red Cell Distribution Width June 17, 2023 5:43am 21.3 % 11.5-15.0 [facility] [id number] [address] [place] [address] 84079 Red Cell Distribution Width June 19, 2023 11:45pm 21.1 % 11.5-15.0 [facility] [id number] [address] [place] [address] 27180 Red Cell Distribution Width June 22, 2023 8:41am 21.0 % 11.5-15.0 [facility] [id number] [address] [place] [address] 05358 Red Cell Distribution Width June 26, 2023 7:38am 19.8 % 11.5-15.0 [facility] [id number] [address] [place] [address] 08619 Platelet Count June 17, 2023 5:43am 334 X10 3/uL 150-400 [facility] [id number] [address] [facility] 58766 Platelet Count June 19, 2023 11:45pm 353 X10 3/uL 150-400 [facility] [id number] [address] [place] [address] 15751 Platelet Count June 22, 2023 8:41am 356 X10 3/uL 150-400 [facility] [id number] [address] [place] [address] 86831 Platelet Count June 26, 2023 7:38am 386 X10 3/uL 150-400 [facility] [id number] [address] [place] [address] 94866 Immature Granulocyte % (Auto) June 17, 2023 5:43am 0.1 % [facility] [id number] [address] [place] [address] 39555 Immature Granulocyte % (Auto) June 19, 2023 11:45pm 0.2 % [facility] [id number] [address] [place] [address] 47500 Immature Granulocyte % (Auto) June 22, 2023 8:41am 0.2 % [facility] [id number] [address] [place] [address] 14226 Immature Granulocyte % (Auto) June 26, 2023 7:38am 0.1 % [facility] [id number] [address] [place] [address] 33042 Neutrophils (%) (Auto) June 17, 2023 5:43am 60.4 % [facility] [id number] [address] [place] [address] 87956 Neutrophils (%) (Auto) June 19, 2023 11:45pm 74.5 % [facility] [id number] [address] [place] [address] 42844 Neutrophils (%) (Auto) June 22, 2023 8:41am 64.7 % [facility] [id number] [address] [place] [address] 86426 Neutrophils (%) (Auto) June 26, 2023 7:38am 66.8 % [facility] [id number] [address] [place] [address] 97390 Lymphocytes (%) (Auto) June 17, 2023 5:43am 26.2 % [place] [id number] [address] [place] [address] 69649 Lymphocytes (%) (Auto) June 19, 2023 11:45pm 16.9 % [facility] [id number] [address] [place] [address] 61436 Lymphocytes (%) (Auto) June 22, 2023 8:41am 20.6 % [place] [id number] [address] [place] [address] 32906 Lymphocytes (%) (Auto) June 26, 2023 7:38am 21.9 % [facility] [id number] [place] [address] 59864 Monocytes (%) (Auto) June 17, 2023 5:43am 8.6 % [facility] [id number] [address] [place] [address] 84585 Monocytes (%) (Auto) June 19, 2023 11:45pm 6.1 % [facility] [place] [id number] [address] [place] [address] 89681 Monocytes (%) (Auto) June 22, 2023 8:41am 9.5 % [place] [id number] [address] [place] [address] 91837 Monocytes (%) (Auto) June 26, 2023 7:38am 8.7 % [facility] [id number] [address] [place] [address] 39890 Eosinophils (%) (Auto) June 17, 2023 5:43am 3.7 % [facility] [id number] [address] [place] [address] 49497 Eosinophils (%) (Auto) June 19, 2023 11:45pm 1.2 % [place] [id number] [address] [place] [address] 59166 Eosinophils (%) (Auto) June 22, 2023 8:41am 3.6 % [facility] [id number] [address] [place] [address] 57897 Eosinophils (%) (Auto) June 26, 2023 7:38am 1.5 % [place] [id number] [address] [place] [address] 66593 Basophils (%) (Auto) June 17, 2023 5:43am 1.0 % [facility] [id number] [address] [place] [address] 93252 Basophils (%) (Auto) June 19, 2023 11:45pm 1.1 % [facility] [id number] [address] [place] [address] 89467 Basophils (%) (Auto) June 22, 2023 8:41am 1.4 % [facility] [id number] [address] [place] [address] 19768 Basophils (%) (Auto) June 26, 2023 7:38am 1.0 % [facility] [id number] [address] [place] [address] 22030 Immature Granulocyte # (Auto) June 17, 2023 5:43am 0.01 X10 3/uL 0.00-0.09 [facility] [id number] [address] [place] [address] 38382 Immature Granulocyte # (Auto) June 19, 2023 11:45pm 0.02 X10 3/uL 0.00-0.09 [facility] [id number] [address] [place] [address] 27521 Immature Granulocyte # (Auto) June 22, 2023 8:41am 0.01 X10 3/uL 0.00-0.09 [facility] [id number] [address] [place] [address] 45145 Immature Granulocyte # (Auto) June 26, 2023 7:38am 0.01 X10 3/uL 0.00-0.09 [facility] [id number] [address] [place] [address] 82371 Neutrophils # (Auto) June 17, 2023 5:43am 4.8 X10 3/uL 1.5-7.8 [place] [id number] [address] [place] [address] 19804 Neutrophils # (Auto) June 19, 2023 11:45pm 6.6 X10 3/uL 1.5-7.8 [facility] [id number] [address] [place] [address] 58499 Neutrophils # (Auto) June 22, 2023 8:41am 3.8 X10 3/uL 1.5-7.8 [facility] [id number] [address] [place] [address] 84107 Neutrophils # (Auto) June 26, 2023 7:38am 4.5 X10 3/uL 1.5-7.8 [place] [id number] [address] [place] [address] 37320 Lymphocytes # (Auto) June 17, 2023 5:43am 2.1 X10 3/uL 1.0-4.8 [place] [id number] [address] [place] [address] 63131 Lymphocytes # (Auto) June 19, 2023 11:45pm 1.5 X10 3/uL 1.0-4.8 [place] [id number] [address] [place] [address] 46601 Lymphocytes # (Auto) June 22, 2023 8:41am 1.2 X10 3/uL 1.0-4.8 [place] [id number] [address] [place] [address] 10857 Lymphocytes # (Auto) June 26, 2023 7:38am 1.5 X10 3/uL 1.0-4.8 [place] [id number] [address] [place] [address] 22821 Monocytes # (Auto) June 17, 2023 5:43am 0.7 X10 3/uL 0.0-0.8 [place] [id number] [address] [place] [address] 97170 Monocytes # (Auto) June 19, 2023 11:45pm 0.5 X10 3/uL 0.0-0.8 [place] [id number] [address] [place] [address] 10915 Monocytes # (Auto) June 22, 2023 8:41am 0.6 X10 3/uL 0.0-0.8 [place] [id number] [address] [place] [address] 08662 Monocytes # (Auto) June 26, 2023 7:38am 0.6 X10 3/uL 0.0-0.8 [place] [id number] [address] [place] [address] 51717 Eosinophils # (Auto) June 17, 2023 5:43am 0.3 X10 3/uL 0.0-0.5 [facility] [id number] [address] [place] [address] 90079 Eosinophils # (Auto) June 19, 2023 11:45pm 0.1 X10 3/uL 0.0-0.5 [facility] [id number] [address] [place] [address] 87151 Eosinophils # (Auto) June 22, 2023 8:41am 0.2 X10 3/uL 0.0-0.5 [facility] [id number] [address] [place] [address] 45400 Eosinophils # (Auto) June 26, 2023 7:38am 0.1 X10 3/uL 0.0-0.5 [facility] [id number] [address] [place] [address] 91165 Basophils # (Auto) June 17, 2023 5:43am 0.1 X10 3/uL 0.0-0.2 [facility] [id number] [address] [place] [address] 05997 Basophils # (Auto) June 19, 2023 11:45pm 0.1 X10 3/uL 0.0-0.2 [facility] [id number] [address] [place] [address] 56773 Basophils # (Auto) June 22, 2023 8:41am 0.1 X10 3/uL 0.0-0.2 [facility] [id number] [address] [place] [address] 83850 Basophils # (Auto) June 26, 2023 7:38am 0.1 X10 3/uL 0.0-0.2 [facility] [id number] [address] [place] [address] 56462 Nucleated Red Blood Cells % June 17, 2023 5:43am 0.0 /100 WBC 0.0-0.0 [facility] [id number] [address] [place] [address] 01917 Nucleated Red Blood Cells % June 19, 2023 11:45pm 0.0 /100 WBC 0.0-0.0 [facility] [id number] [address] [facility] 41048 Nucleated Red Blood Cells % June 22, 2023 8:41am 0.0 /100 WBC 0.0-0.0 [facility] [id number] [address] [facility] 69607 Nucleated Red Blood Cells % June 26, 2023 7:38am 0.0 /100 WBC 0.0-0.0 [facility] [id number] [address] [facility] 13117 Sodium Level June 19, 2023 6:49am 142 mmol/L 137-146 [facility] [id number] [address] [facility] 86768 Sodium Level June 19, 2023 11:45pm 135 mmol/L 137-146 [facility] [id number] [address] [place] [address] 46268 Sodium Level June 23, 2023 6:12am 138 mmol/L 137-146 [facility] [id number] [address] [place] [address] 99932 Sodium Level June 27, 2023 11:35am 139 mmol/L 137-146 [facility] [id number] [address] [facility] 42343 Potassium Level June 19, 2023 6:49am 3.9 mmol/L 3.5-5.3 [facility] [id number] [address] [place] [address] 85141 Potassium Level June 19, 2023 11:45pm 4.1 mmol/L 3.5-5.3 [facility] [id number] [address] [place] [address] 13718 Potassium Level June 23, 2023 6:12am 3.9 mmol/L 3.5-5.3 [facility] [id number] [address] [place] [address] 88039 Potassium Level June 27, 2023 11:35am 4.5 mmol/L 3.5-5.3 [facility] [id number] [address] [place] [address] 64561 Chloride Level June 19, 2023 6:49am 104 mmol/L 98-107 [facility] [id number] [address] [facility] 71476 Chloride Level June 19, 2023 11:45pm 97 mmol/L 98-107 [facility] [id number] [address] [facility] 84191 Chloride Level June 23, 2023 6:12am 101 mmol/L 98-107 [facility] [id number] [address] [facility] 99685 Chloride Level June 27, 2023 11:35am 103 mmol/L 98-107 [facility] [id number] [address] [facility] 78206 Carbon Dioxide Level June 19, 2023 6:49am 28 mmol/L 23-32 [facility] [id number] [address] [facility] 93992 Carbon Dioxide Level June 19, 2023 11:45pm 25 mmol/L 23-32 [facility] [id number] [address] [facility] 08824 Carbon Dioxide Level June 23, 2023 6:12am 27 mmol/L 23-32 [facility] [id number] [address] [facility] 88893 Carbon Dioxide Level June 27, 2023 11:35am 28 mmol/L -32 [facility] [id number] [address] [facility] 68209 Anion Gap June 19, 2023 6:49am 10 mmol/L 11-18 [facility] [id number] [address] [facility] 24296 Anion Gap June 19, 2023 11:45pm 13 mmol/L - [facility] [id number] [address] [facility] 58699 Anion Gap June 23, 2023 6:12am 10 mmol/L - [facility] [id number] [address] [facility] 08938 Anion Gap June 27, 2023 11:35am 8 mmol/L - [facility] [id number] [address] [facility] 21966 Blood Urea Nitrogen June 19, 2023 6:49am 9 mg/dl 11-28 [facility] [id number] [address] [place] [address] 28178 Blood Urea Nitrogen June 19, 2023 11:45pm 14 mg/dl 11-28 [facility] [id number] [address] [place] [address] Blood Urea Nitrogen June 23, 2023 6:12am 10 mg/dl 11-28 [facility] [id number] [address] [place] [address] Blood Urea Nitrogen June 27, 2023 11:35am 15 mg/dl 11-28 [facility] [id number] [address] [place] [address] 33986 Creatinine June 19, 2023 6:49am 0.7 mg/dL 0.6-1.4 [facility] [id number] [place] [address] 20014 Creatinine June 19, 2023 11:45pm 0.8 mg/dL 0.6-1.[address] [place] [id number] [place] [address] 23365 Creatinine June 23, 2023 6:12am 0.6 mg/dL 0.6-1.4 [facility] [id number] [address] [place] [address] 12702 Creatinine June 27, 2023 11:35am 0.6 mg/dL 0.6-1.4 [place] [id number] [address] [place] [address] 35808 Estimated Creatinine Clearance June 19, 2023 6:49am 165.0 ml/min This value is calculated by Cockcroft Gault Equation using ideal body weight. This result is dependent on an accurate patient height and weight which is obtained from patients medical record. Cockcroft, D.W. and M.H. Gault. Prediction of creatinine clearance from serum creatinine. Nephron. 1976. 16(1):31-41. 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 This result is dependent on an accurate patient height and weight which is obtained from patients medical record. Cockcroft, D.W. and M.H. Gault. Prediction of creatinine clearance from serum creatinine. Nephron. 1975. 16():-. [facility] [id number] [address] [place] [address] 66705 Estimated Creatinine Clearance June 27, 2023 11:35am 203.8 ml/min This value is calculated by Cockcroft Gault Equation using ideal body weight. This result is dependent on an accurate patient height and weight which is obtained from patients medical record. Cockcroft, D.W. and M.H. Gault. Prediction of creatinine clearance from serum creatinine. Nephron. 1975. 16(1):-. [facility] [id number] [address] [place] [address] 64772 Estimat Glomerular Filtration Rate June 19, 2023 6:49am 119 >90 Reported eGFR is based on the CKD-EPI 2020 equation that does not use a race coefficient. Additional information can be found at:[email or web address]_ed [email or web address]_[email or web address]_f [email or web address] ([email or web address]) [facility] [id number] [address] [place] [address] 10262 Estimat Glomerular Filtration Rate June 19, 2023 11:45pm 115 >90 Reported eGFR is based on the CKD-EPI 2020 equation that does not use a race coefficient. Additional information can be found at:[email or web address]_ui b_egfr_summary_f [email or web address] ([email or web address]) [facility] [id number] [address] [place] [address] 53552 Estimat Glomerular Filtration Rate June 23, 2023 6:12am 125 >90 Reported eGFR is based on the CKD-EPI 2021 equation that does not use a race coefficient. Additional information can be found at:[email or web address]_ya b_egfr_summary_f [email or web address] ([email or web address]) [facility] [id number] [address] [place] [address] 52341 Estimat Glomerular Filtration Rate June 27, 2023 11:35am 125 >90 Reported eGFR is based on the CKD-EPI 2020 equation that does not use a race coefficient. Additional information can be found at:[email or web address] ([email or web address]) [facility] [id number] [address] [place] [address] 00976 BUN/Creatinine Ratio June 19, 2023 6:49am 12.9 10.0-20.0 [facility] [id number] [address] [place] [address] 81520 BUN/Creatinine Ratio June 19, 2023 11:45pm 17.5 10.0-20.0 [facility] [id number] [address] [place] [address] 50709 BUN/Creatinine Ratio June 23, 2023 6:12am 16.7 10.0-20.0 [facility] [id number] [address] [place] [address] 75202 BUN/Creatinine Ratio June 27, 2023 11:35am 25.0 10.0-20.0 [facility] [id number] [address] [place] [address] 28812 Glucose Level June 19, 2023 6:49am 101 mg/dL 70-100 [facility] [id number] [address] [place] [address] 93381 Glucose Level June 19, 2023 11:45pm 94 mg/dL 70-100 [facility] [id number] [address] [place] [address] 56525 Glucose Level June 23, 2023 6:12am 98 mg/dL 70-100 [facility] [id number] [address] [place] [address] 29071 Glucose Level June 27, 2023 11:35am 95 mg/dL 70-100 [facility] [id number] [address] [place] [address] 27925 Lactic Acid Level June 16, 2023 11:13am 1.1 mmol/L >0.5 [facility] [id number] [address] [place] [address] 24584 Lactic Acid Level June 20, 2023 2:57pm 1.9 mmol/L >0.5 [facility] [id number] [address] [place] [address] 96861 Calcium Level June 19, 2023 6:49am 8.9 mg/dl 8.6-10.3 [facility] [id number] [address] [place] [address] 78575 Calcium Level June 19, 2023 11:45pm 8.8 mg/dl 8.6-10.3 [facility] [id number] [address] [place] [address] 58451 Calcium Level June 23, 2023 6:12am 8.9 mg/dl 8.6-10.3 [facility] [id number] [address] [place] [address] 23803 Calcium Level June 27, 2023 11:35am 8.6 mg/dl 8.6-10.3 [facility] [id number] [address] [place] [address] 17801 Phosphorus Level June 23, 2023 6:12am 3.7 mg/dL 2.5-4.5 [facility] [id number] [address] [place] [address] 73463 Magnesium Level June 19, 2023 6:49am 1.8 mg/dL 1.8-2.5 [facility] [id number] [address] [place] [address] 30403 Magnesium Level June 19, 2023 11:45pm 1.8 mg/dL 1.8-2.5 [facility] [id number] [address] [place] [address] 72430 Magnesium Level June 23, 2023 6:12am 2.0 mg/dL 1.8-2.5 [facility] [id number] [address] [place] [address] 15752 Magnesium Level June 27, 2023 11:35am 1.9 mg/dL 1.8-2.5 [facility] [id number] [address] [place] [address] 81160 Total Bilirubin June 18, 2023 5:55am < 0.2 mg/dl <1.1 [facility] [id number] [address] [place] [address] 13352 Total Bilirubin June 19, 2023 11:45pm 0.3 mg/dl <1.1 [facility] [id number] [address] [place] [address] 36460 Total Bilirubin June 23, 2023 6:12am < 0.2 mg/dl <1.1 [facility] [id number] [address] [place] [address] 17778 Total Bilirubin June 25, 2023 2:11pm < 0.2 mg/dl <1.1 [facility] [id number] [address] [place] [address] 49182 Aspartate Amino Transf (AST/SGOT) June 18, 2023 5:55am 24 U/L [facility] [id number] [address] [place] [address] 10188 Aspartate Amino Transf (AST/SGOT) June 19, 2023 11:45pm 20 U/L 15 [facility] [id number] [address] [place] [address] 87796 Aspartate Amino Transf (AST/SGOT) June 23, 2023 6:12am 13 U/L 15 [facility] [id number] [address] [place] [address] 26464 Aspartate Amino Transf (AST/SGOT) June 25, 2023 2:11pm 19 U/L 15- [facility] [id number] [address] [place] [address] 73963 Alanine Aminotransfera se (ALT/SGPT) June 18, 2023 5:55am 18 U/L 14- [facility] [id number] [address] [place] [address] 11156 Alanine Aminotransfera se (ALT/SGPT) June 19, 2023 11:45pm 19 U/L 14-63 [facility] [id number] [address] [place] [address] 68502 Alanine Aminotransfera se (ALT/SGPT) June 23, 2023 6:12am 13 U/L 14-63 [facility] [id number] [address] [place] [address] 72489 Alanine Aminotransfera se (ALT/SGPT) June 25, 2023 2:11pm 16 U/L 14-63 [facility] [id number] [address] [facility] 42512 Ammonia June 20, 2023 8:46am 12 umol/L 16-60 [facility] [id number] [address] [facility] 99045 Ammonia June 20, 2023 10:30pm 24 umol/L 16-60 [facility] [id number] [address] [facility] 55991 Ammonia June 25, 2023 9:16pm 12 umol/L 16-60 [facility] [id number] [address] [facility] 40027 Total Creatine Kinase June 23, 2023 6:12am 39 U/L 49-397 [facility] [id number] [address] [facility] 07479 Total Creatine Kinase June 27, 2023 11:35am 63 U/L 49-397 [facility] [id number] [address] [place] [address] 67875 Total Protein June 18, 2023 5:55am 6.1 g/dL 6.4-8.3 [facility] [id number] [address] [place] [address] 09709 Total Protein June 19, 2023 11:45pm 7.2 g/dL 6.4-8.3 [facility] [id number] [address] [place] [address] 12689 Total Protein June 23, 2023 6:12am 6.3 g/dL 6.4-8.3 [facility] [id number] [address] [place] [address] 17315 Total Protein June 25, 2023 2:11pm 6.7 g/dL 6.4-8.3 [facility] [id number] [address] [place] [address] 62950 Albumin June 18, 2023 5:55am 3.7 g/dl 4.0-5.0 [facility] [id number] [address] [place] [address] 75521 Albumin June 19, 2023 11:45pm 4.4 g/dl 4.0-5.0 [facility] [id number] [address] [place] [address] 74395 Albumin June 23, 2023 6:12am 3.9 g/dl 4.0-5.0 [facility] [id number] [address] [facility] 29360 Albumin June 25, 2023 2:11pm 4.0 g/dl 4.0-5.0 [facility] [id number] [address] [facility] 43360 Albumin/Globul in Ratio June 18, 2023 5:55am 1.5 1.0-2.6 [facility] [id number] [address] [facility] 13760 Albumin/Globul in Ratio June 19, 2023 11:45pm 1.6 1.0-2.6 [facility] [id number] [address] [facility] 90854 Albumin/Globul in Ratio June 23, 2023 6:12am 1.6 1.0-2.6 [facility] [id number] [address] [facility] 04328 Albumin/Globul in Ratio June 25, 2023 2:11pm 1.5 1.0-2.6 [facility] [id number] [address] [facility] 21097 Alkaline Phosphatase June 18, 2023 5:55am 47 U/L 40-129 [facility] [id number] [address] [facility] 08526 Alkaline Phosphatase June 19, 2023 11:45pm 53 U/L 40-129 [facility] [id number] [address] [facility] 14904 Alkaline Phosphatase June 23, 2023 6:12am 48 U/L 40-129 [facility] [id number] [address] [facility] 25524 Alkaline Phosphatase June 25, 2023 2:11pm 51 U/L 40-129 [facility] [id number] [address] [facility] 73414 Lipase June 20, 2023 10:15pm 51 U/L 13-60 [facility] [id number] [address] [place] [address] 21599 Thyroid Stimulating Hormone (TSH) June 16, 2023 11:13am 1.55 uIU/mL 0.34-5.60 [facility] [id number] [address] [place] [address] 82066 Procalcitonin June 16, 2023 11:13am 0.03 ng/mL <0.10 [facility] [id number] [address] [place] [address] 41426 Bedside Glucose June 16, 2023 9:04am 75 mg/dl 70-100 NOTE: Any discrepancy between finger stick glucose result and patient's clinical presentation should be confirmed by the laboratory. [facility] [id number] [address] [place] [address] 18132 Bedside Glucose June 22, 2023 8:47pm 122 mg/dl 70-100 NOTE: Any discrepancy between finger stick glucose result and patient's clinical presentation should be confirmed by the laboratory. [facility] [id number] [address] [place] [address] 47287 Urine Amphetamines Screen June 16, 2023 9:45am Negative Negative Amphetamines Cutoff level 1000 ng/mL. [facility] [id number] [address] [place] [address] 01179 Urine Amphetamines Screen June 20, 2023 2:16am Negative Negative Amphetamines Cutoff level 1000 ng/mL. [facility] [id number] [address] [place] [address] 05696 Urine Amphetamines Screen June 25, 2023 6:58pm Negative Negative Amphetamines Cutoff level 1000 ng/mL. [facility] [id number] [address] [place] [address] 91971 Urine Methadone Screen June 16, 2023 9:45am Negative Negative Methadone Cutoff level 300 ng/mL [facility] [id number] [address] [place] [address] 69812 Urine Methadone Screen June 20, 2023 2:16am Negative Negative Methadone Cutoff level 300 ng/mL [facility] [id number] [address] [place] [address] 51695 Urine Methadone Screen June 25, 2023 6:58pm Negative Negative Methadone Cutoff level 300 ng/mL [facility] [id number] [address] [place] [address] 38146 Urine Oxycodone Screen June 16, 2023 9:45am Negative Negative Oxycontin/Oxycod one Cutoff level 100 ng/mL [facility] [id number] [address] [facility] 45735 Urine Oxycodone Screen June 20, 2023 2:16am Negative Negative Oxycontin/Oxycod one Cutoff level 100 ng/mL [facility] [id number] [address] [facility] 86628 Urine Oxycodone Screen June 25, 2023 6:58pm Negative Negative Oxycontin/Oxycod one Cutoff level 100 ng/mL [facility] [id number] [address] [facility] 28086 Urine Buprenorphine Screen June 16, 2023 9:45am Negative Negative Buprenorphine Cutoff level 5 ng/mL [facility] [id number] [address] [place] [address] 38982 Urine Buprenorphine Screen June 20, 2023 2:16am Negative Negative Buprenorphine Cutoff level 5 ng/mL [facility] [id number] [address] [place] [address] 92021 Urine Buprenorphine Screen June 25, 2023 6:58pm Negative Negative Buprenorphine Cutoff level 5 ng/mL [facility] [id number] [address] [place] [address] 40758 Salicylates Level June 19, 2023 11:45pm < 1.0 mg/dL Salicylate Reference Range: Negative <1.0 mg/dL Therapeutic Range: 2.0-20.0 mg/dL [facility] [id number] [address] [place] [address] 88467 Salicylates Level June 25, 2023 2:11pm < 1.0 mg/dL Salicylate Reference Range: Negative <1.0 mg/dL Therapeutic Range: 2.0-20.0 mg/dL [facility] [id number] [address] [place] [address] 27772 Urine Opiates Screen June 16, 2023 9:45am Negative Negative Opiate Cutoff level 300 ng/mLOxycontin/O xycodone is not detected below the threshold of20,000 ng/mL [facility] [id number] [address] [place] [address] 07621 Urine Opiates Screen June 20, 2023 2:16am Negative Negative Opiate Cutoff level 300 ng/mLOxycontin/O xycodone is not detected below the threshold of20,000 ng/mL [facility] [id number] [address] [place] [address] 72499 Urine Opiates Screen June 25, 2023 6:58pm Negative Negative Opiate Cutoff level 300 ng/mLOxycontin/O xycodone is not detected below the threshold of20,000 ng/mL [facility] [id number] [address] [place] [address] 09222 Urine Fentanyl Screen June 16, 2023 9:45am Negative Negative Fentanyl Cutoff level 2.0 ng/mL [facility] [id number] [address] [place] [address] 55109 Urine Fentanyl Screen June 20, 2023 2:16am Negative Negative Fentanyl Cutoff level 2.0 ng/mL [facility] [id number] [address] [place] [address] 41561 Urine Fentanyl Screen June 25, 2023 6:58pm Negative Negative Fentanyl Cutoff level 2.0 ng/mL [facility] [id number] [address] [place] [address] 42526 Acetaminophen Level June 19, 2023 11:45pm < 5 ug/mL Acetaminophen Reference Range: Negative <5 ug/mL [facility] [id number] [address] [place] [address] 41012 Acetaminophen Level June 25, 2023 2:11pm < 5 ug/mL Acetaminophen Reference Range: Negative <5 ug/mL [facility] [id number] [address] [place] [address] 05204 Urine Benzodiazepine s Screen June 16, 2023 9:45am Negative Negative Please note that the current method for benzodiazepines may be less sensitive to lorazapam detection than previously. If this result is negative and you are concerned about a false negative result for lorazepam, additional testing is possible. Please contact the laboratory.Benzo diazepine Cutoff level 200 ng/mL [facility] [id number] [address] [place] [address] 27394 Urine Benzodiazepine s Screen June 20, 2023 2:16am Negative Negative Please note that the current method for benzodiazepines may be less sensitive to lorazapam detection than previously. If this result is negative and you are concerned about a false negative result for lorazepam, additional testing is possible. Please contact the laboratory.Benzo diazepine Cutoff level 200 ng/mL [facility] [id number] [address] [facility] 78451 Urine Benzodiazepine s Screen June 25, 2023 6:58pm Negative Negative Please note that the current method for benzodiazepines may be less sensitive to lorazapam detection than previously. If this result is negative and you are concerned about a false negative result for lorazepam, additional testing is possible. Please contact the laboratory.Benzo diazepine Cutoff level 200 ng/mL [facility] [id number] [address] [place] [address] 35386 Urine Cocaine Screen June 16, 2023 9:45am Positive Negative Confirmation by GC/MS not routinely performed for Non-Maternity locations. If confirmation is required, an order must be placed.Cocaine Cutoff level 300 ng/mL [facility] [id number] [address] [place] [address] 72861 Urine Cocaine Screen June 20, 2023 2:16am Negative Negative Cocaine Cutoff level 300 ng/mL [facility] [id number] [address] [place] [address] 88159 Urine Cocaine Screen June 25, 2023 6:58pm Negative Negative Cocaine Cutoff level 300 ng/mL [facility] [id number] [address] [place] [address] 47618 Urine Cannabinoids Screen June 16, 2023 9:45am Negative Negative THC Cutoff level 50 ng/mLThis report is intended for use in clinical monitoring and management of patients. It is not intended for use in employment related drug testing or court related proceedings. Samples are not routinely tested for adulteration and are assumed to be within the normal physiological pH range of 5 - 8. [facility] [id number] [address] [place] [address] 55864 Urine Cannabinoids Screen June 20, 2023 2:16am Negative Negative THC Cutoff level 50 ng/mLThis report is intended for use in clinical monitoring and management of patients. It is not intended for use in employment related drug testing or court related proceedings. Samples are not routinely tested for adulteration and are assumed to be within the normal physiological pH range of 5 - 8. [facility] [id number] [address] [facility] 83525 Urine Cannabinoids Screen June 25, 2023 6:58pm Negative Negative THC Cutoff level 50 ng/mLThis report is intended for use in clinical monitoring and management of patients. It is not intended for use in employment related drug testing or court related proceedings. Samples are not routinely tested for adulteration and are assumed to be within the normal physiological pH range of 5 - 8. [facility] [id number] [address] [facility] 42849 Serum Alcohol June 16, 2023 11:13am < 10 mg/dl <10 [facility] [id number] [address] [facility] 16363 Serum Alcohol June 19, 2023 11:45pm 41 mg/dl <10 [facility] [id number] [address] [facility] 77586 Serum Alcohol June 20, 2023 10:15pm 216 mg/dl <10 [facility] [id number] [address] [place] [address] 04335 Serum Alcohol June 25, 2023 2:11pm 115 mg/dl <10 [facility] [id number] [address] [place] [address] 75908 Whole Blood Vitamin B1 Level June 20, 2023 8:46am 171.7 nmol/L 66.5-200.0 Performed at: [facility] [id number] Director: Rojas Prabhakar MD, Phone: [phone] [employer] ) [id number] Levetiracetam (Keppra) Level June 16, 2023 11:13am <2.0 ug/mL 10.0-40.0 Performed at: [facility] [address] [id number] Director: Rojas Prabahkar MD, Phone: [phone] [employer]) [id number] Levetiracetam (Keppra) Level June 23, 2023 12:18pm 13.4 ug/mL 10.0-40.0 Performed at: [facility] [address] [id number] Director: Rojas Prabhakar MD, Phone: [phone] [employer]) [id number] Diagnostic Imaging Reports Author John Becker [facility] June 25, 2023 3:09pm Report Date/Time June 25, 2023 3:12pm [facility] [address] [place] [address] Patient Name: MAYELIN LESLIE Medical Record#: [id number] Address: [address] City/State/Zip: [place] [address]: Juanita joyce MD Insurance: [facility] (Medicaid) /Age/Sex: 1980/42/M Self Pay Admit/Reg Date: 06/25/[address]: Juanita Callahan MD Location: ED.GS/ PCP: Md ARCHIE Vargas Date of Service: 06/25/23 Order (s): CT head/brain wo contrast CPT Code: 30506 Report Number: [id number] Reason for Exam: seizure numb right face CT BRAIN WITHOUT CONTRAST HISTORY:Seizure with numbness right side of the face. COMPARISON:CT brain 06/20/2023. TECHNIQUE: CT of the brain was performed without contrast using standard department protocol. Automated exposure control and dose reduction techniques were utilized. FINDINGS: There is no midline shift, mass effect or hydrocephalus. Powell-white junction ismaintained. There is no acute territorial infarct or acute hemorrhage. Basilarcisterns are patent. Calvarium intact. Minimal sinus inflammatory disease. Mastoids clear. IMPRESSION: No acute intracranial abnormality. Recommend further assessment with MRI brain using epilepsy protocol. Dictated By: John Becker MD 06/25/23 1503 Signed By: John Becker MD 06/25/23 1512 TD/TT: 06/25/23 1503Tech: [id number] cc: [id number]; ANNI* PcpMD Mariaa; Juanita Callahan MD Author Jeevan Tarango [facility] June 26, 2023 10:51am Report Date/Time June 26, 2023 10:51am [facility] [address] [place] [address] Patient Name: MAYELIN LESLIE Medical Record#: [id number] Address: [address] City/State/Zip: [place] [id number] Attending Dr: Alexis Del Rio MD Insurance: [facility] (Medicaid) /Age/Sex: 1980/42/M Self Pay Admit/Reg Date: 06/26/[address]: Juanita Callahan MD [facility] PCP: Md ARCHIE Vargas Date of Service: 06/25/23 Order (s): EKG ED Electrocardiogram CPT Code: 11682 Report Number: [id number] Reason for Exam: w SINUS RHYTHM PROBABLE LEFT ATRIAL ABNORMALITY Dictated By: Jeevan Tarango MD 06/25/232051 Signed By: Jeevan Tarango MD 06/26/23 105 TD/TT: 06/25/232051Tech: ALEXIS cc: [id number]; PCPMELISSA* PcpMD Mariaa; Juanita Callahan MD Vital Signs Vital Reading Result Reference Range Collection Date/Time Height 180.34 cm June 17, 2023 12:00am Weight 94.94 kg June 17, 2023 12:00am Body Temperature 98.8 [degF] 97.6-99.6 June 192022 7:40am Heart Rate 73 /min 60-90 June 19, 2023 7:40am Respiratory rate 18 /min 06-29June 192022 7:40am Oxygen saturation by Pulse oximetry 98 % 95-100 June 19, 2023 7:40am BP Systolic 111 mm[Hg] 90-140 June 19, 2023 7:40am BP Diastolic 70 mm[Hg] 60-90 June 19, 2023 7:40am BMI (Body Mass Index) 29.2 kg/m2 [facility] 2022 12:00am Body Temperature 98.2 [degF] 97.6-99.6 June 202022 11:24am Heart Rate 80 /min 60-90 June 20, 2023 6:10pm Respiratory rate 16 /min 06-29June 202022 6:10pm Oxygen saturation by Pulse oximetry [...] 8:15am BMI (Body Mass Index) 29.2 kg/m2 [facility] 2022 2:42am Height 180.34 cm June 27, 2023 3:23am Weight 107.18 kg June 27, 2023 3:23am Body Temperature 98.4 [degF] 97.6-99.6 June 272022 7:53am Heart Rate 91 /min 60-June 27, 2023 7:53am Respiratory rate 18 /min -June 272022 7:53am Oxygen saturation by Pulse oximetry 97 % 95-100 June 27, 2023 12:30pm BP Systolic 99 mm[Hg] 90-140 June 27, 2023 7:53am BP Diastolic 58 mm[Hg] 60-90 June 27, 2023 7:53am BMI (Body Mass Index) 33.0 kg/m2 [facility] 2022 3:23am Advance Directives Advance Directive Response Recorded Date/ [...] Form (MOLST)? No June 27, 2023 12:50pm Insurance Providers Guarantor MAYELIN LESLIE Address [address] [facility] [address] Contact Info. Home Phone: Payer Policy Id Coverage Id Subscriber's Name Subscriber Id Effective Date Expiration Date Commercial Other [id number] MAYELIN LESLIE [id number] [facility] (Medicaid) [id number] MAYELIN LESLIE [id number] Medicaid [place] [id number] MAYELIN LESLIE [id number] [facility] Required [id number] MAYELIN LESLIE [id number] Encounters Encounter Location(s) Arrival/Admit Date Discharge/Depart Date Provider(s) Discharged Inpatient [facility] June 16, 2023 5:36pm June 19, 2023 10:00am Zeke Perkins MD Departed Emergency [facility]Emergency Dept June 19, 2023 11:46pm June 20, 2023 6:23pm null Discharged Inpatient [facility]2C June 20, 2023 11:44pm June 25, 2023 1:38pm Jen Rausch MD Discharged Inpatient [facility] June 26, 2023 8:05am June 27, 2023 4:41pm Shannan Best MD Recent Diagnosis Onset Date Bipolar disorder [...] Date of Last Bowel Movement 06/18/23 Dece [facility] 2022 1:54am Date of Last Bowel Movement 06/24/23 Dece 2022 5:30am Oral Care Teeth Brushing June 24, 2 023 1:05pm Assistive Devices None June 27, 2023 12:50pm Date of Last Bowel Movement 06/27/23 Dece [facility] 2022 12:30pm Mental Status Observation Response Date Recorded Arousable To Name June 19, 023 1:54am Patient Behavior Appropriate June 19, 2023 10:37am Cooperative June 19, 2 023 10:37am Comprehension Ability Understands Concepts Dece [...] June 25, 2023 5:30am Alert June 25, 023 5:30am Appropriate June 25 5:30am Follows Commands June 25, 2023 5:30am Arousable To Name June 27, 023 12:30pm Patient Behavior Appropriate June 27, 2023 12:30pm Comprehension Ability Understands Concepts Dece 2022 12:00pm Level of Consciousness Awake June 27, 2023 12:30pm Alert June 27, 023 12:30pm Appropriate June 27 023 12:30pm Assessments Diagnosis Onset Date Resolution Status [...] Provider Address BRAD BYRNE Work Phone: [phone] [place] [address] PcpMd ARCHIE Leroy Follow-up in the next 2 weeks for treatment of alcoholism and nicotine dependence. Vinny Tsai MD Work Phone: [address] [place] [address] Vinny Tsai MD Work Phone: [address] [place] [phone] Patient has no pcp..Going back to retirement.. Pcp-Md MD BRAD Galeana Work Phone: [phone] [place] [address] PcpMd ARCHIE Leroy PcpMd ARCHIE Leroy PcpMd ARCHIE Leroy Future Procedures Procedure Name Ordered Date Scheduled Date Peripheral IV Insert/Manage April 21, 2023 3 :46pm April 21, 2023 3:46pm Hospital Level of Care June 16, 2023 5:35p m June 16, 2023 5:36pm Case Management Consult June 17 12:52am June 17, 2023 12:52am Discharge June 19, 2023 9:16am Decem 2022 9:16am Patient Transfer (from unit to unit) June 18, 2023 8:43am June 18, 2023 8:43am Smoking Cessation Consult June 17, 2023 12:52am June 17, 2023 12:52am Biochemical Development Engineer Consult June 16, 2023 6:17 pm June 16, 2023 6:17pm Biochemical Development Engineer Consult June 17, 023 12:52am June 17, 2023 12:52am Activity [...] 25, 2023 10:38am June 25, 2023 10:38am Biochemical Development Engineer Consult June 21, 2023 2:42 am June [...] 8:05am Discharge June 27, 2023 2:25pm Decem parrish 2022 2:25pm Activity June 25, 2023 11:56pm [...] to running out of your medications. [facility] June 19, 2023 9:26am Please follow-up [...] for 6 months from the seizure per [facility] rules. Jen Rausch [facility] June 25, 2023 10:41am Follow-up with [...] Patient is also advised to quit smoking. Shannanpriscilla Best [facility] June 27, 2023 2:33pm Absence of falls Including: - Early & often mobilization when appropriate - Passive/active range of motion as appropriate - toileting schedule implementation - implementation of fall risk interventions [facility] June 21, 2023 12:37am Risks from withdrawal jose gaona [facility] June 21, 2023 12:37am Prevention of aspiration Including: - Absence of regurgitation, gagging, coughing, fever, cyanosis and respiratory insufficiency - Aspiration precautions [facility] June 21, 2023 12:37am Understand Mgmt Strategy-Reginaldo pete Patient/Caregiver understand: - Pathophysiology - Reportable s/s and when to seek medical care - Treatment plan and post discharge follow up - Medication compliance, environmental safety & lifestyle modification [facility] June 21, 2023 12:37am Alleviation of anxiety Including: -Utilization of coping skills -Demonstrates/verbalizes decreased anxiety [facility] June 21, 2023 12:37am Pt reports/exhibits pain at mihir level Including: - Pain controlled by pharmacological/non-pharmacologic al means - Establish realistic pain and function goals prior to initiating opioid therapy in patients with chronic pain if applicable - Discuss known risks and realistic benefits of opioid therapy [facility] June 25, 2023 1:40pm Alteration in Hemodynamics [facility] June 25, 2023 1:40pm Effective breathing pattern Including: - Able to speak in full sentences as age appropriate - Absence of accessory muscle use (retractions), shallow breathing, dyspnea, wheezing & tachypnea - Facilitate optimal positioning - maximize effective breathing & prevent exacerbation [facility] June 25, 2023 1:40pm Absence of fluid/electrolyte imbalance Including: - Improved lab values - Adequate urine output - Adequate hydration - Stable weight if appropriate [facility] June 25, 2023 1:40pm Able to achieve maximum mobi lity level Including: - Understands safety - Demonstrates progress in improved mobility - Demonstrates correct use of mobility devices if appropriate - Understands & accepts limitations & plan for progression as appropriate [facility] June 25, 2023 1:40pm Antimicrobial Educ Reviewed with Patient [facility] June 25, 2023 1:40pm Understand Management Strate gies Patient/Caregiver understand: - Pathophysiology - Reportable s/s and when to seek medical care - Treatment plan and post discharge follow up - Medication regime, energy conservation, diet & lifestyle modification [facility] June 25, 2023 1:40pm Safely transition to next [facility] of care Patient/family has: - Appropriate access to resources and support services as applicable [facility] June 25, 2023 1:40pm Risks from withdrawal minimi [facility] June 25, 2023 1:40pm Absence of neurologic deterioration s/s [facility] June 25, 2023 1:40pm Cognitive status restored to baseline Including: - Mental status back to baseline [facility] June 25, 2023 1:40pm Alleviation of anxiety Including: -Utilization of coping skills -Demonstrates/verbalizes decreased anxiety [facility] June 25, 2023 1:40pm Absence of falls Including: - Early & often mobilization when appropriate - Passive/active range of motion as appropriate - toileting schedule implementation - implementation of fall risk interventions [facility] June 27, 2023 4:42pm Risks from withdrawal minimi zed [facility] June 27, 2023 4:42pm Able to achieve maximum mobi lity level Including: - Understands safety - Demonstrates progress in improved mobility - Demonstrates correct use of mobility devices if appropriate - Understands & accepts limitations & plan for progression as appropriate [facility] June 27, 2023 4:42pm Consultation Note Author Kulwinder Zuniga [facility] June 26, 2023 3:46pm Note Date/Time June 26, 2023 3:46pm [facility] [address] [place] [address] Psych Subsequent Consult Note Signed Patient: MAYELIN LESLIE Medical Record#: [id number] : 1980 Acct:[id number] Age/Sex: 42 / M Admit/Reg Date: 06/26/23 Loc: ED.[facility] Room: [place] [address] Report Number: [id number]: Tony Del Rio MD Interval History - Subjective Date of Encounter: 06/26/23 Staff Report: Source of information: Patient, chart Updated history: No agitated behavior noted. Updated mental status examination: Patient is alert, oriented x3, no mood lability, no psychomotor agitation, no delusions, some hallucinations, no depression, no suicidal, ideation, no homicidal ideation Psychiatric medication: Seroquel 25 mg p.o. q.h.s. trazodone 50 mg p.o. q.h.s. Lexapro 10 mg p.o. q.d. Zoloft 100 mg p.o. q.d., Risperdal 2 mg p.o. b.i.d. Medication side-effects: None, compliant with medication. Pertinent medical history: Admitted for seizures. Assessment: Remains psychotic Plan: Increase Risperdal 2 mg p.o. b.i.d., psychiatric follow-up. Preferred Language: Turkmen - Labs LAB Results: Laboratory Tests - Last 24 hours 06/26/23 06/25/23 06/25/23 07:38 21:16 18:58 WBC 6.8 X10 3/uL (4.5-11.0) RBC 4.45 X10 6/uL (4.00-5.50) Hgb 8.8 L g/dl (13.0-17.0) Hct 30.3 L % (37.5-50.0) MCV 68.1 L fl (80.0-100.0) MCH 19.8 L pg (27.0-34.0) MCHC 29.0 L g/dl (31.0-36.0) RDW 19.8 H % (11.5-15.0) Plt Count 386 X10 3/uL (150-400) Immature Gran % (Auto) 0.1 % Neut % (Auto) 66.8 % Lymph % (Auto) 21.9 % Marshall % (Auto) 8.7 % Eos % (Auto) 1.5 % Baso % (Auto) 1.0 % Neut # (Auto) 4.5 X10 3/uL (1.5-7.8) Lymph # (Auto) 1.5 X10 3/uL (1.0-4.8) Marshall # (Auto) 0.6 X10 3/uL (0.0-0.8) Eos # (Auto) 0.1 X10 3/uL (0.0-0.5) Baso # (Auto) 0.1 X10 3/uL (0.0-0.2) Immature Gran # (Auto) 0.01 X10 3/uL (0.00-0.09) Nucleated RBC % 0.0 /100 WBC (0.0-0.0) Sodium 140 mmol/L (137-146) Potassium 3.8 mmol/L (3.5-5.3) Chloride 105 mmol/L (98-107) Carbon Dioxide 20 L mmol/L (23-32) Anion Gap 16 H mmol/L (5-15) BUN 7 mg/dl (5-25) Creatinine 0.6 mg/dL (0.6-1.4) Estimated Creat Clear 189.6 ml/min Estimated GFR 125 (>=90 ml/min/1.73m2) BUN/Creatinine Ratio 11.7 (10.0-20.0) Glucose 96 mg/dL (<100 -Fasting) Calcium 8.2 L mg/dl (8.6-10.3) Ammonia 12 L umol/L (16-60) Urine Opiates Screen Negative (Negative) Ur Buprenorphine Scrn Negative (Negative) Ur Oxycodone Screen Negative (Negative) Urine Methadone Screen Negative (Negative) Urine Fentanyl Screen Negative (Negative) Ur Amphetamines Screen Negative (Negative) U Benzodiazepines Scrn Negative (Negative) Urine Cocaine Screen Negative (Negative) U Cannabinoids Screen Negative (Negative) Psych Diagnosis and Plan (1) Bipolar 1 disorder Status: Acute Assessment and Plan: 06/26/23 15:45 Medication evaluation - Location and Group Information SMG-billable encounter: No (1) Provider group: Not Applicable - Attestation Attestation: I have reviewed all pertinent laboratory findings. Confirm Results Attestation: Yes Problem List Attestation Statement: I have documented a relevant problem and problem plan for this visit. Attending Confirm Problem: Yes Attending Problem List Check: Pass Dictated By: Kulwinder Zuniga MD Signed By: Kulwinder Zuniga MD 06/26/23 1546 DD/ 42 TD/TT: 06/26/231542 [employer] Consultant: ANUJ cc: * Consultation Note Author Elliot Fulton [facility] June 27, 2023 8:48am Note Date/Time June 27, 2023 8:16am [place] [address] Neurology Consult Note Signed Patient: MAYELIN LESLIE Medical Record#: [id number] : 1980 Acct:[id number] Age/Sex: 42 / M Admit/Reg Date: 06/26/23 Loc: 2C.[facility] Room: [address] Report Number: [id number]ending [address]: Shannan Best MD [facility] Date of Encounter: 06/26/23 Referring Provider: Va Del Rio Reason for Consult: Breakthrough seizure History of Present Illness: Neurology consultation note 06/26/2023 Patient identification: 42 years old male was admitted to hospital yesterday. At present, he is locatedat bed 5 in the ER Chief neurological complaint: Breakthrough seizure activity History of neurological symptoms: The patient is known to history of chronic alcoholism, polysubstance abuse including cocaine, history of seizures, bipolar disorder: Was brought to the ERyesterday after having seizure activity. The patient had generalized tonic-clonic shaking lasting for couple of minutes followed by postictal state of confusion. No fever or chills, no chest pain or palpitation, no cough or shortness of breath, no abdominal pain or diarrhea, no headache nausea vomiting or double vision. The patient was recently admitted to hospital for similar complaints. At the time of presentation temperature 98.2???, pulse 91, respiration 14, blood pressure 107/70, oxygen saturation 96% room air. When I saw the patient in the ER: He is fully awake and alert, he is lethargic. No aphasia or apraxia. He has unremarkable nonfocal neurological examination. He has fine tremors of the hands. Because of recurrent seizure activity lately, the plan was to admit the patient at a facility with EEG services. According to the ER attending, no bed is available is for transfer to an EEG facility. The patient is a admitted to our hospital again for further investigations and psychiatric follow-up. Ten point review of systems negative except symptoms discussed above The patient has history of drinking heavily. He also consumes crack. Past medical history: Chronic alcoholism history of chronic substance abuse: Cocaine Chronic smoker History of seizures Bipolar disorder Status post gastric bypass surgery 7 years ago Home medication: Lexapro Seroquel Zoloft Trazodone gabapentin 800 mg t.i.d. Keppra 750 mg b.i.d. test Omeprazole folic acid thiamine multivitamins nicotine patch Physical examination: The patient is moderately overweight. BMI 33 next item head: Atraumatic, no neck stiffness, eyes anicteric, ears no discharge Patient has fluent speech: No aphasia, no apraxia next item visual miranda are intact in all quadrants, extraocular movements are intact without nystagmus, pupils are 3.5 mm bilaterally reactive to light next nasolabial folds are symmetrical next tongue is midline, no tongue laceration No pronator motor drift. Next item motor strength is 5/5 bilaterally, tendon reflexes are 2/4 bilaterally, plantars are downgoing no hemisensory deficit, fine tremors of the outstretched hands next no ataxia on [id number] testing next Review of the labs: Head CT 06/25/2023: No acute intracranial abnormalities. WBC 6.8, hemoglobin 8.8, platelets 386 Sodium 140, potassium 3.8, BUN 7, creatinine 0.6, glucose 96 next 9 AST 19, ALT 16, alkaline phosphatase 51 next item ammonia 12 next 9 urine tox screen negative Serum alcohol 115 Keppra level pending Active Medications Acetaminophen (Acetaminophen 325 Mg Tablet) 650 mg PO Q6H PRN PRN Reason: Mild Pain (1-3) Last Admin: 06/26/23 06:39 Dose: 650 mg Documented By: NL Chlordiazepoxide (Chlordiazepoxide 25 Mg Capsule) 25 mg PO Q2H PRN PRN Reason: Withdrawal Symptoms Last Admin: 06/27/23 03:47 Dose: 25 mg Documented By: PG Chlordiazepoxide (Chlordiazepoxide 25 Mg Capsule) 50 mg PO Q2H PRN PRN Reason: Withdrawal Symptoms Last Admin: 06/27/23 06:14 Dose: 50 mg Documented By: PG Chlordiazepoxide (Chlordiazepoxide 25 Mg Capsule) 75 mg PO Q2H PRN PRN Reason: Withdrawal Symptoms Last Admin: 06/26/23 08:59 Dose: 75 mg Documented By: PIERO Escitalopram Oxalate (Escitalopram 10 Mg Tablet) 10 mg PO DAILY [facility] Last Admin: 06/26/23 08:59 Dose: 10 mg Documented By: PIERO Folic Acid (Folic Acid 1 Mg Tablet) 1 mg PO DAILY [facility] Last Admin: 06/26/23 08:59 Dose: 1 mg Documented By: PIERO Gabapentin (Gabapentin 400 Mg Capsule) 800 mg PO TID [facility] Last Admin: 06/26/23 20:17 Dose: 800 mg Documented By: COLLEEN Levetiracetam (Levetiracetam 500 Mg Tablet) 1,000 mg PO Q12H [facility] Last Admin: 06/26/23 20:17 Dose: 1,000 mg Documented By: COLLEEN Multivitamins (Multivitamin Tablet) 1 tab PO DAILY [facility] Last Admin: 06/26/23 08:59 Dose: 1 tab Documented By: PIERO Nicotine (Nicotine 21 Mg/24 Hr Patch) 1 patch TRANSDERM DAILY [facility]; Protocol Last Admin: 06/26/23 08:59 Dose: 1 patch Documented By: PIERO Pantoprazole Sodium (Pantoprazole 40 Mg Tabdr) 40 mg PO DAILY [facility] Last Admin: 06/26/23 09:00 Dose: 40 mg Documented By: PIERO Polyethylene Glycol (Polyethylene Glycol 3350 17 Gm Packet) 17 gm PO DAILY [facility] Last Admin: 06/26/23 09:00 Dose: 17 gm Documented By: PIERO Quetiapine Fumarate (Quetiapine 25 Mg Tablet) 25 mg PO QHS [facility] Last Admin: 06/26/23 20:17 Dose: 25 mg Documented By: COLLEEN Risperidone (Risperidone 1 Mg Tablet) 2 mg PO BID [facility] Last Admin: 06/26/23 18:51 Dose: 2 mg Documented By: ALEKSANDER Sennosides (Senna 8.6 Mg Tablet) 17.2 mg PO QHS PRN PRN Reason: Constipation - 1st line Sertraline HCl (Sertraline 50 Mg Tablet) 100 mg PO DAILY [facility] Last Admin: 06/26/23 09:00 Dose: 100 mg Documented By: PIERO Thiamine HCl (Thiamine 200 Mg/2 Ml Inj) 200 mg IV DAILY [facility] Last Admin: 06/26/23 09:00 Dose: 200 mg Documented By: PIERO Trazodone HCl (Trazodone 50 Mg Tablet) 50 mg PO QHS [facility] Last Admin: 06/26/23 20:17 Dose: 50 mg Documented By: DD Home Medications: sertraline 100 mg tablet 100 mg PO DAILY 06/16/23 [History Confirmed 06/21/23 Last Taken Unknown] acetaminophen 325 mg tablet 650 mg (2 x 325 mg) PO Q6H PRN Mild Pain (1-3) 06/25/23 [Rx Last Taken Unknown] clobetasol 0.05 % topical cream 1 applic topical DAILY #30 grams 06/25/23 [Rx Last Taken Unknown] escitalopram oxalate 10 mg tablet 10 mg PO DAILY #30 tabs 06/25/23 [Rx Last Taken Unknown] folic acid 1 mg tablet 1 mg PO DAILY #30 tabs 06/25/23 [Rx Last Taken Unknown] gabapentin 800 mg tablet 800 mg PO TID #90 tabs 06/25/23 [Rx Last Taken Unknown] levetiracetam 750 mg tablet 750 mg PO Q12H #60 tabs 06/25/23 [Rx Last Taken Unknown] multivitamin with folic acid 400 mcg tablet (Thera) 1 tab PO DAILY #30 tabs 06/25/23 [Rx Last Taken Unknown] nicotine 21 mg/24 hr daily transdermal patch 1 patch transdermal DAILY #20 ea 06/25/23 [Rx Last Taken Unknown] omeprazole 20 mg delayed release,disintegrating tablet 20 mg PO DAILY #30 tabs 06/25/23 [Rx Last Taken Unknown] quetiapine 25 mg tablet 25 mg PO QHS #30 tabs 06/25/23 [Rx Last Taken Unknown] risperidone 1 mg tablet 1 mg PO BID #60 tabs 06/25/23 [Rx Last Taken Unknown] sennosides 8.6 mg tablet (Senna Lax) 17.2 mg (2 x 8.6 mg) PO QHS PRN Constipation - 1st line #60 tabs 06/25/23 [Rx Last Taken Unknown] sertraline 100 mg tablet 100 mg PO DAILY #30 tabs 06/25/23 [Rx Last Taken Unknown] thiamine HCl (vitamin B1) 100 mg tablet 100 mg PO DAILY #30 tabs 06/25/23 [Rx Last Taken Unknown] trazodone 50 mg tablet 50 mg PO QHS #30 tabs 06/25/23 [Rx Last Taken Unknown] Allergies/Adverse Reactions: No Known Drug Allergies Allergy (Verified 06/25/23 14:08) Past Medical/Surgical History Medical History: Medical History (Last Reviewed 06/25/23 @ 14:45 by Juanita Callahan MD) Patient denies significant medical history (Medical) Family/Social History - Social History Lives With: Other Living Situation: Homeless Smoking Status: Current everyday tobacco user-heavy smoker tobacco type: cigarettes 1. How Often Do You Have a Drink Containing Alcohol: e. 4 or More Times a Week 2. How Many Drinks Containing Alcohol do you Drink on a Typical Day When you areDrinking: a. 1 or 2 3. How Often Do You Have Six or More Drinks on One Occasion: e. Daily or AlmostDaily Audit-C Score: 8 Audit-C Result: Positive Do You Currently Use or Have Hx of Using Recreational Drugs: Yes (smokes crack) - JCGI Sexual Orientation: Don't know Gender Identity: Male How would you like us to refer to you?: He/Him/His/Himself Exam Vital signs: Temp Pulse Resp BP Pulse Ox 98.4 F 91 H 18 99/58 L 97 06/27/23 07:53 06/27/23 07:53 06/27/23 07:53 06/27/23 07:53 06/27/23 07:53 Body Mass Index (BMI): 33.0 Body Habitus: obese Neurology Results 06/26/23 07:38 06/26/23 07:38 Pertinent Lab Findings: Most Recent Lab Results WBC 6.8 X10 3/uL (4.5-11.0) 06/26/23 07:38 RBC 4.45 X10 6/uL (4.00-5.50) 06/26/23 07:38 Hgb 8.8 g/dl (13.0-17.0) L 06/26/23 07:38 Hct 30.3 % (37.5-50.0) L 06/26/23 07:38 MCV 68.1 fl (80.0-100.0) L 06/26/23 07:38 MCH 19.8 pg (27.0-34.0) L 06/26/23 07:38 MCHC 29.0 g/dl (31.0-36.0) L 06/26/23 07:38 RDW 19.8 % (11.5-15.0) H 06/26/23 07:38 Plt Count 386 X10 3/uL (150-400) 06/26/23 07:38 Immature Gran % (Auto) 0.1 % 06/26/23 07:38 Neut % (Auto) 66.8 % 06/26/23 07:38 Lymph % (Auto) 21.9 % 06/26/23 07:38 Marshall % (Auto) 8.7 % 06/26/23 07:38 Eos % (Auto) 1.5 % 06/26/23 07:38 Baso % (Auto) 1.0 % 06/26/23 07:38 Neut # (Auto) 4.5 X10 3/uL (1.5-7.8) 06/26/23 07:38 Lymph # (Auto) 1.5 X10 3/uL (1.0-4.8) 06/26/23 07:38 Marshall # (Auto) 0.6 X10 3/uL (0.0-0.8) 06/26/23 07:38 Eos # (Auto) 0.1 X10 3/uL (0.0-0.5) 06/26/23 07:38 Baso # (Auto) 0.1 X10 3/uL (0.0-0.2) 06/26/23 07:38 Immature Gran # (Auto) 0.01 X10 3/uL (0.00-0.09) 06/26/23 07:38 Nucleated RBC % 0.0 /100 WBC (0.0-0.0) 06/26/23 07:38 Sodium 140 mmol/L (137-146) 06/26/23 07:38 Potassium 3.8 mmol/L (3.5-5.3) 06/26/23 07:38 Chloride 105 mmol/L (98-107) 06/26/23 07:38 Carbon Dioxide 20 mmol/L (23-32) L 06/26/23 07:38 Anion Gap 16 mmol/L (5-15) H 06/26/23 07:38 BUN 7 mg/dl (5-25) 06/26/23 07:38 Creatinine 0.6 mg/dL (0.6-1.4) 06/26/23 07:38 Estimated Creat Clear 189.6 ml/min 06/26/23 07:38 Estimated GFR 125 (>=90 ml/min/1.73m2) 06/26/23 07:38 BUN/Creatinine Ratio 11.7 (10.0-20.0) 06/26/23 07:38 Glucose 96 mg/dL (<100 -Fasting) 06/26/23 07:38 Calcium 8.2 mg/dl (8.6-10.3) L 06/26/23 07:38 Magnesium 2.2 mg/dL (1.8-2.5) 06/25/23 14:11 Total Bilirubin < 0.2 mg/dl (<1.2) 06/25/23 14:11 AST 19 U/L (15-41) 06/25/23 14:11 ALT 16 U/L (14-63) 06/25/23 14:11 Alkaline Phosphatase 51 U/L (40-129) 06/25/23 14:11 Ammonia 12 umol/L (16-60) L 06/25/23 21:16 Total Protein 6.7 g/dL (6.4-8.3) 06/25/23 14:11 Albumin 4.0 g/dl (4.0-5.0) 06/25/23 14:11 Albumin/Globulin Ratio 1.5 (1.0-2.6) 06/25/23 14:11 Salicylates < 1.0 mg/dL 06/25/23 14:11 Urine Opiates Screen Negative (Negative) 06/25/23 18:58 Ur Buprenorphine Scrn Negative (Negative) 06/25/23 18:58 Ur Oxycodone Screen Negative (Negative) 06/25/23 18:58 Urine Methadone Screen Negative (Negative) 06/25/23 18:58 Urine Fentanyl Screen Negative (Negative) 06/25/23 18:58 Acetaminophen < 5 ug/mL 06/25/23 14:11 Ur Amphetamines Screen Negative (Negative) 06/25/23 18:58 U Benzodiazepines Scrn Negative (Negative) 06/25/23 18:58 Urine Cocaine Screen Negative (Negative) 06/25/23 18:58 U Cannabinoids Screen Negative (Negative) 06/25/23 18:58 Serum Alcohol 115 mg/dl (<10) H 06/25/23 14:11 Neurology A&P Impression: Recurrent seizures Alcoholism: BAL 115 Cocaine abuse This 42 years old patient with history of polysubstance abuse including chronic alcoholism, cocaine, history of seizures, bipolar disorder: Had an other tonic- clonic seizure activity followed by postictal state of confusion. The patient had recent history of recurrent seizures and was admitted to hospital last week. The patient had unremarkable nonfocal neurological examination. Patient had been afebrile without signs of meningeal irritation. Brain MRI with and withoutgadolinium 06/20/2023 revealed no acute intracranial abnormalities. No abnormalenhancement. There has been concern for alcohol withdrawal and alcohol withdrawal seizures. He had been on gabapentin and Keppra. This time, weight right to transfer the patient to a facility with EEG while trying to take care of this patient with recurrent seizures. There was no bed available at a facility with EEG. The patient was admitted to hospital for continue of care and psychiatric evaluation. Recommendations: Continue seizure precautions Watch the patient for alcohol withdrawal The patient is on alcohol withdrawal protocol with Librium Continue gabapentin 800 mg t.i.d. Continue Keppra 1000 mg b.i.d. The patient will need an EEG The patient will need follow-up with outpatient neurologist within 1-2 months ofdischarge from the hospital Because of recurrent seizures: Continue seizure precautions: No driving at least for 6 months, further recommendations with outpatient neurologist afterwards Psychiatric consultation and follow-up The patient is counseled to quit drinking alcohol and cocaine Management for all other comorbidities as per primary team - Attending Documentation Confirm Attending Attestation: Yes Attending Attestation Statement: {I personally saw the patient and performed a substantive portion of the visit including all aspects of the medical decision making.} MDM and Clinical Condition Notes: Recurrent seizures Blood alcohol level 115 Cocaine abuse Refer to discussion above (1) Recurrent seizures Status: Acute Assessment and Plan: Refer to discussion above (2) Alcohol abuse Status: Chronic Assessment and Plan: Refer to discussion above - Location and Group Information SMG-billable encounter: Yes Service location: inpatient Provider group: [facility] NEUROLOGY INPT - E&M Encounter Coding Attending date of service: 06/26/23 Initial hospital care: Level 3 [address]3296 Time-based billing attestation: - Attestation Attestation: I have reviewed and updated the patient's past medical, social, andfamily history as necessary and have reviewed pertinent laboratory findings. Confirm PMH/FSH Attestation: Yes Problem List Attestation Statement: I have documented a relevant problem and problem plan for this visit. Attending Confirm Problem: Yes Attending Problem List Check: Pass Dictated By: Elliot Fulton MD Signed By: Elliot Fulton MD 06/27/23 0848 DD/ 4 TD/TT: 06/27/23754 [employer] Consultant: SUZANNE cc: GERMAINE PALACIOS* Shannan Best MD; Elliot Fulton MD Progress Note Author Juanita Callahan [facility] June 26, 2023 11:28am Note Date/Time June 25, 2023 2:06pm [place] [address] Emergency Department Document Signed Patient: MAYELIN LESLIE Medical Record#: [id number] : 1980 Acct:[id number] Age/Sex: 42 / M Admit/Reg Date: 06/26/23 Loc: ED.[facility] Room: [place] [address] Report Number: [id number]: Tony Del Rio MD History of Present Illness Source: RN/, old records Exam/History Limitations: other Primary Care Provider: Pcp-[facility] Chief Complaint: Seizure Stated Complaint: SEIZURE History of Present Illness: 42-year-old patient with history of alcohol abuse, alcohol withdrawal seizure, fibromyalgia, bipolar disorder, substance use and cocaine use, tobacco use, status post gastric bypass surgery 7 years ago while in [place] presents with report of seizure. He was admitted here here with alcohol withdrawal seizures from 06/16/2023 till 06/19/2023 hyponatremia and hypomagnesemia. Was then found unresponsive upon discharge and received Narcan and readmitted. He was discharged today with diagnosis alcohol withdrawal seizure per records. He was seen by Psychiatry who initiated Risperdal also seen by Neurology who recommended increasing the dose of Keppra that he had been on prior to admissionhe is also treated for possible Wernicke's Reportedly prior to arrival in the ERhe was in [place] today in the chemistry research assistant some having a seizure and labs to theground. He was then brought to the ER. Seizure had banded by then reportedly lasted about 2 minutes shaking throughout /patient appears confused says that hewants to make sure all his clothing and phone and teeth is in his green bag and that he feels numb on his entire right side of his body says he always feels like this whenever he is seizure it is nothing new . (Juanita Callahan) Allergies/Adverse Reactions: No Known Drug Allergies Allergy (Verified 06/25/23 14:08) Review of Systems All Other Systems (except as marked in HPI): Reviewed and Negative Past Medical/Surgical History Medical History: Medical History (Last Reviewed 06/25/23 @ 14:45 by Juanita Callahan MD) Patient denies significant medical history (Medical) Family/Social History - Family History Family History: reviewed, not pertinent Family History Of: None Reported - Social History Living Situation: Homeless Do you drink alcohol: Yes Current or Hx of Recreational Drug use: Yes 1. How Often Do You Have a Drink Containing Alcohol: e. 4 or More Times a Week Physical Exam General Appearance: Other (anxious) Eyes: PERRL, EOMI, Other (no sign of trauma to head) Ears: Hearing grossly intact Nose: Normal Mouth/Throat: Mucosa moist Neck: Supple, Non-tender, FROM w/o pain, No stridor Respiratory: No respiratory distress, Lungs clear, No accessory muscle use Cardiovascular: R/R/R, No Murmurs, No S3/S4 gallops Abdominal: Soft, Non-tender, Non-distended, Normal bowel sounds Back: No deformity Extremity/Musculoskeletal: Non-tender Neuro: A&O X 3, Nonfocal, Motor grossly normal, Sensory grossly normal, Gait normal, Cerebellar nl - NIH Stroke Scale Level of Consciousness: alert, keenly responsive LOC Questions: answers both correctly LOC Commands: performs both correctly Best Gaze: normal Visual: no visual field loss Facial Palsy: normal symmetrical movements Motor Left Arm: no drift Motor Right Arm: no drift Motor Left Leg: no drift Motor Right Leg: no drift Limb Ataxia: absent Sensory: normal Aphasia: no aphasia Dysarthria: normal Extinction and Inattention: normal NIH Stroke Scale Total Score: 0 Triage Vital Signs: Temperature 98.2 F 06/25/23 14:08 Temperature Source Oral 06/25/23 14:08 Pulse Rate 91 H 06/25/23 14:08 Respiratory Rate 14 06/25/23 14:08 Blood Pressure 107/70 06/25/23 14:08 Blood Pressure Source Automatic Cuff 06/25/23 14:08 Blood Pressure Mean 82 06/25/23 14:08 Blood Pressure Position Supine 06/25/23 14:08 O2 Sat by Pulse Oximetry 96 06/25/23 14:08 Oxygen Delivery Method Room Air 06/25/23 14:08 Pain Intensity 4 06/25/23 14:08 Results/Orders - Results and Orders Result diagrams: 06/25/23 14:11 06/25/23 14:11 - Results and Orders Lab Testing & Results 06/25/23 14:11: WBC 7.5, RBC 4.94, Hgb 9.7 L, Hct 33.4 L, MCV 67.6 L, MCH 19.6 L, MCHC 29.0 L, RDW 20.7 H, Plt Count 407 H, Immature Gran % (Auto) 0.5, Neut % (Auto) 66.7, Lymph % (Auto) 23.7, Marshall % (Auto) 6.9, Eos % (Auto) 1.1, Baso % (Auto) 1.1, Neut # (Auto) 5.0, Lymph # (Auto) 1.8, Marshall # (Auto) 0.5, Eos # (Auto) 0.1, Baso # (Auto) 0.1, Immature Gran # (Auto) 0.04, Nucleated RBC % 0.0,Sodium 139, Potassium 4.0, Chloride 101, Carbon Dioxide 22 L, Anion Gap 16 H, BUN 11, Creatinine 0.7, Estimated Creat Clear 162.5, Estimated GFR 119, BUN/Creatinine Ratio 15.7, Glucose 91, Calcium 8.6, Magnesium 2.2, Total Bilirubin < 0.2, AST 19, ALT 16, Alkaline Phosphatase 51, Total Protein 6.7, Albumin 4.0, Albumin/Globulin Ratio 1.5, Salicylates < 1.0, Acetaminophen < 5, Serum Alcohol 115 H 06/25/23 18:58: Urine Opiates Screen Negative, Ur Buprenorphine Scrn Negative, Ur Oxycodone Screen Negative, Urine Methadone Screen Negative, Urine Fentanyl Screen Negative, Ur Amphetamines Screen Negative, U Benzodiazepines Scrn Negative, Urine Cocaine Screen Negative, U Cannabinoids Screen Negative Medications Ordered: Levetiracetam (Levetiracetam Iv 500 Mg/5 Ml Inj) 1,000 mg IV ONCE ONE Stop: 06/25/23 21:01 Thiamine HCl (Thiamine 200 Mg/2 Ml Inj) 200 mg IV DAILY [facility] Last Admin: 06/25/23 17:09 Dose: 200 mg Documented By: PIERO Discontinued Medications Diphenhydramine HCl (Diphenhydramine 50 Mg/Ml Inj) 50 mg IM ONCE ONE Stop: 06/25/23 20:31 Lorazepam (Lorazepam 2 Mg/Ml Inj) 2 mg IV ONCE ONE; Protocol Stop: 06/25/23 14:03 Last Admin: 06/25/23 14:03 Dose: 2 mg Documented By: EC Lorazepam (Lorazepam 2 Mg/Ml Inj) 2 mg IV ONCE ONE; Protocol Stop: 06/25/23 14:39 Last Admin: 06/25/23 14:43 Dose: 2 mg Documented By: EC Lorazepam (Lorazepam 2 Mg/Ml Inj) 2 mg IV ONCE ONE; Protocol Stop: 06/25/23 17:30 Last Admin: 06/25/23 17:57 Dose: Not Given Documented By: PIERO Midazolam HCl (Midazolam 2 Mg/2 Ml Inj) 2 mg IV ONCE ONE Stop: 06/25/23 20:01 Last Admin: 06/25/23 20:15 Dose: 2 mg Documented By: LYLA EKG Orders: EKG Orders 06/25/23 14:03 EKG ED Electrocardiogram Stat 06/25/23 20:31 EKG ED Electrocardiogram Stat Radiology Orders: Radiology Orders 06/25/23 14:11 CT head/brain wo contrast Stat MDM/COURSE Vital Signs Temperature 98.2 F 06/25/23 14:08 Pulse Rate 91 H 06/25/23 14:08 Respiratory Rate 14 06/25/23 14:08 Blood Pressure 107/70 06/25/23 14:08 O2 Sat by Pulse Oximetry 96 06/25/23 14:08 Temperature 98.2 F 06/25/23 14:08 Pulse Rate 105 H 06/25/23 20:20 Respiratory Rate 22 06/25/23 20:20 Blood Pressure 100/65 06/25/23 17:09 O2 Sat by Pulse Oximetry 95 06/25/23 20:20 Clinical Course: 06/25/23 15:52 I spoke with the hospitalist who consulted Dr. Juan neurology who recommended transfer to a facility that has continuous EEG to confirm whether in fact the patient was experiencing seizures or possible pseudo performed seizures. Dr. Kelly's phone number [phone]. While here in the ER patient was resting he did not require Ativan but he is sleeping now hemodynamically stable. CT head labs reviewed. 06/25/23 16:16 I spoke to the RN through the 500) line. There was no EEG availability. I willreach out some other hospitals to organize this 06/25/23 17:20 [employer] we spoke with [facility] none of these hospitals are accepting patients. We will continue to attempt to transfer 06/25/23 17:29 Patient is awake and saying that he feels like he is going to have a seizure. Vitals are normal. He is feeling anxious. SABRINA noted. The requesting Ativan. 06/25/23 20:01 Patient became agitated removed IV and attempted to leave the department. Stating he does not want to be here however he is slurring his speech and has not unsteady gait and received total of 4 mg of Ativan IV. I do not feel comfortable discharging the patient. He was placed in soft restraints given my concern for his well-being and safety. I have ordered IV Versed. Awaiting transfer 06/25/23 20:[address] Fulton , patient has been here for several hours no recurrent seizures stable history of substance abuse and I feel there was a lot of psychiatric overlay in his presentation. I have contacted multiple hospitals including [facility] and [facility] none of whom will accept the patient. I do not feel it is urgent for patient to be transferred. I spoke with Dr. Fulton (neurology)regarding the circumstances and he is comfortable with the patient staying here. He made some medication recommendations including increased dose of Keppra to 1000 mg b.i.d.. I have ordered a dose here Dr Fulton feels patient will need psychiatry consult while inpatient, add ammonia level, continue sabrina protocal, he will see patient tomorrow (Juanita Callahan) - [facility] Medical decision making narrative: 06/25/23 15:01 42-year-old male with history of bipolar alcohol abuse cocaine abuse presents with report of seizure. He was witnessed seizing in the [place] by the chemistry research assistant who gently labs look around and then nurse bystander witnessed the generalized tonic-clonic seizure lasting for about 2 minutes and he was brought to the ER. Differential is alcohol withdrawal electrolyte disarray ICH cocaine ingestion tox metabolic. CVA of note patient has a nonfocal neuro exam NIH stroke scale [address] of note I reviewed recent admissions in June which he is had 2 for similar presentation. He was treated empirically with Ativan she was somewhat agitated upon arrival to the ER and thiamine given his alcohol abuse. I reviewed records from Neurology evaluation as well as psychiatric evaluation from prior admission. Social determines healthcare include patient's homeless status. Diagnostic tests considered but not performed include MRI brain. Escalation of care considered unlikely will be necessary given his recurrent alcohol withdrawal seizure 06/25/23 17:30 (Juanita Callahan) Discharge Plan - Discharge Clinical Impression: Seizure Alcohol withdrawal syndrome Qualifiers: Complication of substance-induced condition: with unspecified complication Qualified Code(s): F10.939 - Alcohol use, unspecified with withdrawal, unspecified Disposition: Admitted as Inpatient Condition: Fair Prescriptions: [...] PO TID Qty: 90 RF: 0 levetiracetam 750 mg Tablet 750 mg PO Q12H Qty: 60 RF: 2 [...] PO QHS Qty: 30 RF: 0 Referrals: Pcp-Md Galeana MD [Primary Care Provider] - Print Language: Turkmen - Discharge Data Time Seen by Provider: 06/25/23 14:02 Dictated By: Juanita Callahan MD Signed By: Juanita Callahan MD 06/26/23 1128 DD/ 140 TD/TT: 06/25/23 140 [employer] Consultant: CHRIST cc: FARNAZ Perdomo Pcp-MD Lissett Progress Note Author Va Del Rio [facility] June 25, 2023 3:15pm Note Date/Time June 25, 2023 3:15pm [address] [address] [facility] Brief Communication Signed Patient: MAYELIN LESLIE Medical Record#: [id number] : 1980 Acct:[id number] Age/Sex: 42 / M Admit/Reg Date: 06/25/23 Loc: ED. Room: Report Number: [id number] Attending Dr: Juanita Callahan MD Limited Brief Communication Date of Encounter: 06/25/23 Limited Brief Communication: 42 year gentleman with past medical history significant for substance abuse disorder, alcohol . Homeless. Patient has had multiple admissions in June. Has had MRI of the brain as well as multiple CT scans. Most recently, patient was seen by Neurology as well as Psychiatry. Increasing the dose of Keppra and was seen by Psychiatry and was started on risperidone. Patient was discharged today from the hospital however on his way in the [facility], patient had a possible abnormal body movement and rapid response was called. Patient was given few doses of Ativan and was transferred to ER. Patient alert oriented Patient tells me that he having seizures. Discussed with Dr. Kirstin strong. Multiple psychiatry and neurology workup including MRI of the brain have been negative so far. Continues to have abnormal body movements on increased dose of antiseizure medications. Patient will need EEG to rule out seizures. Unfortunately we do not have any EEG availability. Recommended to ER to transferred to the tertiary care center with EEG availability Dictated By: Va Del Rio MD Signed By: Va Del Rio MD 06/25/231514 DD/ 12 TD/TT: 06/25/231512 [employer] Consultant: FRANCOISE cc: * Progress Note Author Tony Del Rio [facility] June 26, 2023 5:25pm Note Date/Time June 26, 2023 4:55pm [address] [address] [place] [address] General Medicine Progress Note Signed Patient: MAYELIN LESLIE Medical Record#: [id number] : 1980 Acct:[id number] Age/Sex: 42 / M Admit/Reg Date: 06/26/23 Loc: ED.[facility] Room: [address] [address] Report Number: [id number]: Tony Del Rio MD A&P Subsequent Impression: 42-year-old male with past medical history of alcohol abuse alcohol withdrawal seizure bipolar disorder fibromyalgia substance abuse cocaine use tobacco use status post gastric bypass surgery 7 years ago in [place] recent multiple hospitalization for alcohol withdrawal seizure who was discharged yesterday and however on his way in the [facility] patient had a possible abnormal body movement and rapid response was called and patient was given IV Ativan and was transferred to ER for seizure workup Patient is homeless Patient Keppra dose was increased to 750 mg p.o. daily prior to the discharge yesterday ED physician contacted multiple hospitals including [facility] and [facility] and patient was not accepted there than yearsphysician spoke with Dr. Fulton and the patient was admitted here Assessment and plan: 1. Recurrent seizures: Keppra was increased to 1000 mg p.o. b.i.d. patient had workup including MRI of the brain which was negative CT of the head showed no acute intracranial abnormality EEG was not available in the hospital Neurology consultation is pending Keppra level is pending Patient alcohol level yesterday was at 115 2. Alcohol abuse/dependence: Continue CIWA protocol 3. Chronic anxiety and depression: Continue Neurontin and risperidone Patient was seen by psych and the risperidone was increased to 2 mg p.o. b.i.d. Ongoing Medical Necessity: Neurology consultation Disposition Plan: Patient is homeless (1) Seizure Status: Acute Assessment and Plan: see above - Location and Group Information SMG-billable encounter: Yes Service location: inpatient Provider group: [facility] - E&M Encounter Coding Subsequent hospital care: Level 3 [address]609 Time-based billing attestation: - Attestation Attestation: I have reviewed all pertinent laboratory findings. Confirm Results Attestation: Yes Problem List Attestation Statement: I have documented a relevant problem and problem plan for this visit. Attending Confirm Problem: Yes Attending Problem List Check: Pass Subjective Date of Encounter: 06/26/23 Time of Encounter: 16:53 Subjective Details: Patient admitted with recurrent seizures Preferred Language: Turkmen Exam Vital signs: Temp Pulse Resp BP Pulse Ox 98.6 F 74 16 136/70 98 06/26/23 06:55 06/26/23 16:22 06/26/23 16:22 06/26/23 16:22 06/26/23 16:22 Body Mass Index (BMI): 30.1 Body Habitus: obese General Appearance: alert, oriented x 2 Head Exam: Present: normocephalic Eye Exam: Present: PERRL, EOMI ENT exam: Present: mucous membranes moist Neck exam: Present: normal inspection - Respiratory Exam Present: decreased breath sounds - Cardiovascular Exam Present: S1, S2 - Abdominal Exam Abdominal: Present: normal bowel sounds, soft, non-tender - Skin Exam Present: warm - Neurological Exam Present: alert, moving all extremities - Psychiatric Exam Present: normal affect, normal mood GM Results - Pertinent Lab Findings 06/26/23 07:38 06/26/23 07:38 Last 24 Hours - Abnormal 06/25/23 06/26/23 21:16 07:38 Hgb 8.8 L g/dl (13.0-17.0) Hct 30.3 L % (37.5-50.0) MCV 68.1 L fl (80.0-100.0) MCH 19.8 L pg (27.0-34.0) MCHC 29.0 L g/dl (31.0-36.0) RDW 19.8 H % (11.5-15.0) Carbon Dioxide 20 L mmol/L (23-32) Anion Gap 16 H mmol/L (5-15) Calcium 8.2 L mg/dl (8.6-10.3) Ammonia 12 L umol/L (16-60) GM Subsequent Quality Smoking Status: Former tobacco user VTE Risk Level: Moderate Restraint Assessments: Restraint NonViolent/Non-Self Destruct Start: 06/25/23 20:00 Freq: Q2HX12 Status: Active Protocol: Activity Type Activity Date Activity User E-sign Co-sign Detail Recorded Client Recorded Date Recorded By Document 06/25/23 23:00 [id number] 06/25/23 23:05 BJ 06/25/23 23:00 [id number]-Jyb-Riqhafu/Non-Self Destruct Alternatives to Restraint Constant Observation, Deescalation, Non-Threatening Approach Restraint Application MD Order Date if MD Notified 06/25/23 Time if MD Notified 08:00 Date Restraint Applied 06/25/23 Time Restraint Applied 08:00 Education About Restraint Provided To Patient Reason for Restraint Pulling Tubes/ Lines/Dressings ,Confusion Impacting Care, Behavior Impeding Care Describe Behavior, Actions and/or confuse, Confusion Reason unsteady gait. A&Ox1 Other Type of Restraint 4 points Pulse Ox Machine -Pulse Rate (60-90) 85 Pulse Oximetry (95-100) 95 Oxygen Delivery Method Room Air Signs of Injury Related to Restraint No Re-assessment Completed Yes Checked for Pain, Discomfort Yes Check Skin Condition and Circulation Yes Offered/Provided Food/Beverage Yes Offered/Provided ROM/Exercise/ Yes Repositioned Offered/Provided Diversion/Activity Yes - Patient Rights Does Pt Have an Advanced Directive for End of Life Issues?: No Does Patient Have a Health Care Proxy?: No Dictated By: Tony Del Rio MD Signed By: Tony Del Rio MD 06/26/23 1725 DD/ 52 TD/TT: 06/26/231652 [employer] Consultant: URI cc: BRANDON Del Rio MD
--- OUTSIDE RECORDS SUMMARY | 2024-01-16 19:35 | XMS_ITS | Continuity of Care Document ---
Author Organization [facility] Address [address] [place] [address] Phone Care Team Providers Care Chairman And Chief Executive Officer Name Role Phone E/R Physician, E Emergency Provider Unavailable BRAD BYRNE Primary Care Provider Care Teams Patient Care Team Team Status: Active Member Role Status Dates BRAD BYRNE Primary Care Provider Active Visit Care Team Team Status: Inactive Member Role Status Dates E E/R Physician Emergency Provider Active Start: April 21, 2023 End: April 22, 2023 CHAVEZ SALINAS Primary Care Provider Active Start: April 21, 2023 End: April 22, 2023 Chief Complaint and Reason for Visit Chief Complaint shortness of breath edema low legs Allergies, Adverse Reactions, Alerts No known allergies Social History Smoking Status Unknown if ever smoked Additional Data Assigned Sex Male Procedures Procedure Date Performed Status CT angio chest with contrast April 21, 2023 4:46pm completed EKG ED Electrocardiogram April 21, 2023 4:46 pm active US venous duplex LE BI April 21, 2023 4:46pm completed Relevant Diagnostic Tests and/or Laboratory Data Laboratory Results Test Date/Time Result Interpretation Reference Range Result Comment Performing Site White Blood Count April 21, 2023 7:12pm 6.6 X10 3/uL 4.5-11.0 [facility] [id number] [address] [facility] [id number] Red Blood Count April 21, 2023 7:12pm 4.40 X10 6/uL 4.00-5.50 [facility] [id number] 235 [facility] 24947 Hemoglobin April 21, 2023 7:12pm 8.1 g/dl 13.0-17.0 [facility] [id number] [address] [place] [address] 87766 Hematocrit April 21, 2023 7:12pm 28.7 % 37.5-50.0 [facility] [id number] [address] [place] [address] 89288 Mean Corpuscular Volume April 21, 2023 7:12pm 65.2 fl 80.0-100.0 [facility] [id number] [address] [place] [address] 04577 Mean Corpuscular Hemoglobin April 21, 2023 7:12pm 18.4 pg 27.0-34.0 [facility] [id number] [address] [place] [address] 65759 Mean Corpuscular Hemoglobin Concent April 21, 2023 7:12pm 28.2 g/dl 31.0-36.0 [facility] [id number] [address] [place] [address] 56001 Red Cell Distribution Width April 21, 2023 7:12pm 16.7 % 11.5-15.0 [facility] [id number] [address] [place] [address] 68036 Platelet Count April 21, 2023 7:12pm 373 X10 3/uL 150-400 [facility] [id number] [address] [place] [address] 90281 Immature Granulocyte % (Auto) April 21, 2023 7:12pm 0.2 % [facility] [id number] [address] [place] [address] 49297 Neutrophils (%) (Auto) April 21, 2023 7:12pm 60.4 % [facility] [id number] [address] [place] [address] 67295 Lymphocytes (%) (Auto) April 21, 2023 7:12pm 29.6 % [facility] [id number] [address] [place] [address] 57768 Monocytes (%) (Auto) April 21, 2023 7:12pm 6.6 % [facility] [id number] [address] [place] [address] 17154 Eosinophils (%) (Auto) April 21, 2023 7:12pm 2.0 % [facility] [id number] [address] [place] [address] 01703 Basophils (%) (Auto) April 21, 2023 7:12pm 1.2 % [place] [id number] [address] [place] [address] 96767 Immature Granulocyte # (Auto) April 21, 2023 7:12pm 0.01 X10 3/uL 0.00-0.09 [facility] [id number] [place] [address] 45172 Neutrophils # (Auto) April 21, 2023 7:12pm 4.0 X10 3/uL 1.5-7.8 [address] [place] [address] 94006 Lymphocytes # (Auto) April 21, 2023 7:12pm 2.0 X10 3/uL 1.0-4.8 [address] [place] [address] 20279 Monocytes # (Auto) April 21, 2023 7:12pm 0.4 X10 3/uL 0.0-0.8 [place] [id number] [place] [address] 79280 Eosinophils # (Auto) April 21, 2023 7:12pm 0.1 X10 3/uL 0.0-0.5 [place] [id number] [address] [place] [address] 43119 Basophils # (Auto) April 21, 2023 7:12pm 0.1 X10 3/uL 0.0-0.2 [place] [id number] [address] [place] [address] 34640 Nucleated Red Blood Cells % April 21, 2023 7:12pm 0.0 /100 WBC 0.0-0.0 [address] [place] [address] 28501 Prothrombin Time April 21, 2023 7:12pm 11.2 Seconds 9.3-12.1 [place] [id number] [place] [address] 99900 Prothromb Time International Ratio April 21, 2023 7:12pm 1.1 0.9-1.2 Reference Interval is for non-anticoagul ated patients.Brett alejandro INR Therapeutic Range for Vitamin K antogonist therapy:LEVELS OF THERAPY INDICATIONS TARGET INR RANGEStandard Dose Venous Thrombosis, 2.0 - 3.0 Atrial Fibrillation, Pulmonary Embolism. High Dose Valvular Heart Disease, 2.5 - 3.5 Mechanical Heart, Intracardiac Thrombosis. [facility] [id number] [address] [place] [address] 29152 Activated Partial Thromboplast Time April 21, 2023 7:12pm 26.4 Seconds 23.9-32.8 [facility] [id number] [address] [place] [address] 23702 Sodium Level April 21, 2023 7:12pm 140 mmol/L 137-146 [facility] [id number] [address] [place] [address] 56707 Potassium Level April 21, 2023 7:12pm 4.5 mmol/L 3.5-5.3 [facility] [id number] [address] [place] [address] 51416 Chloride Level April 21, 2023 7:12pm 102 mmol/L 98-107 [facility] [id number] [address] [place] [address] 80640 Carbon Dioxide Level April 21, 2023 7:12pm 26 mmol/L -32 [facility] [id number] [address] [place] [address] 77171 Anion Gap April 21, 2023 7:12pm 12 mmol/L -15 [facility] [id number] [address] [place] [address] 40621 Blood Urea Nitrogen April 21, 2023 7:12pm 9 mg/dl - [facility] [id number] [address] [place] [address] 78921 Creatinine April 21, 2023 7:12pm 0.8 mg/dL 0.6-1.4 [facility] [id number] [address] [place] [address] 26689 Estimated Creatinine Clearance April 21, 2023 7:12pm 144.6 ml/min This value is calculated by Cockcroft Gault Equation using ideal body weight. This result is dependent on an accurate patient height and weight which is obtained from patients medical record. Cockcroft, D.W. and M.H. Gault. Prediction of creatinine clearance from serum creatinine. Nephron. 1976. 16(1):31-41. [facility] [id number] [address] [place] [address] Estimat Glomerular Filtration Rate April 21, 2023 7:12pm 115 >90 Reported eGFR is based on the CKD-EPI 2020 equation that does not use a race coefficient. Additional information can be found at:[id number]_ [email or web address] ([email or web address]) [facility] [id number] [address] [place] [address] BUN/Creatinine Ratio April 21, 2023 7:12pm 11.3 10.0-20.0 [place] [id number] [place] [address] Glucose Level April 21, 2023 7:12pm 94 mg/dL 70-100 [facility] [id number] [address] [place], [place] [address] Calcium Level April 21, 2023 7:12pm 8.6 mg/dl 8.6-10.3 [facility] [id number] [place] [address] 97652 Total Bilirubin April 21, 2023 7:12pm < 0.2 mg/dl <1.1 [place] [id number] [place] [address] Aspartate Amino Transf (AST/SGOT) April 21, 2023 7:12pm 20 U/L 15-41 [place] [id number] [address] [place] [address] 20479 Alanine Aminotransferase (ALT/SGPT) April 21, 2023 7:12pm 17 U/L 14-63 [address] [place] [address] 87708 Troponin T High Sensitivity April 21, 2023 [...] the MARCELLE score for the inpatient setting). [facility] [id number] [address] [place] [address] 95893 Total Protein April 21, 2023 7:12pm 6.7 g/dL 6.4-8.3 [facility] [id number] [address] [place] [address] 06588 Albumin April 21, 2023 7:12pm 4.3 g/dl 4.0-5.0 [facility] [id number] [address] [place] [address] 90289 Albumin/Globulin Ratio April 21, 2023 7:12pm 1.8 1.0-2.6 [facility] [id number] [address] [place] [address] 93658 Alkaline Phosphatase April 21, 2023 7:12pm 46 U/L 40-129 [place] [id number] [address] [place] [address] 85349 Diagnostic Imaging Reports Author Tej Bryant [facility] April 21, 2023 6:03pm Report Date/Time April 21, 2023 6 :07pm [address] [address] Patient Name: MAYELIN LESLIE Medical Record#: [id number] Address: City/State/Zip: Attending Dr: Ming Lai/R Jasmeet lopez Insurance: Self Pay /Age/Sex: 1980/42/M Admit/Reg Date: 04/21/[address]: RAFAEL Mejía Location: ED.WAITGS/ PCP: Date of Service: 04/21/23 Order (s): US venous duplex LE BI CPT Code: 26680 Report Number: [id number] Reason for Exam: b/l lower ext swelling, hx of dvt CLINICAL HISTORY: Patient with bilateral lower extremity swelling. Please evaluate. TECHNIQUE: 2-D and Doppler ultrasound of the Right and Left lower extremities. FINDINGS: Right leg: There is normal Doppler flow and compression without evidence of any filling defect or thrombus in the common femoral vein, superficial femoral vein,deep femoral vein, greater saphenous vein and popliteal vein. There is no evidence of any obvious thrombus in the visualized calf veins. Left leg: There is normal Doppler flow and compression without evidence of any filling defect or thrombus in the common femoral vein, superficial femoral vein,deep femoral vein, greater saphenous vein and popliteal vein. There is no evidence of any obvious thrombus in the visualized calf veins. IMPRESSION: 1. There is no evidence of any deep venous thrombosis in the right lower extremity. 2. There is no evidence of any deep venous thrombosis in the left lower extremity. Dictated By: Tej Bryant MD 04/21/231750 Signed By: Tej Bryant MD 04/21/231806 TD/TT: 04/21/231750Tech: [id number] cc: E/R; [id number]* RAFAEL Nolan; E/R Physician,E Author Tej Bryant [facility] April 21, 2023 7:25pm Report Date/Time April 21, 2023 7 :29pm [address] [address] Patient Name: MAYELIN LESLIE Medical Record#: [id number] Address: [address] City/State/Zip: [place] [address]: Ming E/R Sarahi tena Insurance: Medicaid [place] /Age/Sex: 1980/42/M Self Pay Admit/Reg Date: 04/21/[address]: Shweta berrios, RAFAEL Location: ED.WAITGS/ PCP: PcpSanjay Vasquez Md Date of Service: 04/21/23 Order (s): CT angio chest with contrast CPT Code: 36682 Report Number: [id number] Reason for Exam: cp sob hx of [...] the same workstation. Sagittal and coronal reformat reconstructionswere also obtained. Soft tissue tissue, bone and lung windows were also obtainedon the same workstation. FINDINGS: No prior studies [...] of any mass, consolidation, infiltrate or pleural effusion.Mild dependent atelectasis is noted. There is no evidence of any pneumothorax. The visualized portion of the thyroid gland is grossly intact. There is no evidence of any axillary adenopathy. The visualized abdominal viscera are grossly unremarkable for acute abnormality.There is no evidence of any adrenal mass [...] By: Tej Bryant MD 04/21/231928 TD/TT: 04/21/231920Tech: [id number] cc: E/R; PCPNS; [id number]* Shweta Collins PAC; E/R Physician,E ; BRAD BYRNE Vital Signs Vital Reading Result Reference Range Collection Date/Time Height 180.34 cm April 21, 2 023 4:40pm Weight 95.25 kg April 21, 2 023 4:40pm Body Temperature 95 [degF] 97.6-99.6 April 6:00pm Heart Rate 83 /min 60-90 April 21, 023 6:00pm Respiratory rate 18 /min 12-April 6:00pm Oxygen saturation by Pulse oximetry 98 % 95-100 April 21, 2023 6 :00pm BP Systolic 118 mm[Hg] 90-140 April 21, 2 023 6:00pm BP Diastolic 63 mm[Hg] 60-90 April 21, 2 023 6:00pm BMI (Body Mass Index) 29.3 kg/m2 Octobe r 2022 4:40pm Advance Directives Advance Directive Response Recorded Date/ Time Advance Directives No April 21, 2023 4:02pm Health Care Proxy No April 21, 2023 4:02pm Insurance Providers Guarantor MAYELIN LESLIE Address [place] [address] [place] [address] Contact Info. Home Phone: Payer Policy Id Coverage Id Subscriber's Name Subscriber Id Effective Date Expiration Date Commercial Other [id number] MAYELIN LESLIE [id number] Medicaid [place] [id number] MAYELIN LESLIE [id number] Encounters Encounter Location(s) Arrival/Admit Date Discharge/Depart Date Provider(s) Departed Emergency [facility]-Emergency Dept Waiting Area April 21, 2023 4:01pm April 22, 2023 1:15am null Plan of Treatment Future Tests Future scheduled test information is unavailable Pending Tests Test Name Ordered Date Scheduled Date Troponin T High Sensitivity April 21, 2023 6 :00am Troponin T High Sensitivity April 21, 2023 6 :00am Future Visits Future appointment information is unavailable Referrals to Other Providers Reason for Referral Referral Start Date Provider Provider Contact Information Provider Address BRAD ISNGHWISAMMingDaneSIRILARRY Work Phone: [address] [place] [address] Future Procedures Procedure Name Ordered Date Scheduled Date Troponin T High Sensitivity April 21, 2023 4 :46pm April 21, 2023 6:00am Troponin T High Sensitivity April 21, 2023 4 :46pm April 21, 2023 6:00am EKG ED Electrocardiogram April 21, 2023 4:46 pm April 21, 2023 4:46pm Peripheral IV Insert/Manage April 21, 2023 4 :46pm April 21, 2023 4:46pm Future Medications Future medication information is unavailable Patient Instructions Patient instructions are unavailable
--- OUTSIDE RECORDS SUMMARY | 2024-01-16 19:35 | XMS_ITS | Continuity of Care Document ---
Author Organization [facility] Address [address] [place] [address] Phone Care Team Providers Care Animal Health Technician Name Role Phone Pcp-MD Archie Galeana Primary Care Provider Unavailabl e Hospitalist, Model (IS ONLY) Emergency Provider Unavailable MD Krzysztof So Other Provider MD Zeke Perkins Attending Provider DO Lizandro Sandhu Emergency Provider MD Jen Rausch Attending Provider MD Kulwinder Zuniga Other Provider [phone] MD Juanita Callahan Emergency Provider Unavailable Care Teams Patient Care Team Team Status: Active Member Role Status Dates Pcp-MD Lissett Primary Care Provider Active Visit Care Team Team Status: Inactive Member Role Status Dates PcpMD Mariaa Primary Care Provider Active St art: June 16, 2023 End: June 19, 2023 Model (IS ONLY) Hospitalist Emergency Provider Active Start: June 16, 2023 End: June 19, 2023 Jen Kelley MD Admit Provider Active Start: Christiana mb 2022 End: June 19, 2023 Krzysztof So [...] Status: Inactive Member Role Status Dates Pcp-None MD Primary [...] June 20, 2023 End: June 25, 2023 Patient Care Team Team Status: Active Member Role Status Dates PcpMD Mariaa Primary Care Provider Active St art: June 25, 2023 Juanita Callahan MD Emergency Provider Active Start : June 25, 2023 Chief Complaint and Reason for Visit Chief Complaint ALCOHOL WITHDRAWAL S EIZURE UNRESPONSIVE ALTERED MENTAL STATUS SEIZURE Reason for Visit Bipolar disorder Cocaine use with intoxication, uncomplicated Alcoholism Seizure disorder Alcohol withdrawal seizure Hypomagnesemia Hyponatremia Alcohol intoxication Alcohol withdrawal Bipolar 1 disorder Bipolar disorder Wernicke encephalopathy Alcohol abuse Alcoholism Anemia Seizure disorder Allergies, Adverse Reactions, Alerts No known allergies Social History Smoking Status Status Start Date End Date Date of Observa tion Unknown if ever smoked Decem 2022 2:51pm Observation Status Observation Response Date of Response Living Situation Skilled Nursing June 17, 2023 8:35am Living Situation Other June 23, 2023 11:35am Lives With Other June 23, 023 2:51pm Living Situation Homeless June 25, 2023 2:48pm Additional Data Assigned Sex Male Problems Active Problems Medical Problem Onset Date Status Wernicke encephalopathy Active Alcohol abuse Active Alcohol withdrawal Active Alcohol intoxication Active Alcoholism Active Anemia Active Bipolar disorder Active Cocaine use with intoxication, uncomplicated Active Seizure disorder Active Patient denies significant medical history Active [...] 25 MG PO ONCE DAILY AT BEDTIME [facility] r 2022 12:00am Decemb er 2022 9:55am Levetiracetam Disconti nued 500 MG PO TWICE A DAY [facility] r 2022 12:00am Decemb er 2022 9:23am Sertraline Active 100 MG PO DAILY [facility] r 2022 12:00am Clobetasol Disconti nued 1 APPL TOPICAL DAILY [facility] r 2022 12:00am Decemb er 2022 9:55am Gabapentin Disconti nued 800 MG PO THREE TIMES A DAY [facility] r 2022 12:00am Decemb er 2022 9:55am Meclizine Disconti nued 25 MG PO THREE TIMES A DAY [facility] r 2022 12:00am Decemb er 2022 9:45am Azelastine Disconti nued 2 SPRAY intrana sol TWICE A DAY [facility] r 2022 12:00am Decemb er 2022 8:37am Escitalopram Oxalate Disconti nued 10 MG PO DAILY [facility] r 2022 12:00am Decemb er 2022 9:55am Thiamine Hcl (Vitamin B1) Disconti nued 100 MG PO DAILY 30 [facility] 2022 12:00am Decemb er 2022 8:37am OTC/Good Rx if not covered Levetiracetam Disconti nued 500 MG PO TWICE A DAY 180 90 [facility] 2022 9:23am Decemb er 2022 9:28am Trazodone Active 50 MG PO ONCE DAILY AT BEDTIME [facility] 2022 12:00am Thiamine Hcl (Vitamin B1) Active 100 MG PO DAILY 30 [facility] 2022 12:00am Nicotine Active 1 PATCH TRANSDE RM DAILY 20 Decee r 2022 12:00am Folic Acid Active 1 MG PO DAILY 30 Decemb e r 2022 12:00am Risperidone Active 1 MG PO TWICE A DAY 60 Decembe r 2022 12:00am Acetaminophen Active 650 MG PO EVERY 6 HOURS Decee r 2022 12:00am Levetiracetam Active 750 MG PO EVERY 12 HOURS 60 Decee r 2022 12:00am Multivitamin With Folic Acid (Thera) 400 mcg Tablet Active 1 TAB PO DAILY 30 Decembe r 2022 12:00am Sennosides (Senna Lax) 8.6 mg Tablet Active 17.2 MG PO ONCE DAILY AT BEDTIME 60 Decee r 2022 12:00am Omeprazole Active 20 MG PO DAILY 30 Decemb e r 2022 12:00am Quetiapine Active 25 MG PO ONCE SOHA Y AT BEDTIME 30 [facility] 2022 9:55am Sertraline Active 100 MG PO DAILY 30 Decemb e r 2022 9:55am Clobetasol Active 1 APPL TOPICAL DAILY 30 Dece be r 2022 9:55am Gabapentin Active 800 MG PO THREE MARY ES A DAY 90 [facility] 2022 9:55am Escitalopram Oxalate Active 10 MG PO DAILY 30 Decee r 2022 9:55am Levetiracetam Disconti nued 1000 MG PO ONCE DAILY AT BEDTIME [facility] 2022 12:00am [facility] 2022 9:51am Procedures Procedure Date Performed Status CT head/brain [...] ED Electrocardiogram June 20, 2023 10: 10pm active CT cervical spine wo contrast June 20 10:16pm completed CT head/brain wo contrast June 20, 2023 1: 17am completed EKG ED Electrocardiogram June 20, 2023 1:1 6am completed MR head/brain wo/w contrast June 20, 2023 10:54am completed EKG ED Electrocardiogram June 25, 2023 2:[address] head/brain wo contrast June 25, 2023 2: 11pm active Relevant Diagnostic Tests and/or Laboratory Data Laboratory Results Test Date/Time Result Interpretation Reference Range Result Comment Performing Site Add-On Test Request June 18, 2023 11:40am Added test [facility] [id number] [address] [place] [address] 32399 Add-On Test Request June 20, 2023 2:42am Unable to add test [facility] [id number] [address] [place] [address] 68937 Add-On Test Request June 23, 2023 10:14am Added test [facility] [id number] [address] [place] [address] 18021 White Blood Count June 17, 2023 5:43am 7.9 X10 3/uL 4.5-11.0 [facility] [id number] [address] [place] [address] 65678 White Blood Count June 19, 2023 11:45pm 8.8 X10 3/uL 4.5-11.0 [facility] [id number] [address] [place] [address] 72025 White Blood Count June 22, 2023 8:41am 5.9 X10 3/uL 4.5-11.0 [facility] [id number] [address] [place] [address] 46937 White Blood Count June 25, 2023 2:11pm 7.5 X10 3/uL 4.5-11.0 [facility] [id number] [address] [place] [address] 26036 Red Blood Count June 17, 2023 5:43am 4.82 X10 6/uL 4.00-5.50 [facility] [id number] [address] [place] [address] 69690 Red Blood Count June 19, 2023 11:45pm 5.32 X10 6/uL 4.00-5.50 [facility] [id number] [address] [place] [address] 52682 Red Blood Count June 22, 2023 8:41am 5.27 X10 6/uL 4.00-5.50 [facility] [id number] [address] [place] [address] 12508 Red Blood Count June 25, 2023 2:11pm 4.94 X10 6/uL 4.00-5.50 [facility] [id number] [address] [place] [address] 08664 Hemoglobin June 17, 2023 5:43am 9.4 g/dl 13.0-17.0 [facility] [id number] [address] [place] [address] 59315 Hemoglobin June 19, 2023 11:45pm 10.3 g/dl 13.0-17.0 [facility] [id number] [address] [place] [address] 96343 Hemoglobin June 22, 2023 8:41am 10.2 g/dl 13.0-17.0 [facility] [id number] [address] [place] [address] 20783 Hemoglobin June 25, 2023 2:11pm 9.7 g/dl 13.0-17.0 [facility] [id number] [address] [place] [address] 00313 Hematocrit June 17, 2023 5:43am 31.8 % 37.5-50.0 [facility] [id number] [address] [place] [address] 15521 Hematocrit June 19, 2023 11:45pm 35.3 % 37.5-50.0 [facility] [id number] [address] [place] [address] 43793 Hematocrit June 22, 2023 8:41am 35.3 % 37.5-50.0 [facility] [id number] [address] [place] [address] 38581 Hematocrit June 25, 2023 2:11pm 33.4 % 37.5-50.0 [facility] [id number] [address] [place] [address] 76229 Mean Corpuscular Volume June 17, 2023 5:43am 66.0 fl 80.0-100.0 [facility] [id number] [address] [facility] 19497 Mean Corpuscular Volume June 19, 2023 11:45pm 66.4 fl 80.0-100.0 [facility] [id number] [address] [facility] 37840 Mean Corpuscular Volume June 22, 2023 8:41am 67.0 fl 80.0-100.0 [facility] [id number] [address] [facility] 74293 Mean Corpuscular Volume June 25, 2023 2:11pm 67.6 fl 80.0-100.0 [facility] [id number] [address] [facility] 98429 Mean Corpuscular Hemoglobin June 17, 2023 5:43am 19.5 pg 27.0-34.0 [facility] [id number] [address] [facility] 04735 Mean Corpuscular Hemoglobin June 19, 2023 11:45pm 19.4 pg 27.0-34.0 [facility] [id number] [address] [facility] 90411 Mean Corpuscular Hemoglobin June 22, 2023 8:41am 19.4 pg 27.0-34.0 [facility] [id number] [address] [facility] 25066 Mean Corpuscular Hemoglobin June 25, 2023 2:11pm 19.6 pg 27.0-34.0 [facility] [id number] [address] [facility] 94003 Mean Corpuscular Hemoglobin Concent June 17, 2023 5:43am 29.6 g/dl 31.0-36.0 [facility] [id number] [address] [facility] 87993 Mean Corpuscular Hemoglobin Concent June 19, 2023 11:45pm 29.2 g/dl 31.0-36.0 [facility] [id number] [address] [facility] 27345 Mean Corpuscular Hemoglobin Concent June 22, 2023 8:41am 28.9 g/dl 31.0-36.0 [facility] [id number] [address] [facility] 48685 Mean Corpuscular Hemoglobin Concent June 25, 2023 2:11pm 29.0 g/dl 31.0-36.0 [facility] [id number] [address] [facility] 53065 Red Cell Distribution Width June 17, 2023 5:43am 21.3 % 11.5-15.0 [facility] [id number] [address] [facility] 64367 Red Cell Distribution Width June 19, 2023 11:45pm 21.1 % 11.5-15.0 [facility] [id number] [address] [place] [address] 64858 Red Cell Distribution Width June 22, 2023 8:41am 21.0 % 11.5-15.0 [facility] [id number] [address] [place] [address] 18313 Red Cell Distribution Width June 25, 2023 2:11pm 20.7 % 11.5-15.0 [facility] [id number] [address] [facility] 87585 Platelet Count June 17, 2023 5:43am 334 X10 3/uL 150-400 [facility] [id number] [address] [facility] 42571 Platelet Count June 19, 2023 11:45pm 353 X10 3/uL 150-400 [facility] [id number] [address] [place] [address] 59877 Platelet Count June 22, 2023 8:41am 356 X10 3/uL 150-400 [facility] [id number] [address] [facility] 60866 Platelet Count June 25, 2023 2:11pm 407 X10 3/uL 150-400 [facility] [id number] [address] [place] [address] 34416 Immature Granulocyte % (Auto) June 17, 2023 5:43am 0.1 % [facility] [id number] [address] [facility] 07661 Immature Granulocyte % (Auto) June 19, 2023 11:45pm 0.2 % [facility] [id number] [address] [place] [address] 99289 Immature Granulocyte % (Auto) June 22, 2023 8:41am 0.2 % [facility] [id number] [address] [place] [address] 49212 Immature Granulocyte % (Auto) June 25, 2023 2:11pm 0.5 % [facility] [id number] [address] [place] [address] 92794 Neutrophils (%) (Auto) June 17, 2023 5:43am 60.4 % [facility] [id number] [address] [place] [address] 65231 Neutrophils (%) (Auto) June 19, 2023 11:45pm 74.5 % [place] [id number] [place] [address] 28021 Neutrophils (%) (Auto) June 22, 2023 8:41am 64.7 % [place] [id number] [address] [place] [address] 41852 Neutrophils (%) (Auto) June 25, 2023 2:11pm 66.7 % [facility] [id number] [address] [place] [address] 75097 Lymphocytes (%) (Auto) June 17, 2023 5:43am 26.2 % [place] [id number] [address] [place] [address] 76421 Lymphocytes (%) (Auto) June 19, 2023 11:45pm 16.9 % [place] [id number] [address] [place] [address] 25439 Lymphocytes (%) (Auto) June 22, 2023 8:41am 20.6 % [facility] [id number] [address] [place] [address] 76906 Lymphocytes (%) (Auto) June 25, 2023 2:11pm 23.7 % [place] [id number] [address] [place] [address] 70663 Monocytes (%) (Auto) June 17, 2023 5:43am 8.6 % [facility] [id number] [address] [place] [address] 00301 Monocytes (%) (Auto) June 19, 2023 11:45pm 6.1 % [place] [id number] [address] [place] [address] 97169 Monocytes (%) (Auto) June 22, 2023 8:41am 9.5 % [place] [id number] [address] [place] [address] 72343 Monocytes (%) (Auto) June 25, 2023 2:11pm 6.9 % [place] [id number] [place] [address] 40379 Eosinophils (%) (Auto) June 17, 2023 5:43am 3.7 % [place] [id number] [place] [address] 80447 Eosinophils (%) (Auto) June 19, 2023 11:45pm 1.2 % [id number] [place] [address] 16217 Eosinophils (%) (Auto) June 22, 2023 8:41am 3.6 % [address] [place] [address] 23125 Eosinophils (%) (Auto) June 25, 2023 2:11pm 1.1 % [place] [id number] [address] [place] [address] 57115 Basophils (%) (Auto) June 17, 2023 5:43am 1.0 % [place] [id number] [address] [place] [address] 30023 Basophils (%) (Auto) June 19, 2023 11:45pm 1.1 % [place] [id number] [address] [place] [address] 33744 Basophils (%) (Auto) June 22, 2023 8:41am 1.4 % [place] [id number] [address] [place] [address] 72477 Basophils (%) (Auto) June 25, 2023 2:11pm 1.1 % [place] [id number] [place] [address] 13208 Immature Granulocyte # (Auto) June 17, 2023 5:43am 0.01 X10 3/uL 0.00-0.09 [place] [id number] [place] [address] 60030 Immature Granulocyte # (Auto) June 19, 2023 11:45pm 0.02 X10 3/uL 0.00-0.09 [facility] [id number] [address] [place] [address] 36750 Immature Granulocyte # (Auto) June 22, 2023 8:41am 0.01 X10 3/uL 0.00-0.09 [facility] [id number] [address] [place] [address] 03899 Immature Granulocyte # (Auto) June 25, 2023 2:11pm 0.04 X10 3/uL 0.00-0.09 [facility] [id number] [address] [place] [address] 48991 Neutrophils # (Auto) June 17, 2023 5:43am 4.8 X10 3/uL 1.5-7.8 [facility] [id number] [address] [place] [address] 96272 Neutrophils # (Auto) June 19, 2023 11:45pm 6.6 X10 3/uL 1.5-7.8 [facility] [id number] [address] [place] [address] 77591 Neutrophils # (Auto) June 22, 2023 8:41am 3.8 X10 3/uL 1.5-7.8 [facility] [id number] [address] [place] [address] 45275 Neutrophils # (Auto) June 25, 2023 2:11pm 5.0 X10 3/uL 1.5-7.8 [facility] [id number] [address] [place] [address] 86594 Lymphocytes # (Auto) June 17, 2023 5:43am 2.1 X10 3/uL 1.0-4.8 [facility] [id number] [address] [place] [address] 08394 Lymphocytes # (Auto) June 19, 2023 11:45pm 1.5 X10 3/uL 1.0-4.8 [facility] [id number] [address] [place] [address] 82770 Lymphocytes # (Auto) June 22, 2023 8:41am 1.2 X10 3/uL 1.0-4.8 [facility] [id number] [address] [place] [address] 48319 Lymphocytes # (Auto) June 25, 2023 2:11pm 1.8 X10 3/uL 1.0-4.8 [place] [id number] [address] [place] [address] 81487 Monocytes # (Auto) June 17, 2023 5:43am 0.7 X10 3/uL 0.0-0.8 [place] [id number] [place] [address] 29664 Monocytes # (Auto) June 19, 2023 11:45pm 0.5 X10 3/uL 0.0-0.8 [facility] [id number] [place] [address] 52087 Monocytes # (Auto) June 22, 2023 8:41am 0.6 X10 3/uL 0.0-0.8 [place] [id number] [place] [address] 98024 Monocytes # (Auto) June 25, 2023 2:11pm 0.5 X10 3/uL 0.0-0.8 [facility] [id number] [address] [place] [address] 93921 Eosinophils # (Auto) June 17, 2023 5:43am 0.3 X10 3/uL 0.0-0.5 [place] [id number] [address] [place] [address] 42020 Eosinophils # (Auto) June 19, 2023 11:45pm 0.1 X10 3/uL 0.0-0.5 [place] [id number] [address] [place] [address] 69695 Eosinophils # (Auto) June 22, 2023 8:41am 0.2 X10 3/uL 0.0-0.5 [place] [id number] [place] [address] 14918 Eosinophils # (Auto) June 25, 2023 2:11pm 0.1 X10 3/uL 0.0-0.5 [place] [id number] [address] [place] [address] 02258 Basophils # (Auto) June 17, 2023 5:43am 0.1 X10 3/uL 0.0-0.2 [facility] [id number] [address] [facility] 07962 Basophils # (Auto) June 19, 2023 11:45pm 0.1 X10 3/uL 0.0-0.2 [facility] [id number] [address] [place] [address] 94352 Basophils # (Auto) June 22, 2023 8:41am 0.1 X10 3/uL 0.0-0.2 [facility] [id number] [address] [place] [address] 66311 Basophils # (Auto) June 25, 2023 2:11pm 0.1 X10 3/uL 0.0-0.2 [facility] [id number] [address] [place] [address] 45933 Nucleated Red Blood Cells % June 17, 2023 5:43am 0.0 /100 WBC 0.0-0.0 [facility] [id number] [address] [place] [address] 91264 Nucleated Red Blood Cells % June 19, 2023 11:45pm 0.0 /100 WBC 0.0-0.0 [facility] [id number] [address] [place] [address] 66902 Nucleated Red Blood Cells % June 22, 2023 8:41am 0.0 /100 WBC 0.0-0.0 [facility] [id number] [address] [place] [address] 44791 Nucleated Red Blood Cells % June 25, 2023 2:11pm 0.0 /100 WBC 0.0-0.0 [facility] [id number] [address] [place] [address] 96155 Sodium Level June 19, 2023 6:49am 142 mmol/L 137-146 [facility] [id number] [address] [place] [address] 30127 Sodium Level June 19, 2023 11:45pm 135 mmol/L 137-146 [facility] [id number] [address] [place] [address] 31495 Sodium Level June 23, 2023 6:12am 138 mmol/L 137-146 [facility] [id number] [address] [place] [address] 32203 Sodium Level June 25, 2023 2:11pm 139 mmol/L 137-146 [facility] [id number] [address] [facility] 00026 Potassium Level June 19, 2023 6:49am 3.9 mmol/L 3.5-5.3 [facility] [id number] [address] [facility] 25279 Potassium Level June 19, 2023 11:45pm 4.1 mmol/L 3.5-5.3 [facility] [id number] [address] [facility] 12169 Potassium Level June 23, 2023 6:12am 3.9 mmol/L 3.5-5.3 [facility] [id number] [address] [facility] 41444 Potassium Level June 25, 2023 2:11pm 4.0 mmol/L 3.5-5.3 [facility] [id number] [address] [facility] 79355 Chloride Level June 19, 2023 6:49am 104 mmol/L 98-107 [facility] [id number] [address] [facility] 29374 Chloride Level June 19, 2023 11:45pm 97 mmol/L 98-107 [facility] [id number] [address] [facility] 20365 Chloride Level June 23, 2023 6:12am 101 mmol/L 98-107 [facility] [id number] [address] [facility] 91704 Chloride Level June 25, 2023 2:11pm 101 mmol/L 98-107 [facility] [id number] [address] [facility] 23361 Carbon Dioxide Level June 19, 2023 6:49am 28 mmol/L 23-32 [facility] [id number] [address] [facility] 78590 Carbon Dioxide Level June 19, 2023 11:45pm 25 mmol/L 23-32 [facility] [id number] [address] [facility] 57158 Carbon Dioxide Level June 23, 2023 6:12am 27 mmol/L 23-32 [facility] [id number] [address] [facility] 57334 Carbon Dioxide Level June 25, 2023 2:11pm 22 mmol/L [facility] [id number] [address] [facility] 13423 Anion Gap June 19, 2023 6:49am 10 mmol/L 11-18 [facility] [id number] [address] [facility] 91567 Anion Gap June 19, 2023 11:45pm 13 mmol/L 11-18 [facility] [id number] [address] [facility] 40573 Anion Gap June 23, 2023 6:12am 10 mmol/L 11-18 [facility] [id number] [address] [facility] 29466 Anion Gap June 25, 2023 2:11pm 16 mmol/L 11-18 [facility] [id number] [address] [place] [address] 37346 Blood Urea Nitrogen June 19, 2023 6:49am 9 mg/dl 11-28 [facility] [id number] [address] [facility] 28373 Blood Urea Nitrogen June 19, 2023 11:45pm 14 mg/dl 11-28 [facility] [id number] [address] [place] [address] 86040 Blood Urea Nitrogen June 23, 2023 6:12am 10 mg/dl 11-28 [facility] [id number] [address] [place] [address] 92755 Blood Urea Nitrogen June 25, 2023 2:11pm 11 mg/dl 11-28 [facility] [id number] [address] [facility] 14048 Creatinine June 19, 2023 6:49am 0.7 mg/dL 0.6-1.4 [facility] [id number] [address] [place] [address] 91806 Creatinine June 19, 2023 11:45pm 0.8 mg/dL 0.6-1.4 [facility] [id number] [address] [place] [address] 19006 Creatinine June 23, 2023 6:12am 0.6 mg/dL 0.6-1.4 [facility] [id number] [address] [place] [address] 77190 Creatinine June 25, 2023 2:11pm 0.7 mg/dL 0.6-1.4 [facility] [id number] [address] [place] [address] 64873 Estimated Creatinine Clearance June 19, 2023 6:49am 165.0 ml/min This value is calculated by Cockcroft Gault Equation using ideal body weight. This result is dependent on an accurate patient height and weight which is obtained from patients medical record. Cockcroft, D.W. and M.H. Gault. Prediction of creatinine clearance from serum creatinine. Nephron. 1975. 16(1):31-41. [facility] [id number] [address] [place] [address] 96867 Estimated Creatinine Clearance June 19, 2023 11:45pm [facility] [address] Magistrate Unable to Calculate CRCL,Ht and/or Wt missing [facility] [id number] [address] [place] [address] 12712 Estimated Creatinine Clearance June 23, 2023 6:12am 192.5 ml/min This value is calculated by Cockcroft Gault Equation using ideal body weight. This result is dependent on an accurate patient height and weight which is obtained from patients medical record. Cockcroft, D.W. and M.H. Gault. Prediction of creatinine clearance from serum creatinine. Nephron. 1975. 16(1):31-41. [facility] [id number] [address] [place] [address] 34152 Estimated Creatinine Clearance June 25, 2023 2:11pm 162.5 ml/min This value is calculated by Cockcroft Gault Equation using ideal body weight. This result is dependent on an accurate patient height and weight which is obtained from patients medical record. Cockcroft, D.W. and M.H. Gault. Prediction of creatinine clearance from serum creatinine. Nephron. 1975. 16(1):31-41. [facility] [id number] [address] [place] [address] 94852 Estimat Glomerular Filtration Rate June 19, 2023 6:49am 119 >90 Reported eGFR is based on the CKD-EPI 2020 equation that does not use a race coefficient. Additional information can be found at:[id number] b_egfr_summary_f [email or web address] ([email or web address]) [facility] [id number] [address] [place] [address] 53063 Estimat Glomerular Filtration Rate June 19, 2023 11:45pm 115 >90 Reported eGFR is based on the CKD-EPI 2020 equation that does not use a race coefficient. Additional information can be found at:[id number] b_egfr_summary_f [email or web address].pdf ([email or web address]) [facility] [id number] [address] [place] [address] 21514 Estimat Glomerular Filtration Rate June 23, 2023 6:12am 125 >90 Reported eGFR is based on the CKD-EPI 2020 equation that does not use a race coefficient. Additional information can be found at:[id number] b_egfr_summary_f [email or web address].pdf ([email or web address]) [facility] [id number] [address] [place] [address] 54998 Estimat Glomerular Filtration Rate June 25, 2023 2:11pm 119 >90 Reported eGFR is based on the CKD-EPI 2020 equation that does not use a race coefficient. Additional information can be found at:[id number] b_egfr_summary_f [email or web address].pdf ([email or web address]) [facility] [id number] [address] [place] [address] 18947 BUN/Creatinine Ratio June 19, 2023 6:49am 12.9 10.0-20.0 [facility] [id number] [address] [place] [address] 84454 BUN/Creatinine Ratio June 19, 2023 11:45pm 17.5 10.0-20.0 [facility] [id number] [address] [place] [address] 27980 BUN/Creatinine Ratio June 23, 2023 6:12am 16.7 10.0-20.0 [facility] [id number] [address] [place] [address] 71015 BUN/Creatinine Ratio June 25, 2023 2:11pm 15.7 10.0-20.0 [facility] [id number] [address] [facility] 74155 Glucose Level June 19, 2023 6:49am 101 mg/dL 70-100 [facility] [id number] [address] [facility] 74585 Glucose Level June 19, 2023 11:45pm 94 mg/dL 70-100 [facility] [id number] [address] [facility] 92571 Glucose Level June 23, 2023 6:12am 98 mg/dL 70-100 [facility] [id number] [address] [facility] 81693 Glucose Level June 25, 2023 2:11pm 91 mg/dL 70-100 [facility] [id number] [address] [facility] 24582 Lactic Acid Level June 16, 2023 11:13am 1.1 mmol/L >0.5 [facility] [id number] [address] [place] [address] 12351 Lactic Acid Level June 20, 2023 2:57pm 1.9 mmol/L >0.5 [facility] [id number] [address] [place] [address] 10758 Calcium Level June 19, 2023 6:49am 8.9 mg/dl 8.6-10.3 [facility] [id number] [address] [place] [address] 49886 Calcium Level June 19, 2023 11:45pm 8.8 mg/dl 8.6-10.3 [facility] [id number] [address] [place] [address] 24000 Calcium Level June 23, 2023 6:12am 8.9 mg/dl 8.6-10.3 [facility] [id number] [address] [place] [address] 16419 Calcium Level June 25, 2023 2:11pm 8.6 mg/dl 8.6-10.3 [facility] [id number] [address] [place] [address] 40181 Phosphorus Level June 23, 2023 6:12am 3.7 mg/dL 2.5-4.5 [facility] [id number] [address] [place] [address] 47529 Magnesium Level June 19, 2023 6:49am 1.8 mg/dL 1.8-2.5 [facility] [id number] [address] [place] [address] 39637 Magnesium Level June 19, 2023 11:45pm 1.8 mg/dL 1.8-2.5 [facility] [id number] [address] [place] [address] 05647 Magnesium Level June 23, 2023 6:12am 2.0 mg/dL 1.8-2.5 [facility] [id number] [address] [place] [address] 38318 Magnesium Level June 25, 2023 2:11pm 2.2 mg/dL 1.8-2.5 [facility] [id number] [address] [place] [address] 08736 Total Bilirubin June 18, 2023 5:55am < 0.2 mg/dl <1.1 [facility] [id number] [address] [place] [address] 89172 Total Bilirubin June 19, 2023 11:45pm 0.3 mg/dl <1.1 [facility] [id number] [address] [place] [address] 90608 Total Bilirubin June 23, 2023 6:12am < 0.2 mg/dl <1.1 [facility] [id number] [address] [place] [address] 52208 Total Bilirubin June 25, 2023 2:11pm < 0.2 mg/dl <1.1 [facility] [id number] [address] [place] [address] 66494 Aspartate Amino Transf (AST/SGOT) June 18, 2023 5:55am 24 U/L [facility] [id number] [address] [place] [address] 10746 Aspartate Amino Transf (AST/SGOT) June 19, 2023 11:45pm 20 U/L 15 [facility] [id number] [address] [place] [address] 93382 Aspartate Amino Transf (AST/SGOT) June 23, 2023 6:12am 13 U/L [facility] [id number] [address] [facility] 31707 Aspartate Amino Transf (AST/SGOT) June 25, 2023 2:11pm 19 U/L 15-41 [facility] [id number] [address] [facility] 60498 Alanine Aminotransfera se (ALT/SGPT) June 18, 2023 5:55am 18 U/L 14-63 [facility] [id number] [address] [place] [address] 49973 Alanine Aminotransfera se (ALT/SGPT) June 19, 2023 11:45pm 19 U/L 14-63 [facility] [id number] [address] [place] [address] 94801 Alanine Aminotransfera se (ALT/SGPT) June 23, 2023 6:12am 13 U/L 14-63 [facility] [id number] [address] [place] [address] 75646 Alanine Aminotransfera se (ALT/SGPT) June 25, 2023 2:11pm 16 U/L 14-63 [facility] [id number] [address] [place] [address] 07323 Ammonia June 20, 2023 8:46am 12 umol/L 16-60 [facility] [id number] [address] [place] [address] 14916 Ammonia June 20, 2023 10:30pm 24 umol/L 16-60 [facility] [id number] [address] [place] [address] 22920 Total Creatine Kinase June 23, 2023 6:12am 39 U/L 49-397 [facility] [id number] [address] [place] [address] 89554 Total Protein June 18, 2023 5:55am 6.1 g/dL 6.4-8.3 [facility] [id number] [address] [place] [address] 50028 Total Protein June 19, 2023 11:45pm 7.2 g/dL 6.4-8.3 [facility] [id number] [address] [place] [address] 11218 Total Protein June 23, 2023 6:12am 6.3 g/dL 6.4-8.3 [facility] [id number] [address] [facility] 24856 Total Protein June 25, 2023 2:11pm 6.7 g/dL 6.4-8.3 [facility] [id number] [address] [facility] 28942 Albumin June 18, 2023 5:55am 3.7 g/dl 4.0-5.0 [facility] [id number] [address] [facility] 00287 Albumin June 19, 2023 11:45pm 4.4 g/dl 4.0-5.0 [facility] [id number] [address] [place] [address] 24193 Albumin June 23, 2023 6:12am 3.9 g/dl 4.0-5.0 [facility] [id number] [address] [place] [address] 95934 Albumin June 25, 2023 2:11pm 4.0 g/dl 4.0-5.0 [facility] [id number] [address] [place] [address] 31217 Albumin/Globul in Ratio June 18, 2023 5:55am 1.5 1.0-2.6 [facility] [id number] [address] [place] [address] 60739 Albumin/Globul in Ratio June 19, 2023 11:45pm 1.6 1.0-2.6 [facility] [id number] [address] [place] [address] 18036 Albumin/Globul in Ratio June 23, 2023 6:12am 1.6 1.0-2.6 [facility] [id number] [address] [place] [address] 76729 Albumin/Globul in Ratio June 25, 2023 2:11pm 1.5 1.0-2.6 [facility] [id number] [address] [place] [address] 88146 Alkaline Phosphatase June 18, 2023 5:55am 47 U/L 40-129 [facility] [id number] [address] [place] [address] 62387 Alkaline Phosphatase June 19, 2023 11:45pm 53 U/L 40-129 [facility] [id number] [address] [place] [address] 81585 Alkaline Phosphatase June 23, 2023 6:12am 48 U/L 40-129 [facility] [id number] [address] [place] [address] 93654 Alkaline Phosphatase June 25, 2023 2:11pm 51 U/L 40-129 [facility] [id number] [address] [place] [address] 70657 Lipase June 20, 2023 10:15pm 51 U/L 13-60 [facility] [id number] [address] [place] [address] 17924 Thyroid Stimulating Hormone (TSH) June 16, 2023 11:13am 1.55 uIU/mL 0.34-5.60 [facility] [id number] [address] [place] [address] 44192 Procalcitonin June 16, 2023 11:13am 0.03 ng/mL <0.10 [facility] [id number] [address] [place] [address] 96634 Bedside Glucose June 16, 2023 9:04am 75 mg/dl 70-100 NOTE: Any discrepancy between finger stick glucose result and patient's clinical presentation should be confirmed by the laboratory. [facility] [id number] [address] [place] [address] 75755 Bedside Glucose June 22, 2023 8:47pm 122 mg/dl 70-100 NOTE: Any discrepancy between finger stick glucose result and patient's clinical presentation should be confirmed by the laboratory. [facility] [id number] [address] [place] [address] 13882 Urine Amphetamines Screen June 16, 2023 9:45am Negative Negative Amphetamines Cutoff level 1000 ng/mL. [facility] [id number] [address] [place] [address] 88967 Urine Amphetamines Screen June 20, 2023 2:16am Negative Negative Amphetamines Cutoff level 1000 ng/mL. [facility] [id number] [address] [place] [address] 18740 Urine Methadone Screen June 16, 2023 9:45am Negative Negative Methadone Cutoff level 300 ng/mL [facility] [id number] [address] [facility] 90146 Urine Methadone Screen June 20, 2023 2:16am Negative Negative Methadone Cutoff level 300 ng/mL [facility] [id number] [address] [facility] 55919 Urine Oxycodone Screen June 16, 2023 9:45am Negative Negative Oxycontin/Oxycod one Cutoff level 100 ng/mL [facility] [id number] [address] [place] [address] 04313 Urine Oxycodone Screen June 20, 2023 2:16am Negative Negative Oxycontin/Oxycod one Cutoff level 100 ng/mL [facility] [id number] [address] [place] [address] 20807 Urine Buprenorphine Screen June 16, 2023 9:45am Negative Negative Buprenorphine Cutoff level 5 ng/mL [facility] [id number] [address] [place] [address] 56410 Urine Buprenorphine Screen June 20, 2023 2:16am Negative Negative Buprenorphine Cutoff level 5 ng/mL [facility] [id number] [address] [place] [address] 84420 Salicylates Level June 19, 2023 11:45pm < 1.0 mg/dL Salicylate Reference Range: Negative <1.0 mg/dL Therapeutic Range: 2.0-20.0 mg/dL [facility] [id number] [address] [place] [address] 84935 Salicylates Level June 25, 2023 2:11pm < 1.0 mg/dL Salicylate Reference Range: Negative <1.0 mg/dL Therapeutic Range: 2.0-20.0 mg/dL [facility] [id number] [address] [place] [address] 92661 Urine Opiates Screen June 16, 2023 9:45am Negative Negative Opiate Cutoff level 300 ng/mLOxycontin/O xycodone is not detected below the threshold of20,000 ng/mL [facility] [id number] [address] [place] [address] 59274 Urine Opiates Screen June 20, 2023 2:16am Negative Negative Opiate Cutoff level 300 ng/mLOxycontin/O xycodone is not detected below the threshold of20,000 ng/mL [facility] [id number] [address] [place] [address] 10727 Urine Fentanyl Screen June 16, 2023 9:45am Negative Negative Fentanyl Cutoff level 2.0 ng/mL [facility] [id number] [address] [place] [address] 84355 Urine Fentanyl Screen June 20, 2023 2:16am Negative Negative Fentanyl Cutoff level 2.0 ng/mL [facility] [id number] [address] [place] [address] 04739 Acetaminophen Level June 19, 2023 11:45pm < 5 ug/mL Acetaminophen Reference Range: Negative <5 ug/mL [facility] [id number] [address] [place] [address] 29273 Acetaminophen Level June 25, 2023 2:11pm < 5 ug/mL Acetaminophen Reference Range: Negative <5 ug/mL [facility] [id number] [address] [place] [address] 06864 Urine Benzodiazepine s Screen June 16, 2023 9:45am Negative Negative Please note that the current method for benzodiazepines may be less sensitive to lorazapam detection than previously. If this result is negative and you are concerned about a false negative result for lorazepam, additional testing is possible. Please contact the laboratory.Benzo diazepine Cutoff level 200 ng/mL [facility] [id number] [address] [place] [address] 73537 Urine Benzodiazepine s Screen June 20, 2023 2:16am Negative Negative Please note that the current method for benzodiazepines may be less sensitive to lorazapam detection than previously. If this result is negative and you are concerned about a false negative result for lorazepam, additional testing is possible. Please contact the laboratory.Benzo diazepine Cutoff level 200 ng/mL [facility] [id number] [address] [place] [address] 07037 Urine Cocaine Screen June 16, 2023 9:45am Positive Negative Confirmation by GC/MS not routinely performed for Non-Maternity locations. If confirmation is required, an order must be placed.Cocaine Cutoff level 300 ng/mL [facility] [id number] [address] [place] [address] 97587 Urine Cocaine Screen June 20, 2023 2:16am Negative Negative Cocaine Cutoff level 300 ng/mL [facility] [id number] [facility] 11302 Urine Cannabinoids Screen June 16, 2023 9:45am Negative Negative THC Cutoff level 50 ng/mLThis report is intended for use in clinical monitoring and management of patients. It is not intended for use in employment related drug testing or court related proceedings. Samples are not routinely tested for adulteration and are assumed to be within the normal physiological pH range of 5 - 8. [facility] [id number] [address] [facility] 75239 Urine Cannabinoids Screen June 20, 2023 2:16am Negative Negative THC Cutoff level 50 ng/mLThis report is intended for use in clinical monitoring and management of patients. It is not intended for use in employment related drug testing or court related proceedings. Samples are not routinely tested for adulteration and are assumed to be within the normal physiological pH range of 5 - 8. [facility] [id number] [address] [place] [address] 47450 Serum Alcohol June 16, 2023 11:13am < 10 mg/dl <10 [facility] [id number] [address] [place] [address] 38486 Serum Alcohol June 19, 2023 11:45pm 41 mg/dl <10 [facility] [id number] [address] [place] [address] 00124 Serum Alcohol June 20, 2023 10:15pm 216 mg/dl <10 [facility] [id number] [address] [place] [address] 33667 Serum Alcohol June 25, 2023 2:11pm 115 mg/dl <10 [facility] [id number] [address] [place] [address] 45321 Whole Blood Vitamin B1 Level June 20, 2023 8:46am 171.7 nmol/L 66.5-200.0 Performed at: [facility] [id number] Director: Rojas Prabhakar MD, Phone: [phone] [facility] ) [id number] Levetiracetam (Keppra) Level June 16, 2023 11:13am <2.0 ug/mL 10.0-40.0 Performed at: [facility] [address] [id number] Director: Rojas Prabhakar MD, Phone: [phone] [facility] ) [id number] Levetiracetam (Keppra) Level June 23, 2023 12:18pm 13.4 ug/mL 10.0-40.0 Performed at: - [facility] [address] [id number] Director: Rojas Prabhakar MD, Phone: [phone] [facility] () [id number] Diagnostic Imaging Reports Author Tej [facility] June 20, 2023 10:36pm Report Date/Time June 20, 2023 10:50pm [address] [address] Patient Name: MAYELIN LESLIE Medical Record#: [id number] Address: [address] City/State/Zip: [place] [address]: Ming tena Insurance: [facility] (Medicaid) /Age/Sex: 1980/42/M Self Pay Admit/Reg Date: 06/20/[address]: Sarahi Ying Location: ED.GS/ PCP: Pcp-Md ARCHIE Galeana Date of Service: 06/20/23 Order (s): CT head/brain wo contrast CPT Code: 67974 Report Number: [id number] Reason for Exam: unresponsive CLINICAL HISTORY:Patient status [...] 06/20/2023 at 1:42 AM. There is normal carmen-white matter differentiation. The ventricles are of appropriate size and configuration. The sulci and basal cisterns are normal in size and appearance. There is no evidence of any intra-axial or extra-axial hemorrhage. There is no evidence of any midline shift. There is no evidence of any mass, mass effect or edema. There is no territorial region of mass effect oredema to suggest any large area of acute [...] By: Tej Bryant MD 06/20/232249 TD/TT: 06/20/232227Tech: [id number] cc: E/R; HEIDY1; PCPNO* E/R Physician,Ming ; RAFAEL Ying; Pcp-MD Lissett Author Tej Bryant [facility] June 20, 2023 10:34pm Report Date/Time June 20, 2023 10:51pm [address] [address] Patient Name: MAYELIN LESLIE Medical Record#: [id number] Address: [address] City/State/Zip: [place] [id number] Attending Dr: Ming E/R Sarahi tena Insurance: [facility] et (Medicaid) /Age/Sex: 1980/42/M Self Pay Admit/Reg Date: 06/20/[address]: Sarahi Ying Location: ED.GS/ PCP: Pcp-Md ARCHIE Galeana Date of Service: 06/20/23 Order (s): CT cervical spine wo contrast CPT Code: 70988 Report Number: [id number] Reason for Exam: neck pain, fall CLINICAL [...] alignment with the ring of C1. The lateral masses of C1 and C2 are in [...] By: Tej Bryant MD 06/20/232250 TD/TT: 06/20/232232Tech: [id number] cc: E/R; HEIDY1; PCPNO* E/R Physician,E ; RAFAEL Ying; Pcp-MD Lissett Vital Signs Vital Reading Result [...] 7:40am BMI (Body Mass Index) 29.2 kg/m2 [facility] 2022 12:00am Body Temperature 98.2 [degF] [...] June 252022 8:15am Heart Rate 92 /min -June 25, 2023 8:15am Respiratory rate 17 /min 06-29June 252022 8:15am Oxygen saturation by Pulse oximetry 98 % 95-100 June 25, 2023 8:15am BP Systolic 106 mm[Hg] 90-140 June 25, 2023 8:15am BP Diastolic 65 mm[Hg] 60-90 June 25, 2023 8:15am BMI (Body Mass Index) 29.2 kg/m2 [facility] 2022 2:42am Height 177.8 cm June 25, 2023 2:08pm Weight 95.25 kg June 25, 2023 2:08pm Body Temperature 98.2 [degF] 97.6-99.6 June 252022 2:08pm Heart Rate 91 /min 60-June 25, 2023 2:08pm Respiratory rate 14 /min -June 252022 2:08pm Oxygen saturation by Pulse oximetry 96 % 95-100 June 25, 2023 2:08pm BP Systolic 107 mm[Hg] 90-140 June 25, 2023 2:08pm BP Diastolic 70 mm[Hg] 60-90 June 25, 2023 2:08pm BMI (Body Mass Index) 30.1 kg/m2 [facility] 2022 2:08pm Advance Directives Advance Directive Response Recorded Date/ [...] 19, 2023 11:50pm Advance Directives No June 2:15pm Health Care Proxy No June 25, 2023 2:15pm Insurance Providers Guarantor MAYELIN LESLIE Address [address] [facility] [address] Contact Info. Home Phone: Payer Policy Id Coverage Id Subscriber's Name Subscriber Id Effective Date Expiration Date Commercial Other [id number] MAYELIN LESLIE [id number] [facility] (Medicaid) [id number] MAYELIN LESLIE [id number] [place] [id number] MAYELIN LESLIE [id number] [facility] Required [id number] MAYELIN LESLIE [id number] Encounters Encounter Location(s) Arrival/Admit Date Discharge/Depart Date Provider(s) Discharged Inpatient [facility] June 16, 2023 5:36pm June 19, 2023 10:00am Zeke Perkins MD Departed Emergency [facility] June 19, 2023 11:46pm June 20, 2023 6:23pm null Discharged Inpatient [facility]2C June 20, 2023 11:44pm June 25, 2023 1:38pm Jen Rausch MD Registered Emergency [facility] June 25, 2023 1:55pm null Recent Diagnosis Onset Date Bipolar disorder Cocaine use with intoxication, uncomplic ated Alcoholism Seizure disorder Alcohol withdrawal seizure Hypomagnesemia Hyponatremia Alcohol intoxication Alcohol withdrawal Bipolar 1 disorder Bipolar disorder Wernicke encephalopathy Alcohol abuse Alcoholism Anemia Seizure disorder Functional Status Observation Response Date Recorded Assistive Devices None June 17, 2023 11:36am Date of Last Bowel Movement 06/18/23 [facility] 2022 1:54am Date of Last Bowel Movement 06/24/23 [facility] 2022 5:30am Oral Care Teeth Brushing June 24, 2 023 1:05pm Mental Status Observation Response Date Recorded Arousable To Name June 19, 2 023 1:54am Patient Behavior Appropriate June 19, 2023 10:37am Cooperative June 19 023 10:37am Comprehension Ability Understands Concepts [facility] 2022 1:54am Level of Consciousness Awake June 19, 2023 1:54am Alert June 19, 2 023 1:54am Appropriate June 19 023 1:54am Follows Commands June 19, 2023 1:54am Arousable To Name June 25 2 023 5:30am Patient Behavior Appropriate June 25, 2023 5:30am Cooperative June 25 023 5:30am Comprehension Ability Understands Concepts [facility] 2022 5:30am Level of Consciousness Awake June 25, 2023 5:30am Alert June 25 023 5:30am Appropriate June 25 023 5:30am Follows Commands June 25, 2023 5:30am Assessments Diagnosis Onset Date Resolution Status Bipolar disorder acute Cocaine use with intoxication, uncomplicated acute Alcoholism chronic Seizure disorder chronic Alcohol withdrawal seizure r esolved Hypomagnesemia resolved Hyponatremia resolved Alcohol intoxication acute Alcohol withdrawal acute Bipolar 1 disorder acute Bipolar disorder acute Wernicke encephalopathy acut e Alcohol abuse chronic Alcoholism chronic Anemia chronic Seizure disorder chronic Plan of Treatment Future Tests Future scheduled test information is unavailable Pending Tests Test Name Ordered Date Scheduled Date VTE Risk Assessment Medical June 16, 2023 5:35pm June 16, 2023 5:36pm VTE Risk Assessment Medical June 20, 2023 11:44pm June 20, 2023 11:44pm CT head/brain wo contrast June 25, 2023 2: 11pm June 25, 2023 2:11pm Future Visits Future appointment information is unavailable Referrals to Other Providers Reason for Referral Referral Start Date Provider Provider Contact Information Provider Address CHERYLSIRI CHAVEZ Work Phone: [address] [place] [address] Pcp-Md ARCHIE Galeana Follow-up in the next 2 weeks for treatment of alcoholism and nicotine dependence. Vinny Tsai MD Work Phone: [address] [place] [phone] Vinny Tsai MD Work Phone: [address] [place] [address] Patient has no pcp..Going back to longterm.. Pcp-Md MD BRAD Galeana Work Phone: [address] [place] [address] PcpMd ARCHIE Leroy Pcp-Md ARCHIE Galeana Future Procedures Procedure Name Ordered Date Scheduled Date Peripheral IV Insert/Manage April 21, 2023 3 :46pm April 21, 2023 3:46pm Hospital Level of Care June 16 5:35pm June 16, 2023 5:36pm Case Management Consult June 17 12:52am June 17, 2023 12:52am Discharge June 19, 2023 9:16am June 19, 2023 9:16am Patient Transfer (from unit to unit) June 18, 2023 8:43am June 18, 2023 8:43am Smoking Cessation Consult June 17, 2023 12:52am June 17, 2023 12:52am Business Editor Consult June 16 023 6:17pm June 16, 2023 6:17pm Business Editor Consult June 17 023 12:52am June 17, 2023 12:52am Activity June 16, 2023 5:35pm June 16, 2023 5:35pm Peripheral IV Insert/Manage June 5:35pm June 16, 2023 5:35pm Neurology Consult June 16, 2023 6:09pm June 16, 2023 6:09pm Patient Preference for Pain Management June 16, 2023 5:35pm June 16, 2023 5:36pm Sequential Compression Device June 062022 5:35pm June 16, 2023 5:36pm Seizure Precautions June 16, 2023 6:09pm June 16, 2023 6:09pm EKG ED Electrocardiogram June 20, 2023 10:10pm June 20, 2023 10:10pm Hospital Level of Care June 20 11:44pm June 20, 2023 11:44pm Case Management Consult June 21, 2 023 2:42am June 21, 2023 2:42am Discharge June 25, 2023 10:38am June 25, 2023 10:38am Business Editor Consult June 21, 2 023 2:42am June 21, 2023 2:42am ED Transfer of Care to Adm Physician June 21, 2023 12:01am June 21, 2023 12:01am Peripheral IV Insert/Manage June 11:44pm June 20, 2023 11:44pm Patient Preference for Pain Management June 20, 2023 11:44pm June 20, 2023 11:44pm Psychiatry Consult June 23, 2023 1:56pm June 23, 2023 1:56pm Sequential Compression Device June 062022 11:44pm June 20, 2023 11:44pm Saline Lock Insert/Manage April 26, 2023 1:2 5pm April 26, 2023 1:25pm Continuous Pulse Oximetry April 26, 2023 1:2 5pm April 26, 2023 1:25pm Peripheral IV Insert/Manage June 1:16am June 20, 2023 1:17am Teleneurology Consult June 20 9:51am June 20, 2023 9:51am EKG ED Electrocardiogram June 25, 2023 2:03pm June 25, 2023 2:03pm Drug Screen,Urine June 25, 2023 2:12pm June 25, 2023 2:12pm Future Medications Future medication information is unavailable [...] running out of your medications. Zeke Perkins [facility] June 19, 2023 9:26am Please follow-up [...] for 6 months from the seizure per [facility] rules. Jen Rausch [facility] June 25, 2023 10:41am Absence of falls Including: - Early & often mobilization when appropriate - Passive/active range of motion as appropriate - toileting schedule implementation - implementation of fall risk interventions [facility] June 21, 2023 12:37am Risks from withdrawal jose gaona [facility] June 21, 2023 12:37am Prevention of aspiration Including: - Absence of regurgitation, gagging, coughing, fever, cyanosis and respiratory insufficiency - Aspiration precautions [facility] June 21, 2023 12:37am Understand Mgmt Strategy-Reginaldo pete Patient/Caregiver understand: - Pathophysiology - Reportable s/s and when to seek medical care - Treatment plan and post discharge follow up - Medication compliance, environmental safety & lifestyle modification [facility] June 21, 2023 12:37am Alleviation of anxiety Including: -Utilization of coping skills -Demonstrates/verbalizes decreased anxiety [facility] June 21, 2023 12:37am Pt reports/exhibits pain at mihir level Including: - Pain controlled by pharmacological/non-pharmacologica l means - Establish realistic pain and function goals prior to initiating opioid therapy in patients with chronic pain if applicable - Discuss known risks and realistic benefits of opioid therapy [facility] June 25, 2023 1:40pm Alteration in Hemodynamics [facility] June 25, 2023 1:40pm Effective breathing pattern Including: - Able to speak in full sentences as age appropriate - Absence of accessory muscle use (retractions), shallow breathing, dyspnea, wheezing & tachypnea - Facilitate optimal positioning - maximize effective breathing & prevent exacerbation [facility] June 25, 2023 1:40pm Absence of fluid/electrolyte imbalance Including: - Improved lab values - Adequate urine output - Adequate hydration - Stable weight if appropriate [facility] June 25, 2023 1:40pm Able to achieve maximum mobi lity level Including: - Understands safety - Demonstrates progress in improved mobility - Demonstrates correct use of mobility devices if appropriate - Understands & accepts limitations & plan for progression as appropriate [facility] June 25, 2023 1:40pm Antimicrobial Educ Reviewed with Patient [facility] June 25, 2023 1:40pm Understand Management Strate gies Patient/Caregiver understand: - Pathophysiology - Reportable s/s and when to seek medical care - Treatment plan and post discharge follow up - Medication regime, energy conservation, diet & lifestyle modification [facility] June 25, 2023 1:40pm Safely transition to [facility] Patient/family has: - Appropriate access to resources and support services as applicable [facility] June 25, 2023 1:40pm Risks from withdrawal minimi zed [facility] June 25, 2023 1:40pm Absence of neurologic deterioration s/s [facility] June 25, 2023 1:40pm Cognitive status restored to baseline Including: - Mental status back to baseline [facility] June 25, 2023 1:40pm Alleviation of anxiety Including: -Utilization of coping skills -Demonstrates/verbalizes decreased anxiety [facility] June 25, 2023 1:40pm Consultation Note Author Kulwinder Zuniga [facility] June 24, 2023 5:15pm Note Date/Time June 24, 2023 5:15pm [address] [address] Psychiatry Consultation Signed Patient: MAYELIN LESLIE Medical Record#: [id number] : 1980 Acct:[id number] Age/Sex: 42 / M Admit/Reg Date: 06/20/23 Loc: 2C.GS Room: [address] Report Number: [id number]: Jen Rausch MD Consultation Note - HPI Date of Encounter: 06/24/23 Reason for Consultation/Admission: Assess for treatment History of Present Illness: Source of information: Patient, chart Updated history: No agitated behavior noted. He reports history of bipolar disorder. Updated mental status examination: Patient is alert, oriented x3, no mood lability, no psychomotor agitation, no delusions, occasional hallucinations, no depression, no suicidal, ideation, no homicidal ideation Psychiatric medication: Seroquel 25 mg p.o. q.h.s. trazodone 50 mg p.o. q.h.s. Lexapro 10 mg p.o. q.d. Zoloft 100 mg p.o. q.d. Medication side-effects: None, compliant with medication. Pertinent medical history: Admitted for alcohol withdrawal syndrome Assessment: Less psychotic Plan: Start Risperdal 1 mg p.o. b.i.d., psychiatric follow-up. - *Substance Use History Smoking Status: Unable to assess due to altered mental status - Vital Signs Vital Signs: Temperature 97.4 F L 06/24/23 08:51 Temperature Source Oral 06/24/23 08:51 Pulse Rate 101 H 06/24/23 08:51 Pulse Strength Normal 06/24/23 13:05 Respiratory Rate 18 06/24/23 08:51 Respiratory Effort Spontaneous, Non-Labored 06/24/23 13:05 Respiratory Depth Normal 06/24/23 13:05 Respiratory Pattern Normal 06/24/23 13:05 Blood Pressure 109/58 L 06/24/23 08:51 Blood Pressure Source Automatic Cuff 06/24/23 08:51 Blood Pressure Mean 75 06/24/23 08:51 Blood Pressure Position Supine 06/24/23 08:51 O2 Sat by Pulse Oximetry 98 06/24/23 13:05 Oxygen Delivery Method Room Air 06/24/23 13:05 Sepsis Action Taken by Nursing No Action Required 06/24/23 15:56 Pain Description Constant 06/22/23 22:41 Pain Radiation Location none 06/22/23 22:41 (Non Calculating) Pain Intensity (1-10) 0 06/24/23 01:47 Functional Pain Score 1 06/22/23 22:41 Pain Aggravating Factors Changing Position 06/21/23 20:58 Pain Alleviating Factors Medication 06/21/23 20:58 Height 1.8 m Weight 94.943 kg - *Assessment and Plan (1) Bipolar 1 disorder Status: Acute Assessment and Plan: Medication evaluation - Location and Group Information [facility]-billable encounter: No Provider group: Not Applicable - Attestation Attestation: I have reviewed and updated the patient's past medical, social, andfamily history as necessary and have reviewed pertinent laboratory findings. Confirm PMH/FSH Attestation: Yes Problem List Attestation Statement: I have documented a relevant problem and problem plan for this visit. Attending Confirm Problem: Yes Attending Problem List Check: Pass - Home Medications Home Medications: clobetasol 0.05 % topical cream 1 applic topical DAILY 06/16/23 [History Confirmed 06/21/23 Last Taken Unknown] escitalopram oxalate 10 mg tablet 10 mg PO DAILY 06/16/23 [History Confirmed 06/21/23 Last Taken Unknown] gabapentin 800 mg tablet 800 mg PO TID 06/16/23 [History Confirmed 06/21/23 Last Taken Unknown] meclizine 25 mg tablet 25 mg PO TID PRN dizziness 06/16/23 [History Confirmed 06/21/23 Last Taken Unknown] quetiapine 25 mg tablet 25 mg PO QHS 06/16/23 [History Confirmed 06/21/23 Last Taken Unknown] sertraline 100 mg tablet 100 mg PO DAILY 06/16/23 [History Confirmed 06/21/23 Last Taken Unknown] levetiracetam 500 mg tablet,extended release 24 hr 1,000 mg PO QHS 06/20/23 [History Confirmed 06/21/23 Last Taken Unknown] - Allergies/Adverse Reactions Allergies/Adverse Reactions: No Known Drug Allergies Allergy (Verified 04/26/23 14:21) Dictated By: Kulwinder Zuniga MD Signed By: Kulwinder Zuniga MD 06/24/231714 DD/ 13 TD/TT: 06/24/231713 Differential Specialist: ANUJ cc: * Discharge Summary Note Author [facility] June 25, 2023 10:41am Note Date/Time June 25, 2023 10:39am [address] [address] Discharge Summary Signed Patient: MAYELIN LESLIE Medical Record#: [id number] : 1980 Acct:[id number] Age/Sex: 42 / M Admit/Reg Date: 06/20/23 Loc: 2C.GS Room: [address] Report Number: [id number] Attending Dr: Jen Rausch MD DS: Providers Primary Care Provider: Pcp-Md Lissett Attending physician on admission: Jen Rausch Consults: 06/21/23 02:42 Case Management Consult Routine Physician Instructions: Reason For Exam: Discharge Planning Business Editor Consult Routine Comment: Physician Instructions: Reason for Social Serv Consult: Homeless/Housing Issues 06/23/23 13:56 Psychiatry Consult Routine Comment: Consulting Provider: Kulwinder Zuniga Physician Instructions: Reason For Exam: Alcoholism, Major depression, Anxiety Date of Notification: 06/23/23 Time of Notification: 15:11 Person Notified: Sent Attending physician on discharge: Jen Rausch Discharging clinician: Jen Rausch DS: Diagnosis - Discharge Diagnosis (1) Alcohol withdrawal Status: Acute DS: Summary Date of Admit: 06/20/23 23:44 Date of Encounter: 06/25/23 Date of Discharge: 06/25/23 Hospital course: 42-year-old patient with history of alcohol abuse, alcohol withdrawal seizure, fibromyalgia, bipolar disorder, substance use and cocaine use, tobacco use, status post gastric bypass surgery 7 years ago while in [place] here with alcohol withdrawal seizures from 06/16/2023 till 06/19/2023. Significant electrolyte imbalance which were addressed. Patient was in the ED for a couple of hours the day before the admission after the discharge from the hospital and was found to be unresponsive while in the waiting area. He was given intranasal Narcan he himself did not know why he landed up back in the hospital after discharge. Patient was noticed to be unresponsive found snoring and very altered. Rapid response in the ED yassine was called at that time. He was admitted to the ED andwas retching loudly vomiting. He was given Versed and IV thiamine, IV fluids. Currently admitted. Alcohol level 216. Overnight per nurse he was very restless and agitated. #. Alcohol dependence continues with withdrawal with multiple admissions. He is on CIWA protocol with Ativan. Still very anxious although not agitated. Continue with CIWA protocol. Extensive discussion with the patient regarding being compliant with the care and the alcohol withdrawal management. 06/23/2023 still bit anxious and depressed. Continue Ativan p.o. per CIWA protocol 1 mg q.4 hours as needed. 06/24/2023-significant anxiety and depressed. Awaiting psych consult. On Ativan. 06/25/2023-patient was seen by psych yesterday and was started on Risperdal 1 mgtwice a day. He is doing so much better now. Feels stable and feels he can be discharged now. No anxiety no withdrawal symptoms. Steady gait. Abstinence from alcohol again discussed with the patient. Outpatient compliance with the PCP and psych again emphasized. #./ alcohol withdrawal seizures. No further seizure activity. Continues [id number] mg twice a day. 06/23/2023-overnight patient had another episode of seizure tonic-clonic seizureper notes. Although later was awake and alert. Discussed with Neurology on thephone and increase Keppra to 750 mg p.o. b.i.d.. Check Keppra level. 06/24/2023-no seizure activity. Continue Keppra 750 mg twice a day. Keppra level pending. 06/25/2023 no seizure activity. Will discontinue long-acting Keppra 1000 mg at bedtime instead he is started on Keppra 750 mg twice a day so that if he misses a dose he is not completely off his Keppra. This was discussed with the patient. #. Chronic anxiety and depression. His home medications including gabapentin, sertraline and Lexapro have been resumed. 06/23/2023-quite depressed and anxious. Requesting to see the psych. Requesting to increase his medication doses although he is already on [id number] mg 3 times a day on sertraline and Lexapro. Psych consult placed. He was seen by psych and started on Risperdal 1 mg twice a day. He is improved significantly. #. High anion gap metabolic acidosis likely from alcoholic ketoacidosis on admission. Aggressive IV hydration was done in the ER. Now resolved. #. Anemia likely from bone marrow suppression from alcoholism. #. Current tobacco smoking with nicotine dependence. Smoking cessation discussed with the patient. He is on nicotine patch. Discharge diagnosis Alcohol withdrawal seizure Alcohol dependence continues with withdrawal Severe anxiety and depression Anemia from bone marrow suppression from alcoholism likely. High anion gap metabolic acidosis likely alcoholic ketoacidosis Current tobacco smoking with nicotine dependence. Status post gastric bypass surgery 7 years ago. Substance abuse disorder. Homelessness and in longterm - Status at Discharge Functional status at discharge: independent ambulation - Time Spent with Patient Total time spent providing and/or coordinating discharge services: Greater than 30 minutes - Location and Group Information [facility] [place] Yes Service location: inpatient Provider group: [place] [facility] - E&M Encounter Coding Attending date of service: 06/25/23 Hospital discharge services: 10136 discharge mgmt over 30 mins Discharge service time spent (mins): 50 - Attestation Attestation: I have reviewed all pertinent laboratory findings. Confirm Results Attestation: Yes Results check: Pass Exam Vital signs: Temp Pulse Resp BP Pulse Ox 98.2 F 92 H 17 106/65 98 06/25/23 08:15 06/25/23 08:15 06/25/23 08:15 06/25/23 08:15 06/25/23 08:15 Body Mass Index (BMI): 29.2 Body Habitus: overweight General Appearance: alert, oriented x3, cooperative, well developed, well nourished, no acute distress, able to walk Head Exam: Present: atraumatic, normocephalic Eye Exam: Present: normal appearance, PERRL, EOMI ENT exam: Present: normal exam, normal oropharynx, mucous membranes moist Neck exam: Present: normal inspection, full ROM - Respiratory Exam Present: CTA bilaterally - Cardiovascular Exam Present: normal heart sounds, RRR, no edema, no JVD - Abdominal Exam Abdominal: Present: normal bowel sounds, soft, non-tender, non-distended - Rectal Exam Rectal exam male: Present: not indicated - Exam Exam: not indicated - Extremities Exam Present: full ROM - Back/Spine/Pelvis Exam Back/Spine: Present: full ROM - Skin Exam Present: intact, normal color, normal turgor - Neurological Exam Present: alert, oriented X3, CN II-XII intact, moving all extremities, hearing grossly intact, normal speech - Psychiatric Exam Present: normal affect, normal mood DS: Data Did Patient have any Procedures?: No Does Patient have Pending Results?: No Result Diagrams: 06/22/23 08:41 12/18/23 06:12 Discharge Plan - Medications Prescriptions: New acetaminophen 325 mg Tablet 650 mg PO Q6H PRN (Reason: Mild Pain (1-3)) RF: 0 folic acid 1 mg Tablet 1 mg PO DAILY Qty: 30 RF: 2 Prescription Printed levetiracetam 750 mg Tablet 750 mg PO Q12H Qty: 60 RF: 2 Prescription Printed multivitamin with folic acid [Thera] 400 mcg Tablet 1 tab PO DAILY Qty: 30 RF: 2 Prescription Printed nicotine 21 mg/24 hr Patch 24 Hour 1 patch transdermal DAILY Qty: 20 RF: 0 Prescription Printed omeprazole 20 mg Tablet,Disintegrat, Delay Rel 20 mg PO DAILY Qty: 30 RF: 2 Prescription Printed risperidone 1 mg Tablet 1 mg PO BID Qty: 60 RF: 0 Prescription Printed sennosides [Senna Lax] 8.6 mg Tablet 17.2 mg PO QHS PRN (Reason: Constipation - 1st line) Qty: 60 RF: 2 Prescription Printed thiamine HCl (vitamin B1) 100 mg Tablet 100 mg PO DAILY Qty: 30 RF: 2 Prescription Printed trazodone 50 mg Tablet 50 mg PO QHS Qty: 30 RF: 0 Prescription Printed Continued clobetasol 0.05 % cream 1 applic topical DAILY Qty: 30 RF: 2 Prescription Printed escitalopram oxalate 10 mg tablet 10 mg PO DAILY Qty: 30 RF: 0 Prescription Printed gabapentin 800 mg tablet 800 mg PO TID Qty: 90 RF: 0 Prescription Printed quetiapine 25 mg tablet 25 mg PO QHS Qty: 30 RF: 2 Prescription Printed sertraline 100 mg tablet 100 mg PO DAILY Qty: 30 RF: 2 Prescription Printed Discontinued levetiracetam 500 mg tablet extended release 24 hr 1,000 mg PO QHS meclizine 25 mg tablet 25 mg PO TID PRN (Reason: dizziness) No Action sertraline 100 mg tablet 100 mg PO DAILY - Follow up Plan Follow up with: Vinny Tsai MD [Non-Staff] - Pcp-Md Galeana MD [Primary Care Provider] - - Disposition Disposition: Home or Self-Care - Discharge Orders Discharge Orders: Discharge (Routine); Ordered 06/25/23 Ordered By: Jen Rausch - Discharge Data Reason For Visit: ALTERED MENTAL STATUS Primary Care Provider: Pcp-Md Lissett Admit Provider: Mary Forte Attending Provider: Jen Rausch Admit Date/Time: 06/20/23 23:44 - Patient/Caregiver Discharge Instructions Discharge Diagnosis:: Alcohol withdrawal seizure, severe anxiety and depression Condition: Good Diet: Regular Care Plan Goals: Please follow-up with the PCP within next few days time. Abstinence from alcohol and smoking strongly encourage. You should follow-up with your psychiatrist within next few days time. Your started on new medication Risperdal 1 mg twice a day for your severe anxiety and depression. Continue all the other medications as before. Keppra is changed to short-acting Keppra 750 mg p.o. twice a day. Stop long- acting Keppra 1000 mg at bedtime. You should not be driving for 6 months from the seizure per [place] [employer] rules. Activity Restrictions: As tolerated but no driving for 6 months from the seizure per [place] [employer] rules. - Discharge Information Print Language: Guinean Quality - Smoking Status Smoking Status: Unable to assess due to altered mental status Dictated By: Jen Rausch MD Signed By: Jen Rausch MD 06/25/23 1041 DD/ 1034 TD/TT: 06/25/23 1034 Differential Specialist: KAILYN cc: HARDY; ANNI; RAHUL Perdomo Pcp-MD Lissett; Jen Rausch MD; Vinny Tsai MD History & Physical Note Author Mary Forte [facility] June 21, 2023 2:40am Note Date/Time June 20, 2023 11:47pm [address] [address] History & Physical Signed Patient: MAYELIN LESLIE Medical Record#: [id number] : 1980 Acct:[id number] Age/Sex: 42 / M Admit/Reg Date: 06/20/23 Loc: 2C. 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 This patient was just admitted here for alcohol withdrawal seizure from 06/16 till 06/19/2023. He was also found to have electrolyte derangement particularlyhyponatremia, hypomagnesemia, they were addressed. Yesterday, patient was seen in the ED apparently just couple of hours after his discharge from the hospital when found unresponsive while in the waiting room. He was given intranasal Narcan. He himself was unclear how he ended up in the [facility] waiting room after his discharge from the hospital. He was going to beadmitted but patient eloped from the ED. he admitted drinking alcohol yesterday as well, alcohol level was 41. Tonight, rapid response called in the main lobby where patient was found snoringand very much altered. He was taken to the ED very started retching loudly and also vomited. His alcohol level today is 216. He has most likely consumed significant amount of alcohol after leaving the ER this morning when he eloped. ED staff indicated to me that as he was retching and looking very restless so received 2 mg IV Versed and 500 mg IV thiamine in the ED along with IV fluids. Given his repeated visits to the hospital and given the fact that he eloped earlier today when he was supposed to be admitted to the hospital medicine service, now he is being admitted for concerns of ongoing alcohol abuse, possible alcoholic gastritis or Wernicke's syndrome? . His initial labs otherwise reassuring in terms of CBC and chemistry panel, LFTs but he has mild chronic anemia. H&H 10.5 and 37.4 respectively. Not much different from his recent baseline. Patient will be given IV fluids, IV Protonix and now being admitted for alcohol intoxication and alcohol abuse. He is somnolent, not able to provide any history at this time to me. Home Medications: clobetasol 0.05 % topical cream 1 applic topical DAILY 06/16/23 [History Confirmed 06/20/23 Last Taken Unknown] escitalopram oxalate 10 mg tablet 10 mg PO DAILY 06/16/23 [History Confirmed 06/20/23 Last Taken Unknown] gabapentin 800 mg tablet 800 mg PO TID 06/16/23 [History Confirmed 06/20/23 Last Taken Unknown] meclizine 25 mg tablet 25 mg PO TID PRN dizziness 06/16/23 [History Confirmed 06/20/23 Last Taken Unknown] quetiapine 25 mg tablet 25 mg PO QHS 06/16/23 [History Confirmed 06/20/23 Last Taken Unknown] sertraline 100 mg tablet 100 mg PO DAILY 06/16/23 [History Confirmed 06/20/23 Last Taken Unknown] levetiracetam 500 mg tablet,extended release 24 hr 1,000 mg PO QHS 06/20/23 [History Confirmed 06/20/23 Last Taken Unknown] Allergies/Adverse Reactions: No Known Drug Allergies Allergy (Verified 04/26/23 14:21) Family/Social History - Social History Lives With: Other Smoking Status: Unable to assess due to altered mental status tobacco type: cigarettes Do You Currently Use or Have Hx of Using Recreational Drugs: Yes - SOGI Sexual Orientation: Don't know Gender Identity: Male Additional Info: Unable to obtain detail at this time patient appears sedated from medication Phenobarbitone. How would you like us to refer to you?: He/Him/His/Himself Review of Systems - Review of Systems unobtainable due to mental status Exam Vital signs: Temp Pulse Resp BP Pulse Ox 98.2 F 88 16 109/74 99 06/20/23 22:15 06/20/23 22:15 06/20/23 22:15 06/20/23 22:15 06/20/23 22:15 Narrative: Body Habitus: normal/healthy weight General Appearance: somnolent Eyes: Closed HENT: mucous membranes moist, normocephalic atraumatic Neck: supple, no masses Cardiovascular: normal heart sounds, regular rate, regular rhythm, no edema, no JVD Respiratory: normal breath sounds, no respiratory distress, no accessory muscle use Abdominal: normal bowel sounds, soft, non-tender, Musculoskeletal: no skeletal abnormalities, normal ROM Skin: warm, dry, normal turgor, normal color Neurological: Somnolent, grossly nonfocal Psychology: Unable to assess GM Results - Pertinent Lab Findings 06/20/23 22:15 06/20/23 22:15 Pertinent Lab Findings: Abnormal Results - 24 Hours 06/20/23 22:15 Hgb 10.5 L g/dl (13.0-17.0) Hct 37.4 L % (37.5-50.0) MCV 68.5 L fl (80.0-100.0) MCH 19.2 L pg (27.0-34.0) MCHC 28.1 L g/dl (31.0-36.0) RDW 21.3 H % (11.5-15.0) Carbon Dioxide 19 L mmol/L (23-32) Anion Gap 18 H mmol/L (5-15) Serum Alcohol 216 H mg/dl (<10) 06/21/23 02:26 Vital Signs Temp Pulse Pulse Resp BP Pulse Ox 06/20/23 23:59 74 06/20/23 22:15 98.2 F 88 16 109/74 99 Assessment and Plan Impression: Patient is a 42 years old male with above-mentioned past medical history including 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 He is a homeless person. As indicated above, he was just admitted here for alcohol withdrawal seizure from 06/16 till 06/19/2023. Yesterday, patient was seen in the ED apparently soon after his discharge from the hospital when found unresponsive while in the waiting room. He was given intranasal Narcan. He was going to be admitted but patient eloped from the ED. he admitted drinking alcohol yesterday as well, alcohol level was 41. Tonight, rapid response called in the main lobby where patient was found snoringand very much altered. He was taken to the ED where he started retching loudly and also vomited. His alcohol level today is 216. ED staff indicated to me that as he was retching and looking very restless so received 2 mg IV Versed and 500 mg IV thiamine in the ED along with IV fluids. Patient is now being admitted for concerns of ongoing alcohol abuse, possible alcoholic gastritis or Wernicke's syndrome? . His initial labs otherwise reassuring in terms of CBC and chemistry panel, LFTs but he has mild chronic anemia. H&H 10.5 and 37.4 respectively. Not much different from his recent baseline. Patient will be given IV fluids, IV Protonix and now being admitted for alcoholintoxication and ongoing alcohol abuse, possible alcohol withdrawal. # Soon after arriving on the floor, patient became impulsive, his nurse called me indicating that patient is awake, he was fully dressed and becoming very panicky, looking for his phone. He said he had two cell phones and now unable to find them?? I went to the floor and found him standing at the door, fully dressed, now looking male, rather very tearful and becoming apologetic. He was encouraged togo back to his bed. Security was also at the scene. He will be given 2 mg p.o. Ativan as we are in critical shortage of IV Ativan. Patient indicated that he was very hungry and wanted to eat, he is denying any complaints at this time as saying no abdominal pain or nausea vomiting. Will change his diet to regular diet, on his wishing. Will maintain alcohol withdrawal protocol Again, advised avoiding tobacco and alcohol use. Will request social media editor consultation. (1) Alcohol intoxication Status: Acute Assessment and Plan: Patient's alcohol level is 216 He indicated long-term history of alcohol use, said started drinking as a teenager. He also indicated that significant alcoholism in his family includinghis parents. Maintain daily thiamine multivitamin and folate close monitoring protocol. (2) Alcohol abuse Status: Chronic Present or evolving on admission: Yes Assessment and Plan: See above (3) Seizure disorder Status: Chronic Present or evolving on admission: Yes Assessment and Plan: Continue current dose of Keppra (4) Anemia Status: Chronic Present or evolving on admission: Yes Assessment and Plan: Mild chronic anemia Likely from chronic alcohol use - Location and Group Information [facility] [place] Yes Service location: inpatient Provider group: [place] [facility] - E&M Encounter Coding Initial hospital care: Level 2 07753 Time-based billing attestation: - Attestation Attestation: I have reviewed and updated the patient's past medical, social, andfamily history as necessary and have reviewed pertinent laboratory findings. Confirm PMH/FSH Attestation: Yes Problem List Attestation Statement: I have documented a relevant problem and problem plan for this visit. Attending Confirm Problem: Yes Attending Problem List Check: Pass GM Quality VTE Risk Level: Low - Patient Rights Does Pt Have an Advanced Directive for End of Life Issues?: No Does Patient Have a Health Care Proxy?: No Risk Calculators Dictated By: Mary Forte MD Signed By: Mary Forte MD 06/21/23 0240 DD/ 45 TD/TT: 06/20/232345 Differential Specialist: ROBERT cc: ROBERT; FARNAZ Perdomo Pcp-MD Lissett; Mary Forte MD Progress Note Author Tony Lockhart [facility] June 21, 2023 12:13am Note Date/Time June 20, 2023 10:16pm [address] [address] Emergency Department Document Signed with Luann Patient: MAYELIN LESLIE Medical Record#: [id number] : 1980 Acct:[id number] Age/Sex: 42 / M Admit/Reg Date: 06/20/23 Loc: ED[facility] Room: [place] [address] Report Number: [id number]: Mary Forte MD ADDENDUM Physical exam patient opening his eyes in no acute distress but retching loudly Head: Atraumatic normocephalic Neck: Supple nontender Respiratory: No acute distress lungs clear Abdomen: Soft nontender Skin: Pale Addendum Dictated By: RAFAEL Mueller Addendum Signed By: <Electronically signed by RAFAEL Mueller> 06/20/232355 Addendum Cosigned By: <Electronically signed by Tony Lockhart DO> 06/21/23 001 DD/ TD/TT: 06/20/23 <Mark Mueller - Last Filed: 06/20/23 23:16> History of Present Illness Chief Complaint: Altered Mental Status Stated Complaint: unresponsive Nursing note reviewed: Yes Source: patient Exam/History Limitations: no limitations Primary Care Provider: Pcp-Md Lissett History of Present Illness: 42-year-old male with a history of bipolar disorder, homelessness, alcoholism, gastric bypass 7 years ago in [place], seizure disorder, fibromyalgia presents emergency department after being a rapid response just outside the [facility]. Supposedly so and had found him snoring just outside the main lobby and the patient arrives here loudly vomiting and altered. He was brought back to room 2 Allergies/Adverse Reactions: No Known Drug Allergies Allergy (Verified 10/21/23 14:21) Review of Systems Constitutional: Denies: chills, diaphoresis, fever Eyes: Denies: eye discharge, eye pain ENMT: Denies: ear pain, ear discharge Cardiovascular: Denies: chest pain, edema Respiratory: Denies: cough, orthopnea Family/Social History - Social History Current or Hx of Recreational Drug use: Yes Results/Orders - Results and Orders Result diagrams: 06/20/23 22:15 06/20/23 22:15 MDM/COURSE - MDM Medical decision making narrative: 42-year-old male with a history of bipolar disorder, homelessness, alcoholism, gastric bypass 7 years ago in [place], seizure disorder, fibromyalgia presents emergency department after being a rapid response just outside the [facility]. Supposedly so and had found him snoring just outside the main lobby and the patient arrives here loudly vomiting and altered. He was brought back to room 2 The patient had been admitted from the discharge the for seizure disorder. He then had a rapid response called him at that point in the [facility] and was brought this morning. He is found have an alcohol 43 but altered and confused. Brain MRI had been ordered and obtained and negative. The plan was because the patient was altered at that time despite having alcohol of 42 should not explain his symptoms he was to be admitted for nonspecific encephalopathy with concern for vitamin deficiency. He then signed out AMA. Several hours later he was found again just outside the main lobby. On arrival the patient is not redirectable that is speaking 1-2 word sentences. His abdomen is soft nontender I see no evidence of trauma to the head he has drool around his mouth. He is retching loudly. He was given 2 mg of IV midazolam and has been sleeping ever since. His head CT was repeated which was negative and cervical spine was ordered and ultimately negative. His alcohol did return above 200. His ammonia level was within normal range. Given the patient's history of gastric bypass, alcoholism, and altered mental status earlier today despite a low alcohol level at that time and now multiple rapid responses just outside of the hospital the plan will be to readmit the patient for evaluation of encephalopathy. Differential includes seizure, alcohol intoxication, vitamin deficiency such Wernicke's Considered admission Independently interpreted head CT and cervical spine CT no intracranial bleedingor cervical spine fracture Chronic conditions affecting care including gastric bypass and alcoholism Social determinants of hall significantly affecting care including homelessness <Tony Lockhart - Last Filed: 06/21/23 00:13> History of Present Illness Primary Care Provider: Pcp-Lissett, Physical Exam Triage Vital Signs: Temperature 98.2 F 06/20/23 22:15 Temperature Source Oral 06/20/23 22:15 Pulse Rate 88 06/20/23 22:15 Respiratory Rate 16 06/20/23 22:15 Blood Pressure 109/74 06/20/23 22:15 Blood Pressure Mean 85 06/20/23 22:15 O2 Sat by Pulse Oximetry 99 06/20/23 22:15 Oxygen Delivery Method Room Air 06/20/23 22:15 Results/Orders - Results and Orders Result diagrams: 06/20/23 22:15 06/20/23 22:15 Lab Testing & Results 06/20/23 22:15: WBC 10.8, RBC 5.46, Hgb 10.5 L, Hct 37.4 L, MCV 68.5 L, MCH 19.2L, MCHC 28.1 L, RDW 21.3 H, Plt Count 391, Immature Gran % (Auto) 0.4, Neut % (Auto) 69.7, Lymph % (Auto) 19.6, [place] % (Auto) 6.9, Eos % (Auto) 2.4, Baso % (Auto) 1.0, Neut # (Auto) 7.5, Lymph # (Auto) 2.1, [place] # (Auto) 0.7, Eos # (Auto) 0.3, Baso # (Auto) 0.1, Immature Gran # (Auto) 0.04, Nucleated RBC % 0.0,Sodium 139, Potassium 4.1, Chloride 102, Carbon Dioxide 19 L, Anion Gap 18 H, BUN 12, Creatinine 0.8, Estimated Creat Clear Industrial Court Magistrate, Estimated GFR 115, BUN/Creatinine Ratio 15.0, Glucose 99, Calcium 8.9, Total Bilirubin < 0.2, AST 21, ALT 19, Alkaline Phosphatase 58, Total Protein 7.6, Albumin 4.6, Albumin/Globulin Ratio 1.5, Lipase 51, Serum Alcohol 216 H 06/20/23 22:30: Ammonia 24 Medications Ordered: Acetaminophen (Acetaminophen 325 Mg Tablet) 650 mg PO Q6H PRN PRN Reason: Mild Pain (1-3) Sennosides (Senna 8.6 Mg Tablet) 17.2 mg PO QHS PRN PRN Reason: Constipation - 1st line Discontinued Medications Midazolam HCl (Midazolam 2 Mg/2 Ml Inj) 2 mg IV ONCE ONE Stop: 06/20/23 22:11 Last Admin: 06/20/23 22:21 Dose: 2 mg Documented By: BEULAH EKG Orders: EKG Orders 06/20/23 22:10 EKG ED Electrocardiogram Stat Radiology Orders: Radiology Orders 06/20/23 22:10 CT head/brain wo contrast Stat 06/20/23 22:16 CT cervical spine wo contrast Stat MDM/COURSE Vital Signs Temperature 98.2 F 06/20/23 22:15 Pulse Rate 88 06/20/23 22:15 Respiratory Rate 16 06/20/23 22:15 Blood Pressure 109/74 06/20/23 22:15 O2 Sat by Pulse Oximetry 99 06/20/23 22:15 Temperature 98.2 F 06/20/23 22:15 Pulse Rate 74 06/20/23 23:59 Respiratory Rate 16 06/20/23 22:15 Blood Pressure 109/74 06/20/23 22:15 O2 Sat by Pulse Oximetry 99 06/20/23 22:15 - [facility] Medical decision making narrative: 06/21/23 00:11 Patient is a 42-year-old male that I saw along with physician religious assistant mark Mueller. I agree with the workup, management, disposition of the patient. Patient was just admitted to our hospital for alcohol withdrawal, question watercase encephalopathy. My understanding as a short some time ago he signed out medical advice from the floor. Patient was found passed out in the front lobby of the hospital. He was brought to our facility. Initially patient receives somewhat agitated. Vital signs were obtained which showed no concerning findings. Patient would answers simple questions but was very restless and agitated. IV line was established she received 2 midazolam with improvement in his agitation. Head neck exam was unremarkable heart was regular rhythm no murmurs appreciated his lungs were clear to auscultation bilaterally no wheezingrhonchi appreciated. His abdomen is soft bowel sounds present nontender to palpation. Extremities warm and dry no cyanosis edema appreciated. Neurologically drowsy but arousable answers simple questions but somewhat confused during questioning. As this was an unwitnessed event we did obtain a CT head and neck showed no concerning findings. Routine lab work does show patient's alcohol level now to be 200. Concerned that when patient signed out against medical advice he may have obtained alcohol which he drank. After receiving the benzodiazepine he is much more calm and cooperative. At this point patient will be readmitted to the hospital to complete his further workup and evaluation. Attending - MARIA R: Attending Note MARIA R: ED Attending Attestation: Yes Attending Attestation Statement: I personally saw the patient and performed a substantive portion of the visit including: all aspects of: history, exam, medical decision making Discharge Plan - Discharge Clinical Impression: Alcoholism, Wernicke's disease, Bipolar disorder, Seizure disorder Disposition: Admitted as Inpatient Condition: Good - Discharge Data Time Seen by Provider: 06/20/23 22:09 Dictated By: RAFAEL Ying Signed By: Mark Mueller PAC 06/20/232321 DD/ 09 TD/TT: 06/20/232209 Differential Specialist: DARINEL cc: FARNAZ Perdomo Pcp-MD Lissett Progress Note Author Jen Rausch [facility] June 21, 2023 3:29pm Note Date/Time June 21, 2023 11:02am [place] [address] General Medicine Progress Note Signed Patient: MAYELIN LESLIE Medical Record#: [id number] : 1980 Acct:[id number] Age/Sex: 42 / M Admit/Reg Date: 06/20/23 Loc: 2C. Room: [address] Report Number: [id number]: Jen Rausch MD A&P Subsequent Impression: 42-year-old patient with history of alcohol abuse, alcohol withdrawal seizure, fibromyalgia, bipolar disorder, substance use and cocaine use, tobacco use, status post gastric bypass surgery 7 years ago while in [place] here with alcohol withdrawal seizures from 06/16/2023 till 06/19/2023. Significant electrolyte imbalance which were addressed. Patient was in the ED for a couple of hours the day before the admission after the discharge from the hospital and was found to be unresponsive while in the waiting area. He was given intranasal Narcan he himself did not know why he landed up back in the hospital after discharge. Patient was noticed to be unresponsive found snoring and very altered. Rapid response in the ED yassine was called at that time. He was admitted to the ED andwas retching loudly vomiting. He was given Versed and IV thiamine, IV fluids. Currently admitted. Alcohol level 216. Overnight per nurse he was very restless and agitated. #. Alcohol dependence continues with withdrawal with multiple admissions. He is on CIWA protocol with Ativan. Still very anxious although not agitated. Continue with CIWA protocol. Extensive discussion with the patient regarding being compliant with the care and the alcohol withdrawal management. #./ alcohol withdrawal seizures. No further seizure activity. Continues [id number] mg twice a day. #. Chronic anxiety and depression. His home medications including gabapentin, sertraline and Lexapro have been resumed. #. High anion gap metabolic acidosis likely from alcoholic ketoacidosis on admission. Aggressive IV hydration was done in the ER. Now resolved. #. Anemia likely from bone marrow suppression from alcoholism. Ongoing Medical Necessity: Alcohol intoxication with withdrawal Disposition Plan: Home likely 2 days (1) Alcohol withdrawal Status: Acute Present or evolving on admission: Yes Problem Course: new, improving Assessment and Plan: See plan - Location and Group Information [facility]-billable encounter: Yes Service location: inpatient Provider group: [place] [facility] - E&M Encounter Coding Subsequent hospital care: Level 2 73390 Time-based billing attestation: - Attestation Attestation: I have reviewed all pertinent laboratory findings. Confirm Results Attestation: Yes Problem List Attestation Statement: I have documented a relevant problem and problem plan for this visit. Attending Confirm Problem: Yes Attending Problem List Check: Pass Subjective Date of Encounter: 06/21/23 Time of Encounter: 11:02 Subjective Details: Patient quite awake alert oriented. However feeling very anxious with withdrawal symptoms. No agitation. Overnight was quite restless and agitated. No nausea vomiting dizziness. No fever or chills. Patient with her history of alcohol abuse and intoxication. Was recently at the hospital to be admitted however left AMA/eloped. Again was found in the waiting area drowsy somnolent and unresponsive. No fever or chills. No vomiting. Preferred Language: Guinean Review of Systems - Review of Systems All systems reviewed & no additional complaints except as documented Exam Vital signs: Temp Pulse Resp BP Pulse Ox 98.5 F 73 17 105/73 98 06/21/23 08:34 06/21/23 08:34 06/21/23 08:34 06/21/23 08:34 06/21/23 08:34 Body Mass Index (BMI): 29.2 Body Habitus: overweight General Appearance: alert, oriented x3, cooperative, well developed, well nourished, no acute distress, able to walk Head Exam: Present: atraumatic, normocephalic Eye Exam: Present: normal appearance, PERRL, EOMI ENT exam: Present: normal exam, normal oropharynx, mucous membranes moist Neck exam: Present: normal inspection - Respiratory Exam Present: CTA bilaterally - Cardiovascular Exam Present: normal heart sounds, RRR, no edema, no JVD - Abdominal Exam Abdominal: Present: normal bowel sounds, soft, non-tender, non-distended - Rectal Exam Rectal exam male: Present: not indicated - Extremities Exam Present: full ROM - Back/Spine/Pelvis Exam Back/Spine: Present: full ROM - Skin Exam Present: intact, normal color, normal turgor - Neurological Exam Present: alert, oriented X3, CN II-XII intact, moving all extremities, hearing grossly intact, normal speech - Psychiatric Exam Comments: Very anxious and withdrawal symptoms but no agitation. Pleasant. Alert oriented x3. GM Results - Pertinent Lab Findings 06/21/23 07:03 06/21/23 07:03 Last 24 Hours - Abnormal 06/20/23 06/21/23 22:15 07:03 Hgb 10.5 L g/dl 9.8 L g/dl (13.0-17.0) (13.0-17.0) Hct 37.4 L % 34.6 L % (37.5-50.0) (37.5-50.0) MCV 68.5 L fl 68.7 L fl (80.0-100.0) (80.0-100.0) MCH 19.2 L pg 19.4 L pg (27.0-34.0) (27.0-34.0) MCHC 28.1 L g/dl 28.3 L g/dl (31.0-36.0) (31.0-36.0) RDW 21.3 H % 21.4 H % (11.5-15.0) (11.5-15.0) Carbon Dioxide 19 L mmol/L (23-32) Anion Gap 18 H mmol/L (5-15) Glucose 69 L mg/dL (<100 -Fasting) Serum Alcohol 216 H mg/dl (<10) GM Subsequent Quality Smoking Status: Unable to assess due to altered mental status VTE Risk Level: Low - Patient Rights Advance Directives Information Provided: No Does Pt Have an Advanced Directive for End of Life Issues?: No Does Patient Have a Health Care Proxy?: No Dictated By: Jen Rausch MD Signed By: Jen Rausch MD 06/21/23 1529 DD/ 01 TD/TT: 06/21/231101 Differential Specialist: KAILYN cc: RAHUL Rausch MD Progress Note Author Jen Rausch [facility] June 25, 2023 7:42am Note Date/Time June 22, 2023 1:20pm [place] [address] General Medicine Progress Note Signed Patient: MAYELIN LESLIE Medical Record#: [id number] : 1980 Acct:[id number] Age/Sex: 42 / M Admit/Reg Date: 06/20/23 Loc: 2C. Room: [address] Report Number: [id number] Attending Dr: Jen Rausch MD A&P Subsequent Impression: 42-year-old patient with history of alcohol abuse, alcohol withdrawal seizure, fibromyalgia, bipolar disorder, substance use and cocaine use, tobacco use, status post gastric bypass surgery 7 years ago while in [place] here with alcohol withdrawal seizures from 06/16/2023 till 06/19/2023. Significant electrolyte imbalance which were addressed. Patient was in the ED for a couple of hours the day before the admission after the discharge from the hospital and was found to be unresponsive while in the waiting area. He was given intranasal Narcan he himself did not know why he landed up back in the hospital after discharge. Patient was noticed to be unresponsive found snoring and very altered. Rapid response in the ED lobby was called at that time. He was admitted to the ED andwas retching loudly vomiting. He was given Versed and IV thiamine, IV fluids. Currently admitted. Alcohol level 216. Overnight per nurse he was very restless and agitated. 06/22/2023-continues to be very restless and anxious. Depressed. No suicidal ideation. #. Alcohol dependence continues with withdrawal with multiple admissions. He is on CIWA protocol with Ativan. Still very anxious although not agitated. Continue with CIWA protocol. Extensive discussion with the patient regarding being compliant with the care and the alcohol withdrawal management. 06/22/2023-continue with CIWA protocol. Home meds are resumed. No seizure activity overnight so far. #./ alcohol withdrawal seizures. No further seizure activity. Continues [id number] mg twice a day. #. Chronic anxiety and depression. His home medications including gabapentin, sertraline and Lexapro have been resumed. #. High anion gap metabolic acidosis likely from alcoholic ketoacidosis on admission. Aggressive IV hydration was done in the ER. Now resolved. #. Anemia likely from bone marrow suppression from alcoholism. Ongoing Medical Necessity: Alcohol withdrawal Disposition Plan: TBD-still withdrawal (1) Alcohol withdrawal Status: Acute Problem Course: new, improving Assessment and Plan: See plan - Location and Group Information [facility] [place] Yes Service location: inpatient Provider group: [facility] [place] - E&M Encounter Coding Subsequent hospital care: Level 2 00595 Time-based billing attestation: - Attestation Attestation: I have reviewed all pertinent laboratory findings. Confirm Results Attestation: Yes Problem List Attestation Statement: I have documented a relevant problem and problem plan for this visit. Attending Confirm Problem: Yes Attending Problem List Check: Pass Subjective Date of Encounter: 06/22/23 Time of Encounter: 11:00 Subjective Details: Patient is quite anxious with withdrawal symptoms. No seizure-like activity. No nausea vomiting. No fever or chills. No auditory or visual hallucinations otherwise awake alert oriented. Preferred Language: [place]an Review of Systems - Review of Systems All systems reviewed & no additional complaints except as documented Exam Vital signs: Temp Pulse Resp BP Pulse Ox 97.9 F 91 H 18 117/73 97 06/22/23 09:00 06/22/23 09:00 06/22/23 09:00 06/22/23 09:00 06/22/23 09:00 Body Mass Index (BMI): 29.2 Body Habitus: overweight General Appearance: alert, oriented x3, cooperative, well developed, well nourished, no acute distress Head Exam: Present: atraumatic, normocephalic Eye Exam: Present: normal appearance, PERRL, EOMI ENT exam: Present: normal exam, normal oropharynx Neck exam: Present: normal inspection - Respiratory Exam Present: CTA bilaterally - Cardiovascular Exam Present: normal heart sounds, RRR, no edema, no JVD - Abdominal Exam Abdominal: Present: normal bowel sounds, soft, non-tender, non-distended - Rectal Exam Rectal exam male: Present: not indicated - Exam Exam: not indicated - Extremities Exam Present: full ROM - Back/Spine/Pelvis Exam Back/Spine: Present: full ROM - Skin Exam Present: intact, normal color, normal turgor - Neurological Exam Present: alert, oriented X3, CN II-XII intact, moving all extremities, hearing grossly intact, normal speech - Psychiatric Exam Present: anxious Comments: Very anxious with withdrawal symptoms. GM Results - Pertinent Lab Findings 06/22/23 08:41 06/23/23 06:12 Last 24 Hours - Abnormal 06/22/23 08:41 Hgb 10.2 L g/dl (13.0-17.0) Hct 35.3 L % (37.5-50.0) MCV 67.0 L fl (80.0-100.0) MCH 19.4 L pg (27.0-34.0) MCHC 28.9 L g/dl (31.0-36.0) RDW 21.0 H % (11.5-15.0) Glucose 62 L mg/dL (<100 -Fasting) GM Subsequent Quality Smoking Status: Unable to assess due to altered mental status VTE Risk Level: Low - Patient Rights Advance Directives Information Provided: No Does Pt Have an Advanced Directive for End of Life Issues?: No Does Patient Have a Health Care Proxy?: No Dictated By: Jen Rausch MD Signed By: Jen Rausch MD 06/25/23 0742 DD/ 15 TD/TT: 06/22/231315 Differential Specialist: KAILYN cc: KAILYN* Jen Rausch MD Progress Note Author [facility] June 23, 2023 4:43am Note Date/Time June 22, 2023 9:07pm [facility] [address] [place] [address] Limted Brief Communication Signed Patient: MAYELIN LESLIE Medical Record#: [id number] : 1980 Acct:[id number] Age/Sex: 42 / M Admit/Reg Date: 06/20/23 Loc: 2C. Room: [address] Report Number: [id number] Attending [address]: Jen Rausch MD Limited Brief Communication Date of Encounter: 06/22/23 Limited Brief Communication: Rapid response called for seizure Patient with history of alcohol withdrawal seizures possible seizure disorder Maintained on Keppra 500 mg b.i.d. Roommate notified nursing that patient was seizing Reportedly tonic-clonic seizure activity noted According to nursing was not having significant signs of withdrawal prior to theseizure Patient was alert confused no seizure activity on arrival of ICU team to the room. On evaluation awake alert knows he is in the hospital Nonfocal neurologic exam Continue Keppra Continue p.r.n. Ativan Dictated By: Krzysztof Grier MD Signed By: Krzysztof Grier MD 06/23/23442 DD/ 05 TD/TT: 06/22/232105 Differential Specialist: JACKSON cc: * Progress Note Author Jen Rausch [facility] June 23, 2023 2:51pm Note Date/Time June 23, 2023 10:17am [facility] [address] [place] [address] General Medicine Progress Note Signed Patient: MAYELIN LESLIE Medical Record#: [id number] : 1980 Acct:[id number] Age/Sex: 42 / M Admit/Reg Date: 06/20/23 Loc: 2C. Room: [address] Report Number: [id number] Attending Dr: Jen Rausch MD A&P Subsequent Impression: 42-year-old patient with history of alcohol abuse, alcohol withdrawal seizure, fibromyalgia, bipolar disorder, substance use and cocaine use, tobacco use, status post gastric bypass surgery 7 years ago while in [place] here with alcohol withdrawal seizures from 06/16/2023 till 06/19/2023. Significant electrolyte imbalance which were addressed. Patient was in the ED for a couple of hours the day before the admission after the discharge from the hospital and was found to be unresponsive while in the waiting area. He was given intranasal Narcan he himself did not know why he landed up back in the hospital after discharge. Patient was noticed to be unresponsive found snoring and very altered. Rapid response in the ED yassine was called at that time. He was admitted to the ED andwas retching loudly vomiting. He was given Versed and IV thiamine, IV fluids. Currently admitted. Alcohol level 216. Overnight per nurse he was very restless and agitated. #. Alcohol dependence continues with withdrawal with multiple admissions. He is on CIWA protocol with Ativan. Still very anxious although not agitated. Continue with CIWA protocol. Extensive discussion with the patient regarding being compliant with the care and the alcohol withdrawal management. 06/23/2023 still bit anxious and depressed. Continue Ativan p.o. per CIWA protocol 1 mg q.4 hours as needed. #./ alcohol withdrawal seizures. No further seizure activity. Continues [id number] mg twice a day. 06/23/2023-overnight patient had another episode of seizure tonic-clonic seizureper notes. Although later was awake and alert. Discussed with Neurology on thephone and increase Keppra to 750 mg p.o. b.i.d.. Check Keppra level. #. Chronic anxiety and depression. His home medications including gabapentin, sertraline and Lexapro have been resumed. 06/23/2023-quite depressed and anxious. Requesting to see the psych. Requesting to increase his medication doses although he is already on [id number] mg 3 times a day on sertraline and Lexapro. Psych consult placed. #. High anion gap metabolic acidosis likely from alcoholic ketoacidosis on admission. Aggressive IV hydration was done in the ER. Now resolved. #. Anemia likely from bone marrow suppression from alcoholism. Ongoing Medical Necessity: Alcohol withdrawal and seizure., psych consult Disposition Plan: Still with withdrawal symptoms. (1) Alcohol withdrawal Status: Acute Problem Course: new, improving Assessment and Plan: See plan - Location and Group Information [facility]-billable encounter: Yes Service location: inpatient Provider group: [place] [facility] - E&M Encounter Coding Subsequent hospital care: Level 3 55092 Time-based billing attestation: - Attestation Attestation: I have reviewed all pertinent laboratory findings. Confirm Results Attestation: Yes Problem List Attestation Statement: I have documented a relevant problem and problem plan for this visit. Attending Confirm Problem: Yes Attending Problem List Check: Pass Subjective Date of Encounter: 06/23/23 Time of Encounter: 10:17 Subjective Details: Patient continues to be depressed and anxious. Alcohol withdrawal symptoms although appears to be improving. Continue to request for more medications. Overnight patient had a episode of tonic-clonic seizures. Appears to be depressed. Later requested nurse to see the psychiatrist. Otherwise alert oriented x3. No acute distress. States history of fibromyalgia. Requesting tramadol however patient had seizure last night. Preferred Language: Guinean Review of Systems - Review of Systems All systems reviewed & no additional complaints except as documented Exam Vital signs: Temp Pulse Resp BP Pulse Ox 98 F 96 H 18 107/58 L 99 06/23/23 00:00 06/23/23 00:00 06/23/23 00:00 06/23/23 00:00 06/23/23 00:00 Body Mass Index (BMI): 29.2 Body Habitus: overweight General Appearance: alert, oriented x3, cooperative, well developed, well nourished, no acute distress, able to walk Head Exam: Present: atraumatic, normocephalic Eye Exam: Present: normal appearance, PERRL, EOMI ENT exam: Present: normal exam, normal oropharynx, mucous membranes moist Neck exam: Present: normal inspection, full ROM - Respiratory Exam Present: CTA bilaterally - Cardiovascular Exam Present: normal heart sounds, RRR, no edema, no JVD - Abdominal Exam Abdominal: Present: normal bowel sounds, soft, non-tender, non-distended - Rectal Exam Rectal exam male: Present: not indicated - Exam Exam: not indicated - Extremities Exam Present: full ROM - Back/Spine/Pelvis Exam Back/Spine: Present: full ROM - Skin Exam Present: intact, normal color, normal turgor - Neurological Exam Present: alert, oriented X3, CN II-XII intact, moving all extremities, hearing grossly intact, normal speech - Psychiatric Exam Present: depressed, anxious GM Results - Pertinent Lab Findings 06/22/23 08:41 06/23/23 06:12 Last 24 Hours - Abnormal 06/22/23 06/23/23 20:47 06:12 POC Glucose 122 H mg/dl (70-100) AST 13 L U/L (15-41) ALT 13 L U/L (14-63) Total Protein 6.3 L g/dL (6.4-8.3) Albumin 3.9 L g/dl (4.0-5.0) GM Subsequent Quality Smoking Status: Unable to assess due to altered mental status VTE Risk Level: Low - Patient Rights Advance Directives Information Provided: No Does Pt Have an Advanced Directive for End of Life Issues?: No Does Patient Have a Health Care Proxy?: No Dictated By: Jen Rausch MD Signed By: Jen Rausch MD 06/23/23 1451 DD/ 1017 TD/TT: 06/23/23 101 Differential Specialist: KAILYN cc: RAHUL Rausch MD Progress Note Author Jen Rausch [facility] June 24, 2023 2:35pm Note Date/Time June 24, 2023 2:35pm [place] [address] General Medicine Progress Note Signed Patient: MAYELIN LESLIE Medical Record#: [id number] : 1980 Acct:[id number] Age/Sex: 42 / M Admit/Reg Date: 06/20/23 Loc: 2C. Room: [address] Report Number: [id number]: Jen Rausch MD A&P Subsequent Impression: 42-year-old patient with history of alcohol abuse, alcohol withdrawal seizure, fibromyalgia, bipolar disorder, substance use and cocaine use, tobacco use, status post gastric bypass surgery 7 years ago while in [place] here with alcohol withdrawal seizures from 06/16/2023 till 06/19/2023. Significant electrolyte imbalance which were addressed. Patient was in the ED for a couple of hours the day before the admission after the discharge from the hospital and was found to be unresponsive while in the waiting area. He was given intranasal Narcan he himself did not know why he landed up back in the hospital after discharge. Patient was noticed to be unresponsive found snoring and very altered. Rapid response in the ED yassine was called at that time. He was admitted to the ED andwas retching loudly vomiting. He was given Versed and IV thiamine, IV fluids. Currently admitted. Alcohol level 216. Overnight per nurse he was very restless and agitated. #. Alcohol dependence continues with withdrawal with multiple admissions. He is on CIWA protocol with Ativan. Still very anxious although not agitated. Continue with CIWA protocol. Extensive discussion with the patient regarding being compliant with the care and the alcohol withdrawal management. 06/23/2023 still bit anxious and depressed. Continue Ativan p.o. per CIWA protocol 1 mg q.4 hours as needed. 06/24/2023-significant anxiety and depressed. Awaiting psych consult. On Ativan. #./ alcohol withdrawal seizures. No further seizure activity. Continues [id number] mg twice a day. 06/23/2023-overnight patient had another episode of seizure tonic-clonic seizureper notes. Although later was awake and alert. Discussed with Neurology on thephone and increase Keppra to 750 mg p.o. b.i.d.. Check Keppra level. 06/24/2023-no seizure activity. Continue Keppra 750 mg twice a day. Keppra level pending. #. Chronic anxiety and depression. His home medications including gabapentin, sertraline and Lexapro have been resumed. 06/23/2023-quite depressed and anxious. Requesting to see the psych. Requesting to increase his medication doses although he is already on [id number] mg 3 times a day on sertraline and Lexapro. Psych consult placed. 06/24/2023 awaiting psych recommendations. #. High anion gap metabolic acidosis likely from alcoholic ketoacidosis on admission. Aggressive IV hydration was done in the ER. Now resolved. #. Anemia likely from bone marrow suppression from alcoholism. Ongoing Medical Necessity: Severe anxiety, alcohol withdrawal improving, psych consult pending Disposition Plan: Home 1-2 days pending psych consult (1) Alcohol withdrawal Status: Acute Problem Course: new, improving Assessment and Plan: See plan - Location and Group Information [facility] [place] Yes Service location: inpatient Provider group: [place] [facility] - E&M Encounter Coding Subsequent hospital care: Level 2 74029 Time-based billing attestation: - Attestation Attestation: I have reviewed all pertinent laboratory findings. Confirm Results Attestation: Yes Problem List Attestation Statement: I have documented a relevant problem and problem plan for this visit. Attending Confirm Problem: Yes Attending Problem List Check: Pass Subjective Date of Encounter: 06/24/23 Time of Encounter: 10:05 Subjective Details: Patient continues to have significant anxiety. No further episode any seizure activity. No fever or chills. No nausea vomiting. Gait steady. Alert oriented x3. Preferred Language: [place]an Review of Systems - Review of Systems All systems reviewed & no additional complaints except as documented Exam Vital signs: Temp Pulse Resp BP Pulse Ox 97.4 F L 101 H 18 109/58 L 98 06/24/23 08:51 06/24/23 08:51 06/24/23 08:51 06/24/23 08:51 06/24/23 13:05 Body Mass Index (BMI): 29.2 Body Habitus: overweight General Appearance: alert, oriented x3, cooperative, well developed, well nourished, no acute distress, able to walk Head Exam: Present: atraumatic, normocephalic Eye Exam: Present: normal appearance, PERRL, EOMI ENT exam: Present: normal exam, normal oropharynx Neck exam: Present: normal inspection - Respiratory Exam Present: CTA bilaterally - Cardiovascular Exam Present: normal heart sounds - Abdominal Exam Abdominal: Present: normal bowel sounds, soft, non-tender - Rectal Exam Rectal exam male: Present: not indicated - Exam Exam: not indicated - Extremities Exam Present: full ROM - Back/Spine/Pelvis Exam Back/Spine: Present: full ROM - Skin Exam Present: intact, normal color, normal turgor - Neurological Exam Present: alert, oriented X3, CN II-XII intact - Psychiatric Exam Present: anxious GM Results - Pertinent Lab Findings 06/22/23 08:41 06/23/23 06:12 GM Subsequent Quality Smoking Status: Unable to assess due to altered mental status VTE Risk Level: Low VTE Prophylaxis Device: Seq Compression Device - Patient Rights Advance Directives Information Provided: No Does Pt Have an Advanced Directive for End of Life Issues?: No Does Patient Have a Health Care Proxy?: No Dictated By: Jen Rausch MD Signed By: Jen Rausch MD 06/24/23 1435 DD/ 31 TD/TT: 06/24/231431 Differential Specialist: KAILYN cc: RAHUL Rausch MD
--- OUTSIDE RECORDS SUMMARY | 2024-01-16 19:35 | XMS_ITS | Continuity of Care Document ---
Author Organization [facility] Address [address] [place] [address] Phone Care Team Providers Care Spinning Frame Tender Name Role Phone Pcp-MD Archie Galeana Primary Care Provider Unavailabl e Hospitalist, Model (IS ONLY) Emergency Provider Unavailable MD Krzysztof So Other Provider MD Zeke Perkins Attending Provider DO Lizandro Sandhu Emergency Provider [phone] MD Mary Forte Attending Provider Care Teams Patient Care Team Team Status: Active Member Role Status Dates Pcp-MD Lissett Primary Care Provider Active Visit Care Team Team Status: Inactive Member Role Status Dates Pcp-MD Lissett Primary Care Provider Active St art: June [...] Lissett Primary Care Provider Active St art: June 19, 2023 End: June 20, 2023 Lizandro Sandhu DO Emergency Provider Active St art: June 19, 2023 End: June 20, 2023 Visit Care Team Team Status: Active Member Role Status Dates Pcp-MD Lissett Primary Care Provider Active St art: June 20, 2023 Mary Forte MD Admit Provider, Att ending Provider Active Start: June 20, 2023 Model (IS ONLY) Hospitalist Emergency Provider Active Start: June 20, 2023 Chief Complaint and Reason for Visit Chief Complaint ALCOHOL WITHDRAWAL S EIZURE UNRESPONSIVE ALTERED MENTAL STATUS Reason for Visit Bipolar disorder Cocaine use with intoxication, uncomplicated Alcoholism Seizure disorder Alcohol withdrawal seizure Hypomagnesemia Hyponatremia Alcohol intoxication Bipolar disorder Wernicke encephalopathy Alcohol abuse Alcoholism Anemia Seizure disorder Allergies, Adverse Reactions, Alerts No known allergies Social History Smoking Status Status Start Date End Date Date of Observa tion Unknown if ever smoked Decem parrish 2022 1:07am Observation Status Observation Response Date of Response Living Situation Jail June 17, 2023 8:35am Lives With Other June 17 11:36am Additional Data Assigned Sex Male Problems Active Problems Medical Problem Onset Date Status Wernicke encephalopathy Active Alcohol abuse Active Alcohol intoxication Active Alcoholism Active Anemia Active Bipolar disorder Active Cocaine use with intoxication, uncomplicated Active Seizure disorder Active Inactive/Resolved Problems Medical Problem Onset Date Status Hyponatremia Resolved Alcohol withdrawal seizure Resol perry Patient left without being seen Resolved Patient left without being seen Resolved Hypomagnesemia Resolved Medications Medication Status Dose Units Route Directions Qty Days St art Date End Date Instructions Quetiapine Active 25 MG PO ONCE SOHA Y AT BEDTIME Decembe r 2022 12:00am Levetiracetam Disconti nued 500 MG PO TWICE A DAY Decembe r 2022 12:00am Decemb er 2022 9:23am Sertraline Active 100 MG PO DAILY Decemb e r 2022 12:00am Clobetasol Active 1 APPL TOPICAL DAILY Decem be r 11th, 2023 12:00am Gabapentin Active 800 MG PO THREE MARY ES A [facility] 12:00am Meclizine Active 25 MG PO THREE TIME S A DAY [facility] 2022 12:00am Azelastine Disconti nued 2 SPRAY intrana sol TWICE A DAY [facility] 2022 12:00am Decemb er 2022 8:37am Escitalopram Oxalate Active 10 MG PO DAILY [facility] r 2022 12:00am Thiamine Hcl (Vitamin B1) Disconti nued 100 MG PO DAILY 30 Decee r 2022 12:00am Decemb er 2022 8:37am OTC/Good Rx if not covered Levetiracetam Disconti nued 500 MG PO TWICE A DAY 180 90 [facility] 2022 9:23am Decemb er 2022 9:28am Levetiracetam Active 1000 MG PO ONCE D AILY AT BEDTIME [facility] r 2022 12:00am Procedures Procedure Date [...] ED Electrocardiogram June 20, 2023 1:1 6am active MR head/brain wo/w contrast June 20, 2023 10:54am completed Relevant Diagnostic Tests and/or Laboratory Data Laboratory Results Test Date/Time Result Interpretation Reference Range Result Comment Performing Site Add-On Test Request June 18, 2023 11:40am Added test [facility] [id number] [address] [facility] [id number] Add-On Test Request June 20, 2023 2:42am Unable to add test [facility] [id number] [address] [facility] 40055 White Blood Count June 17, 2023 5:43am 7.9 X10 3/uL 4.5-11.0 [facility] [id number] [address] [place] [address] 06270 White Blood Count June 19, 2023 11:45pm 8.8 X10 3/uL 4.5-11.0 [facility] [id number] [address] [place] [address] 00621 White Blood Count June 20, 2023 10:15pm 10.8 X10 3/uL 4.5-11.0 [facility] [id number] [address] [place] [address] 49108 Red Blood Count June 17, 2023 5:43am 4.82 X10 6/uL 4.00-5.50 [facility] [id number] [address] [place] [address] 24340 Red Blood Count June 19, 2023 11:45pm 5.32 X10 6/uL 4.00-5.50 [facility] [id number] [address] [place] [address] 61052 Red Blood Count June 20, 2023 10:15pm 5.46 X10 6/uL 4.00-5.50 [facility] [id number] [address] [place] [address] 80108 Hemoglobin June 17, 2023 5:43am 9.4 g/dl 13.0-17.0 [facility] [id number] [address] [place] [address] 33324 Hemoglobin June 19, 2023 11:45pm 10.3 g/dl 13.0-17.0 [facility] [id number] [address] [place] [address] 07651 Hemoglobin June 20, 2023 10:15pm 10.5 g/dl 13.0-17.0 [facility] [id number] [address] [place] [address] 53776 Hematocrit June 17, 2023 5:43am 31.8 % 37.5-50.0 [facility] [id number] [address] [place] [address] 79636 Hematocrit June 19, 2023 11:45pm 35.3 % 37.5-50.0 [facility] [id number] [address] [facility] 56565 Hematocrit June 20, 2023 10:15pm 37.4 % 37.5-50.0 [facility] [id number] [address] [facility] 55038 Mean Corpuscular Volume June 17, 2023 5:43am 66.0 fl 80.0-100.0 [facility] [id number] [address] [facility] 25298 Mean Corpuscular Volume June 19, 2023 11:45pm 66.4 fl 80.0-100.0 [facility] [id number] [address] [place] [address] 29329 Mean Corpuscular Volume June 20, 2023 10:15pm 68.5 fl 80.0-100.0 [facility] [id number] [address] [place] [address] 54006 Mean Corpuscular Hemoglobin June 17, 2023 5:43am 19.5 pg 27.0-34.0 [facility] [id number] [address] [facility] 26706 Mean Corpuscular Hemoglobin June 19, 2023 11:45pm 19.4 pg 27.0-34.0 [facility] [id number] [facility] 18970 Mean Corpuscular Hemoglobin June 20, 2023 10:15pm 19.2 pg 27.0-34.0 [facility] [id number] [address] [place] [address] 25065 Mean Corpuscular Hemoglobin Concent June 17, 2023 5:43am 29.6 g/dl 31.0-36.0 [facility] [id number] [address] [place] [address] 62611 Mean Corpuscular Hemoglobin Concent June 19, 2023 11:45pm 29.2 g/dl 31.0-36.0 [facility] [id number] [address] [place] [address] 17840 Mean Corpuscular Hemoglobin Concent June 20, 2023 10:15pm 28.1 g/dl 31.0-36.0 [facility] [id number] [address] [facility] 57290 Red Cell Distribution Width June 17, 2023 5:43am 21.3 % 11.5-15.0 [facility] [id number] [address] [facility] 64272 Red Cell Distribution Width June 19, 2023 11:45pm 21.1 % 11.5-15.0 [facility] [id number] [address] [place] [address] 68545 Red Cell Distribution Width June 20, 2023 10:15pm 21.3 % 11.5-15.0 [facility] [id number] [address] [place] [address] 56335 Platelet Count June 17, 2023 5:43am 334 X10 3/uL 150-400 [facility] [id number] [address] [place] [address] 01067 Platelet Count June 19, 2023 11:45pm 353 X10 3/uL 150-400 [facility] [id number] [address] [place] [address] 90179 Platelet Count June 20, 2023 10:15pm 391 X10 3/uL 150-400 [facility] [id number] [address] [place] [address] 19778 Immature Granulocyte % (Auto) June 17, 2023 5:43am 0.1 % [facility] [id number] [address] [place] [address] 59928 Immature Granulocyte % (Auto) June 19, 2023 11:45pm 0.2 % [facility] [id number] [address] [place] [address] 21880 Immature Granulocyte % (Auto) June 20, 2023 10:15pm 0.4 % [facility] [id number] [address] [place] [address] 43020 Neutrophils (%) (Auto) June 17, 2023 5:43am 60.4 % [facility] [id number] [address] [place] [address] 86506 Neutrophils (%) (Auto) June 19, 2023 11:45pm 74.5 % [facility] [id number] [address] [place] [address] 98360 Neutrophils (%) (Auto) June 20, 2023 10:15pm 69.7 % [place] [id number] [address] [place] [address] 69704 Lymphocytes (%) (Auto) June 17, 2023 5:43am 26.2 % [place] [id number] [place] [address] 31981 Lymphocytes (%) (Auto) June 19, 2023 11:45pm 16.9 % [place] [id number] [place] [address] 34591 Lymphocytes (%) (Auto) June 20, 2023 10:15pm 19.6 % [place] [id number] [place] [address] 91854 Monocytes (%) (Auto) June 17, 2023 5:43am 8.6 % [place] [id number] [place] [address] 64757 Monocytes (%) (Auto) June 19, 2023 11:45pm 6.1 % [place] [id number] [address] [place] [address] 37745 Monocytes (%) (Auto) June 20, 2023 10:15pm 6.9 % [place] [id number] [address] [place] [address] 58363 Eosinophils (%) (Auto) June 17, 2023 5:43am 3.7 % [place] [id number] [address] [place] [address] 25613 Eosinophils (%) (Auto) June 19, 2023 11:45pm 1.2 % [place] [id number] [address] [place] [address] 79247 Eosinophils (%) (Auto) June 20, 2023 10:15pm 2.4 % [place] [id number] [place] [address] 31597 Basophils (%) (Auto) June 17, 2023 5:43am 1.0 % [place] [id number] [place] [address] 05023 Basophils (%) (Auto) June 19, 2023 11:45pm 1.1 % [facility] [id number] [address] [place] [address] 04554 Basophils (%) (Auto) June 20, 2023 10:15pm 1.0 % [facility] [id number] [address] [place] [address] 06968 Immature Granulocyte # (Auto) June 17, 2023 5:43am 0.01 X10 3/uL 0.00-0.09 [place] [id number] [address] [place] [address] 55147 Immature Granulocyte # (Auto) June 19, 2023 11:45pm 0.02 X10 3/uL 0.00-0.09 [place] [id number] [place] [address] 26335 Immature Granulocyte # (Auto) June 20, 2023 10:15pm 0.04 X10 3/uL 0.00-0.09 [place] [id number] [address] [place] [address] 06589 Neutrophils # (Auto) June 17, 2023 5:43am 4.8 X10 3/uL 1.5-7.8 [facility] [id number] [address] [place] [address] 28167 Neutrophils # (Auto) June 19, 2023 11:45pm 6.6 X10 3/uL 1.5-7.8 [place] [id number] [address] [place] [address] 63408 Neutrophils # (Auto) June 20, 2023 10:15pm 7.5 X10 3/uL 1.5-7.8 [facility] [id number] [address] [place] [address] 09261 Lymphocytes # (Auto) June 17, 2023 5:43am 2.1 X10 3/uL 1.0-4.8 [place] [id number] [place] [address] 89216 Lymphocytes # (Auto) June 19, 2023 11:45pm 1.5 X10 3/uL 1.0-4.8 [place] [id number] [address] [place] [address] 02409 Lymphocytes # (Auto) June 20, 2023 10:15pm 2.1 X10 3/uL 1.0-4.8 [facility] [id number] [address] [place] [address] 85309 Monocytes # (Auto) June 17, 2023 5:43am 0.7 X10 3/uL 0.0-0.8 [place] [id number] [address] [place] [address] 20333 Monocytes # (Auto) June 19, 2023 11:45pm 0.5 X10 3/uL 0.0-0.8 [place] [id number] [address] [place] [address] 21219 Monocytes # (Auto) June 20, 2023 10:15pm 0.7 X10 3/uL 0.0-0.8 [place] [id number] [place] [address] 69978 Eosinophils # (Auto) June 17, 2023 5:43am 0.3 X10 3/uL 0.0-0.5 [place] [id number] [place] [address] 71923 Eosinophils # (Auto) June 19, 2023 11:45pm 0.1 X10 3/uL 0.0-0.5 [place] [id number] [place] [address] 83780 Eosinophils # (Auto) June 20, 2023 10:15pm 0.3 X10 3/uL 0.0-0.5 [place] [id number] [address] [place] [address] 47768 Basophils # (Auto) June 17, 2023 5:43am 0.1 X10 3/uL 0.0-0.2 [place] [id number] [address] [place] [address] 32694 Basophils # (Auto) June 19, 2023 11:45pm 0.1 X10 3/uL 0.0-0.2 [place] [id number] [address] [place] [address] 78770 Basophils # (Auto) June 20, 2023 10:15pm 0.1 X10 3/uL 0.0-0.2 [place] [id number] [address] [place] [address] 69016 Nucleated Red Blood Cells % June 17, 2023 5:43am 0.0 /100 WBC 0.0-0.0 [facility] [id number] [address] [facility] 95848 Nucleated Red Blood Cells % June 19, 2023 11:45pm 0.0 /100 WBC 0.0-0.0 [facility] [id number] [address] [facility] 24429 Nucleated Red Blood Cells % June 20, 2023 10:15pm 0.0 /100 WBC 0.0-0.0 [facility] [id number] [address] [facility] 34024 Sodium Level June 19, 2023 6:49am 142 mmol/L 137-146 [facility] [id number] [address] [place] [address] 66376 Sodium Level June 19, 2023 11:45pm 135 mmol/L 137-146 [facility] [id number] [address] [place] [address] 62296 Sodium Level June 20, 2023 10:15pm 139 mmol/L 137-146 [facility] [id number] [address] [place] [address] 83243 Potassium Level June 19, 2023 6:49am 3.9 mmol/L 3.5-5.3 [facility] [id number] [address] [place] [address] 59632 Potassium Level June 19, 2023 11:45pm 4.1 mmol/L 3.5-5.3 [facility] [id number] [address] [place] [address] 55249 Potassium Level June 20, 2023 10:15pm 4.1 mmol/L 3.5-5.3 [facility] [id number] [address] [place] [address] 90537 Chloride Level June 19, 2023 6:49am 104 mmol/L 98-107 [facility] [id number] [address] [place] [address] 67415 Chloride Level June 19, 2023 11:45pm 97 mmol/L 98-107 [facility] [id number] [address] [place] [address] 84533 Chloride Level June 20, 2023 10:15pm 102 mmol/L 98-107 [facility] [id number] [address] [facility] 41741 Carbon Dioxide Level June 19, 2023 6:49am 28 mmol/L [facility] [id number] [address] [facility] 62402 Carbon Dioxide Level June 19, 2023 11:45pm 25 mmol/L [facility] [id number] [address] [facility] 21055 Carbon Dioxide Level June 20, 2023 10:15pm 19 mmol/L [facility] [id number] [address] [place] [address] 53366 Anion Gap June 19, 2023 6:49am 10 mmol/L 11-18 [facility] [id number] [address] [place] [address] 18137 Anion Gap June 19, 2023 11:45pm 13 mmol/L 11-18 [facility] [id number] [address] [place] [address] 86498 Anion Gap June 20, 2023 10:15pm 18 mmol/L 11-18 [facility] [id number] [address] [place] [address] 02996 Blood Urea Nitrogen June 19, 2023 6:49am 9 mg/dl 11-28 [facility] [id number] [address] [place] [address] 08748 Blood Urea Nitrogen June 19, 2023 11:45pm 14 mg/dl 11-28 [facility] [id number] [address] [place] [address] 55845 Blood Urea Nitrogen June 20, 2023 10:15pm 12 mg/dl 11-28 [facility] [id number] [address] [place] [address] 10346 Creatinine June 19, 2023 6:49am 0.7 mg/dL 0.6-1.4 [facility] [id number] [address] [place] [address] 40355 Creatinine June 19, 2023 11:45pm 0.8 mg/dL 0.6-1.4 [facility] [id number] [address] [place] [address] 66890 Creatinine June 20, 2023 10:15pm 0.8 mg/dL 0.6-1.4 [facility] [id number] [address] [place] [address] 26813 Estimated Creatinine Clearance June 19, 2023 6:49am 165.0 ml/min This value is calculated by Cockcroft Gault Equation using ideal body weight. This result is dependent on an accurate patient height and weight which is obtained from patients medical record. [employer], [employer]W. [employer]. Gault. Prediction of creatinine clearance from serum creatinine. Nephron. 1976. 16(1):31-41. [facility] [id number] [address] [place] [address] 41129 Estimated Creatinine Clearance June 19, 2023 11:45pm Lead Python Developer Unable to Calculate CRCL,Ht and/or Wt missing [facility] [id number] [address] [place] [address] 77257 Estimated Creatinine Clearance June 20, 2023 10:15pm Lead Python Developer Unable to Calculate CRCL,Ht and/or Wt missing [facility] [id number] [address] [place] [address] 81674 Estimat Glomerular Filtration Rate June 19, 2023 6:49am 119 >90 Reported eGFR is based on the CKD-EPI 2020 equation that does not use a race coefficient. Additional information can be found at:[email or web address]_ld b_egfr_summary_f [email or web address] ([email or web address]) [facility] [id number] [address] [place] [address] 95142 Estimat Glomerular Filtration Rate June 19, 2023 11:45pm 115 >90 Reported eGFR is based on the CKD-EPI 2020 equation that does not use a race coefficient. Additional information can be found at:[id number]_kr b_egfr_summary_f [email or web address].pdf ([email or web address]) [facility] [id number] [address] [place] [address] 02765 Estimat Glomerular Filtration Rate June 20, 2023 10:15pm 115 >90 Reported eGFR is based on the CKD-EPI 2020 equation that does not use a race coefficient. Additional information can be found at:[id number]_hp b_egfr_summary_f [email or web address].pdf ([email or web address]) [facility] [id number] [address] [place] [address] 15115 BUN/Creatinine Ratio June 19, 2023 6:49am 12.9 10.0-20.0 [facility] [id number] [address] [place] [address] 11800 BUN/Creatinine Ratio June 19, 2023 11:45pm 17.5 10.0-20.0 [facility] [id number] [address] [place] [address] 76403 BUN/Creatinine Ratio June 20, 2023 10:15pm 15.0 10.0-20.0 [facility] [id number] [address] [place] [address] 51688 Glucose Level June 19, 2023 6:49am 101 mg/dL 70-100 [facility] [id number] [address] [place] [address] 03316 Glucose Level June 19, 2023 11:45pm 94 mg/dL 70-100 [facility] [id number] [address] [place] [address] 41585 Glucose Level June 20, 2023 10:15pm 99 mg/dL 70-100 [facility] [id number] [address] [place] [address] 50866 Lactic Acid Level June 16, 2023 11:13am 1.1 mmol/L >0.5 [facility] [id number] [address] [place] [address] 66704 Lactic Acid Level June 20, 2023 2:57pm 1.9 mmol/L >0.5 [facility] [id number] [address] [place] [address] 57889 Calcium Level June 19, 2023 6:49am 8.9 mg/dl 8.6-10.3 [facility] [id number] [address] [place] [address] 88775 Calcium Level June 19, 2023 11:45pm 8.8 mg/dl 8.6-10.3 [facility] [id number] [address] [place] [address] 46438 Calcium Level June 20, 2023 10:15pm 8.9 mg/dl 8.6-10.3 [facility] [id number] [facility] 80128 Magnesium Level June 19, 2023 6:49am 1.8 mg/dL 1.8-2.5 [facility] [id number] [address] [place] [address] 91122 Magnesium Level June 19, 2023 11:45pm 1.8 mg/dL 1.8-2.5 [facility] [id number] [address] [place] [address] 68236 Total Bilirubin June 18, 2023 5:55am < 0.2 mg/dl <1.1 [facility] [id number] [address] [place] [address] 48889 Total Bilirubin June 19, 2023 11:45pm 0.3 mg/dl <1.1 [facility] [id number] [address] [place] [address] 55059 Total Bilirubin June 20, 2023 10:15pm < 0.2 mg/dl <1.1 [facility] [id number] [address] [place] [address] 10569 Aspartate Amino Transf (AST/SGOT) June 18, 2023 5:55am 24 U/L [facility] [id number] [address] [place] [address] 76894 Aspartate Amino Transf (AST/SGOT) June 19, 2023 11:45pm 20 U/L [facility] [id number] [address] [place] [address] 07254 Aspartate Amino Transf (AST/SGOT) June 20, 2023 10:15pm 21 U/L [facility] [id number] [address] [place] [address] 20223 Alanine Aminotransfera se (ALT/SGPT) June 18, 2023 5:55am 18 U/L [facility] [id number] [address] [place] [address] 74605 Alanine Aminotransfera se (ALT/SGPT) June 19, 2023 11:45pm 19 U/L [facility] [id number] [address] [place] [address] 58853 Alanine Aminotransfera se (ALT/SGPT) June 20, 2023 10:15pm 19 U/L 14-63 [facility] [id number] [facility] 24494 Ammonia June 20, 2023 8:46am 12 umol/L 16-60 [facility] [id number] [facility] 51551 Ammonia June 20, 2023 10:30pm 24 umol/L 16-60 [facility] [id number] [facility] 40858 Total Protein June 18, 2023 5:55am 6.1 g/dL 6.4-8.3 [facility] [id number] [facility] 30707 Total Protein June 19, 2023 11:45pm 7.2 g/dL 6.4-8.3 [facility] [id number] [facility] 45862 Total Protein June 20, 2023 10:15pm 7.6 g/dL 6.4-8.3 [facility] [id number] [facility] 52391 Albumin June 18, 2023 5:55am 3.7 g/dl 4.0-5.0 [facility] [id number] [address] [place] [address] 82522 Albumin June 19, 2023 11:45pm 4.4 g/dl 4.0-5.0 [facility] [id number] [facility] 85972 Albumin June 20, 2023 10:15pm 4.6 g/dl 4.0-5.0 [facility] [id number] [facility] 41089 Albumin/Globul in Ratio June 18, 2023 5:55am 1.5 1.0-2.6 [facility] [id number] [address] [place] [address] 68189 Albumin/Globul in Ratio June 19, 2023 11:45pm 1.6 1.0-2.6 [facility] [id number] [address] [place] [address] 34846 Albumin/Globul in Ratio June 20, 2023 10:15pm 1.5 1.0-2.6 [facility] [id number] [address] [place] [address] 92899 Alkaline Phosphatase June 18, 2023 5:55am 47 U/L 40-129 [facility] [id number] [address] [place] [address] 05533 Alkaline Phosphatase June 19, 2023 11:45pm 53 U/L 40-129 [facility] [id number] [address] [place] [address] 96908 Alkaline Phosphatase June 20, 2023 10:15pm 58 U/L 40-129 [facility] [id number] [address] [place] [address] 84843 Lipase June 20, 2023 10:15pm 51 U/L 13-60 [facility] [id number] [address] [place] [address] 47003 Thyroid Stimulating Hormone (TSH) June 16, 2023 11:13am 1.55 uIU/mL 0.34-5.60 [facility] [id number] [address] [place] [address] 36382 Procalcitonin June 16, 2023 11:13am 0.03 ng/mL <0.10 [facility] [id number] [address] [place] [address] 65887 Bedside Glucose June 16, 2023 9:04am 75 mg/dl 70-100 NOTE: Any discrepancy between finger stick glucose result and patient's clinical presentation should be confirmed by the laboratory. [facility] [id number] [address] [place] [address] 45054 Urine Amphetamines Screen June 16, 2023 9:45am Negative Negative Amphetamines Cutoff level 1000 ng/mL. [facility] [id number] [address] [place] [address] 07043 Urine Amphetamines Screen June 20, 2023 2:16am Negative Negative Amphetamines Cutoff level 1000 ng/mL. [facility] [id number] [address] [place] [address] 82622 Urine Methadone Screen June 16, 2023 9:45am Negative Negative Methadone Cutoff level 300 ng/mL [facility] [id number] [facility] 89042 Urine Methadone Screen June 20, 2023 2:16am Negative Negative Methadone Cutoff level 300 ng/mL [facility] [id number] [facility] 45872 Urine Oxycodone Screen June 16, 2023 9:45am Negative Negative Oxycontin/Oxycod one Cutoff level 100 ng/mL [facility] [id number] [address] [place] [address] 35790 Urine Oxycodone Screen June 20, 2023 2:16am Negative Negative Oxycontin/Oxycod one Cutoff level 100 ng/mL [facility] [id number] [address] [place] [address] 30838 Urine Buprenorphine Screen June 16, 2023 9:45am Negative Negative Buprenorphine Cutoff level 5 ng/mL [facility] [id number] [address] [place] [address] 67931 Urine Buprenorphine Screen June 20, 2023 2:16am Negative Negative Buprenorphine Cutoff level 5 ng/mL [facility] [id number] [address] [place] [address] 11296 Salicylates Level June 19, 2023 11:45pm < 1.0 mg/dL Salicylate Reference Range: Negative <1.0 mg/dL Therapeutic Range: 2.0-20.0 mg/dL [facility] [id number] [address] [place] [address] 67893 Urine Opiates Screen June 16, 2023 9:45am Negative Negative Opiate Cutoff level 300 ng/mLOxycontin/O xycodone is not detected below the threshold of20,000 ng/mL [facility] [id number] [address] [place] [address] 67149 Urine Opiates Screen June 20, 2023 2:16am Negative Negative Opiate Cutoff level 300 ng/mLOxycontin/O xycodone is not detected below the threshold of20,000 ng/mL [facility] [id number] [address] [place] [address] 94575 Urine Fentanyl Screen June 16, 2023 9:45am Negative Negative Fentanyl Cutoff level 2.0 ng/mL [facility] [id number] [address] [place] [address] 68860 Urine Fentanyl Screen June 20, 2023 2:16am Negative Negative Fentanyl Cutoff level 2.0 ng/mL [facility] [id number] [address] [place] [address] 87405 Acetaminophen Level June 19, 2023 11:45pm < 5 ug/mL Acetaminophen Reference Range: Negative <5 ug/mL [facility] [id number] [address] [place] [address] 76182 Urine Benzodiazepine s Screen June 16, 2023 9:45am Negative Negative Please note that the current method for benzodiazepines may be less sensitive to lorazapam detection than previously. If this result is negative and you are concerned about a false negative result for lorazepam, additional testing is possible. Please contact the laboratory.Benzo diazepine Cutoff level 200 ng/mL [facility] [id number] [address] [place] [address] 88308 Urine Benzodiazepine s Screen June 20, 2023 2:16am Negative Negative Please note that the current method for benzodiazepines may be less sensitive to lorazapam detection than previously. If this result is negative and you are concerned about a false negative result for lorazepam, additional testing is possible. Please contact the laboratory.Benzo diazepine Cutoff level 200 ng/mL [facility] [id number] [address] [place] [address] 20189 Urine Cocaine Screen June 16, 2023 9:45am Positive Negative Confirmation by GC/MS not routinely performed for Non-Maternity locations. If confirmation is required, an order must be placed.Cocaine Cutoff level 300 ng/mL [facility] [id number] [address] [place] [address] 09205 Urine Cocaine Screen June 20, 2023 2:16am Negative Negative Cocaine Cutoff level 300 ng/mL [facility] [id number] [address] [place] [address] 74793 Urine Cannabinoids Screen June 16, 2023 9:45am Negative Negative THC Cutoff level 50 ng/mLThis report is intended for use in clinical monitoring and management of patients. It is not intended for use in employment related drug testing or court related proceedings. Samples are not routinely tested for adulteration and are assumed to be within the normal physiological pH range of 5 - 8. [facility] [id number] [address] [place] [address] 07859 Urine Cannabinoids Screen June 20, 2023 2:16am Negative Negative THC Cutoff level 50 ng/mLThis report is intended for use in clinical monitoring and management of patients. It is not intended for use in employment related drug testing or court related proceedings. Samples are not routinely tested for adulteration and are assumed to be within the normal physiological pH range of 5 - 8. [facility] [id number] [address] [place] [address] 06627 Serum Alcohol June 16, 2023 11:13am < 10 mg/dl <10 [facility] [id number] [address] [place] [address] 89869 Serum Alcohol June 19, 2023 11:45pm 41 mg/dl <10 [facility] [id number] [address] [place] [address] Serum Alcohol June 20, 2023 10:15pm 216 mg/dl <10 [facility] [id number] [address] [place] [address] 29172 Levetiracetam (Keppra) Level June 16, 2023 11:13am <2.0 ug/mL 10.0-40.0 Performed at: - [facility] [id number] Director: Rojas Prabhakar MD, Phone: [phone] [facility] ([place]) [id number] Diagnostic Imaging Reports Author Alfonso Martinezgilberto [facility] June 16, 2023 10:20am Report Date/Time June 16, 2023 10:23am [place] [id number] Patient Name: MAYELIN LESLIE Medical Record#: [id number] Address: [address] [place] City/State/Zip: [place] [address]: Pepe Choudhary MD Insurance: [facility] et (Medicaid) /Age/Sex: 1980/42/M Self Pay Admit/Reg Date: 06/16/[address]: Karoline Choudhary MD Location: ED.GS/ PCP: Md ARCHIE Vargas Date of Service: 06/16/23 Order (s): CT head/brain wo contrast CPT Code: 95144 Report Number: [id number] Reason for Exam: seizure Clinical history: Seizure CT head/brain wo contrast TECHNIQUE: Multidetector, volumetric CT acquisition was performed of the head from skull base to vertex and axial, coronal, and sagittal reformatted images were produced. Iterative reconstruction techniques were used for dose reduction. COMPARISON: None. FINDINGS: Brain Parenchyma: There is no acute intracranial infarction, hemorrhage, midlineshift or mass effect. Ventricular System and Extra-Axial Spaces: Normal. Calvarium, Skull Base, and Sella: Normal. Paranasal Sinuses: Small retention cyst versus polyp in the left maxillary sinus. Mastoid Air Cells: Clear. Orbits: Normal. IMPRESSION: 1. No acute intracranial process. MRI is a more sensitive modality to exclude structural/parenchymal abnormalitiesin the brain parenchyma for workup of seizure. Dictated By: Alfonso Garcia MD 06/16/23 0951 Signed By: Alfonso Garcia MD 06/16/23 1023 TD/TT: 06/16/23 0951Tech: [id number] cc: PCPNO; SAKCO* Karoline Choudhary MD; Md Alicia MD Author [facility] June 17, 2023 10:42am Report Date/Time June 17, 2023 10:42am [place] [address] Patient Name: MAYELIN LESLIE Medical Record#: [id number] Address: [address] City/State/Zip: [place] [address]: Yo torres MD Insurance: [facility] (Medicaid) /Age/Sex: 1980/42/M Self Pay Admit/Reg Date: 06/16/[address]: Karoline Choudhary MD Location: 3A./NH191-Y PCP: Md ARCHIE Vargas Date of Service: 06/16/23 Order (s): EKG ED Electrocardiogram CPT Code: 57397 Report Number: [id number] Reason for Exam: seizure SINUS RHYTHM NONSPECIFIC INTRAVENTRICULAR CONDUCTION DELAY Dictated By: Neil Addison MD 06/16/23946 Signed By: Neil Addison MD 06/17/23 1042 TD/TT: 06/16/23946Tech: [id number] cc: ANNI; MIN* Karoline Choudhary MD; Pcp-MD Lissett Author Rupert Elmore [facility] June 17, 2023 2:08pm Report Date/Time June 17, 2023 2:11pm [address] [address] Patient Name: MAYELIN LESLIE Medical Record#: [id number] Address: [address] City/State/Zip: [place] [address]: Yo torres MD Insurance: [facility] (Medicaid) /Age/Sex: 1980/42/M Self Pay Admit/Reg Date: 06/16/[address]: Yo Hernandez MD Location: 3A./CC560-Q PCP: Pcp-Md ARCHIE Galeana Date of Service: 06/17/23 Order (s): XR KUB portable; XR chest 1V portable CPT Code: 67697; 62291 Report Number: [id number] Reason for Exam: Pre MRI XR KUB [...] 06/17/231402 Signed By: Rupert Elmore MD 06/17/23 1411 TD/TT: 06/17/23 140Tech: [id number] cc: ANNI; СЕРГЕЙ Vargas MD; Yo Hernandez MD Author Evens Minaya [facility] June 18, 2023 10:50am Report Date/Time June 18, 2023 10:53am [place] [address] [place] [address] Patient Name: MAYELIN LESLIE Medical Record#: [id number] Address: [address] City/State/Zip: [place] [address]: Zeke Perkins MD Insurance: [facility] (Medicaid) /Age/Sex: 1980/42/M Self Pay Admit/Reg Date: 06/16/[address]: Yo Hernandez MD Location: 3A./WQ888-B PCP: Md ARCHIE Vargas Date of Service: 06/18/23 Order (s): MR head/brain wo contrast CPT Code: 71864 Report Number: [id number] Reason for Exam: Seizure History: Seizure. No prior brain MRIs available for comparison. Head CT from June 16, 2023 is available on PACS. Technique: Noncontrast brain MRI included following sequences; sagittal T1, axial T2, axial FLAIR, axial diffusion, axial gradient echo, coronal IR, coronalT2. Additionally thin section axial T2/cisternogram was obtained through the internal auditory canals. Findings: Is motion degradation throughout the study. The coronal IR and T2 imaging is essentially nondiagnostic as is the cisternogram. Axial imaging showsthe ventricles to be midline without shift. Sagittal [...] significant T2/FLAIR signal abnormality seen in brain parenchyma.However follow-up imaging may be considered if symptoms persist. Dictated By: Evens Minaya MD 06/18/231043 Signed By: Evens Minaya MD 06/18/231052 TD/TT: 06/18/231043Tech: [id number] cc: REINA; ANNI; СЕРГЕЙ Vargas MD; Zeke Perkins MD; Yo Hernandez MD Vital Signs Vital Reading Result Reference [...] 7:40am BMI (Body Mass Index) 29.2 kg/m2 [facility] er 2022 12:00am Body Temperature 98.2 [degF] 97.6-99.6 June 202022 11:24am Heart Rate 80 /min 60-90 June 20, 2023 6:10pm Respiratory rate 16 /min -June 202022 6:10pm Oxygen saturation by Pulse oximetry 98 % 95-100 June 20, 2023 6:10pm BP Systolic 118 mm[Hg] 90-140 June 20, 2023 6:10pm BP Diastolic 76 mm[Hg] 60-90 June 20, 2023 6:10pm Body Temperature 98.2 [degF] 97.6-99.6 June 202022 10:15pm Heart Rate 74 /min 60-June 20, 2023 11:59pm Respiratory rate 16 /min -June 202022 10:15pm Oxygen saturation by Pulse oximetry 99 % 95-100 June 20, 2023 10:15pm BP Systolic 109 mm[Hg] 90-140 June 20, 2023 10:15pm BP Diastolic 74 mm[Hg] 60-90 June 20, 2023 10:15pm Advance Directives Advance Directive Response Recorded Date/ Time Advance Directives No April 21, 2023 3:02pm Health Care Proxy No April 21, 2023 3:02pm Advance Directives No May 04, 2023 11:56am Health Care Proxy No May 04, 2023 11:56am Advance Directives No June 11:36am Health Care Proxy No June 17, 2023 11:36am Advance Directives No June 10:41pm Health Care Proxy No June 20, 2023 10:41pm Advance Directives No April 26, 2023 12:45pm Health Care Proxy No April 26, 2023 12:45pm Advance Directives No May 10:52pm Health Care Proxy No May 21, 2023 10:52pm Advance Directives No June 11:50pm Health Care Proxy No June 19, 2023 11:50pm Insurance Providers Guarantor MAYELIN LESLIE Address [address] [facility] [address] Contact Info. Home Phone: Payer Policy Id Coverage Id Subscriber's Name Subscriber Id Effective Date Expiration Date Commercial Other [id number] MAYELIN LESLIE [id number] [facility] (Medicaid) [id number] MAYELIN LESLIE [id number] Medicaid [place] [id number] MAYELIN LESLIE [id number] [facility] Required [id number] MAYELIN LESLIE [id number] Encounters Encounter Location(s) Arrival/Admit Date Discharge/Depart Date Provider(s) Discharged Inpatient [facility]-3A June 16, 2023 5:36pm June 19, 2023 10:00am Zeke Perkins MD Departed Emergency [facility]-Emergency Dept June 19, 2023 11:46pm June 20, 2023 6:23pm null Admitted Inpatient [facility]-2C June 20, 2023 11:44pm Mary Forte MD Recent Diagnosis Onset Date Bipolar disorder Cocaine use with intoxication, uncomplic ated Alcoholism Seizure disorder Alcohol withdrawal seizure Hypomagnesemia Hyponatremia Alcohol intoxication Bipolar disorder Wernicke encephalopathy Alcohol abuse Alcoholism Anemia Seizure disorder Functional Status Observation Response Date Recorded Assistive Devices None June 17, 2023 11:36am Date of Last Bowel Movement 06/18/23 Dece mber 2022 1:54am Mental Status Observation Response Date Recorded Arousable To Name June 19 1:54am Patient Behavior Appropriate June 19, 2023 10:37am Cooperative June 19 10:37am Comprehension Ability Understands Concepts Decem parrish 2022 1:54am Level of Consciousness Awake June 19, 2023 1:54am Alert June 19 1:54am Appropriate June 19 1:54am Follows Commands June 19, 2023 1:54am Assessments Diagnosis Onset Date Resolution Status Bipolar disorder acute Cocaine use with intoxication, uncomplicated acute Alcoholism chronic Seizure disorder chronic Alcohol withdrawal seizure r esolved Hypomagnesemia resolved Hyponatremia resolved Alcohol intoxication acute Bipolar disorder acute Wernicke encephalopathy acut e Alcohol abuse chronic Alcoholism chronic Anemia chronic Seizure disorder chronic Plan of Treatment Future Tests Future scheduled test information is unavailable Pending Tests Test Name Ordered Date Scheduled Date White Blood Count June 21, 2023 6:00am Red Blood Count June 21, 2023 6:00am Hemoglobin June 21, 2023 6:00am Hematocrit June 21, 2023 6:00am Mean Corpuscular Volume June 21, 2023 6:00 am Mean Corpuscular Hemoglobin June 21, 2023 6:00am Mean Corpuscular Hemoglobin Concent June 21, 2023 6:00am Red Cell Distribution Width June 21, 2023 6:00am Platelet Count June 21, 2023 6:00am Neutrophils (%) (Auto) June 21, 2023 6:00a m Lymphocytes (%) (Auto) June 21, 2023 6:00a m Monocytes (%) (Auto) June 21, 2023 6:00am Eosinophils (%) (Auto) June 21, 2023 6:00a m Basophils (%) (Auto) June 21, 2023 6:00am Neutrophils # (Auto) June 21, 2023 6:00am Lymphocytes # (Auto) June 21, 2023 6:00am Basophils # (Auto) June 21, 2023 6:00am Sodium Level June 21, 2023 6:00am Potassium Level June 21, 2023 6:00am Chloride Level June 21, 2023 6:00am Carbon Dioxide Level June 21, 2023 6:00am Blood Urea Nitrogen June 21, 2023 6:00am Creatinine June 21, 2023 6:00am Estimat Glomerular Filtratio n Rate June 21, 2023 6:00am Glucose Level June 21, 2023 6:00am Calcium Level June 21, 2023 6:00am Whole Blood Vitamin B1 Level June 20, 2023 8:46am VTE Risk Assessment Medical June 16, 2023 5:35pm June 16, 2023 5:36pm VTE Risk Assessment Medical June 20, 2023 11:44pm June 20, 2023 11:44pm Future Visits Future appointment information is unavailable Referrals to Other Providers Reason for Referral Referral Start Date Provider Provider Contact Information Provider Address BRAD BYRNE Work Phone: [address] [place] [address] PcpMd ARCHIE Leroy Follow-up in the next 2 weeks for treatment of alcoholism and nicotine dependence. Vinny Tsai MD Work Phone: [address] [place] [address] BRAD BYRNE Work Phone: [facility] [place] [address] PcpMd ARCHIE Leroy PcpMd ARCHIE Leroy Future [...] 17, 2023 12:52am June 17, 2023 12:52am Career Resource Specialist Consult June 16, 2 023 6:17pm June 16, 2023 6:17pm Career Resource Specialist Consult June 17 2 023 12:52am June 17, 2023 12:52am Activity [...] 16, 2023 6:09pm June 16, 2023 6:09pm Basic Metabolic Panel June 20 11:44pm June 21, 2023 6:00am Complete Blood Count Auto Diff June 20, 2023 11:44pm June 21, 2023 6:00am EKG ED Electrocardiogram June 20, 2023 10:10pm June 20, 2023 10:10pm Hospital Level of Care June 20 11:44pm June 20, 2023 11:44pm Code Status June 20, 2023 11:44pm June 20, 2023 11:44pm ED Transfer of Care to Adm Physician June 21, 2023 12:01am June 21, 2023 12:01am Peripheral IV Insert/Manage June 11:44pm June 20, 2023 11:44pm Patient Preference for Pain Management June 20, 2023 11:44pm June 20, 2023 11:44pm Sequential Compression Device June 062022 11:44pm June 20, 2023 11:44pm Saline Lock Insert/Manage April 26, 2023 1:2 5pm April 26, 2023 1:25pm Continuous Pulse Oximetry April 26, 2023 1:2 5pm April 26, 2023 1:25pm Vit B1 (Thiamine), Whole Blood June 20, 2023 4:02am June 20, 2023 8:46am EKG ED Electrocardiogram June 20, 2023 1:16am June 20, 2023 1:16am Peripheral IV Insert/Manage June 1:16am June 20, 2023 1:17am Teleneurology Consult June 20 9:51am June 20, 2023 9:51am Future Medications Future medication information is unavailable Patient Instructions Alcoholism Resources Addiction: Getting Help ED Seizure, Recurrent (Adult) Goals Acute Goals Author Authored Date You [...] running out of your medications. Zeke Perkins [facility] June 19, 2023 9:26am Absence of falls Including: - Early & often mobilization when appropriate - Passive/active range of motion as appropriate - toileting schedule implementation - implementation of fall risk interventions [facility] June 21, 2023 12:37am Risks from withdrawal jose gaona [facility] June 21, 2023 12:37am Prevention of aspiration Including: - Absence of regurgitation, gagging, coughing, fever, cyanosis and respiratory insufficiency - Aspiration precautions [facility] June 21, 2023 12:37am Understand Mgmt Strategy-Reginaldo pete Patient/Caregiver understand: - Pathophysiology - Reportable s/s and when to seek medical care - Treatment plan and post discharge follow up - Medication compliance, environmental safety & lifestyle modification [facility] June 21, 2023 12:37am Alleviation of anxiety Including: -Utilization of coping skills -Demonstrates/verbalizes decreased anxiety [facility] June 21, 2023 12:37am Pt reports/exhibits pain at mihir level Including: - Pain controlled by pharmacological/non-pharmacologica l means - Establish realistic pain and function goals prior to initiating opioid therapy in patients with chronic pain if applicable - Discuss known risks and realistic benefits of opioid therapy [facility] June 21, 2023 2:32am Alteration in Hemodynamics [facility] June 21, 2023 2:32am Effective breathing pattern Including: - Able to speak in full sentences as age appropriate - Absence of accessory muscle use (retractions), shallow breathing, dyspnea, wheezing & tachypnea - Facilitate optimal positioning - maximize effective breathing & prevent exacerbation [facility] June 21, 2023 2:32am Absence of fluid/electrolyte imbalance Including: - Improved lab values - Adequate urine output - Adequate hydration - Stable weight if appropriate [facility] June 21, 2023 2:32am Able to achieve maximum mobi lity level Including: - Understands safety - Demonstrates progress in improved mobility - Demonstrates correct use of mobility devices if appropriate - Understands & accepts limitations & plan for progression as appropriate [facility] June 21, 2023 2:32am Antimicrobial Educ Reviewed with Patient [facility] June 21, 2023 2:32am Understand Management Strate gies Patient/Caregiver understand: - Pathophysiology - Reportable s/s and when to seek medical care - Treatment plan and post discharge follow up - Medication regime, energy conservation, diet & lifestyle modification [facility] June 21, 2023 2:32am Safely transition to next [facility] of care Patient/family has: - Appropriate access to resources and support services as applicable [facility] June 21, 2023 2:32am Consultation Note Author Krzysztof So [facility] June 17, 2023 12:57pm Note Date/Time June 17, 2023 12:47pm [place] [address] Neurology Consult Note Signed Patient: MAYELIN LESLIE Medical Record#: [id number] : 1980 Acct:[id number] Age/Sex: 42 / M Admit/Reg Date: 06/16/23 Loc: 3A.GS Room: [address] Report Number: [id number] Attending [address]: Yo Hernandez MD HPI Date of Encounter: 06/17/23 Referring Provider: Jen Kelley Reason for Consult: seizure Chief complaint HPI: seizure History of Present Illness: This is a 42 year old man with history of alcohol use, seizure disorder, cocaineuse, bipolar, who presents for seizures. He is sleepy and has difficulty sustaining wakefulness long enough to give details of his history, therefore history is primarily obtained from the medical record. He is a daily drinker and averages a big glass of vodka daily. Last drink was 2 days prior to presentation. He says his last seizure was several months ago, but he is unableto tell me much beyond this. On day of presentation, he was found with seizure activity and brought to the ER, where he returned to baseline. head CT showed no acute pathology. Tox positive for cocaine. He was admitted to the medical floor and placed on alcohol withdrawal protocol. Active Medications Acetaminophen (Acetaminophen 325 Mg Tablet) 650 mg PO Q6H PRN PRN Reason: Mild Pain (1-3) Last Admin: 06/16/23 22:21 Dose: 650 mg Documented By: FIDE Al Hydrox/Mg Hydrox/Simethicone (Aluminum/Magnesium/Simeth 30 Ml Udl) 10 ml PO Q6H PRN PRN Reason: Heartburn/Indigestion Azelastine HCl (Azelastine Nasal [place] 30 Ml Btl) 2 spray BOTHNOSTRL BID SHADY Last Admin: 06/17/23 08:53 Dose: 2 spray Documented By: IAN Bismuth Subsalicylate (Bismuth Subsalicylate 30 Ml Udl) 30 ml PO .AFTER LOOSE STOOL PRN PRN Reason: Loose Stool Clobetasol Propionate (Clobetasol 0.05% Cream 30 Gm Tube) 1 appl TOPICAL DAILY SHADY; Protocol Last Admin: 06/17/23 10:47 Dose: Not Given Documented By: IAN Non-Admin Reason: Patient Refused Clonidine HCl (Clonidine 0.2 Mg Tablet) 0.2 mg PO Q8H PRN; Protocol PRN Reason: COWS <12 Clonidine HCl (Clonidine 0.1 Mg Tablet) 0.3 mg PO Q8H PRN; Protocol PRN Reason: COWS 12-24 Clonidine HCl (Clonidine 0.1 Mg Tablet) 0.3 mg PO Q8H PRN; Protocol PRN Reason: COWS >24 Dicyclomine HCl (Dicyclomine 20 Mg Tablet) 20 mg PO Q4H PRN PRN Reason: Abdominal Cramps Diphenhydramine HCl (Diphenhydramine 25 Mg Capsule) 25 mg PO QHS PRN PRN Reason: Insomnia Diphenoxylate HCl/Atropine (Diphenoxylate/Atropine Tablet) 2 tab PO QID PRN PRN Reason: Diarrhea Enoxaparin Sodium (Enoxaparin 40 Mg/0.4 Ml Syr) 40 mg SC DAILY [facility] Last Admin: 06/17/23 08:52 Dose: 40 mg Documented By: IAN Ferrous Sulfate (Ferrous Sulfate 325 Mg Tablet) 325 mg PO DAILY [facility] Last Admin: 06/17/23 08:51 Dose: 325 mg Documented By: IAN Folic Acid (Folic Acid 1 Mg Tablet) 1 mg PO DAILY [facility] Last Admin: 06/17/23 08:52 Dose: 1 mg Documented By: IAN Gabapentin (Gabapentin 400 Mg Capsule) 800 mg PO TID [facility] Last Admin: 06/17/23 08:52 Dose: 800 mg Documented By: IAN Thiamine HCl 500 mg/ Sodium (Chloride) 255 mls @ 250 mls/hr IV TID [facility] Stop: 06/18/23 20:59 Last Admin: 06/17/23 10:47 Dose: 250 mls/hr Documented By: IAN Levetiracetam (Levetiracetam 500 Mg Tablet) 1,000 mg PO BID [facility]; Protocol Last Admin: 06/17/23 08:52 Dose: 1,000 mg Documented By: IAN Meclizine HCl (Meclizine 12.5 Mg Tablet) 25 mg PO TID PRN PRN Reason: dizziness Multivitamins (Multivitamin Tablet) 1 tab PO DAILY [facility] Last Admin: 06/17/23 08:52 Dose: 1 tab Documented By: IAN Phenobarbital (Phenobarbital 32.4 Mg Tablet) 32.4 mg PO BID [facility] Stop: 06/19/23 18:01 Phenobarbital (Phenobarbital 32.4 Mg Tablet) 32.4 mg PO DAILY [facility] Phenobarbital (Phenobarbital 65 Mg/Ml Inj) 125 mg IV Q8H [facility] Stop: 06/17/23 14:01 Last Admin: 06/17/23 05:51 Dose: 125 mg Documented By: FIDE Phenobarbital (Phenobarbital 32.4 Mg Tablet) 64.8 mg PO BID [facility] Stop: 06/18/23 18:01 Phenobarbital (Phenobarbital 65 Mg/Ml Inj) 130 mg IV Q4H PRN; Protocol PRN Reason: Severe alcohol withdrawal Polyethylene Glycol (Polyethylene Glycol 3350 17 Gm Packet) 17 gm PO DAILY [facility] Last Admin: 06/17/23 08:53 Dose: Not Given Documented By: IAN Non-Admin Reason: Patient Refused Quetiapine Fumarate (Quetiapine 25 Mg Tablet) 25 mg PO QHS [facility] Last Admin: 06/16/23 22:00 Dose: 25 mg Documented By: FIDE Sertraline HCl (Sertraline 50 Mg Tablet) 100 mg PO DAILY [facility] Last Admin: 06/17/23 08:52 Dose: 100 mg Documented By: IAN Thiamine HCl (Thiamine 100 Mg Tablet) 100 mg PO DAILY [facility] Trazodone HCl (Trazodone 100 Mg Tablet) 100 mg PO QHS PRN PRN Reason: Insomnia Last Admin: 06/16/23 22:00 Dose: 100 mg Documented By: FIDE Home Medications: azelastine 137 mcg (0.1 %) nasal spray aerosol 2 spray intranasal BID 06/16/23 [History Confirmed 06/16/23 Last Taken Unknown] clobetasol 0.05 % topical cream 1 applic topical DAILY 06/16/23 [History Confirmed 06/16/23 Last Taken Unknown] escitalopram oxalate 10 mg tablet 10 mg PO DAILY 06/16/23 [History Confirmed 06/16/23 Last Taken Unknown] gabapentin 800 mg tablet 800 mg PO TID 06/16/23 [History Confirmed 06/16/23 Last Taken Unknown] levetiracetam 500 mg tablet 500 mg PO BID 06/16/23 [History Confirmed 06/16/23 Last Taken Unknown] meclizine 25 mg tablet 25 mg PO TID PRN dizziness 06/16/23 [History Confirmed 06/16/23 Last Taken Unknown] quetiapine 25 mg tablet 25 mg PO QHS 06/16/23 [History Confirmed 06/16/23 Last Taken Unknown] sertraline 100 mg tablet 100 mg PO DAILY 06/16/23 [History Confirmed 06/16/23 Last Taken Unknown] Allergies/Adverse Reactions: No Known Drug Allergies Allergy (Verified 04/26/23 14:21) Family/Social History - CAD Risk Factors CAD Risk Factors (Pls confirm presence on problem list): Tobacco Use - Social History Lives With: Other Living Situation: Jail Smoking Status: Current everyday tobacco user-light smoker tobacco type: cigarettes Reason for Not Prescribing NRT: Patient Refused 1. How Often Do You Have a Drink Containing Alcohol: e. 4 or More Times a Week 2. How Many Drinks Containing Alcohol do you Drink on a Typical Day When you areDrinking: b. 3 or 4 3. How Often Do You Have Six or More Drinks on One Occasion: a. Never Audit-C Score: 5 Audit-C Result: Positive Do You Currently Use [...] Pulse Resp BP Pulse Ox 98.5 F 69 18 98/56 L 98 06/17/23 08:34 06/17/23 08:34 06/17/23 08:34 06/17/23 08:34 06/17/23 08:34 Body Mass Index (BMI): 29.2 Body Habitus: overweight General Appearance: no acute distress, somnolent Head Exam: Present: atraumatic, normocephalic Eye Exam: Absent: periorbital swelling ENT exam: Present: mucous membranes moist Neck exam: Present: normal inspection - Respiratory Exam Absent: accessory muscle use - Cardiovascular Exam Present: RRR - Skin Exam Present: intact - Neurological Exam He is sleepy, awakens briefly to voice, language is fluent, he is oriented to month, year, hospital, Pupils are equal, round, reactive to light bilaterally, extraocular movements are intact, face symmetric, He has 5/5 strength in all extremities, Reflexes are 1+ throughout, Tactile sensation is intact throughout in arms and legs bilaterally, Neurology Results 06/17/23 05:43 06/17/23 05:43 Pertinent Lab Findings: Most Recent Lab Results WBC 7.9 X10 3/uL (4.5-11.0) 06/17/23 05:43 RBC 4.82 X10 6/uL (4.00-5.50) 06/17/23 05:43 Hgb 9.4 g/dl (13.0-17.0) L 06/17/23 05:43 Hct 31.8 % (37.5-50.0) L 06/17/23 05:43 MCV 66.0 fl (80.0-100.0) L 06/17/23 05:43 MCH 19.5 pg (27.0-34.0) L 06/17/23 05:43 MCHC 29.6 g/dl (31.0-36.0) L 06/17/23 05:43 RDW 21.3 % (11.5-15.0) H 06/17/23 05:43 Plt Count 334 X10 3/uL (150-400) 06/17/23 05:43 Immature Gran % (Auto) 0.1 % 06/17/23 05:43 Neut % (Auto) 60.4 % 06/17/23 05:43 Lymph % (Auto) 26.2 % 06/17/23 05:43 [place] % (Auto) 8.6 % 06/17/23 05:43 Eos % (Auto) 3.7 % 06/17/23 05:43 Baso % (Auto) 1.0 % 06/17/23 05:43 Neut # (Auto) 4.8 X10 3/uL (1.5-7.8) 06/17/23 05:43 Lymph # (Auto) 2.1 X10 3/uL (1.0-4.8) 06/17/23 05:43 [place] # (Auto) 0.7 X10 3/uL (0.0-0.8) 06/17/23 05:43 Eos # (Auto) 0.3 X10 3/uL (0.0-0.5) 06/17/23 05:43 Baso # (Auto) 0.1 X10 3/uL (0.0-0.2) 06/17/23 05:43 Immature Gran # (Auto) 0.01 X10 3/uL (0.00-0.09) 06/17/23 05:43 Nucleated RBC % 0.0 /100 WBC (0.0-0.0) 06/17/23 05:43 Sodium 142 mmol/L (137-146) 06/17/23 05:43 Potassium 3.4 mmol/L (3.5-5.3) L 06/17/23 05:43 Chloride 107 mmol/L (98-107) 06/17/23 05:43 Carbon Dioxide 24 mmol/L (23-32) 06/17/23 05:43 Anion Gap 11 mmol/L (5-15) 06/17/23 05:43 BUN 11 mg/dl (5-25) 06/17/23 05:43 Creatinine 0.7 mg/dL (0.6-1.4) 06/17/23 05:43 Estimated Creat Clear 165.0 ml/min 06/17/23 05:43 Estimated GFR 119 (>=90 ml/min/1.73m2) 06/17/23 05:43 BUN/Creatinine Ratio 15.7 (10.0-20.0) 06/17/23 05:43 Glucose 131 mg/dL (<100 -Fasting) H 06/17/23 05:43 POC Glucose 75 mg/dl (70-100) 06/16/23 09:04 Lactic Acid 1.1 mmol/L (0.5-2.0) 06/16/23 11:13 Calcium 8.8 mg/dl (8.6-10.3) 06/17/23 05:43 Magnesium 2.0 mg/dL (1.8-2.5) 06/17/23 05:43 Procalcitonin 0.03 ng/mL (</=0.10) 06/16/23 11:13 TSH 1.55 uIU/mL (0.34-5.60) 06/16/23 11:13 Urine Opiates Screen Negative (Negative) 06/16/23 09:45 Ur Buprenorphine Scrn Negative (Negative) 06/16/23 09:45 Ur Oxycodone Screen Negative (Negative) 06/16/23 09:45 Urine Methadone Screen Negative (Negative) 06/16/23 09:45 Urine Fentanyl Screen Negative (Negative) 06/16/23 09:45 Ur Amphetamines Screen Negative (Negative) 06/16/23 09:45 U Benzodiazepines Scrn Negative (Negative) 06/16/23 09:45 Urine Cocaine Screen Positive (Negative) H 06/16/23 09:45 U Cannabinoids Screen Negative (Negative) 06/16/23 09:45 Serum Alcohol < 10 mg/dl (<10) 06/16/23 11:13 Add-On Test Request Added test 06/17/23 08:18 Neurology A&P (1) Alcohol withdrawal seizure Status: Acute Assessment and Plan: This is a 42 year old man with history of alcohol use, seizure disorder, cocaineuse, bipolar, who presented for seizures. History of his seizure disorder is unclear, but given the circumstances, these most recent seizures may have been provoked by cocaine use or alcohol withdrawal. -No need for adjustment of outpatient anticonvulsants - resume his home regimen. -Seizure precautions. -Continue alcohol withdrawal protocol. -Outpatient neurology follow up after discharge. -Reviewed state driving laws with him (no driving). Please contact me for any questions or updates. - Location and Group Information [facility]G-billable encounter: Yes Service location: inpatient Provider group: [facility] - E&M Encounter Coding Inpatient consultations: Level 4 35070 Time-based billing attestation: - Attestation Attestation: I have reviewed and updated the patient's past medical, social, andfamily history as necessary and have reviewed pertinent laboratory findings. Confirm PMH/FSH Attestation: Yes Problem List Attestation Statement: I have documented a relevant problem and problem plan for this visit. Attending Confirm Problem: Yes Attending Problem List Check: Pass Dictated By: Krzysztof So MD Signed By: Krzysztof So MD 06/17/23 1257 DD/ 1239 TD/TT: 06/17/23 1239 Pulp Piler: NIRMALA cc: NIRMALA; Krzysztof Campbell MD; Yo Hernandez MD Discharge Summary Note Author Zeke Perkins [facility] June 19, 2023 9:26am Note Date/Time June 19, 2023 9:23am [address] [address] Discharge Summary Signed Patient: MAYELIN LESLIE Medical Record#: [id number] : 1980 Acct:[id number] Age/Sex: 42 / M Admit/Reg Date: 06/16/23 Loc: 3A. Room: [address] Report Number: [id number]: Zeke Perkins MD DS: Providers Primary Care Provider: Vinny Tsai Attending physician on admission: Zeke Perkins Consults: 06/16/23 18:09 Neurology Consult Routine Comment: Consulting Provider: Krzysztof So Physician Instructions: Reason For Exam: Seizure disorder Date of Notification: 06/16/23 Time of Notification: 20:29 Person Notified: photoned 06/16/23 18:17 Career Resource Specialist Consult Routine Comment: Physician Instructions: Reason for Social Serv Consult: Substance Abuse 06/17/23 00:52 Case Management Consult Routine Physician Instructions: Reason For Exam: Discharge Planning Smoking Cessation Consult Routine Comment: Career Resource Specialist Consult Routine Comment: Physician Instructions: Reason for Social Serv Consult: Homeless/Housing Issues Other Reason: Help with substance recovery program Attending physician on discharge: Zeke Perkins Discharging clinician: Zeke Perkins Anticipated date of discharge: 06/19/23 DS: Diagnosis - Discharge Diagnosis (1) Alcohol withdrawal seizure Status: Resolved (2) Hyponatremia Status: Resolved (3) Hypomagnesemia Status: Resolved (4) Alcoholism Status: Chronic DS: Summary Date of Admit: 06/16/23 17:36 Date of Encounter: 06/19/23 Date of Discharge: 06/19/23 Hospital course: mpression: 42-year-old male with history of obesity, gastric bypass 7 years ago in [place], seizure disorder, alcoholism, alcohol withdrawal seizures, fibromyalgia, bipolar disorder, cocaine abuse, iron-deficiency anemia, the patient presented evaluation of alcohol withdrawal seizures. Further seizures during this hospital stay, patient has improved be discharged to homeless intermediate with plan to follow up with PCP in the next 2 weeks. Discussed smoking cessation and alcohol cessation during this hospital stay. Patient also has a anemia to be followed up by primary care doctor and a counter manager. Patient in agreement plan of care discharge planning. Assessment and plan Alcohol withdrawal seizures Alcoholism with withdrawal Hypokalemia Chronic conditions History of gastric bypass Alcoholism Fibromyalgia Mood disorder/bipolar disorder Psoriasis Substance use disorder cocaine Iron-deficiency anemia in a 42-year-old, to follow up with PCP for age- appropriate screening tests Full code Dictation software was used for this evaluation Time spent discussing smoking cessation with patient: 3 to 10 minutes History of Present Illness: 06/19/23 09:18 Chief complaint HPI: Witnessed seizure History of Present Illness: Patient is a 42-year-old male with obesity s/p gastric bypass 7 years ago in [place], AJ, seizure disorder, AUD, alcohol withdrawal seizure, fibromyalgia, bipolar disorder, hallucination, cocaine abuse, housing challengedwho presents to the ED for witnessed seizure. Reportedly EMS saw patient is actively seizing on scene, 2 mg Versed was given-seizure resolved. Patient is in postictal state upon arrival to the ED. Patient reports he is a daily drinker, one big glass of Vodka a day, last drink 2 nights ago. Never been intubated for alcohol withdrawal seizure but multiple prior hospitalizations. Hx cocaine abuse. Last use yesterday. Endorses fibromyalgia with generalized pain. Otherwise denies any fever, chills, chest pain, shortness of breath. No abdominal pain no nausea vomiting. No constipation or diarrhea. Regarding seizure history, patient reports he is being followed by Neurology butunable to provide the name or Hospital the provider is affiliated with. Unable to provide the last time he was seen by neurologist. Per outpatient pharmacy, patient was given prescription of Keppra 500 mg b.i.d. for 30 days by ED physician at [facility] on 06/12/2023. Another prescription for 30 day supply of Keppra 1000 every night by ED physician at [facility] on 06/11/2023. ED course Patient afebrile, hemoglobin 9.9, hematocrit 34.7, no thrombocytopenia. Chemistry with sodium 132, unremarkable electrolytes, magnesium 1.7 Urine tox positive for cocaine Head CT with no acute intracranial process - Status at Discharge Functional status at discharge: independent ambulation Overall status at discharge: patient is back to baseline - Time Spent with Patient Total time spent providing and/or coordinating discharge services: - Location and Group Information [facility]bill[facility] encounter: Yes Service location: inpatient Provider group: [facility] - E&M Encounter Coding Hospital discharge services: 88844 discharge mgmt over 30 mins Discharge service time spent (mins): 33 - Attestation Attestation: I have reviewed all pertinent laboratory findings. Confirm Results Attestation: Yes Results check: Pass Exam Vital signs: Temp Pulse Resp BP Pulse Ox 98.8 F 73 18 111/70 98 06/19/23 07:40 06/19/23 07:40 06/19/23 07:40 06/19/23 07:40 06/19/23 07:40 Narrative: Young male stable on room air Pulm: Clear bilaterally Heart: S1-S2 heard and normal Abdomen: Soft nontender Extremities: No edema of the lower extremities, psoriasis plaques over the bilateral upper extremities Neurologic: Alert awake nonfocal grossly Psych: Normal mood skin: Warm to touch Body Mass Index (BMI): 29.2 Body Habitus: overweight DS: Data Did Patient have any Procedures?: No Completed studies during hospitalization [Text1]: Order (s): CT head/brain wo contrast CPT Code: 53502 Report Number: [id number] Reason for Exam: seizure Clinical history: Seizure [...] Alfonso Garcia MD 06/16/23 1023 TD/TT: 06/16/23 0951 Tech: [id number] cc: ANNI; MIN* Karoline Choudhary MD; Pcp-MD Lissett Order (s): XR KUB portable; XR chest 1V portable CPT Code: 53878; 22296 Report Number: [id number] Reason for Exam: Pre MRI XR KUB [...] is identified. Dictated By: Rupert Elmore MD 06/17/23 1403 Signed By: Rupert Elmore MD 06/17/23 1411 TD/TT: 06/17/23 1403 Tech: [id number] cc: LUDMILA Vargas MD; Yo Hernandez MD Order (s): MR head/brain wo contrast CPT Code: 92215 Report Number: [id number] Reason for Exam: Seizure History: Seizure. No [...] Evens Minaya MD 06/18/23 1053 TD/TT: 06/18/23 1044 Tech: [id number] cc: [email or web address]; LUDMILA Vargas MD; Zeke Perkins MD; Yo Hernandez MD Does Patient have Pending Results?: No Result Diagrams: 06/17/23 05:43 06/19/23 06:49 Labs on Day of Discharge: Labs on Day of Discharge 06/18/23 06/18/23 06/19/23 05:55 11:40 06:49 Sodium 142 Potassium 3.9 Chloride 104 Carbon Dioxide 28 Anion Gap 10 BUN 9 Creatinine 0.7 Estimated Creat Clear 165.0 Estimated GFR 119 BUN/Creatinine Ratio 12.9 Glucose 101 H Calcium 8.9 Magnesium 1.9 1.8 Add-On Test Request Added test Discharge Plan - Medications Prescriptions: New thiamine HCl (vitamin B1) 100 mg Tablet 100 mg PO DAILY Qty: 30 RF: 0 Transmission Status: Pending to [facility] Continued azelastine 137 mcg (0.1 %) aerosol,spray 2 spray intranasal BID escitalopram oxalate 10 mg tablet 10 mg PO DAILY gabapentin 800 mg tablet 800 mg PO TID levetiracetam 500 mg tablet 500 mg PO BID 90 Days Qty: 180 RF: 0 Transmission Status: Pending to [facility] meclizine 25 mg tablet 25 mg PO TID PRN (Reason: dizziness) quetiapine 25 mg tablet 25 mg PO QHS sertraline 100 mg tablet 100 mg PO DAILY No Action clobetasol 0.05 % cream 1 applic topical DAILY - Follow up Plan Follow up with: Vinny Tsai MD [Non-Staff] - (Follow-up in the next 2 weeks for treatment of alcoholism and nicotine dependence.) - Disposition Disposition: Home or Self-Care - Discharge Orders Discharge Orders: Discharge (Routine); Ordered 06/19/23 Ordered By: Zeke Perkins - Discharge Data Reason For Visit: ALCOHOL WITHDRAWAL SEIZURE Primary Care Provider: Pcp-Md Lissett Admit Provider: Jen Kelley Attending Provider: Zeke Perkins Admit Date/Time: 06/16/23 17:36 Anticipated Discharge Date/Time: 06/19/23 09:17 - Patient/Caregiver Discharge Instructions Discharge Diagnosis:: Unsafe alcohol consumption, seizures Patient Education: Alcoholism Resources, Addiction: Getting Help, ED Seizure, Recurrent (Adult) Condition: Good Diet: Regular Care Plan Goals: You came in for evaluation of alcohol withdrawal seizures, you symptoms have resolved. We recommend no further alcohol consumption due to risks include but not limited to liver failure, severe hemorrhage, early dementia and worsening mood disorders. We also recommend no further smoking due to risks include but not limited to cancer of the lungs throat and mouth attacks and strokes. Followup with primary care doctor in 2 weeks for treatment of the above. If you have any further seizures please seek emergency services. We recommend no driving for at least 6 months from 16 June 2023. Take medications as prescribed, call primary care doctor 2 weeks prior to running out of your medications. Specific Signs/Symptoms to Notify your Primary Physician: As above Activity Restrictions: As tolerated Dx/Tx/Meds Discussed with:: Patient - Discharge Information Print Language: Bahraini Quality - Smoking Status Smoking Status: Current everyday tobacco user-light smoker Was NRT Recommended: Yes Reasons for Not Recommending NRT at Discharge: Patient Refused [facility] Medically Nec (Y/N)?: No Dictated By: Zeke Perkins MD Signed By: Zeke Perkins MD 06/19/23925 DD/ 5 TD/TT: 06/19/23915 Pulp Piler: REINA cc: HARDY; REINA; FARNAZ Perdomo Pcp-MD Lissett; Zeke Perkins MD; Vinny Tsai MD History & Physical Note Author Jen Kelley [facility] June 19, 2023 3:39pm Note Date/Time June 16, 2023 6:03pm [address] History & Physical Signed Patient: MAYELIN LESLIE Medical Record#: [id number] : 1980 Acct:[id number] Age/Sex: 42 / M Admit/Reg Date: 06/16/23 Loc: 3A.GS Room: [address] Report Number: [id number]: Zeke Perkins MD HPI Date of Encounter: 06/16/23 Supervising Provider: Jen Kelley Chief complaint HPI: Witnessed seizure History of Present Illness: Patient is a 42-year-old male with obesity s/p gastric bypass 7 years ago in [place], [place], seizure disorder, AUD, alcohol withdrawal seizure, fibromyalgia, bipolar disorder, hallucination, cocaine abuse, housing challengedwho presents to the ED for witnessed seizure. Reportedly EMS saw patient is actively seizing on scene, 2 mg Versed was given-seizure resolved. Patient is in postictal state upon arrival to the ED. Patient reports he is a daily drinker, one big glass of Vodka a day, last drink 2 nights ago. Never been intubated for alcohol withdrawal seizure but multiple prior hospitalizations. Hx cocaine abuse. Last use yesterday. Endorses fibromyalgia with generalized pain. Otherwise denies any fever, chills, chest pain, shortness of breath. No abdominal pain no nausea vomiting. No constipation or diarrhea. Regarding seizure history, patient reports he is being followed by Neurology butunable to provide the name or Hospital the provider is affiliated with. Unable to provide the last time he was seen by neurologist. Per outpatient pharmacy, patient was given prescription of Keppra 500 mg b.i.d. for 30 days by ED physician at [facility] on 06/12/2023. Another prescription for 30 day supply of Keppra 1000 every night by ED physician at [facility] on 06/11/2023. ED course Patient afebrile, hemoglobin 9.9, hematocrit 34.7, no thrombocytopenia. Chemistry with sodium 132, unremarkable electrolytes, magnesium 1.7 Urine tox positive for cocaine Head CT with no acute intracranial process Information Provided By: Patient History Limitations: none Home Medications: azelastine 137 mcg (0.1 %) nasal spray aerosol 2 spray intranasal BID 06/16/23 [History Confirmed 06/16/23 Last Taken Unknown] clobetasol 0.05 % topical cream 1 applic topical DAILY 06/16/23 [History Confirmed 06/16/23 Last Taken Unknown] escitalopram oxalate 10 mg tablet 10 mg PO DAILY 06/16/23 [History Confirmed 06/16/23 Last Taken Unknown] gabapentin 800 mg tablet 800 mg PO TID 06/16/23 [History Confirmed 06/16/23 Last Taken Unknown] levetiracetam 500 mg tablet 500 mg PO BID 06/16/23 [History Confirmed 06/16/23 Last Taken Unknown] meclizine 25 mg tablet 25 mg PO TID PRN dizziness 06/16/23 [History Confirmed 06/16/23 Last Taken Unknown] quetiapine 25 mg tablet 25 mg PO QHS 06/16/23 [History Confirmed 06/16/23 Last Taken Unknown] sertraline 100 mg tablet 100 mg PO DAILY 06/16/23 [History Confirmed 06/16/23 Last Taken Unknown] Allergies/Adverse Reactions: No Known Drug Allergies Allergy (Verified 04/26/23 14:21) Family/Social History - CAD Risk Factors CAD Risk Factors (Pls confirm presence on problem list): Tobacco Use - Family History Family History: reviewed, not pertinent (Patient denies significant medical history in his family) Smoking Status: Current everyday tobacco user-light smoker tobacco type: cigars Order NRT for duration of visit: No Reason for Not Prescribing NRT: Patient Refused Smoking and Alcohol Narrative: Patient reports drinking a glass of vodka everyday Reports using cocaine daily Review of Systems - Review of Systems All systems reviewed & no additional complaints except as documented Exam Vital signs: Temp Pulse Resp BP Pulse Ox 98.0 F 69 16 109/47 L 100 06/16/23 09:05 06/16/23 11:18 06/16/23 11:18 06/16/23 11:18 06/16/23 11:18 Narrative: The patient is alert, oriented, in no acute distress No evidence of head trauma. No Murphy sign. No raccoon eyes. No scleral icterus. EOMI. PERRL. Conjunctiva clear. Nasopharynx clear. Oropharynx clear, without erythema. Airway and trachea patent and normal. Neck supple with no lymphadenopathy, FROM, nontender spine. Chest clear with normal excursion. Lungs: Normal breath sounds, normal inspiratory effort, no crackles or rales CVS: positive S1, S2, regular rate and rhythm, no murmurs rubs or gallops. Abdomen soft and nontender with no guarding or rebound tenderness Skin and extremities normal, with no +2 pitting edema in bilateral extremities, tenderness to palpation throughout Neurological: The patient is alert, oriented, and appropriate. Cranial nerves II through XII are intact. Strength 5/5 upper and lower extremities. Sensationis intact throughout. Coordination is normal. Psychiatric: mood and affect are normal. Body Mass Index (BMI): 32.7 Body Habitus: obese GM Results - Pertinent Lab Findings 06/16/23 11:13 06/16/23 11:13 Pertinent Lab Findings: Abnormal Results - 24 Hours 06/16/23 06/16/23 09:45 11:13 Hgb 9.9 L g/dl (13.0-17.0) Hct 34.7 L % (37.5-50.0) MCV 66.9 L fl (80.0-100.0) MCH 19.1 L pg (27.0-34.0) MCHC 28.5 L g/dl (31.0-36.0) RDW 20.7 H % (11.5-15.0) Neut # (Auto) 8.4 H X10 3/uL (1.5-7.8) Sodium 132 L mmol/L (137-146) Carbon Dioxide 19 L mmol/L (23-32) Magnesium 1.7 L mg/dL (1.8-2.5) Urine Cocaine Screen Positive H (Negative) Assessment and Plan Impression: Patient is a 42-year-old male with obesity s/p gastric bypass 7 years ago in [place], AJ, seizure disorder, AUD, alcohol withdrawal seizure, fibromyalgia, bipolar disorder, hallucination, cocaine abuse, housing challengedwho presents to the ED for witnessed seizure, most likely from alcohol withdrawal is now being admitted for further management # seizure p/w witnessed seizure, EMS gave Versed, received phenobarbital in the ED. admitted to drinking heavily daily Reported history of seizure on Keppra Also reported history of bipolar Multifactorial: Subjective alcohol abuse, withdrawal seizure, mixing alcohol with antiseizure agents No evidence of infection - admit to telemetry - continue CIWA protocol with phenobarbital - seizure precaution - consult neurology, given the fact that patient has has seizure disorder, in combination with AUD - supplements - thiamine IV for 2 days then switch to p.o. - follow lytes, repleted as indicated # AUD - discussed importance of staying sobriety while on antiseizure medications # bipolar disorder Denies SI HI Reports hallucination at times-unable to provide details - continue Zoloft, Seroquel, SSRI - check EKG to monitor QTC # iron-deficiency anemia Reports history of s/p gastric bypass, AJ - resume home dose Ferrous sulfate # nicotine dependence. Patient smokes 1 or 2 cigarettes a day. Smoking cessation discussed with patient - patient declined nicotine patch # cocaine abuse - discussed cessation - opiate withdrawal protocol # DVT ppx: Lovenox SC FULL CODE I had a detailed discussion with the patient regarding the history points, exam findings and diagnostic results supporting the admission diagnosis. Total time taken for reviewing previous records, performing the exam, discussingtreatment plans, coordination of care talked with patient, RN, caseworker more than 75 minutes This note was generated with a voice recognition program. Please excuse any errors which may have been overlooked during review. Sometimes, these errors mayaffect the content or meaning of a given sentence. (1) Seizure disorder Status: Acute Assessment and Plan: See impression (2) Bipolar disorder Status: Acute Assessment and Plan: See impression (3) Alcohol withdrawal seizure Status: Acute Assessment and Plan: See impression - Location and Group Information [facility]-billable encounter: Yes Service location: inpatient Provider Group: [facility] - E&M Encounter Coding Initial hospital care: Level 3 33364 Time-based billing attestation: - Attestation Attestation: I have reviewed and updated the patient's past medical, social, andfamily history as necessary and have reviewed pertinent laboratory findings. Confirm PMH/FSH Attestation: Yes Problem List Attestation Statement: I have documented a relevant problem and problem plan for this visit. Resident/AP Confirm Problem: Yes Resident/AP Problem List Check: Pass Quality VTE Risk Level: Moderate DVT Prophylaxis: Enoxaparin 40mg SC Daily VTE Prophylaxis Device: Seq Compression Device - Patient Rights Does Pt Have an Advanced Directive for End of Life Issues?: No Does Patient Have a Health Care Proxy?: No Risk Calculators Dictated By: Main Kincaid NP Signed By: Main Kincaid NP 06/16/231818 Jen Kelley MD 06/19/23 153 DD/ 52 TD/TT: 06/16/231752 Pulp Piler: BRYN cc: BRYN; FANY; REINA; FARNAZ Perdomo Pcp-MD Lissett; Main Kincaid NP; Jen Kelley MD; Zeke Perkins MD Progress Note Author Karoline [facility] June 16, 2023 3:59pm Note Date/Time June 16, 2023 8:54am [place] [address] Emergency Department Document Signed Patient: MAYELIN LESLIE Medical Record#: [id number] : 1980 Acct:[id number] Age/Sex: 42 / M Admit/Reg Date: 06/16/23 Loc: ED. Room: Report Number: [id number] Attending Dr: Aaron Walsh DO <Abrahan Gonzalez - Last Filed: 06/16/23 09:00> History of Present Illness Chief Complaint: Seizure Stated Complaint: SEIZURE Nursing note reviewed: Yes Source: patient, RN/MD Exam/History Limitations: physical impairment (AMS) Primary Care Provider: Pcp-Md Lissett History of Present Illness: Patient is a 42 year old male presenting to the ED after a seizure. Patient was BIBA while actively seizing and was given 2mg of versa. Patient reports he drinks beer and lots of it. Patient does not know what happened today. History is limited 2/2 to confusion. Patient denies any significant past medical history Allergies/Adverse Reactions: No Known Drug Allergies Allergy (Verified 04/26/23 14:21) Review of Systems Constitutional: Reports: See HPI. Denies: chills, diaphoresis Eyes: Reports: see HPI. Denies: eye discharge, double vision ENMT: Reports: see HPI. Denies: ear pain, mouth pain Cardiovascular: Reports: see HPI. Denies: chest pain, edema Respiratory: Reports: see HPI. Denies: cough, orthopnea Gastrointestinal: Reports: see HPI. Denies: abdominal pain, hematemesis Musculoskeletal: Reports: see HPI. Denies: back pain, neck pain Integumentary: Reports: see HPI. Denies: change in color, rash Neurological: Reports: see HPI, seizure. Denies: headache, dizziness Psychiatric: Reports: see HPI. Denies: anxiety, hallucinations Past Medical/Surgical History Narrative PMH: Patient denies any significant past medical history Family/Social History - Family History Family History: Unknown Family History Of: None Reported Physical Exam General Appearance: NAD, Cooperative, Other (confused) Head: Atraumatic, Normocephalic Eyes: PERRL, EOMI, Sclera normal Ears: Hearing grossly intact, External ear normal Nose: Normal, No nasal discharge Mouth/Throat: Mucosa moist Neck: Supple, Non-tender Chest: Atraumatic, Non-tender Respiratory: No respiratory distress, Lungs clear Cardiovascular: R/R/R, No Murmurs Abdominal: Soft, Non-tender, Non-distended Extremity/Musculoskeletal: Non-tender, No edema Skin: Warm, Dry Psych: Calm, Normal affect, Other (Confused, able to say name) Neuro: Motor grossly normal, Other (able to say name) Scribe - Scribe Attestation Scribe Attestation: Yes Scribe's Name: Abrahan Gonzalez Scribrosaura Attestation Statement: is scribing in the presence of MD Present: <Karoline Choudhary - Last Filed: 06/16/23 15:39> History of Present Illness Primary Care Provider: Pcp-Lissett, Physical Exam Triage Vital Signs: Temperature 98.0 F 06/16/23 09:05 Temperature Source Oral 06/16/23 09:05 Pulse Rate 65 06/16/23 09:05 Respiratory Rate 16 06/16/23 09:05 Blood Pressure 125/72 06/16/23 09:05 Blood Pressure Source Automatic Cuff 06/16/23 09:05 Blood Pressure Mean 89 06/16/23 09:05 Blood Pressure Position Supine 06/16/23 09:05 O2 Sat by Pulse Oximetry 98 06/16/23 09:05 Oxygen Delivery Method Room Air 06/16/23 09:05 Results/Orders - Results and Orders Result diagrams: 06/16/23 11:13 06/16/23 11:13 Lab Testing & Results 06/16/23 09:04: POC Glucose 75 06/16/23 09:45: Urine Opiates Screen Negative, Ur Buprenorphine Scrn Negative, Ur Oxycodone Screen Negative, Urine Methadone Screen Negative, Urine Fentanyl Screen Negative, Ur Amphetamines Screen Negative, U Benzodiazepines Scrn Negative, Urine Cocaine Screen Positive H, U Cannabinoids Screen Negative 06/16/23 11:13: WBC 10.5, RBC 5.19, Hgb 9.9 L, Hct 34.7 L, MCV 66.9 L, MCH 19.1 L, MCHC 28.5 L, RDW 20.7 H, Plt Count 353, Immature Gran % (Auto) 0.5, Neut % (Auto) 79.2, Lymph % (Auto) 12.3, [place] % (Auto) 6.4, Eos % (Auto) 0.9, Baso % (Auto) 0.7, Neut # (Auto) 8.4 H, Lymph # (Auto) 1.3, [place] # (Auto) 0.7, Eos # (Auto) 0.1, Baso # (Auto) 0.1, Immature Gran # (Auto) 0.05, Nucleated RBC % 0.0,Sodium 132 L, Potassium 3.8, Chloride 98, Carbon Dioxide 19 L, Anion Gap 15, BUN12, Creatinine 0.8, Estimated Creat Clear 139.0, Estimated GFR 115, BUN/Creatinine Ratio 15.0, Glucose 72, Lactic Acid 1.1, Calcium 8.9, Magnesium 1.7 L, Serum Alcohol < 10 Medications Ordered: Phenobarbital (Phenobarbital 130 Mg/Ml Inj) 130 mg IV Q30M PRN PRN Reason: Withdrawal Symptoms Discontinued Medications Sodium Chloride () 1,000 mls @ 999 mls/hr IV .Q1H1M ONE Stop: 06/16/23 10:01 Last Admin: 06/16/23 09:58 Dose: 999 mls/hr Documented By: AM Magnesium Sulfate () 2 gm in 50 mls @ 25 mls/hr IV ONCE ONE Stop: 06/16/23 14:16 Last Admin: 06/16/23 13:22 Dose: 25 mls/hr Documented By: AM Thiamine HCl (Thiamine 200 Mg/2 Ml Inj) 100 mg IM ONCE ONE Stop: 06/16/23 09:46 Last Admin: 06/16/23 09:56 Dose: 100 mg Documented By: AM EKG Orders: EKG Orders 06/16/23 09:47 EKG ED Electrocardiogram Stat Radiology Orders: Radiology Orders 06/16/23 09:01 CT head/brain wo contrast Stat MDM/COURSE Vital Signs Temperature 98.0 F 06/16/23 09:05 Pulse Rate 65 06/16/23 09:05 Respiratory Rate 16 06/16/23 09:05 Blood Pressure 125/72 06/16/23 09:05 O2 Sat by Pulse Oximetry 98 06/16/23 09:05 Temperature 98.0 F 06/16/23 09:05 Pulse Rate 69 06/16/23 11:18 Respiratory Rate 16 06/16/23 11:18 Blood Pressure 109/47 L 06/16/23 11:18 O2 Sat by Pulse Oximetry 100 06/16/23 11:18 - MDM Medical decision making narrative: 42 year old man unknown pmhx presents after seizure. Vitals and physical exam asabove. No evidence of trauma on exam. Pt is confused and unable to provide reliable history. Initially said he does not drink alcohol and later told RN he drinks a significant amount of beer daily. He has no documented history of seizure in the chart. Will treat as first time seizure given confusion and unreliable history. Neuro exam is unremarkable outside of confusion, which can be 2/2 versed vs postictal state. Will get head CT given lack of history to assess for ICH. Will get labs to assess electrolyte levels, alcohol level, urinetox. Will place on CIWA and give thiamine. No fever or neck stiffness to suggestmeningitis. Plan: - Glucose - EKG - CT head without contrast - Labs Glucose 75 Mag 1.7, ordered for repletion CT head negative per radiology Utox positive for cocaine. On reevaluation, pt A&Ox3 and now admits to daily drinking. Last drink was yesterday. Pt reports he has had prior alcohol withdrawal seizures. Pt has continued to do well in the emergency department without any further episodes ofseizure. Will admit for continued monitoring of alcohol withdrawal. At time of sign out, awaiting transfer of care to hospitalist. Pt signed out to oncoming ED physician at 3pm. Discharge Plan - Discharge Clinical Impression: Alcohol withdrawal seizure Disposition: Admitted as Inpatient Referrals: PcpMd Leroy MD [Primary Care Provider] - Print Language: Bahraini - Discharge Data Time Seen by Provider: 06/16/23 08:52 Dictated By: Karoline Choudhary MD Signed By: Karoline Choudhary MD 06/16/23 1559 DD/ 2 TD/TT: 06/16/23852 Pulp Piler: MIN cc: FARNAZ Perdomo Pcp-MD Lissett Progress Note Author Yo Hernandez [facility] June 17, 2023 6:04pm Note Date/Time June 17, 2023 6:02pm [place] [address] General Medicine Progress Note Signed Patient: MAYELIN LESLIE Medical Record#: [id number] : 1980 Acct:[id number] Age/Sex: 42 / M Admit/Reg Date: 06/16/23 Loc: 3A. Room: MZ024-T Report Number: [id number] Attending Dr: Yo Hernandez MD A&P Subsequent Impression: The patient is 42-year-old male with history of obesity, gastric bypass 7 years ago in [place], seizure disorder, alcoholism, alcohol withdrawal seizures, fibromyalgia, bipolar disorder, cocaine abuse, hallucination, iron-deficiency anemia, The patient presented to [facility] on 06/16/2023 because of witnessed seizure and EMS were called and he received 2 mg of Versed and was in postictal state and he was transferred to [facility] ER The patient is a heavy drinker and drinks vodka daily Um and he has a history for alcohol withdrawal seizures Seizure: The patient most likely has alcohol withdrawal seizure and it could be also due to drug use as the tox screen was positive for cocaine The patient also is supposed to be on Keppra but unknown if he was taking it andthe Keppra level is pending and the Keppra dose was increased from 500 mg Um 2000 mg p.o. b.i.d. The patient currently is maintained on CIWA protocol with a phenobarbital EEG is not available in the hospital but MRI of the brain is pending for furtherevaluation Head CT was done and that showed no acute abnormality Once the patient is stable he can be discharged on the increased dose of Keppra and to follow-up with outpatient AA programs Alcoholism and history of alcohol withdrawal: Continue the phenobarbital per the CIWA protocol Replete hypokalemia History of iron-deficiency anemia hematocrit 31.8 stable, continue to monitor Check LFTs Ongoing Medical Necessity: As above Disposition Plan: As above (1) Alcoholism Status: Acute Assessment and Plan: As above (2) Cocaine use with intoxication, uncomplicated Status: Acute Assessment and Plan: As above (3) Seizure disorder Status: Acute Assessment and Plan: As above (4) Alcohol withdrawal seizure Status: Acute Assessment and Plan: As above - Location and Group Information SMG-billable encounter: Yes Service location: inpatient Provider group: [facility] - E&M Encounter Coding Attending date of service: 06/17/23 Subsequent hospital care: Level 3 [id number] Time-based billing attestation: - Attestation Attestation: I have reviewed all pertinent laboratory findings. Confirm Results Attestation: Yes Problem List Attestation Statement: I have documented a relevant problem and problem plan for this visit. Attending Confirm Problem: Yes Attending Problem List Check: Pass Subjective Date of Encounter: 06/17/23 Subjective Details: The patient was seen and examined today The patient reported no chest pain or shortness a breath No significant alcohol withdrawal symptoms No fever No abdominal pain Preferred Language: Bahraini Review of Systems - Review of Systems All systems reviewed & no additional complaints except as documented Exam Vital signs: Temp Pulse Resp BP Pulse Ox 98.6 F 90 20 101/56 L 96 06/17/23 15:54 06/17/23 15:54 06/17/23 15:54 06/17/23 15:54 06/17/23 15:54 Body Mass Index (BMI): 29.2 Body Habitus: overweight General Appearance: alert, oriented x 2 - Respiratory Exam Present: CTA bilaterally - Cardiovascular Exam Present: normal heart sounds, RRR - Abdominal Exam Abdominal: Present: normal bowel sounds, soft, non-tender, no organomegaly, non-distended - Extremities Exam Present: pulses intact GM Results - Pertinent Lab Findings 06/17/23 05:43 06/17/23 05:43 Last 24 Hours - Abnormal 06/17/23 05:43 Hgb 9.4 L g/dl (13.0-17.0) Hct 31.8 L % (37.5-50.0) MCV 66.0 L fl (80.0-100.0) MCH 19.5 L pg (27.0-34.0) MCHC 29.6 L g/dl (31.0-36.0) RDW 21.3 H % (11.5-15.0) Potassium 3.4 L mmol/L (3.5-5.3) Glucose 131 H mg/dL (<100 -Fasting) GM Subsequent Quality Smoking Status: Current everyday tobacco user-light smoker Do You Want Smoking Cessation Counseling?: Yes VTE Risk Level: Moderate VTE Prophylaxis Device: Seq Compression Device - Patient Rights Advance Directives Information Provided: No Does Pt Have an Advanced Directive for End of Life Issues?: No Does Patient Have a Health Care Proxy?: No (See comment below) Health Care Proxy on File from Prior Visit?: Yes Dictated By: Yo Hernandez MD Signed By: Yo Hernandez MD 06/17/231803 DD/ 55 TD/TT: 06/17/231755 Pulp Piler: CAITY cc: СЕРГЕЙ Heranndez MD Progress Note Author Zekerosaura Perkins [facility] June 18, 2023 11:49am Note Date/Time June 18, 2023 11:47am [address] [address] General Medicine Progress Note Signed Patient: MAYELIN LESLIE Medical Record#: [id number] : 1980 Acct:[id number] Age/Sex: 42 / M Admit/Reg Date: 06/16/23 Loc: 3A.GS Room: [address] Report Number: [id number]: Zeke Perkins MD A&P Subsequent Impression: 42-year-old male with history of obesity, gastric bypass 7 years ago in [place], seizure disorder, alcoholism, alcohol withdrawal seizures, fibromyalgia, bipolar disorder, cocaine abuse, iron-deficiency anemia, The patient presented to [facility] on 06/16/2023 because of witnessed seizure and EMS were called and he received 2 mg of Versed and was in postictal state and he was transferred to [facility] ER. Assessment and plan Alcohol withdrawal seizures Alcoholism with withdrawal -currently on a tapering course of phenobarbital, continue Keppra a 1000 mg twice daily, gabapentin t.i.d. no escalation of seizure medications given underlying alcohol use understands that isn't supposed to drive for at least 6 months -MRI of the brain is negative for acute findings Hypokalemia -we shall check magnesium levels today, we shall give 80 mEq of potassium chloride today by mouth Chronic conditions History of gastric bypass currently on oral thiamine and folic acid as above Alcoholism Fibromyalgia Mood disorder/bipolar disorder Psoriasis continue topical treatment Substance use disorder cocaine Iron-deficiency anemia in a 42-year-old, to follow up with PCP for age- appropriate screening tests See orders for further details Full code DVT prophylaxis will be Lovenox subcu Case discussed with patient nursing and at rounds Medical needs/disposition: Pending treatment of alcohol withdrawal, phenobarb taper likely next 24 hours to homeless intermediate Ongoing Medical Necessity: as above Disposition Plan: as above (1) Alcoholism Status: Chronic Assessment and Plan: as above (2) Alcohol withdrawal seizure Status: Resolved Assessment and Plan: as above (3) Hyponatremia Status: Resolved Assessment and Plan: as above (4) Hypomagnesemia Status: Resolved Assessment and Plan: as above - Location and Group Information SMG-billable encounter: Yes Service location: inpatient Provider group: [facility] - E&M Encounter Coding Subsequent hospital care: Level 2 78915 Time-based billing attestation: - Attestation Attestation: I have reviewed all pertinent laboratory findings. Confirm Results Attestation: Yes Problem List Attestation Statement: I have documented a relevant problem and problem plan for this visit. Attending Confirm Problem: Yes Attending Problem List Check: Pass Subjective Date of Encounter: 06/18/23 Preferred Language: Bahraini Review of Systems - Review of Systems I saw and examined the patient the patient on this day, no chest pain fever or abdominal pain, does report chronic lower extremity pain from fibromyalgia tolerating oral intake patient is homeless Exam Vital signs: Temp Pulse Resp BP Pulse Ox 97.8 F 72 19 103/57 L 96 06/18/23 07:52 06/18/23 07:52 06/18/23 07:52 06/18/23 07:52 06/18/23 07:52 Narrative: Young man in bed stable on room air Pulm: Good air entry bilaterally no wheezing or crackles appreciated Heart: S1-S2 heard and normal Abdomen: +BS, NT, soft Extremities: no edema appreciated Neurologic: Alert awake nonfocal grossly Psych: Normal mood skin: Warm to touch Body Mass Index (BMI): 29.2 Body Habitus: overweight GM Results - Pertinent Lab Findings 06/17/23 05:43 06/18/23 05:55 Last 24 Hours - Abnormal 06/18/23 05:55 Potassium 3.2 L mmol/L (3.5-5.3) Carbon Dioxide 22 L mmol/L (23-32) Glucose 118 H mg/dL (<100 -Fasting) Total Protein 6.1 L g/dL (6.4-8.3) Albumin 3.7 L g/dl (4.0-5.0) 06/18/23 11:47 Order (s): MR head/brain wo contrast CPT Code: 11062 Report Number: [id number] Reason for Exam: Seizure History: Seizure. No prior brain MRIs available for comparison. Head CT from June 16, 2023 is available on PACS. Technique: Noncontrast brain MRI included following sequences; sagittal T1, axial T2, axial FLAIR, axial diffusion, axial gradient echo, coronal IR, coronalT2. Additionally thin section axial T2/cisternogram was obtained through the internal auditory canals. Findings: Is motion degradation throughout the study. The coronal IR and T2 imaging is essentially nondiagnostic as is the cisternogram. Axial imaging showsthe ventricles to be midline without shift. Sagittal [...] significant T2/FLAIR signal abnormality seen in brain parenchyma.However follow-up imaging may be considered if symptoms persist. Dictated By: Evens Minaya MD 06/18/231043 Signed By: Evens Minaya MD 06/18/23 1053 TD/TT: 06/18/23 1044 Tech: [id number] cc: REINA; ANNI; СЕРГЕЙ Perdomo Pcp-MD Lissett; Zeke GOOD Subsequent Quality Smoking Status: Current everyday tobacco user-light smoker Do You Want Smoking Cessation Counseling?: Yes VTE Risk Level: Moderate VTE Prophylaxis Device: Seq Compression Device - Patient Rights Advance Directives Information Provided: No Does Pt Have an Advanced Directive for End of Life Issues?: No Does Patient Have a Health Care Proxy?: No (See comment below) Health Care Proxy on File from Prior Visit?: Yes Dictated By: Zeke Perkins MD Signed By: Zeke Perkins MD 06/18/23 1149 DD/ 1142 TD/TT: 06/18/23 114 Pulp Piler: REINA cc: REINA* Zeke Perkins MD
--- OUTSIDE RECORDS SUMMARY | 2024-01-16 19:36 | XMS_ITS | Continuity of Care Document ---
Author Organization [facility] Address [address] [place] [address] Phone Care Team Providers Care Compliance Monitor Name Role Phone Pcp-MD Archie Galeana Primary Care Provider Unavailabl e E/R Physician, E Emergency Provider Unavailable Hospitalist, Model (IS ONLY) Emergency Provider Unavailable MD Krzysztof So Other Provider MD Zeke Perkins Attending Provider [phone] DO Lizandro Sandhu Emergency Provider [phone] Care Teams Patient Care Team Team Status: Active Member Role Status Dates Md Alicia MD Primary Care Provider Active Visit Care Team Team Status: Inactive Member Role Status Dates Md Alicia MD Primary Care Provider Active St art: May 21, 2023 End: May 22, 2023 E E/R Physician Emergency Provider Active Start: May 21, 2023 End: May 22, 2023 Visit Care Team Team Status: Active Member Role Status Dates Md Alicia MD Primary Care Provider Active St art: June 16, 2023 Model (IS ONLY) Hospitalist Emergency Provider Active Start: June 16, 2023 Jen Kelley MD Admit Provider Active Start: Christiana mbchon 2022 Krzysztof So MD Other Provider Active Start: D ecember 2022 Zeke Perkins MD Attending Provider Active Sta rt: June 16, 2023 Visit Care Team Team Status: Inactive Member Role Status Dates Md Pcp-None , Primary Care Provider Active art: June 19, 2023 End: June 20, 2023 Lizandro Sandhu DO Emergency Provider Active art: June 19, 2023 End: June 20, 2023 Chief Complaint and Reason for Visit Chief Complaint feeling off balance ALCOHOL WITHDRAWAL SEIZURE UNRESPONSIVE Reason for Visit Bipolar disorder Cocaine use with intoxication, uncomplicated Seizure disorder Alcoholism Alcohol withdrawal seizure Hypomagnesemia Hyponatremia Allergies, Adverse Reactions, Alerts No known allergies Social History Smoking Status Status Start Date End Date Date of Observa tion Unknown if ever smoked Dece parrish 2022 1:07am Observation Status Observation Response Date of Response Living Situation Custodial June 17, 2023 8:35am Lives With Other June 17 11:36am Additional Data Assigned Sex Male Problems Active Problems Medical Problem Onset Date Status Wernicke encephalopathy Active Alcoholism Active Bipolar disorder Active Cocaine use with intoxication, uncomplicated Active Seizure disorder Active Inactive/Resolved Problems Medical Problem Onset Date Status Hyponatremia Resolved Alcohol withdrawal seizure Resol perry Patient left without being seen Resolved Patient left without being seen Resolved Hypomagnesemia Resolved Medications Medication Status Dose Units Route Directions Qty Days art Date End Date Instructions Quetiapine Active 25 MG PO ONCE SOHA Y [facility] Levetiracetam Disconti nued 500 MG PO TWICE A [facility]am Decemb er 2022 9:23am Sertraline Active 100 MG PO DAILY Dece e r 2022 12:00am Clobetasol Active 1 APPL TOPICAL DAILY Dece be r 2022 12:00am Gabapentin Active 800 MG PO THREE MARY ES A DAY Decee r 2022 12:00am Meclizine Active 25 MG PO THREE TIME S A DAY Decee r 2022 12:00am Azelastine Disconti nued 2 SPRAY intrana sol TWICE A [facility] 12:[facility]am Decemb er 2022 8:37am Escitalopram Oxalate Active 10 MG PO DAILY Decee r 2022 12:00am Thiamine Hcl (Vitamin B1) Disconti nued 100 MG PO DAILY 30 Decembe r 2022 12:00am Decemb er 2022 8:37am OTC/Good Rx if not covered Levetiracetam Disconti nued 500 MG PO TWICE A DAY 180 90 Decembe r 2022 9:23am Decemb er 2022 9:28am Levetiracetam Active 1000 MG PO ONCE D AILY AT BEDTIME Decembe r 2022 12:00am Procedures Procedure Date [...] Request June 18, 2023 11:40am Added test [facility] [id number] [address] [place] [address] 97730 Add-On Test Request June 20, 2023 2:42am Unable to add test [facility] [id number] [address] [place] [address] 48558 White Blood Count May 22, 2023 6:27am 12.7 X10 3/uL 4.5-11.0 [facility] [id number] [address] [place] [address] 98009 White Blood Count June 17, 2023 5:43am 7.9 X10 3/uL 4.5-11.0 [facility] [id number] [address] [place] [address] 24776 White Blood Count June 19, 2023 11:45pm 8.8 X10 3/uL 4.5-11.0 [facility] [id number] [address] [place] [address] 83993 Red Blood Count May 22, 2023 6:27am 5.09 X10 6/uL 4.00-5.50 [facility] [id number] [address] [place] [address] 76083 Red Blood Count June 17, 2023 5:43am 4.82 X10 6/uL 4.00-5.50 [facility] [id number] [address] [place] [address] 64388 Red Blood Count June 19, 2023 11:45pm 5.32 X10 6/uL 4.00-5.50 [facility] [id number] [address] [place] [address] 32678 Hemoglobin May 22, 2023 6:27am 9.6 g/dl 13.0-17.0 [facility] [id number] [address] [place] [address] 71032 Hemoglobin June 17, 2023 5:43am 9.4 g/dl 13.0-17.0 [facility] [id number] [address] [place] [address] 95874 Hemoglobin June 19, 2023 11:45pm 10.3 g/dl 13.0-17.0 [facility] [id number] [address] [place] [address] 36163 Hematocrit May 22, 2023 6:27am 34.6 % 37.5-50.0 [facility] [id number] [address] [place] [address] 01557 Hematocrit June 17, 2023 5:43am 31.8 % 37.5-50.0 [facility] [id number] [address] [place] [address] 15629 Hematocrit June 19, 2023 11:45pm 35.3 % 37.5-50.0 [facility] [id number] [address] [place] [address] 24763 Mean Corpuscular Volume May 22, 2023 6:27am 68.0 fl 80.0-100.0 [facility] [id number] [address] [place] [address] 19273 Mean Corpuscular Volume June 17, 2023 5:43am 66.0 fl 80.0-100.0 [facility] [id number] [address] [facility] 86861 Mean Corpuscular Volume June 19, 2023 11:45pm 66.4 fl 80.0-100.0 [facility] [id number] [address] [facility] 62538 Mean Corpuscular Hemoglobin May 22, 2023 6:27am 18.9 pg 27.0-34.0 [facility] [id number] [address] [facility] 51777 Mean Corpuscular Hemoglobin June 17, 2023 5:43am 19.5 pg 27.0-34.0 [facility] [id number] [address] [facility] 99812 Mean Corpuscular Hemoglobin June 19, 2023 11:45pm 19.4 pg 27.0-34.0 [facility] [id number] [address] [facility] 46463 Mean Corpuscular Hemoglobin Concent May 22, 2023 6:27am 27.7 g/dl 31.0-36.0 [facility] [id number] [address] [place] [address] 21598 Mean Corpuscular Hemoglobin Concent June 17, 2023 5:43am 29.6 g/dl 31.0-36.0 [facility] [id number] [address] [facility] 73940 Mean Corpuscular Hemoglobin Concent June 19, 2023 11:45pm 29.2 g/dl 31.0-36.0 [facility] [id number] [address] [place] [address] 91164 Red Cell Distribution Width May 22, 2023 6:27am 19.2 % 11.5-15.0 [facility] [id number] [address] [place] [address] 61467 Red Cell Distribution Width June 17, 2023 5:43am 21.3 % 11.5-15.0 [facility] [id number] [address] [place] [address] 66699 Red Cell Distribution Width June 19, 2023 11:45pm 21.1 % 11.5-15.0 [facility] [id number] [address] [place] [address] 54751 Platelet Count May 22, 2023 6:27am 408 X10 3/uL 150-400 [facility] [id number] [address] [place] [address] 21625 Platelet Count June 17, 2023 5:43am 334 X10 3/uL 150-400 [facility] [id number] [address] [place] [address] 57535 Platelet Count June 19, 2023 11:45pm 353 X10 3/uL 150-400 [facility] [id number] [address] [place] [address] 79363 Immature Granulocyte % (Auto) May 22, 2023 6:27am 0.4 % [facility] [id number] [address] [place] [address] 20311 Immature Granulocyte % (Auto) June 17, 2023 5:43am 0.1 % [facility] [id number] [address] [place] [address] 43318 Immature Granulocyte % (Auto) June 19, 2023 11:45pm 0.2 % [facility] [id number] [address] [place] [address] 93622 Neutrophils (%) (Auto) May 22, 2023 6:27am 77.0 % [facility] [id number] [address] [place] [address] 02089 Neutrophils (%) (Auto) June 17, 2023 5:43am 60.4 % [facility] [id number] [address] [place] [address] 43842 Neutrophils (%) (Auto) June 19, 2023 11:45pm 74.5 % [facility] [id number] [address] [place] [address] 84744 Lymphocytes (%) (Auto) May 22, 2023 6:27am 16.7 % [facility] [id number] [address] [place] [address] 42719 Lymphocytes (%) (Auto) June 17, 2023 5:43am 26.2 % [facility] [id number] [address] [place] [address] 38426 Lymphocytes (%) (Auto) June 19, 2023 11:45pm 16.9 % [facility] [id number] [address] [place] [address] 20704 Monocytes (%) (Auto) May 22, 2023 6:27am 4.6 % [place] [id number] [address] [place] [address] 27845 Monocytes (%) (Auto) June 17, 2023 5:43am 8.6 % [facility] [place] [id number] [address] [place] [address] 50749 Monocytes (%) (Auto) June 19, 2023 11:45pm 6.1 % [facility] [place] [id number] [address] [place] [address] 90908 Eosinophils (%) (Auto) May 22, 2023 6:27am 0.5 % [facility] [place] [id number] [place] [address] 41368 Eosinophils (%) (Auto) June 17, 2023 5:43am 3.7 % [place] [id number] [place] [address] 73480 Eosinophils (%) (Auto) June 19, 2023 11:45pm 1.2 % [facility] [id number] [address] [place] [address] 74578 Basophils (%) (Auto) May 22, 2023 6:27am 0.8 % [place] [id number] [address] [place] [address] 40917 Basophils (%) (Auto) June 17, 2023 5:43am 1.0 % [place] [id number] [address] [place] [address] 35459 Basophils (%) (Auto) June 19, 2023 11:45pm 1.1 % [facility] [id number] [address] [place] [address] 52291 Immature Granulocyte # (Auto) May 22, 2023 6:27am 0.05 X10 3/uL 0.00-0.09 [place] [id number] [address] [place] [address] 29996 Immature Granulocyte # (Auto) June 17, 2023 5:43am 0.01 X10 3/uL 0.00-0.09 [place] [id number] [address] [place] [address] 96821 Immature Granulocyte # (Auto) June 19, 2023 11:45pm 0.02 X10 3/uL 0.00-0.09 [place] [id number] [address] [place] [address] 88535 Neutrophils # (Auto) May 22, 2023 6:27am 9.8 X10 3/uL 1.5-7.8 [place] [id number] [address] [place] [address] 00368 Neutrophils # (Auto) June 17, 2023 5:43am 4.8 X10 3/uL 1.5-7.8 [facility] [id number] [address] [place] [address] 25030 Neutrophils # (Auto) June 19, 2023 11:45pm 6.6 X10 3/uL 1.5-7.8 [place] [id number] [address] [place] [address] 14593 Lymphocytes # (Auto) May 22, 2023 6:27am 2.1 X10 3/uL 1.0-4.8 [place] [id number] [address] [place] [address] 93100 Lymphocytes # (Auto) June 17, 2023 5:43am 2.1 X10 3/uL 1.0-4.8 [place] [id number] [address] [place] [address] 95890 Lymphocytes # (Auto) June 19, 2023 11:45pm 1.5 X10 3/uL 1.0-4.8 [place] [id number] [address] [place] [address] 41654 Monocytes # (Auto) May 22, 2023 6:27am 0.6 X10 3/uL 0.0-0.8 [place] [id number] [address] [place] [address] 75355 Monocytes # (Auto) June 17, 2023 5:43am 0.7 X10 3/uL 0.0-0.8 [place] [id number] [address] [place] [address] 44515 Monocytes # (Auto) June 19, 2023 11:45pm 0.5 X10 3/uL 0.0-0.8 [place] [id number] [address] [place] [address] 49078 Eosinophils # (Auto) May 22, 2023 6:27am 0.1 X10 3/uL 0.0-0.5 [facility] [id number] [address] [place] [address] 97221 Eosinophils # (Auto) June 17, 2023 5:43am 0.3 X10 3/uL 0.0-0.5 [facility] [id number] [address] [place] [address] 22195 Eosinophils # (Auto) June 19, 2023 11:45pm 0.1 X10 3/uL 0.0-0.5 [facility] [id number] [address] [place] [address] 59837 Basophils # (Auto) May 22, 2023 6:27am 0.1 X10 3/uL 0.0-0.2 [facility] [id number] [address] [place] [address] 40053 Basophils # (Auto) June 17, 2023 5:43am 0.1 X10 3/uL 0.0-0.2 [facility] [id number] [address] [place] [address] 69700 Basophils # (Auto) June 19, 2023 11:45pm 0.1 X10 3/uL 0.0-0.2 [facility] [id number] [address] [place] [address] 31707 Nucleated Red Blood Cells % May 22, 2023 6:27am 0.0 /100 WBC 0.0-0.0 [facility] [id number] [address] [place] [address] 20209 Nucleated Red Blood Cells % June 17, 2023 5:43am 0.0 /100 WBC 0.0-0.0 [facility] [id number] [address] [place] [address] 83145 Nucleated Red Blood Cells % June 19, 2023 11:45pm 0.0 /100 WBC 0.0-0.0 [facility] [id number] [address] [place] [address] 57273 Sodium Level May 22, 2023 6:27am 136 mmol/L 137-146 [facility] [id number] [address] [facility] 79463 Sodium Level June 19, 2023 6:49am 142 mmol/L 137-146 [facility] [id number] [address] [facility] 56152 Sodium Level June 19, 2023 11:45pm 135 mmol/L 137-146 [facility] [id number] [address] [facility] 24156 Potassium Level May 22, 2023 6:27am 4.2 mmol/L 3.5-5.3 [facility] [id number] [address] [facility] 26548 Potassium Level June 19, 2023 6:49am 3.9 mmol/L 3.5-5.3 [facility] [id number] [address] [place] [address] 18056 Potassium Level June 19, 2023 11:45pm 4.1 mmol/L 3.5-5.3 [facility] [id number] [address] [place] [address] 41633 Chloride Level May 22, 2023 6:27am 105 mmol/L 98-107 [facility] [id number] [address] [facility] 97129 Chloride Level June 19, 2023 6:49am 104 mmol/L 98-107 [facility] [id number] [address] [facility] 72219 Chloride Level June 19, 2023 11:45pm 97 mmol/L 98-107 [facility] [id number] [address] [place] [address] 01603 Carbon Dioxide Level May 22, 2023 6:27am 13 mmol/L 23-32 [facility] [id number] [address] [facility] 34763 Carbon Dioxide Level June 19, 2023 6:49am 28 mmol/L 23-32 [facility] [id number] [address] [place] [address] 17918 Carbon Dioxide Level June 19, 2023 11:45pm 25 mmol/L 23-32 [facility] [id number] [address] [place] [address] 66254 Anion Gap May 22, 2023 6:27am 18 mmol/L 11-18 [facility] [id number] [address] [place] [address] 51119 Anion Gap June 19, 2023 6:49am 10 mmol/L 11-18 [facility] [id number] [address] [place] [address] 50422 Anion Gap June 19, 2023 11:45pm 13 mmol/L 11-18 [facility] [id number] [address] [place] [address] 00866 Blood Urea Nitrogen May 22, 2023 6:27am 14 mg/dl 11-28 [facility] [id number] [address] [place] [address] 12027 Blood Urea Nitrogen June 19, 2023 6:49am 9 mg/dl 11-28 [facility] [id number] [address] [place] [address] 98369 Blood Urea Nitrogen June 19, 2023 11:45pm 14 mg/dl 11-28 [facility] [id number] [address] [place] [address] 37128 Creatinine May 22, 2023 6:27am 1.1 mg/dL 0.6-1.4 [facility] [id number] [address] [place] [address] 04489 Creatinine June 19, 2023 6:49am 0.7 mg/dL 0.6-1.4 [facility] [id number] [address] [place] [address] 09219 Creatinine June 19, 2023 11:45pm 0.8 mg/dL 0.6-1.4 [facility] [id number] [address] [place] [address] 35075 Estimated Creatinine Clearance May 22, 2023 6:27am [employer] Unable to Calculate CRCL,Ht and/or Wt missing [facility] [id number] [address] [place] [address] 03792 Estimated Creatinine Clearance June 19, 2023 6:49am 165.0 ml/min This value is calculated by Cockcroft Gault Equation using ideal body weight. This result is dependent on an accurate patient height and weight which is obtained from patients medical record. Ameliaofjillian, D.W. and M.H. Gault. Prediction of creatinine clearance from serum creatinine. Nephron. 1976. 16(1):31-41. [facility] [id number] [address] [place] [address] 63126 Estimated Creatinine Clearance June 19, 2023 11:45pm [employer] Unable to Calculate CRCL,Ht and/or Wt missing [facility] [id number] [address] [place] [address] 90039 Estimat Glomerular Filtration Rate May 22, 2023 6:27am 87 >90 Reported eGFR is based on the CKD-EPI 2020 equation that does not use a race coefficient. Additional information can be found at:[email or web address]_zl b_egfr_summary_f [email or web address] ([email or web address]) [facility] [id number] [address] [place] [address] 19821 Estimat Glomerular Filtration Rate June 19, 2023 6:49am 119 >90 Reported eGFR is based on the CKD-EPI 2020 equation that does not use a race coefficient. Additional information can be found at:[email or web address]_oj b_egfr_summary_f [email or web address].pdf ([email or web address].org) [facility] [id number] [address] [place] [address] 46141 Estimat Glomerular Filtration Rate June 19, 2023 11:45pm 115 >90 Reported eGFR is based on the CKD-EPI 2020 equation that does not use a race coefficient. Additional information can be found at:[email or web address]_sn b_egfr_summary_f [email or web address].pdf ([email or web address].org) [facility] [id number] [address] [place] [address] 47214 BUN/Creatinine Ratio May 22, 2023 6:27am 12.7 10.0-20.0 [facility] [id number] [address] [place] [address] 68211 BUN/Creatinine Ratio June 19, 2023 6:49am 12.9 10.0-20.0 [facility] [id number] [address] [place] [address] 57532 BUN/Creatinine Ratio June 19, 2023 11:45pm 17.5 10.0-20.0 [facility] [id number] [address] [place] [address] 58201 Glucose Level May 22, 2023 6:27am 117 mg/dL 70-100 [facility] [id number] [address] [facility] 41267 Glucose Level June 19, 2023 6:49am 101 mg/dL 70-100 [facility] [id number] [address] [facility] 24178 Glucose Level June 19, 2023 11:45pm 94 mg/dL 70-100 [facility] [id number] [address] [place] [address] 84025 Lactic Acid Level June 16, 2023 11:13am 1.1 mmol/L >0.5 [facility] [id number] [address] [place] [address] 40479 Lactic Acid Level June 20, 2023 2:57pm 1.9 mmol/L >0.5 [facility] [id number] [address] [place] [address] 76339 Calcium Level May 22, 2023 6:27am 9.0 mg/dl 8.6-10.3 [facility] [id number] [address] [place] [address] 89422 Calcium Level June 19, 2023 6:49am 8.9 mg/dl 8.6-10.3 [facility] [id number] [address] [place] [address] 22863 Calcium Level June 19, 2023 11:45pm 8.8 mg/dl 8.6-10.3 [facility] [id number] [address] [place] [address] 55037 Magnesium Level June 19, 2023 6:49am 1.8 mg/dL 1.8-2.5 [facility] [id number] [address] [place] [address] 39923 Magnesium Level June 19, 2023 11:45pm 1.8 mg/dL 1.8-2.5 [facility] [id number] [address] [place] [address] 01743 Total Bilirubin May 22, 2023 6:27am 0.3 mg/dl <1.1 [facility] [id number] [address] [place] [address] 20072 Total Bilirubin June 18, 2023 5:55am < 0.2 mg/dl <1.1 [facility] [id number] [address] [place] [address] 33913 Total Bilirubin June 19, 2023 11:45pm 0.3 mg/dl <1.1 [facility] [id number] [address] [place] [address] 79195 Aspartate Amino Transf (AST/SGOT) May 22, 2023 6:27am 18 U/L 15-41 [facility] [id number] [address] [place] [address] 39834 Aspartate Amino Transf (AST/SGOT) June 18, 2023 5:55am 24 U/L 15- [facility] [id number] [address] [place] [address] 37989 Aspartate Amino Transf (AST/SGOT) June 19, 2023 11:45pm 20 U/L 15- [facility] [id number] [address] [place] [address] 51709 Alanine Aminotransfera se (ALT/SGPT) May 22, 2023 6:27am 18 U/L 14-63 [facility] [id number] [address] [place] [address] 48411 Alanine Aminotransfera se (ALT/SGPT) June 18, 2023 5:55am 18 U/L 14-63 [facility] [id number] [address] [place] [address] 42326 Alanine Aminotransfera se (ALT/SGPT) June 19, 2023 11:45pm 19 U/L 14-63 [facility] [id number] [address] [place] [address] 90858 Ammonia June 20, 2023 8:46am 12 umol/L 16-60 [facility] [id number] [address] [place] [address] 80354 Total Protein May 22, 2023 6:27am 8.0 g/dL 6.4-8.3 [facility] [id number] [address] [place] [address] 53866 Total Protein June 18, 2023 5:55am 6.1 g/dL 6.4-8.3 [facility] [id number] [address] [place] [address] 34332 Total Protein June 19, 2023 11:45pm 7.2 g/dL 6.4-8.3 [facility] [id number] [address] [facility] 49564 Albumin May 22, 2023 6:27am 4.8 g/dl 4.0-5.0 [facility] [id number] [address] [place] [address] 14153 Albumin June 18, 2023 5:55am 3.7 g/dl 4.0-5.0 [facility] [id number] [address] [place] [address] 61024 Albumin June 19, 2023 11:45pm 4.4 g/dl 4.0-5.0 [facility] [id number] [address] [place] [address] 32384 Albumin/Globul in Ratio May 22, 2023 6:27am 1.5 1.0-2.6 [facility] [id number] [address] [place] [address] 14263 Albumin/Globul in Ratio June 18, 2023 5:55am 1.5 1.0-2.6 [facility] [id number] [address] [place] [address] 46321 Albumin/Globul in Ratio June 19, 2023 11:45pm 1.6 1.0-2.6 [facility] [id number] [address] [place] [address] 94553 Alkaline Phosphatase May 22, 2023 6:27am 57 U/L 40-129 [facility] [id number] [address] [place] [address] 43449 Alkaline Phosphatase June 18, 2023 5:55am 47 U/L 40-129 [facility] [id number] [address] [place] [address] 03374 Alkaline Phosphatase June 19, 2023 11:45pm 53 U/L 40-129 [facility] [id number] [address] [place] [address] 46635 Thyroid Stimulating Hormone (TSH) June 16, 2023 11:13am 1.55 uIU/mL 0.34-5.60 [facility] [id number] [address] [place] [address] 76713 Procalcitonin June 16, 2023 11:13am 0.03 ng/mL <0.10 [facility] [id number] [address] [place] [address] 57664 Bedside Glucose June 16, 2023 9:04am 75 mg/dl 70-100 NOTE: Any discrepancy between finger stick glucose result and patient's clinical presentation should be confirmed by the laboratory. [facility] [id number] [address] [place] [address] 15236 Urine Amphetamines Screen June 16, 2023 9:45am Negative Negative Amphetamines Cutoff level 1000 ng/mL. [facility] [id number] [address] [place] [address] 50978 Urine Amphetamines Screen June 20, 2023 2:16am Negative Negative Amphetamines Cutoff level 1000 ng/mL. [facility] [id number] [address] [place] [address] 67879 Urine Methadone Screen June 16, 2023 9:45am Negative Negative Methadone Cutoff level 300 ng/mL [facility] [id number] [address] [place] [address] 94163 Urine Methadone Screen June 20, 2023 2:16am Negative Negative Methadone Cutoff level 300 ng/mL [facility] [id number] [address] [place] [address] 63417 Urine Oxycodone Screen June 16, 2023 9:45am Negative Negative Oxycontin/Oxycod one Cutoff level 100 ng/mL [facility] [id number] [address] [place] [address] 59256 Urine Oxycodone Screen June 20, 2023 2:16am Negative Negative Oxycontin/Oxycod one Cutoff level 100 ng/mL [facility] [id number] [address] [place] [address] 09462 Urine Buprenorphine Screen June 16, 2023 9:45am Negative Negative Buprenorphine Cutoff level 5 ng/mL [facility] [id number] [address] [place] [address] 39439 Urine Buprenorphine Screen June 20, 2023 2:16am Negative Negative Buprenorphine Cutoff level 5 ng/mL [facility] [id number] [address] [place] [address] 04103 Salicylates Level June 19, 2023 11:45pm < 1.0 mg/dL Salicylate Reference Range: Negative <1.0 mg/dL Therapeutic Range: 2.0-20.0 mg/dL [facility] [id number] [address] [place] [address] 45603 Urine Opiates Screen June 16, 2023 9:45am Negative Negative Opiate Cutoff level 300 ng/mLOxycontin/O xycodone is not detected below the threshold of20,000 ng/mL [facility] [id number] [address] [place] [address] 37006 Urine Opiates Screen June 20, 2023 2:16am Negative Negative Opiate Cutoff level 300 ng/mLOxycontin/O xycodone is not detected below the threshold of20,000 ng/mL [facility] [id number] [address] [place] [address] 66354 Urine Fentanyl Screen June 16, 2023 9:45am Negative Negative Fentanyl Cutoff level 2.0 ng/mL [facility] [id number] [address] [place] [address] 03354 Urine Fentanyl Screen June 20, 2023 2:16am Negative Negative Fentanyl Cutoff level 2.0 ng/mL [facility] [id number] [address] [place] [address] 71999 Acetaminophen Level June 19, 2023 11:45pm < 5 ug/mL Acetaminophen Reference Range: Negative <5 ug/mL [facility] [id number] [address] [place] [address] 80989 Urine Benzodiazepine s Screen June 16, 2023 9:45am Negative Negative Please note that the current method for benzodiazepines may be less sensitive to lorazapam detection than previously. If this result is negative and you are concerned about a false negative result for lorazepam, additional testing is possible. Please contact the laboratory.Benzo diazepine Cutoff level 200 ng/mL [facility] [id number] [address] [place] [address] 47716 Urine Benzodiazepine s Screen June 20, 2023 2:16am Negative Negative Please note that the current method for benzodiazepines may be less sensitive to lorazapam detection than previously. If this result is negative and you are concerned about a false negative result for lorazepam, additional testing is possible. Please contact the laboratory.Benzo diazepine Cutoff level 200 ng/mL [facility] [id number] [address] [facility] [address] Urine Cocaine Screen June 16, 2023 9:45am Positive Negative Confirmation by GC/MS not routinely performed for Non-Maternity locations. If confirmation is required, an order must be placed.Cocaine Cutoff level 300 ng/mL [facility] [id number] [address] [place] [address] 26407 Urine Cocaine Screen June 20, 2023 2:16am Negative Negative Cocaine Cutoff level 300 ng/mL [facility] [id number] [address] [place] [address] 55794 Urine Cannabinoids Screen June 16, 2023 9:45am Negative Negative THC Cutoff level 50 ng/mLThis report is intended for use in clinical monitoring and management of patients. It is not intended for use in employment related drug testing or court related proceedings. Samples are not routinely tested for adulteration and are assumed to be within the normal physiological pH range of 5 - 8. [facility] [id number] [address] [place] [address] 95183 Urine Cannabinoids Screen June 20, 2023 2:16am Negative Negative THC Cutoff level 50 ng/mLThis report is intended for use in clinical monitoring and management of patients. It is not intended for use in employment related drug testing or court related proceedings. Samples are not routinely tested for adulteration and are assumed to be within the normal physiological pH range of 5 - 8. [facility] [id number] [address] [place] [address] 15462 Serum Alcohol June 16, 2023 11:13am < 10 mg/dl <10 [facility] [id number] [address] [place] [address] 04036 Serum Alcohol June 19, 2023 11:45pm 41 mg/dl <10 [facility] [id number] [address] [place] [address] 36281 Levetiracetam (Keppra) Level June 16, 2023 11:13am <2.0 ug/mL 10.0-40.0 Performed at: [address] [id number] Director: Rojas Prabhakar MD, Phone: [phone] [facility] [id number] Diagnostic Imaging Reports Author Thaddeus Keys [facility] June 20, 2023 7:24am Report Date/Time June 20, 2023 7:27am [facility] [address] [place] [address] Patient Name: MAYELIN LESLIE Medical Record#: [id number] Address: [address] City/State/Zip: [place] [address]: Pepe Choudhary MD Insurance: [facility] (Medicaid) /Age/Sex: 1980/42/M Self Pay Admit/Reg Date: 06/19/[address]: Tony Orellana ttCgs, DO Location: ED.GS/ PCP: PcpMd ARCHIE Leroy Date of Service: 06/20/23 Order (s): CT head/brain wo contrast CPT Code: 61984 Report Number: [id number] Reason for Exam: syncope. ?head strike Examination: CT head/brain wo contrast Indication: syncope. ?head strike Comparison: CT head on 06/16/2023 and MRI brain on 06/18/2023 Technique: Angled axial images were obtained without intravenous contrast from the skull base to the vertex. Coronal and sagittal reformatted images were provided for interpretation. MIPS Measure #361 Patient Exposure to Ionizing Radiation was submitted to [employer] (A[employer]) National Radiology Data Registry (NRDR) andMIPS Measure #359 standard nomenclature was used for [...] MD 06/20/23718 Signed By: Thaddeus Keys MD 06/20/23727 TD/TT: 06/20/23718Tech: [id number] cc: KIM; ANNI; MIN* Karoline Choudhary MD; Md Alicia MD; Tony Lockhart DO Author [facility] June 20, 2023 6:05pm Report Date/Time June 20, 2023 6:08pm [address] [address] Patient Name: MAYELIN LESLIE Medical Record#: [id number] Address: [address] City/State/Zip: [place] [address]: Lizandro Sandhu DO [facility] [employer] [facility] /Age/Sex: 1980/42/M Self Pay Admit/Reg Date: 06/19/[address]: Lizandro Sandhu DO Location: ED.GS/ PCP: Md ARCHIE Vargas Date of Service: 06/20/23 Order (s): MR head/brain wo/w contrast CPT Code: 82204 Report Number: [id number] Reason for Exam: requested by neuro, ? guero CLINICAL HISTORY:Patient with a syncopal episode and question of seizure. Pleaseevaluate for Wernicke encephalopathy. TECHNIQUE: Multiplanar imaging of the brain protocol prior department protocol without and then following the intravenous injection of 10 ml Gadavist in the right antecubital fossa. FINDINGS: Comparison is made with the prior exam on 06/18/2023. There is normal carmen-white matter differentiation. The ventricles are of appropriate size and configuration. There is no evidence of any mass, mass effect or edema. No intra-axial or extra-axial hemorrhage is seen. No acute ischemia is noted on the diffusion-weighted imaging. There is no evidence of anyabnormal enhancement. The brainstem, cerebellum and corpus callosum [...] MD 06/20/231748 Signed By: Tej Bryant MD 06/20/231807 TD/TT: 06/20/231748Tech: [id number] cc: LUISITO; PCPNO* Md Vega-MD Lissett; Lizandro Sandhu DO Vital Signs Vital Reading Result Reference Range Collection Date/Time Body Temperature 97.9 [degF] 97.6-99.6 May 222022 6:12am Heart Rate 74 /min 60-90 May 22, 2023 6:12am Respiratory rate 20 /min 06-29May 222022 6:12am Oxygen saturation by Pulse oximetry 98 % 95-100 May 22, 2023 6:12am BP Systolic 109 mm[Hg] 90-140 May 22, 2023 6:12am BP Diastolic 61 mm[Hg] 60-90 May 22, 2023 6:12am Height 180.34 cm June 17, 2023 12:00am [...] 7:40am BMI (Body Mass Index) 29.2 kg/m2 [facility] 2022 12:00am Body Temperature 98.2 [degF] 97.6-99.6 June 202022 11:24am Heart Rate 80 /min 60-90 June 20, 2023 6:10pm Respiratory rate 16 /min 12-24 June 202022 6:10pm Oxygen saturation by Pulse oximetry 98 % 95-100 June 20, 2023 6:10pm BP Systolic 118 mm[Hg] 90-140 June 20, 2023 6:10pm BP Diastolic 76 mm[Hg] 60-90 June 20, 2023 6:10pm Advance Directives Advance Directive Response Recorded Date/ Time Advance Directives No April 21, 2023 3:02pm Health Care Proxy No April 21, 2023 3:02pm Advance Directives No May 04, 2023 11:56am Health Care Proxy No May 04, 2023 11:56am Advance Directives No June 11:36am Health Care Proxy No June 17, 2023 11:36am Advance Directives No April 26, 2023 12:45pm Health Care Proxy No April 26, 2023 12:45pm Advance Directives No May 10:52pm Health Care Proxy No May 21, 2023 10:52pm Advance Directives No June 11:50pm Health Care Proxy No June 19, 2023 11:50pm Insurance Providers Guarantor MAYELIN LESLIE Address [address] [facility] [address] Contact Info. Home Phone: Payer Policy Id Coverage Id Subscriber's Name Subscriber Id Effective Date Expiration Date Commercial Other [id number] MAYELIN LSELIE [id number] [facility] (Medicaid) [id number] MAYELIN LESLIE [id number] Medicaid [place] [id number] MAYELIN LESLIE [id number] [facility] Required [id number] MAYELIN LESLIE [id number] Encounters Encounter Location(s) Arrival/Admit Date Discharge/Depart Date Provider(s) Departed Emergency [facility] Waiting Area May 21, 2023 10:23pm May 22, 2023 4:10pm null Admitted Inpatient [facility] June 16, 2023 5:36pm Zeke Perkins MD Departed Emergency [facility] June 19, 2023 11:46pm June 20, 2023 6:23pm null Recent Diagnosis Onset Date Bipolar disorder Cocaine use with intoxication, uncomplic ated Seizure disorder Alcoholism Alcohol withdrawal seizure Hypomagnesemia Hyponatremia Functional Status Observation Response Date Recorded Assistive Devices None June 17, 2023 11:36am Date of Last Bowel Movement 06/18/23 Dece mber 2022 1:54am Mental Status Observation Response Date Recorded Arousable To Name June 19 1:54am Patient Behavior Appropriate June 19, 2023 10:37am Cooperative June 19 023 10:37am Comprehension Ability Understands Concepts Decem 2022 1:54am Level of Consciousness Awake June 19, 2023 1:54am Alert June 19 1:54am Appropriate June 19 1:54am Follows Commands June 19, 2023 1:54am Assessments Diagnosis Onset Date Resolution Status Bipolar disorder acute Cocaine use with intoxication, uncomplicated acute Seizure disorder acute Alcoholism chronic Alcohol withdrawal seizure r esolved Hypomagnesemia resolved Hyponatremia resolved Plan of Treatment Future Tests Future scheduled test information is unavailable Pending Tests Test Name Ordered Date Scheduled Date Whole Blood Vitamin B1 Level June 20, 2023 8:46am VTE Risk Assessment Medical June 16, 2023 5:35pm June 16, 2023 5:36pm Future Visits Future appointment information is unavailable Referrals to Other Providers Reason for Referral Referral Start Date Provider Provider Contact Information Provider Address IRAISADOL[address]SIRI CHAVEZ Work Phone: [address] [place] [address] PcpMd ARCHIE Leroy Follow-up in the next 2 weeks for treatment of alcoholism and nicotine dependence. Vinny Tsai MD Work Phone: [address] [place] [address] IRAIS[address]SIRI CHAVEZ Work Phone: [facility] [place] [address] PcpMd ARCHIE Leroy PcpMd ARCHIE Leroy Future [...] 17, 2023 12:52am June 17, 2023 12:52am Java Lead Engineer Consult June 16, 023 6:17pm June 16, 2023 6:17pm Java Lead Engineer Consult June 17 023 12:52am June 17, [...] 16, 2023 6:09pm June 16, 2023 6:09pm Saline Lock Insert/Manage April 26, 2023 1:2 [...] running out of your medications. Zeke Perkins [facility] June 19, 2023 9:26am Absence of falls Including: - Early & often mobilization when appropriate - Passive/active range of motion as appropriate - toileting schedule implementation - implementation of fall risk interventions [facility] June 20, 2023 6:22pm Risks from withdrawal minimi zekd [facility] June 20, 2023 6:22pm Prevention of aspiration Including: - Absence of regurgitation, gagging, coughing, fever, cyanosis and respiratory insufficiency - Aspiration precautions [facility] June 20, 2023 6:22pm Understand Mgmt Strategy-Reginaldo pete Patient/Caregiver understand: - Pathophysiology - Reportable s/s and when to seek medical care - Treatment plan and post discharge follow up - Medication compliance, environmental safety & lifestyle modification [facility] June 20, 2023 6:22pm Alleviation of anxiety Including: -Utilization of coping skills -Demonstrates/verbalizes decreased anxiety [facility] June 20, 2023 6:22pm Progress Note Author Karoline Choudhary [facility] June 20, 2023 8:24am Note Date/Time June 20, 2023 2:25am [place] [address] Emergency Department Document Signed Patient: MAYELIN LESLIE Medical Record#: [id number] : 1980 Acct:[id number] Age/Sex: 42 / M Admit/Reg Date: 06/19/23 Loc: ED. Room: Report Number: [id number]: Lizandro Sandhu DO Arrival - Arrival ED Triage Note: Pt was d/c on 06/19/23 for alcohol withdraw seizure. Pt is was unresponsive while in the waiting room. given narcan nasally. History of Present Illness Primary Care Provider: Pcp-Md Lissett Chief Complaint: General Medical Complaint Stated Complaint: UNRESPONSIVE History of Present Illness: 42 year old man pmhx obesity s/p gastric bypass 7 years ago in [place], AJ, seizure disorder, AUD, alcohol withdrawal seizure, fibromyalgia, bipolar disorder, hallucination, cocaine abuse, housing challenged presents after being found unresponsive in the waiting room. Pt was discharged from [facility] this morning after being admitted for alcohol withdrawal seizure. Pt is unsure what he did after discharge and how he ended upin the [facility] waiting room. There was no reported seizure activity. He reports he was drinking alcohol today, denies other recreational drug use. Denies any othercomplaints. (Karoline Choudhary) Allergies/Adverse Reactions: No Known Drug Allergies Allergy (Verified 04/26/23 14:21) Review of Systems Constitutional: Denies: chills, fever Eyes: Denies: eye discharge, eye pain, redness ENMT: Denies: ear pain, ear discharge, nasal bleeding Cardiovascular: Denies: chest pain, edema, palpitations, syncope Respiratory: Denies: cough, orthopnea, shortness of breath, stridor Gastrointestinal: Denies: abdominal pain, constipation, diarrhea, nausea, vomiting Genitourinary: Denies: discharge, dysuria, frequency, hematuria Musculoskeletal: Denies: back pain Neurological: Denies: headache, numbness, parasthesia Family/Social History - Social History Current or Hx of Recreational Drug use: Yes Physical Exam General Appearance: NAD, Cooperative Head: Atraumatic, Normocephalic Eyes: PERRL, EOMI, Other (Horizontal nystagmus) Mouth/Throat: Mucosa moist Respiratory: No respiratory distress, Lungs clear Cardiovascular: R/R/R, No Murmurs Abdominal: Soft, Non-tender, Non-distended Skin: Warm, Dry Neuro: Nonfocal, Motor grossly normal, A&O X 1 (Name) Triage Vital Signs: Pulse Rate 83 06/20/23 01:07 Respiratory Rate 14 06/20/23 01:07 Blood Pressure 140/84 06/20/23 01:07 Blood Pressure Source Automatic Cuff 06/20/23 01:07 Blood Pressure Mean 102 06/20/23 01:07 Blood Pressure Position Supine 06/20/23 01:07 O2 Sat by Pulse Oximetry 98 06/20/23 01:07 Oxygen Delivery Method Room Air 06/20/23 01:07 Pain Intensity 0 06/20/23 01:07 Results/Orders - Results and Orders Result diagrams: 06/19/23 23:45 06/19/23 23:45 - Results and Orders Lab Testing & Results 06/19/23 23:45: WBC 8.8, RBC 5.32, Hgb 10.3 L, Hct 35.3 L, MCV 66.4 L, MCH 19.4 L, MCHC 29.2 L, RDW 21.1 H, Plt Count 353, Immature Gran % (Auto) 0.2, Neut % (Auto) 74.5, Lymph % (Auto) 16.9, Griggs % (Auto) 6.1, Eos % (Auto) 1.2, Baso % (Auto) 1.1, Neut # (Auto) 6.6, Lymph # (Auto) 1.5, Griggs # (Auto) 0.5, Eos # (Auto) 0.1, Baso # (Auto) 0.1, Immature Gran # (Auto) 0.02, Nucleated RBC % 0.0,Sodium 135 L, Potassium 4.1, Chloride 97 L, Carbon Dioxide 25, Anion Gap 13, BUN14, Creatinine 0.8, Estimated Creat Clear [employer]ed Circuit Board Reworker, Estimated GFR 115, BUN/Creatinine Ratio 17.5, Glucose 94, Calcium 8.8, Magnesium 1.8, Total Bilirubin 0.3, AST 20,ALT 19, Alkaline Phosphatase 53, Total Protein 7.2, Albumin 4.4, Albumin/Globulin Ratio 1.6, Salicylates < 1.0, Acetaminophen < 5, Serum Alcohol 41 H 06/20/23 02:16: Urine Opiates Screen Negative, Ur Buprenorphine Scrn Negative, Ur Oxycodone Screen Negative, Urine Methadone Screen Negative, Urine Fentanyl Screen Negative, Ur Amphetamines Screen Negative, U Benzodiazepines Scrn Negative, Urine Cocaine Screen Negative, U Cannabinoids Screen Negative 06/20/23 02:37: Add-On Test Request Added test 06/20/23 02:42: Add-On Test Request Unable to add test Medications Ordered: Thiamine HCl 500 mg/ Sodium (Chloride) 255 mls @ 250 mls/hr IV TID [facility] EKG Orders: EKG Orders 06/20/23 01:16 EKG ED Electrocardiogram Stat Radiology Orders: Radiology Orders 06/20/23 01:17 CT head/brain wo contrast Stat MDM/COURSE Vital Signs Pulse Rate 83 06/20/23 01:07 Respiratory Rate 14 06/20/23 01:07 Blood Pressure 140/84 06/20/23 01:07 O2 Sat by Pulse Oximetry 98 06/20/23 01:07 Pulse Rate 73 06/20/23 05:49 Respiratory Rate 20 06/20/23 05:49 Blood Pressure 140/84 06/20/23 01:07 O2 Sat by Pulse Oximetry 97 06/20/23 05:49 - [facility] Medical decision making narrative: 42 year old man pmhx obesity s/p gastric bypass 7 years ago in [place], JA, seizure disorder, AUD, alcohol withdrawal seizure, fibromyalgia, bipolar disorder, hallucination, cocaine abuse, housing challenged presents after being found unresponsive in the waiting room. itals and physical exam as above. Pt wasjust discharged today after alcohol withdawal seizures. His workup included a head CT and an MRI that were normal. Suspect that presentation today is due to alcohol intoxication. Plan: - EKG - Labs Alcohol level 41 and is too low to explain pt's confusion and nystagmus. Other labs are unremarkable and urine tox is negative. Pt has horizontal nystagmus and is persistently confused despite low alcohol level. Meets 2 criteria for Wernicke's encephalopathy. Will treat with high doseIV thiamine and admit. At time of sign out, awaiting transfer of care to hospitalist team. Pt signed out to oncoming ED physician at 7am. (Karoline Choudhary) Discharge Plan - Discharge Clinical Impression: Wernicke encephalopathy Disposition: Admitted as Inpatient Prescriptions: No Action azelastine 137 mcg (0.1 %) aerosol,spray 2 spray intranasal BID clobetasol 0.05 % cream 1 applic topical DAILY escitalopram oxalate 10 mg tablet 10 mg PO DAILY gabapentin 800 mg tablet 800 mg PO TID levetiracetam 500 mg tablet 500 mg PO BID 90 Days Qty: 180 RF: 0 meclizine 25 mg tablet 25 mg PO TID PRN (Reason: dizziness) quetiapine 25 mg tablet 25 mg PO QHS sertraline 100 mg tablet 100 mg PO DAILY thiamine HCl (vitamin B1) 100 mg Tablet 100 mg PO DAILY Qty: 30 RF: 0 Referrals: Pcp-Lissett,MD Archie [Primary Care Provider] - Print Language: Pakistani - Discharge Data Time Seen by Provider: 06/20/23 02:21 Dictated By: Karoline Choudhary MD Signed By: Karoline Choudhary MD 06/20/23 0824 DD/ 4 TD/TT: 06/20/23224 Change Attendant: MIN cc: FARNAZ Perdomo Pcp-MD Lissett
[2024-01-16] MEDS: Ibuprofen 400 MG TABLET PO (23:07)
[2024-01-16] MEDS: traZODone HCL 50 MG TABLET PO (23:08)
[2024-01-16] MEDS: hydrOXYzine HCL 25 MG TABLET PO (23:08)
[2024-01-16] MEDS: Nicotine Polacrilex 2 MG GUM BUCCAL (23:15)
[2024-01-16] MEDS: chlorproMAZINE HCl 25 MG TABLET 50 MG PO (23:58)
[2024-01-17] MEDS: traZODone HCL 50 MG TABLET PO (00:58)
[2024-01-17] MEDS: Nicotine Polacrilex 2 MG GUM BUCCAL ×2 (00:59→07:24)
[2024-01-17] MEDS: Acetaminophen 325 MG TABLET 650 MG PO ×3 (01:01→17:20)
--- NOTE | 2024-01-17 05:11 | PC.ADMIT ---
Jean Carlos is a 43 y/o Bulgarian speaking, male admitted to room 516-1. He arrived at [facility] from [facility] via ambulance accompained by a Section [facility]. While in admission office he signed a Conditional Voluntary which was accepted by an [facility] ER physician. He arrived to on a stretcher immediately upon admission a thorough skin check was done and the patient's vital signs were taken. He was oriented to the unit and given food as he stated that he had not had dinner yet. He stated that prior to admission here he had attempted suicide secondary to increased depression due to a recent relapse which resulted in him losing his job and becoming homeless. The suicide attempt resulted in a medical hospitalization and subsequent admission at [facility]. He denied current suicidality and was cooperative with the admission process. 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 He is hoping to get into a program from here.
[2024-01-17] MEDS: chlorproMAZINE HCl 25 MG TABLET 50 MG PO (07:23)
[2024-01-17] MEDS: Ibuprofen 400 MG TABLET PO (07:24)
[2024-01-17 08:35] VITALS: BP 109/69; PULSE 71; RESP 16; TEMP 36.6; O2SAT 98
[2024-01-17 09:20] LABS: MANUAL DIFF FLAG NO
[2024-01-17 09:23] LABS: Basophils Absolute Auto 0.1 X10*3/uL (0.0-0.2); Basophils Percent Auto 0.9 % (0-2); Eosinophils Absolute Auto 0.3 X10*3/uL (0.0-0.4); Eosinophils Percent Auto 3.9 % (0-4); Hematocrit 41.1 % (42.0-52.0); Hemoglobin 13.6 g/dl (14.0-18.0); Imm Gran Abs Auto 0.02 X10*3/uL (0.00-0.03); Imm Gran Pct Auto 0.3 % (0.0-0.4); Lymphocytes Absolute Auto 1.7 X10*3/uL (1.2-4.9); Lymphocytes Percent Auto 24.7 % (20-40); Mean Corpuscular HGB Conc 33.1 g/dl (31.0-36.0); Mean Corpuscular Hemoglobin 26.4 pg (27.0-33.0); Mean Corpuscular Volume 79.8 fL (80.0-98.0); Mean Platelet Volume 9.1 fL (9.4-12.4); Monocytes Absolute Auto 0.4 X10*3/uL (0.1-1.2); Monocytes Percent Auto 6.3 % (2-11); Neutrophils Absolute Auto 4.4 x10*3/uL (2.0-8.3); Neutrophils Percent Auto 63.9 % (45-73); Platelet Count 591 X10*3/uL (160-400); Red Blood Count 5.15 X10*6/uL (4.60-5.80); Red Cell Distribution Width 15.8 % (11.0-16.0); White Blood Count 6.8 X10*3/uL (4.8-10.8)
[2024-01-17 09:32] LABS: Ammonia 32 umol/L (13-55)
[2024-01-17] MEDS: Buprenorphine/Naloxone 12/3 mg FILM 1 FILM SUBLINGUAL ×2 (09:55→20:30)
[2024-01-17 09:56] VITALS: BP 109/69
[2024-01-17] MEDS: cloNIDine HCL 0.1 MG TABLET PO ×3 (09:56→20:29)
--- NOTE | 2024-01-17 10:07 | HO.PSYADMNOT ---
HPI Date of Service: 01/17/24 Chief Complaint: Unspecified mood disorder Sources of Information: patient interviewed, chart reviewed and crisis/core team assessment reviewed HPI Subjective Notes: Conditional Voluntary Narrative: Patient is a 43 yo man, single, unemployed. Lives in [place]. Patient has a history of depression and opioid use disorder on Suboxone. He originally presented to [facility] with an OD on 42 tablets of dextromethorphan pills on 01/12/24. He says a bystander saw that he was altered and took him to the hospital in an Uber. Patient was admitted medically to [facility] for monitoring for serotonin syndrome. After clearance was referred for inpatient psychiatric treatment. Patient reports history of bipolar disorder, fibromyalgia, OUD on Suboxone. He admits to relapse. He had been recently released from inpatient psychiatric treatment at [facility] a few days prior to his OD. Per records from [facility], patient has had 30 ED visits last 12 months. He has had several OD's on Mucinex. Patient reports he wants to be admitted to a program to help sobriety. He is hopeful and future oriented. He reports multiple complaints. He reports auditory and visual hallucinations and sensitivity to sound. He requests Thorazine as needed for that which he has found helpful during his last hospital stay. He reports anxiety. Reports pain in his ankles due to rolling his ankles. He asks for Tramadol which was declined and patient agreed to increased dose of Ibuprofen. Reports craving for nicotine and requests increase dose of NRT to 4 mg. He reports he is glad he is alive and feels ready to get treatment in a program for his OUD. He admits to having a relapse. UTOX was positive for Fentanyl and benzodiazepines at [facility]. Patient reports history of traumatic upbringing but did not disclose details. Says he suffered from ADHD growing up and had difficulty in school. Denies current SI. Past Psychiatric History: Multiple psychiatric admissions. Reported 30 ED visits past year per [facility] records. [facility]. Several overdoses, most on Dextromethorphan. Medical Evaluation Reviewed: Hospitalist Mina Pending [facility] Family History: none reported Social History: Grew up in [place]. Never . No children. Worked in [employer]. 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 The same company that helped him achieve his own his sobriety for about 6 years until he moved to [place] last year. Substance History: Opioid use disorder on Suboxone. Denies IV use Trauma History: Reported abuse. Diagnostics Vital Signs (24Hr): Vital Signs - 24 hr 01/17/24 08:35 01/17/24 09:56 Temperature 97.8 F Pulse Rate 71 Respiratory Rate 16 Blood Pressure 109/69 109/69 Pulse Oximetry 98 Oxygen Delivery Method Room Air Labs 01/17/24 08:41 01/17/24 08:41 Labs: Laboratory Results - last 48 hr 01/17/24 08:41 WBC 6.8 RBC 5.15 Hgb 13.6 L Hct 41.1 L MCV 79.8 L MCH 26.4 L MCHC 33.1 RDW 15.8 Plt Count 591 H MPV 9.1 L Immature Gran % (Auto) 0.3 Neut % (Auto) 63.9 Lymph % (Auto) 24.7 [place] % (Auto) 6.3 Eos % (Auto) 3.9 Baso % (Auto) 0.9 Lymph # (Auto) 1.7 [place] # (Auto) 0.4 Eos # (Auto) 0.3 Baso # (Auto) 0.1 Abs Immat Gran (auto) 0.02 Absolute Neuts (auto) 4.4 Absolute Nucleated RBC 0.000 Nucleated RBC % (auto) 0.0 Ammonia 32 Meds/Allergies Meds Home Medications ?Medication ?Instructions ?Recorded ?Confirmed ?Type buprenorphine 12 mg-naloxone 3 mg 1 film sublingual BID 01/17/24 01/17/24 History sublingual film (Suboxone) chlorpromazine 100 mg tablet 100 mg PO BID 01/17/24 01/17/24 History clobetasol 0.05 % topical cream topical DAILY 01/17/24 History clonidine HCl 0.1 mg tablet 0.1 mg PO TID 01/17/24 01/17/24 History gabapentin 800 mg tablet 800 mg PO TID 01/17/24 01/17/24 History levetiracetam 1,000 mg tablet 1,000 mg PO BID 01/17/24 01/17/24 History loxapine succinate 50 mg capsule 150 mg PO BEDTIME 01/17/24 01/17/24 History methocarbamol 750 mg tablet 750 mg PO TID 01/17/24 01/17/24 History mirtazapine 15 mg tablet (Remeron) 7.5 mg PO BEDTIME 01/17/24 01/17/24 History nicotine 21 mg/24 hr daily 1 patch topical DAILY 01/17/24 01/17/24 History transdermal patch ropinirole 0.5 mg tablet 0.5 mg PO TID 01/17/24 01/17/24 History Allergies Allergies Allergy/AdvReac Type Severity Reaction Status Date / Time No Known Allergies Allergy Verified 01/17/24 08:30 Mental Status Exam Mental Status Exam Narrative: General appearance: casually appropriate dress. Good hygiene.?Hair shaved on both sides and strip of hair left in the middle. Eye contact: WNL. Musculoskeletal: Normal muscle strength/tone, Normal gait and station, No abnormal involuntary movements like tremors, EPS or dyskinesia. No psychomotor agitation or retardation. Normal posture.??? Manner/behavior: cooperative and not guarded Speech:? Fluent, with normal rate, tone and volume. Language: No receptive or expressive language impairment? Mood: anxious Affect: constricted range, calm incongruent to reported mood and without lability? Thought process/associations: Linear with no flight of ideas or loose associations.?? Thought content:?paranoia.?? Hallucinations: + auditory, visual hallucinations but not evident on interview. No?flashbacks, nightmares or dissociation? ? Suicidality/self-destructive behavior: none, future oriented, hopeful.? ? Homicidally/violence: none.? Reliability: partial.? ? Judgment: fair.? ? Insight: fair Cognition: Alert and oriented to time, place and person. Attention, concentration and fund of knowledge are normal.? Impulse control and emotional regulation: preserved. Intelligence estimate: average.? Assessment & Plan Assessment & Plan (1) Bipolar affect, depressed: Status: Acute Code(s): F31.30 - Bipolar disorder, current episode depressed, mild or moderate severity, unspecified (2) Opioid use disorder, moderate, in early remission, on maintenance therapy, dependence: Status: Acute Code(s): F11.21 - Opioid dependence, in remission Assessment and Plan: 43 yo with reported bipolar disorder and OUD on Suboxone presents from [facility] after an OD on Mucinex. Plan: - Admit to inpatient psychiatry - CV - Collateral information from family and providers. - Milieu treatment and group therapy. - Medications: Restart medications - Social work evaluation. - Disposition planning. Patient educated on: medication risk/benefits and therapeutic strategies Reason for continued inpatient stay Substantial Risk for: harm to self, inability to function, rapid decompensation and med/psych decompensation Statement Statement: I have reviewed the history and physical and performed a pertinent examination on my patient. No changes have occurred unless specified. If the History and Physical was not performed prior to admission, the Hospitalist's service will be consulted for completing the admission physical. Time Spent With Patient Time: Total time managing care of this patient today ____ minutes.
[2024-01-17 10:14] LABS: Alanine Aminotransferase 12 U/L (0-40); Alkaline Phosphatase 61 U/L (39-117); Anion Gap 11 (12-20); Aspartate Amino Transferase 14 U/L (5-37); Bilirubin Total 0.3 mg/dL (0.0-1.0); Blood Urea Nitrogen 9 mg/dL (9-16); Calcium 9.8 mg/dL (8.4-10.2); Carbon Dioxide 28 mmol/L (22-29); Chloride 105 mmol/L (96-108); Cholesterol 157 mg/dL (<200); Estimated Glomerular Filt Rate > 60; Glucose Fasting 104 mg/dL (60-99); HDL Cholesterol 42 mg/dL (>40); LDL Cholesterol Calculated 100 mg/dL (<100); Potassium 4.3 mmol/L (3.3-5.1); Sodium 140 mmol/L (135-145); Triglycerides 77 mg/dL (<150)
[2024-01-17] MEDS: Nicotine Polacrilex Lozenge 2 MG LOZENGE BUCCAL (11:35)
[2024-01-17] MEDS: hydrOXYzine HCL 25 MG TABLET PO ×2 (11:35→17:19)
[2024-01-17] MEDS: Nicotine Polacrilex Lozenge 4 MG LOZENGE BUCCAL ×3 (13:43→20:30)
[2024-01-17] MEDS: Ibuprofen 800 MG TABLET PO ×2 (13:59→20:29)
[2024-01-17] MEDS: Gabapentin 400 MG CAPSULE 800 MG PO ×2 (14:43→20:29)
[2024-01-17] MEDS: chlorproMAZINE HCl 100 MG TABLET PO ×2 (14:44→20:29)
[2024-01-17] MEDS: QUEtiapine Fumarate 50 MG TABLET PO ×2 (14:44→20:29)
[2024-01-17 20:00] VITALS: BP 120/85; PULSE 102; RESP 18; TEMP 36.4; O2SAT 97
[2024-01-17] MEDS: traZODone HCL 100 MG TABLET PO (20:29)
[2024-01-17] MEDS: QUEtiapine Fumarate 400 MG TABLET PO (21:27)
[2024-01-18] MEDS: hydrOXYzine HCL 25 MG TABLET PO ×3 (04:30→17:23)
[2024-01-18] MEDS: Ibuprofen 800 MG TABLET PO ×2 (04:30→08:22)
[2024-01-18] MEDS: chlorproMAZINE HCl 100 MG TABLET PO ×3 (04:30→17:22)
[2024-01-18] MEDS: QUEtiapine Fumarate 50 MG TABLET PO ×2 (04:31→17:22)
[2024-01-18] MEDS: Nicotine Polacrilex Lozenge 4 MG LOZENGE BUCCAL ×7 (04:33→23:45)
[2024-01-18] MEDS: Gabapentin 400 MG CAPSULE 800 MG PO ×3 (08:19→19:43)
[2024-01-18 08:20] VITALS: BP 106/60
[2024-01-18] MEDS: cloNIDine HCL 0.1 MG TABLET PO ×3 (08:20→19:42)
[2024-01-18] MEDS: Buprenorphine/Naloxone 12/3 mg FILM 1 FILM SUBLINGUAL ×2 (08:23→19:43)
[2024-01-18 08:30] VITALS: BP 106/60; PULSE 83; RESP 14; TEMP 36.8; O2SAT 97
--- NOTE | 2024-01-18 09:09 | P.PNPSI_ITS ---
Subjective Subjective Date of Service: 01/18/24 Reason For Visit: Unspecified mood disorder Interim History: Patient seen. Thankful for the changes made to his medications. He is asking for more frequent PRN's. Discussed alternating Thorazine with Seroquel as he is taking all his PRN's at the same time. He's not sedated. Mood reported still as anxious. AH and paranoia improved. No SI. Slept better with Seroquel. No behavioral issues. Polite. Mental Status Exam Mental Status Exam Narrative: General appearance: casually appropriate dress. Good hygiene.?Hair shaved on both sides and strip of hair left in the middle. Eye contact: WNL. Musculoskeletal: Normal muscle strength/tone, Normal gait and station, No abnormal involuntary movements like tremors, EPS or dyskinesia. No psychomotor agitation or retardation. Normal posture.??? Manner/behavior: cooperative and not guarded Speech:? Fluent, with normal rate, tone and volume. Language: No receptive or expressive language impairment? Mood: anxious Affect: constricted range, calm incongruent to reported mood and without lability? Thought process/associations: Linear with no flight of ideas or loose associations.?? Thought content:?paranoia.?? Hallucinations: + auditory, visual hallucinations but not evident on interview. No?flashbacks, nightmares or dissociation? ? Suicidality/self-destructive behavior: none, future oriented, hopeful.? ? Homicidally/violence: none.? Reliability: partial.? ? Judgment: fair.? ? Insight: fair Cognition: Alert and oriented to time, place and person. Attention, concentration and fund of knowledge are normal.? Impulse control and emotional regulation: preserved. Intelligence estimate: average.? Diagnostics Vital Signs (24Hr): Vital Signs - 24 hr 01/17/24 09:56 01/17/24 20:00 01/18/24 08:20 Temperature 97.5 F Pulse Rate 102 H Respiratory Rate 18 Blood Pressure 109/69 120/85 106/60 Pulse Oximetry 97 Oxygen Delivery Method Room Air Labs 01/17/24 08:41 01/17/24 08:41 Labs: Laboratory Results - last 48 hr 01/17/24 08:41 WBC 6.8 RBC 5.15 Hgb 13.6 L Hct 41.1 L MCV 79.8 L MCH 26.4 L MCHC 33.1 RDW 15.8 Plt Count 591 H MPV 9.1 L Immature Gran % (Auto) 0.3 Neut % (Auto) 63.9 Lymph % (Auto) 24.7 [place] % (Auto) 6.3 Eos % (Auto) 3.9 Baso % (Auto) 0.9 Lymph # (Auto) 1.7 [place] # (Auto) 0.4 Eos # (Auto) 0.3 Baso # (Auto) 0.1 Abs Immat Gran (auto) 0.02 Absolute Neuts (auto) 4.4 Absolute Nucleated RBC 0.000 Nucleated RBC % (auto) 0.0 Sodium 140 Potassium 4.3 Chloride 105 Carbon Dioxide 28 Anion Gap 11 L BUN 9 Creatinine 0.78 Estim Creat Clear Calc TNP Estimated GFR > 60 Fasting Glucose 104 H Calcium 9.8 Magnesium 2.0 Total Bilirubin 0.3 AST 14 ALT 12 Alkaline Phosphatase 61 Ammonia 32 Total Protein 7.0 Albumin 4.0 Triglycerides 77 Cholesterol 157 LDL Cholesterol, Calc 100 H HDL Cholesterol 42 Medications Medications Current Medications Acetaminophen (Acetaminophen 325 Mg Tablet) 650 mg PO Q6H PRN PRN Reason: Headache/Pain Mild Scale (1-3) Last Admin: 01/17/24 17:20 Dose: 650 mg Al Hydroxide/Mg Hydroxide (Magnesium Hydrox/Alum Hydrox 30 Ml Oral.Susp) 30 ml PO Q6H PRN PRN Reason: Heartburn/Nausea Buprenorphine/Naloxone (Buprenorphine/Naloxone 12/3 Mg Film) 1 film SUBLINGUAL BID COUNTS INCLUDE 234 BEDS AT THE [facility] Last Admin: 01/18/24 08:23 Dose: 1 film Chlorpromazine HCl (Chlorpromazine Hcl 100 Mg Tablet) 100 mg PO TID PRN PRN Reason: Hallucinations Last Admin: 01/18/24 08:19 Dose: 100 mg Clonidine HCl (Clonidine Hcl 0.1 Mg Tablet) 0.1 mg PO TID COUNTS INCLUDE 234 BEDS AT THE [facility]; Protocol Last Admin: 01/18/24 08:20 Dose: 0.1 mg Gabapentin (Gabapentin 400 Mg Capsule) 800 mg PO TID SHADY Last Admin: 01/18/24 08:19 Dose: 800 mg Hydroxyzine HCl (Hydroxyzine Hcl 25 Mg Tablet) 25 mg PO Q6H PRN PRN Reason: Anxiety Last Admin: 01/18/24 04:30 Dose: 25 mg Ibuprofen (Ibuprofen 800 Mg Tablet) 800 mg PO Q6H PRN PRN Reason: Pain, Moderate(Pain Scale 4-6) Last Admin: 01/18/24 08:22 Dose: 800 mg Magnesium Hydroxide (Milk Of Magnesia 30 Ml Oral.Susp) 30 ml PO DAILY PRN PRN Reason: Constipation Nicotine Polacrilex (Nicotine Polacrilex Lozenge 4 Mg Lozenge) 4 mg BUCCAL Q2H PRN PRN Reason: Nicotine Cravings Last Admin: 01/18/24 08:20 Dose: 4 mg Quetiapine Fumarate (Quetiapine Fumarate 400 Mg Tablet) 400 mg PO BEDTIME SHADY Last Admin: 01/17/24 21:27 Dose: 400 mg Quetiapine Fumarate (Quetiapine Fumarate 50 Mg Tablet) 50 mg PO BID PRN PRN Reason: anxiety Last Admin: 01/18/24 04:31 Dose: 50 mg Trazodone HCl (Trazodone Hcl 100 Mg Tablet) 100 mg PO BEDTIME SHADY Last Admin: 01/17/24 20:29 Dose: 100 mg Allergies Allergies Allergy/AdvReac Type Severity Reaction Status Date / Time No Known Allergies Allergy Verified 01/17/24 08:30 Assessment & Plan Assessment & Plan (1) Bipolar affect, depressed: Status: Acute Code(s): F31.30 - Bipolar disorder, current episode depressed, mild or moderate severity, unspecified (2) Opioid use disorder, moderate, in early remission, on maintenance therapy, dependence: Status: Acute Code(s): F11.21 - Opioid dependence, in remission Assessment and Plan: 43 yo with reported bipolar disorder and OUD on Suboxone presents from [facility] after an OD on Mucinex. Plan: - Admit to inpatient psychiatry - CV - Collateral information from family and providers. - Milieu treatment and group therapy. - Medications: Restart medications - Social work evaluation. - Disposition planning. 01/17: continue current management and treatment plan. Reason for continued inpatient stay Substantial Risk for: harm to self and rapid decompensation Time Spent With Patient Time: Total time managing care of this patient today ____ minutes.
[2024-01-18] MEDS: Acetaminophen 325 MG TABLET 650 MG PO ×2 (11:11→17:23)
--- NOTE | 2024-01-18 12:29 | MHC.RECOVRN ---
Pt had positive screen for unhealthy alcohol use on admission, subsequently met with t/w to discuss alcohol use and recovery supports/options. Pt voices concern regarding alcohol use and is aware that drinking at unhealthy levels is known to increase risk of alcohol related health problems. Pt reports that he just got out of detox for AUD. Pt expresses how alcohol use has impacted health, including negative impact on skin, broken bones along with jobs and relationships.?? Discussed risk reduction strategies including drinking below the recommended limit. Provided pt with written resources including information on inpatient and outpatient treatment, TUNG, harm reduction, and recovery coaching. Pt plans to go to [facility] following inpt. Stay then to sober house.? He would like more information on TUNG available with suboxone.? He also would like a resource recovery engineer visit for info on more community resources.?? T/W sent message to [facility] for further f/u along with resource recovery engineer referral. Pt provided with t/w contact information if questions or concerns arise. Denies other questions or concerns at this time.
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
[2024-01-18] MEDS: Ibuprofen 600 MG TABLET PO ×2 (14:37→19:43)
[2024-01-18] MEDS: Betamethasone Dip Aug 0.05% Cr 15 GM TUBE 1 APPL TOPICAL (15:53)
[2024-01-18] MEDS: traZODone HCL 100 MG TABLET PO (19:43)
[2024-01-18] MEDS: QUEtiapine Fumarate 400 MG TABLET PO (19:44)
[2024-01-18 20:00] VITALS: BP 112/68; PULSE 80; RESP 18; TEMP 36.6; O2SAT 98
--- NOTE | 2024-01-19 | ECG_ITS ---
Test Reason : qtc check Blood Pressure : / mmHG Vent. Rate : 074 BPM Atrial Rate : 074 BPM P-R Int : 178 ms QRS Dur : 096 ms QT Int : 370 ms P-R-T Axes : 058 019 031 degrees QTc Int : 410 ms Normal sinus rhythm Normal ECG No previous ECGs available Referred By: Evens Mcdowell Electronically Signed By:PATRICK EARLY MD
[2024-01-19] MEDS: Ibuprofen 600 MG TABLET PO ×3 (01:35→14:25)
[2024-01-19] MEDS: Nicotine Polacrilex Lozenge 4 MG LOZENGE BUCCAL ×7 (01:35→22:29)
[2024-01-19] MEDS: chlorproMAZINE HCl 100 MG TABLET PO ×4 (01:35→20:15)
[2024-01-19] MEDS: QUEtiapine Fumarate 50 MG TABLET PO ×4 (01:35→22:25)
[2024-01-19] MEDS: hydrOXYzine HCL 25 MG TABLET PO ×4 (01:35→22:25)
[2024-01-19] MEDS: traZODone HCL 100 MG TABLET PO ×2 (02:57→20:10)
[2024-01-19] MEDS: Acetaminophen 325 MG TABLET 650 MG PO ×2 (05:42→20:15)
[2024-01-19 07:03] VITALS: BP 110/64; PULSE 118; RESP 18; TEMP 36.7; O2SAT 98
[2024-01-19] MEDS: Gabapentin 400 MG CAPSULE 800 MG PO ×3 (07:15→20:10)
[2024-01-19] MEDS: Buprenorphine/Naloxone 12/3 mg FILM 1 FILM SUBLINGUAL ×2 (07:15→20:10)
[2024-01-19 07:16] VITALS: BP 110/62
[2024-01-19] MEDS: cloNIDine HCL 0.1 MG TABLET PO ×3 (07:16→20:10)
[2024-01-19 08:18] VITALS: BP 112/53; PULSE 89; RESP 14; TEMP 36.9; O2SAT 99
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
--- NOTE | 2024-01-19 13:21 | MHC.CLN ---
NUTRITION CONSULT FOR RECENT WEIGHT LOSS GREATER THAN 10#. NO CURRENT WEIGHT AND NO WEIGHT HX AVAILABLE. PATIENT WITH HX POLYSUBSTANCE ABUSE. GASTRIC BYPASS 10 YEARS AGO. IF WEIGHT LOSS IS ACTUAL, SUSPECT DUE TO HOMELESSNESS AND POLYSUBSTANCE ABUSE. DIET=REGULAR. HAS ORDER FOR ENSURE TID. SUPPLEMENT PROVIDES 1050 KCALS, 60 G PROTEIN. CONTINUE REGULAR DIET WITH ENSURE TID.
[2024-01-19] MEDS: levETIRAcetam 1,000 MG TABLET 1000 MG PO ×2 (14:22→20:10)
[2024-01-19] MEDS: Sertraline HCL 50 MG TABLET PO (14:22)
[2024-01-19 15:47] VITALS: BP 108/63
--- NOTE | 2024-01-19 18:22 | MHC.RECOVSUP ---
? Reason for consult o Current location: o Identified substance use concern: - Overdose - Withdrawal - Seeking ATS (detox) - Support ? Intervention: o ATS bed search started/completed/in process o MAT started or to be started o Community resources provided o Harm reduction discussion ? Plan: o Referral to [facility] o Bed search in progress to o Follow up tomorrow o Patient awaiting crisis evaluation o Patient to follow up with [facility] after discharge ? Additional information:
--- NOTE | 2024-01-19 18:22 | MHC.RECOVSUP ---
? Reason for consult Recovery support o Current location: 512[address] o Identified substance use concern: Cocaine - Support ? Intervention: o Community resources provided o Harm reduction discussion ? Plan: o Patient to follow up with [facility] after discharge ? Additional information: Met with patient and we talked about recovery.. we talked about harm reduction and resource where to go and get help and be around other people in recovery. patient stated that he wants to go to a detention recovery house.
[2024-01-19 20:00] VITALS: BP 107/64; PULSE 113; RESP 16; TEMP 36; O2SAT 97
[2024-01-19] MEDS: QUEtiapine Fumarate 300 MG TABLET 600 MG PO (20:12)
[2024-01-20] MEDS: chlorproMAZINE HCl 100 MG TABLET PO ×5 (03:10→20:13)
[2024-01-20] MEDS: Ibuprofen 600 MG TABLET PO ×3 (03:10→16:52)
[2024-01-20] MEDS: Nicotine Polacrilex Lozenge 4 MG LOZENGE BUCCAL ×6 (03:11→22:29)
[2024-01-20] MEDS: QUEtiapine Fumarate 50 MG TABLET PO ×5 (03:11→22:29)
[2024-01-20 08:00] VITALS: BP 105/61; PULSE 87; RESP 18; TEMP 36.6; O2SAT 96
[2024-01-20] MEDS: cloNIDine HCL 0.1 MG TABLET PO ×3 (08:11→20:12)
[2024-01-20] MEDS: Gabapentin 400 MG CAPSULE 800 MG PO ×3 (08:11→20:12)
[2024-01-20] MEDS: levETIRAcetam 1,000 MG TABLET 1000 MG PO (08:11)
[2024-01-20] MEDS: Sertraline HCL 50 MG TABLET PO (08:11)
[2024-01-20] MEDS: hydrOXYzine HCL 25 MG TABLET PO ×2 (08:11→20:13)
[2024-01-20] MEDS: Betamethasone Dip Aug 0.05% Cr 15 GM TUBE 1 APPL TOPICAL (08:41)
[2024-01-20] MEDS: Buprenorphine/Naloxone 12/3 mg FILM 1 FILM SUBLINGUAL (08:42)
[2024-01-20 14:08] VITALS: BP 114/66
[2024-01-20] MEDS: Acetaminophen 325 MG TABLET 650 MG PO ×2 (14:10→22:29)
[2024-01-20] MEDS: Nicotine 21 MG PATCH.TD24 TRANSDERMA (14:30)
[2024-01-20] MEDS: FLUoxetine HCl 10 MG CAPSULE PO (16:50)
[2024-01-20] MEDS: Buprenorphine/Naloxone 2/0.5mg FILM 2 FILM SUBLINGUAL (17:00)
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
[2024-01-20 20:00] VITALS: BP 107/57; PULSE 84; RESP 18; TEMP 36.7; O2SAT 98
[2024-01-20] MEDS: traZODone HCL 100 MG TABLET PO (20:13)
[2024-01-20] MEDS: QUEtiapine Fumarate 300 MG TABLET 600 MG PO (20:13)
[2024-01-20] MEDS: Buprenorphine/Naloxone 8/2 mg FILM 1 FILM SUBLINGUAL (20:13)
[2024-01-21] MEDS: hydrOXYzine HCL 25 MG TABLET PO ×3 (03:14→21:10)
[2024-01-21] MEDS: Nicotine Polacrilex Lozenge 4 MG LOZENGE BUCCAL ×4 (03:14→21:08)
[2024-01-21] MEDS: Ibuprofen 600 MG TABLET PO ×4 (03:22→21:10)
[2024-01-21] MEDS: Acetaminophen 325 MG TABLET 650 MG PO ×3 (06:56→21:10)
[2024-01-21 07:55] VITALS: BP 136/79; PULSE 77; RESP 18; TEMP 37; O2SAT 96
[2024-01-21] MEDS: Nicotine 21 MG PATCH.TD24 TRANSDERMA (07:56)
[2024-01-21] MEDS: QUEtiapine Fumarate 50 MG TABLET PO ×4 (07:56→21:08)
[2024-01-21] MEDS: FLUoxetine HCl 10 MG CAPSULE PO (07:56)
[2024-01-21] MEDS: Gabapentin 400 MG CAPSULE 800 MG PO ×3 (07:56→21:09)
[2024-01-21] MEDS: cloNIDine HCL 0.1 MG TABLET PO ×3 (07:56→21:09)
[2024-01-21] MEDS: chlorproMAZINE HCl 100 MG TABLET PO ×4 (07:56→21:08)
[2024-01-21] MEDS: Buprenorphine/Naloxone 8/2 mg FILM 1 FILM SUBLINGUAL ×3 (08:30→21:08)
[2024-01-21] MEDS: Betamethasone Dip Aug 0.05% Cr 15 GM TUBE 1 APPL TOPICAL (08:32)
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
[2024-01-21 14:18] VITALS: BP 116/66
[2024-01-21 20:00] VITALS: BP 100/58; PULSE 101; RESP 18; TEMP 36.4; O2SAT 98
[2024-01-21] MEDS: Acamprosate Calcium 333 MG TABLET.DR PO (21:09)
[2024-01-21] MEDS: QUEtiapine Fumarate 300 MG TABLET 600 MG PO (21:09)
[2024-01-21] MEDS: traZODone HCL 100 MG TABLET PO (21:10)
[2024-01-22] MEDS: Acetaminophen 325 MG TABLET 650 MG PO (03:00)
[2024-01-22] MEDS: Nicotine Polacrilex Lozenge 4 MG LOZENGE BUCCAL ×4 (03:00→20:39)
[2024-01-22] MEDS: hydrOXYzine HCL 25 MG TABLET PO ×3 (03:00→15:24)
[2024-01-22] MEDS: QUEtiapine Fumarate 50 MG TABLET PO ×4 (03:00→15:25)
[2024-01-22] MEDS: Ibuprofen 600 MG TABLET PO ×3 (03:00→20:41)
[2024-01-22] MEDS: chlorproMAZINE HCl 100 MG TABLET PO ×4 (03:00→15:24)
[2024-01-22 08:00] VITALS: BP 112/59; PULSE 71; RESP 20; TEMP 36.7; O2SAT 96
[2024-01-22] MEDS: FLUoxetine HCl 20 MG CAPSULE PO (08:08)
[2024-01-22] MEDS: Acamprosate Calcium 333 MG TABLET.DR PO ×3 (08:08→20:40)
[2024-01-22] MEDS: cloNIDine HCL 0.1 MG TABLET PO ×3 (08:08→20:40)
[2024-01-22] MEDS: Gabapentin 400 MG CAPSULE 800 MG PO ×3 (08:09→20:40)
[2024-01-22] MEDS: Nicotine 21 MG PATCH.TD24 TRANSDERMA (08:13)
[2024-01-22] MEDS: Buprenorphine/Naloxone 8/2 mg FILM 1 FILM SUBLINGUAL ×3 (08:15→20:39)
[2024-01-22] MEDS: Betamethasone Dip Aug 0.05% Cr 15 GM TUBE 1 APPL TOPICAL (08:35)
[2024-01-22 14:26] VITALS: BP 115/59
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
[2024-01-22] MEDS: QUEtiapine Fumarate 300 MG TABLET 600 MG PO (20:40)
[2024-01-22 21:45] VITALS: BP 116/77; PULSE 93; RESP 16; TEMP 36.4; O2SAT 96
[2024-01-23] MEDS: chlorproMAZINE HCl 100 MG TABLET PO ×4 (06:32→23:04)
[2024-01-23] MEDS: QUEtiapine Fumarate 50 MG TABLET PO ×4 (06:33→23:03)
[2024-01-23] MEDS: hydrOXYzine HCL 25 MG TABLET PO ×3 (06:33→18:02)
[2024-01-23] MEDS: Nicotine Polacrilex Lozenge 4 MG LOZENGE BUCCAL ×5 (06:37→23:02)
[2024-01-23] MEDS: Ibuprofen 600 MG TABLET PO ×3 (06:37→18:03)
[2024-01-23 08:00] VITALS: BP 114/59; PULSE 84; RESP 16; TEMP 36.7; O2SAT 96
[2024-01-23] MEDS: Betamethasone Dip Aug 0.05% Cr 15 GM TUBE 1 APPL TOPICAL (08:29)
[2024-01-23] MEDS: Buprenorphine/Naloxone 8/2 mg FILM 1 FILM SUBLINGUAL ×3 (08:30→20:14)
[2024-01-23] MEDS: FLUoxetine HCl 20 MG CAPSULE PO (08:30)
[2024-01-23] MEDS: Gabapentin 400 MG CAPSULE 800 MG PO ×3 (08:30→20:12)
[2024-01-23] MEDS: Acamprosate Calcium 333 MG TABLET.DR PO ×3 (08:40→20:12)
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
[2024-01-23 10:04] VITALS: BP 114/59
[2024-01-23] MEDS: cloNIDine HCL 0.1 MG TABLET PO ×2 (14:28→20:13)
[2024-01-23] MEDS: Nicotine 21 MG PATCH.TD24 TRANSDERMA (15:03)
[2024-01-23] MEDS: Acetaminophen 325 MG TABLET 650 MG PO (15:08)
[2024-01-23 20:00] VITALS: BP 126/71; PULSE 90; TEMP 36.4
[2024-01-23] MEDS: QUEtiapine Fumarate 300 MG TABLET 600 MG PO (20:12)
[2024-01-23 20:13] VITALS: BP 126/71
[2024-01-23] MEDS: traZODone HCL 100 MG TABLET PO (20:13)
[2024-01-24] MEDS: hydrOXYzine HCL 25 MG TABLET PO ×3 (00:49→14:31)
[2024-01-24] MEDS: traZODone HCL 100 MG TABLET PO ×2 (00:49→20:29)
[2024-01-24] MEDS: Nicotine Polacrilex Lozenge 4 MG LOZENGE BUCCAL ×6 (00:49→20:28)
[2024-01-24] MEDS: chlorproMAZINE HCl 100 MG TABLET PO ×3 (04:37→17:02)
[2024-01-24] MEDS: Ibuprofen 600 MG TABLET PO ×3 (04:37→17:02)
[2024-01-24] MEDS: QUEtiapine Fumarate 50 MG TABLET PO ×3 (04:40→17:03)
[2024-01-24] MEDS: Acetaminophen 325 MG TABLET 650 MG PO ×3 (07:27→20:32)
[2024-01-24 08:00] VITALS: BP 117/70; PULSE 107; RESP 16; TEMP 36.3; O2SAT 96
[2024-01-24 08:34] VITALS: BP 117/70
[2024-01-24] MEDS: FLUoxetine HCl 20 MG CAPSULE PO (08:34)
[2024-01-24] MEDS: Multivitamin TABLET 1 TAB PO (08:34)
[2024-01-24] MEDS: Gabapentin 400 MG CAPSULE 800 MG PO ×3 (08:34→20:29)
[2024-01-24] MEDS: cloNIDine HCL 0.1 MG TABLET PO ×3 (08:34→20:28)
[2024-01-24] MEDS: Acamprosate Calcium 333 MG TABLET.DR PO ×3 (08:34→20:28)
[2024-01-24] MEDS: Buprenorphine/Naloxone 8/2 mg FILM 1 FILM SUBLINGUAL ×3 (08:35→20:29)
[2024-01-24] MEDS: Betamethasone Dip Aug 0.05% Cr 15 GM TUBE 1 APPL TOPICAL (08:47)
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
[2024-01-24] MEDS: Nicotine 21 MG PATCH.TD24 TRANSDERMA (10:52)
[2024-01-24 14:28] VITALS: BP 109/60; PULSE 97; RESP 16; TEMP 36.5; O2SAT 97
[2024-01-24 20:00] VITALS: BP 124/60; PULSE 66; RESP 18; TEMP 35.9; O2SAT 98
[2024-01-24] MEDS: QUEtiapine Fumarate 300 MG TABLET 600 MG PO (20:28)
[2024-01-25] MEDS: QUEtiapine Fumarate 50 MG TABLET PO ×5 (00:14→23:57)
[2024-01-25] MEDS: chlorproMAZINE HCl 100 MG TABLET PO ×5 (00:14→20:40)
[2024-01-25] MEDS: Nicotine Polacrilex Lozenge 4 MG LOZENGE BUCCAL ×10 (00:14→23:57)
[2024-01-25] MEDS: Ibuprofen 600 MG TABLET PO ×5 (00:15→23:57)
[2024-01-25] MEDS: Acetaminophen 325 MG TABLET 650 MG PO ×3 (03:54→16:33)
[2024-01-25] MEDS: hydrOXYzine HCL 25 MG TABLET PO ×4 (03:54→23:57)
[2024-01-25 08:00] VITALS: BP 124/59; PULSE 98; RESP 20; TEMP 36.5; O2SAT 97
[2024-01-25] MEDS: Nicotine 21 MG PATCH.TD24 TRANSDERMA (08:38)
[2024-01-25] MEDS: Acamprosate Calcium 333 MG TABLET.DR PO ×3 (08:39→20:38)
[2024-01-25] MEDS: cloNIDine HCL 0.1 MG TABLET PO ×3 (08:39→20:38)
[2024-01-25] MEDS: Pseudoephedrine HCL 30 MG TABLET PO ×2 (08:39→20:41)
[2024-01-25] MEDS: Gabapentin 400 MG CAPSULE 800 MG PO ×3 (08:40→20:39)
[2024-01-25] MEDS: FLUoxetine HCl 20 MG CAPSULE PO (08:40)
[2024-01-25] MEDS: Multivitamin TABLET 1 TAB PO (08:41)
[2024-01-25] MEDS: Buprenorphine/Naloxone 8/2 mg FILM 1 FILM SUBLINGUAL ×3 (08:41→20:38)
[2024-01-25] MEDS: Betamethasone Dip Aug 0.05% Cr 15 GM TUBE 1 APPL TOPICAL (10:12)
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
[2024-01-25 14:07] VITALS: BP 122/71
[2024-01-25 20:00] VITALS: BP 112/69; PULSE 81; RESP 18; TEMP 36.4; O2SAT 96
[2024-01-25] MEDS: QUEtiapine Fumarate 300 MG TABLET 600 MG PO (20:39)
[2024-01-25] MEDS: traZODone HCL 100 MG TABLET PO ×2 (20:39→23:57)
--- NOTE | 2024-01-26 | ECG_ITS ---
Test Reason : QTC CHECK Blood Pressure : / mmHG Vent. Rate : 066 BPM Atrial Rate : 066 BPM P-R Int : 174 ms QRS Dur : 098 ms QT Int : 386 ms P-R-T Axes : 044 022 033 degrees QTc Int : 404 ms Normal sinus rhythm Normal ECG When compared with ECG of 19-JAN-2024 14:28, No significant change was found Referred By: Evens Mcdowell Electronically Signed By:HENRRY DURAN
[2024-01-26] MEDS: Acetaminophen 325 MG TABLET 650 MG PO (04:46)
[2024-01-26] MEDS: chlorproMAZINE HCl 100 MG TABLET PO ×2 (04:46→08:41)
[2024-01-26] MEDS: Nicotine Polacrilex Lozenge 4 MG LOZENGE BUCCAL (04:47)
[2024-01-26] MEDS: Ibuprofen 600 MG TABLET PO (08:39)
[2024-01-26] MEDS: FLUoxetine HCl 20 MG CAPSULE PO (08:39)
[2024-01-26] MEDS: Acamprosate Calcium 333 MG TABLET.DR PO (08:39)
[2024-01-26] MEDS: Gabapentin 400 MG CAPSULE 800 MG PO (08:40)
[2024-01-26] MEDS: QUEtiapine Fumarate 50 MG TABLET PO (08:40)
[2024-01-26] MEDS: Multivitamin TABLET 1 TAB PO (08:41)
[2024-01-26] MEDS: hydrOXYzine HCL 25 MG TABLET PO (08:41)
[2024-01-26 08:42] VITALS: BP 127/79
[2024-01-26] MEDS: cloNIDine HCL 0.1 MG TABLET PO (08:42)
[2024-01-26] MEDS: Nicotine 21 MG PATCH.TD24 TRANSDERMA (08:44)
[2024-01-26] MEDS: Buprenorphine/Naloxone 8/2 mg FILM 1 FILM SUBLINGUAL (08:44)
[2024-01-26] MEDS: Betamethasone Dip Aug 0.05% Cr 15 GM TUBE 1 APPL TOPICAL (09:00)
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
== END 2024-01-26 10:44 | disposition home or self-care (01) | DRG 751 ==
PROVIDERS: Psychiatry & Neurology Psychiatry; Admitting Provider Clinical Nurse Specialist Psychiatric/Mental Health, Adult; Visit Provider Psychiatry & Neurology Psychiatry
DX: F33.3 Major depressive disorder, recurrent, severe with psychotic symptoms (principal); G40.909 Epilepsy, unspecified, not intractable, without status epilepticus; F11.20 Opioid dependence, uncomplicated; F17.210 Nicotine dependence, cigarettes, uncomplicated; L40.9 Psoriasis, unspecified; Z71.6 Tobacco abuse counseling; Z98.84 Bariatric surgery status; Z79.899 Other long term (current) drug therapy; F43.10 Post-traumatic stress disorder, unspecified
CPT/HCPCS: 36415; 80053; 80061; 82140; 83735; 85025; 93005

== ENCOUNTER 2024-01-16 19:31 | Outpatient (BNV) | payer OTHER, SELFPAY | END 2024-01-26 09:27 | PROVIDERS: Admitting Provider Clinical Nurse Specialist Psychiatric/Mental Health, Adult; Visit Provider Internal Medicine | DX: F31.30 Bipolar disorder, current episode depressed, mild or moderate severity, unspecified (principal) | CPT/HCPCS: 93010 ==

== ENCOUNTER 2024-01-16 19:31 | Outpatient (BNV) | payer OTHER, SELFPAY | END 2024-01-19 14:28 | PROVIDERS: Admitting Provider Clinical Nurse Specialist Psychiatric/Mental Health, Adult; Visit Provider Internal Medicine Cardiovascular Disease | DX: F31.30 Bipolar disorder, current episode depressed, mild or moderate severity, unspecified (principal); F11.21 Opioid dependence, in remission | CPT/HCPCS: 93010 ==

== ENCOUNTER → 2024-01-16 19:31 | Outpatient (BNV) | payer OTHER, SELFPAY | PROVIDERS: Admitting Provider Clinical Nurse Specialist Psychiatric/Mental Health, Adult; Visit Provider Student in an Organized Health Care Education/Training Program | DX: Z02.2 Encounter for examination for admission to residential institution (principal) | CPT/HCPCS: 99429 ==

== ENCOUNTER → 2024-01-16 | Outpatient (BNV) | payer OTHER, SELFPAY | PROVIDERS: Admitting Provider Clinical Nurse Specialist Psychiatric/Mental Health, Adult; Visit Provider Clinical Nurse Specialist Psychiatric/Mental Health, Adult | DX: F31.32 Bipolar disorder, current episode depressed, moderate (principal); F11.21 Opioid dependence, in remission | CPT/HCPCS: 90792; 99231; 99232; 99238; 99499 ==